=== PATIENT | female | born 1950 | race Caucasian/White ===

== ENCOUNTER 2024-06-29 13:41 | Outpatient (REF) | payer MEDICARE, SELFPAY ==
--- OUTSIDE RECORDS SUMMARY | 2024-06-29 17:58 | XMS_ITS | Clinical Summary ---
Author Organization [facility] Address [address] [place] [address] Care Team Providers Care Grinder Set Up Operator Surface Name Role Phone Brenda Bethea MD Primary Care Provider [phone] Allergies Active Allergy Reactions Criticality Noted Date [...] Comments Diabetes Brother Heart attack Father from [place] Diabetes Mother Lupus Mother Stroke Mother Vitiligo [...] age to complete this topic Care Teams Grinder Set Up Operator Surface Relationship Specialty Start Date End Date Brenda Bethea MD PCP - General Internal Medicine 01/21/18
--- OUTSIDE RECORDS SUMMARY | 2024-06-29 17:58 | XMS_ITS | Encounter Summary ---
Author Organization [facility] Address [address] [place] [address] Care Team Providers Care Key Holder Name Role Phone Brenda Bethea MD Primary Care Provider [phone] Reason for Visit * Reason Onset Date Comments Med Refill 06/09/2024 Encounter Details Date Type Department Care Team (Late st Contact Info) Description 06/09/2024 Telephone Adult Medicine [facility] [address] [place] [phone] Brenda Bethea MD [address] [place], [place] Med Refill Social History Tobacco Use [...] ghassan Pharmacist Name: olga lidia PharmacyPhone # [phone] Is this a NEW medication?: no How long has the patient been taking this medication? Who prescribed this medication for the patient? pilar Who is patients PCP?: Brenda Bethea MD Payor: MEDICARE / Plan: MEDICARE PART A & B / Product Type: Medicare / documented in this encounter Plan of Treatment Upcoming Encounters Date Type Department Care Team (Late st Contact Info) Description 07/06/2024 12:30 PM EST Ancillary Procedure [facility] [address] [address] 08/10/2024 4:30 PM EDT Office Visit [facility] [address] [place], [place] [phone] Char León PA [address] [place] [address] 10/06/2024 2:00 PM EDT Office Visit Adult Medicine [facility] [address] [place] [address] Tammy Dennison PA [address] [place], [place] 11/08/2024 12:00 PM EDT Ancillary Procedure [facility] [address] [address] 12/15/2024 3:00 PM EDT Office Visit Vascular Surgery [facility] 300 [facility] [address] [place] [address] Aby Hollis PA 300 [facility] [address] [place] [address] documented as of this encounter Visit Diagnoses Not on filedocumented in this encounter Additional Health Concerns Assessment Noted Time PHQ-9 Depression Total Score: 0 06/06/19 3:04 PM EST A fall risk assessment has been complete d for the patient 06/06/2024 3:04 PM EST documented as of this encounter Care Teams Key Holder Relationship Specialty Start Date End Date Brenda Bethea MD [address] [place] [address] PCP - General Internal Medicine 01/21/18 documented as of this encounter
--- OUTSIDE RECORDS SUMMARY | 2024-06-29 17:58 | XMS_ITS | Clinical Summary ---
Author Organization [address] Address [address] [place] [address] Phone Care Team Providers Care Manager Fashion Name Role Phone Brenda Bethea MD Primary Care Provider [phone] Allergies Active Allergy Reactions Criticality Noted Date [...] Care Team Description 06/09/2024 Telephone Adult Medicine [address] [phone] Brenda Bethea MD Allergic Reaction 06/09/2024 Telephone Adult [address] [phone] Brenda Bethea MD Med Refill 06/06/2024 2:45 PM EST Office Visit Adult [address] [phone] Brenda Bethea MD Encounter for annual wellness visit (AWV) in Medicare patient (Primary Dx); Type 2 diabetes mellitus with stage 3 chronic kidney disease, with long-term current use of insulin, unspecified whether stage 3a or 3b CKD ([facility]/HCC); Stage 3 chronic kidney disease, unspecified whether stage 3a or 3b CKD ([facility]); Hypercholesterolemia; Dysuria; Acute UTI; Primary hypertension 06/06/2024 Telephone Adult Medicine [address] [phone] Brenda Bethea MD Medication Problem 05/20/2024 3:30 PM EST Office Visit Adult [address] [phone] Tammy Dennison PA Primary hypertension (Primary Dx) 05/18/2024 Telephone Endocrinology - [address] [phone] Char León PA 05/15/2024 11:19 AM EST - 05/15/2024 2:41 PM EST Emergency [facility] Emergency [address] [place] [address] Franklyn Archer MD Musculoskeletal back pain (Primary Dx) Discharge Disposition: Home or Self Care 05/12/2024 3:45 PM EST Office Visit Endocrinology [address] [phone] Char León PA Type 2 diabetes mellitus with other diabetic kidney complication, with long-term current use of insulin (CMS/HCC) (Primary Dx); Stage 3 chronic kidney disease, unspecified whether stage 3a or 3b CKD (CMS/HCC); Hypercholesterolemia; Primary hypertension 05/12/2024 Nurse Triage Adult Medicine [facility] [address] [place] [address] Brenda Bethea MD Hypertension; Walk-in 05/11/2024 1:00 PM EST Ancillary Procedure [facility] - [address] [place] [address] Syncope, unspecified syncope type 05/09/2024 3:10 PM EST - 05/09/2024 11:59 PM EST Hospital Encounter [facility] CT Scan [address] [place] [phone] Splenic infarction Discharge Disposition: Home or Self Care 03/29/2024 3:30 PM EST Office Visit Vascular Surgery - [place] [address] [place] [address] Dalia Warren PA Splenic infarction (Primary Dx) [...] mellitus type 2 wit h neurological manifestations ([facility]) 04/01/2012 Cervical radiculopathy 07/09/2016 Osteopenia 07/09/2016 Type 2 diabetes mellitus wit h cataract ([facility]) 07/21/2018 Malignant neoplasm of breast (female), unspecified site 1989 rt breast Pneumonia due to COVID-19 virus 04/30/2021 CKD (chronic kidney disease) stage 3, GFR 30-59 ml/min ([facility]/HCC) 08/09/2020 Depression 04/20/2017 GERD (gastroesophageal reflux [...] Description 07/06/2024 12:30 PM EST Ancillary Procedure [facility] - [address] [place] [address] 08/10/2024 4:30 PM EDT Office Visit Endocrinology - [place] [address] [place] [address] Char León PA [address] [place] [address] 10/06/2024 2:00 PM EDT Office Visit Adult Medicine [facility] [address] [place] [address] Tammy Dennison PA [address] [place] [address] 11/08/2024 12:00 PM EDT Ancillary Procedure [facility] - [facility] [address] [place] [address] 12/15/2024 3:00 PM EDT Office Visit Vascular Surgery - [place] [address] [place] [phone] Aby Hollis PA 300 [facility] [address] [place] [address] Health Maintenance Due Date Last Done Comments [...] complication, with long-term current use of insulin ([facility]) CULTURE URINE Routine 06/06/2024 3:30 PM EST [...] Blood UA POC Trace Negative, Trace Specific [place] UA POC 1.010 1.001 - 1.035 Ketones UA POC Negative Negative Bilirubin UA POC Negative Negative Glucose UA POC Normal Normal, Trace Urine Urine specimen obtained by clean catch procedure / Unknown 06/06/2024 3:52 PM EST Brenda Bethea MD POINT OF CARE TEST ENTER/EDIT OR DERABLES Final Result * (ABNORMAL) Hemoglobin A1c (06/06/2024 3:50 PM EST) [facility] Hemoglobin A1C 7.7(H) <6.5 % LAB CHEMISTRY METHOD 06/06/2024 9:51 PM EST [facility] Mean Bld Glu Estim. 174 mg/dL LAB CHEMISTRY METHOD 06/06/2024 9:51 PM EST [facility] Blood Venous blood specimen / Unknown Venipuncture / Unknown 06/06/2024 3:50 PM EST 06/06/2024 3:50 PM EST Char THACKER LAB BLOOD ORDERABLES Final Result [facility] [address] [place] [address], [place] [phone] * (ABNORMAL) Culture urine (06/06/2024 3:30 PM EST) [facility] Culture, Urine 50,000-100,000 CFU/mL Enterococcus faecalis(A) EVONNE 06/08/2024 8:23 AM EST [facility] Comment: Edited result: Previously reported [...] MICROBIOLOGY - GENERAL ORDER AGA Final Result [facility] [address] [place] [address], * XR Lumbar Spine 2-3 Views (05/15/2024 [...] Signed Date: 05/15/2024 13:52 ET Workstation ID: [id number] Transcribed By: Self Edit Transcribed Date: 05/15/2024 [...] Signed Date: 05/15/2024 13:52 ET Workstation ID: [id number] Transcribed By: Self Edit Transcribed Date: 05/15/2024 13:51 ET Franklyn Archer MD IMG XR PROCEDURES Final R esult * ECG 12 lead (05/15/2024 10:48 AM EST) Ventricular Rate ECG 82 BPM GEMUSE Atrial Rate 82 BPM GEMUSE P-R Interval 158 ms GEMUSE QRS Duration 136 ms GEMUSE Q-T Interval 410 ms GEMUSE QTc 479 ms GEMUSE P Wave [place] 5 degrees GEMUSE R [place] -35 degrees GEMUSE T [place] 80 degrees GEMUSE ECG Interpretation Sinus rhythm [...] atrial fibrillation and no bradycardia or pauses [facility] DIAGNOSTIC TESTING DEPARTMENT [address] [place] [address], [address], [place] [address] TEL: FAX: Type of Test: 24 Hour Holter Monitor Date of Test: 05/11/2024 Ordering Provider: KIRSTIE Wells Reason for Test: Syncope PVCA Pilot Teacher Findings: ?? 1: Predominant rhythm was Normal [...] subclavian artery origin atherosclerotic stenosis. Elizabeth THACKER ([id number]) -------- FINAL REPORT -------- Dictated By: Ruth Steiner Dictated Date: 05/16/2024 09:00 ET Assigned Physician: Ruth Steiner Reviewed and Electronically Signed By: Ruth Steiner Signed Date: 05/16/2024 09:10 ET Workstation ID: [id number] Transcribed By: Self Edit Transcribed Date: 05/16/2024 [...] images were reviewed. DLP: 238.00 mGy/cm GE MVP Interactive [place] Iterative reconstruction technique Findings: The thoracic aorta [...] were reviewed. DLP: 238.00 mGy/cm GE Revolution [place] Iterative reconstruction technique Findings: The thoracic aorta [...] 3. Bilateral subclavian artery origin atherosclerotic stenosis. [email or web address] THACKER ([id number]) -------- FINAL REPORT -------- Dictated By: Ruth Steiner Dictated Date: 05/16/2024 09:00 ET Assigned Physician: Ruth Steiner Reviewed and Electronically Signed By: Ruth Steiner Signed Date: 05/16/2024 09:10 ET Workstation ID: [id number] Transcribed By: Self Edit Transcribed Date: 05/16/2024 09:00 ET Dalia THACKER IMG CT PROCEDURES Final Result * Lipid panel with reflex to direct LDL (03/14/2024 5:44 AM EST) Cholesterol 147 0 - 200 mg/dL LAB CHEMISTRY METHOD 03/14/2024 7:18 AM EST [facility] Triglycerides 113 0 - 150 mg/dL LAB CHEMISTRY METHOD 03/14/2024 7:18 AM EST [facility] HDL 47 >=40 mg/dL LAB CHEMISTRY METHOD 03/14/2024 7:18 AM [facility] LDL Calculated 77 0 - 100 mg/dL LAB CHEMISTRY METHOD 03/14/2024 7:18 AM [facility] VLDL Cholesterol [place] 22.6 mg/dL LAB CHEMISTRY METHOD 03/14/2024 7:18 AM [facility] Non HDL Chol. (LDL+VLDL) 100 <145 mg/dL LAB CHEMISTRY METHOD 03/14/2024 7:18 AM [facility] Chol/HDL Ratio 3.1 0.0 - 4.4 LAB CHEMISTRY METHOD 03/14/2024 7:18 AM [facility] Blood Venous blood specimen / Unknown Venipuncture / Unknown 03/14/2024 5:44 AM EST 03/14/2024 6:29 AM EST us Dwain Munoz MD LAB BLOOD ORDERABLES Final Result [facility] [address] [place] [address], * (ABNORMAL) Comprehensive metabolic panel (03/14/2024 5:44 AM EST) Sodium 141 133 - 145 mmol/L LAB CHEMISTRY METHOD 03/14/2024 7:16 AM [facility] Potassium 4.0 3.5 - 5.5 mmol/L LAB CHEMISTRY METHOD 03/14/2024 7:16 AM [facility] Chloride 108 96 - 110 mmol/L LAB CHEMISTRY METHOD 03/14/2024 7:16 AM [facility] CO2 24 21 - 32 mmol/L LAB CHEMISTRY METHOD 03/14/2024 7:16 AM [facility] Anion Gap 9 3 - 11 LAB CHEMISTRY METHOD 03/14/2024 7:16 AM [facility] Glucose 170(H) 70 - 100 mg/dL LAB CHEMISTRY METHOD 03/14/2024 7:16 AM [facility] BUN 22 5 - 25 mg/dL LAB CHEMISTRY METHOD 03/14/2024 7:16 AM [facility] Creatinine 1.34(H) 0.50 - 1.10 mg/dL LAB CHEMISTRY METHOD 03/14/2024 7:16 AM [facility] eGFR 42(L) >=60 mL/min/1. 73m2 LAB CHEMISTRY METHOD 03/14/2024 7:16 AM [facility] Comment:Calculation based on the??Chronic Kidney Disease Epidemiology Collaboration (CKD-EPI) equation refit??without adjustment for race. BUN/Creatinine Ratio 16.4 LAB CHEMISTRY METHOD 03/14/2024 7:16 AM [facility] Calcium 9.4 8.5 - 10.5 mg/dL LAB CHEMISTRY METHOD 03/14/2024 7:16 AM [facility] AST (SGOT) 17 10 - 42 unit/L LAB CHEMISTRY METHOD 03/14/2024 7:16 AM [facility] ALT (SGPT) 14 10 - 60 unit/L LAB CHEMISTRY METHOD 03/14/2024 7:16 AM [facility] Alkaline Phosphatase 70 42 - 121 unit/L LAB CHEMISTRY METHOD 03/14/2024 7:16 AM [facility] Total Protein 6.3 6.0 - 8.0 g/dL LAB CHEMISTRY METHOD 03/14/2024 7:16 AM [facility] Albumin 3.2 3.2 - 5.0 g/dL LAB CHEMISTRY METHOD 03/14/2024 7:16 AM [facility] Total Bilirubin 0.5 0.0 - 1.4 mg/dL LAB CHEMISTRY METHOD 03/14/2024 7:16 AM [facility] Blood Venous blood specimen / Unknown Venipuncture / Unknown 03/14/2024 5:44 AM EST 03/14/2024 6:29 AM EST us Yovana THACKER LAB BLOOD ORDERABLES Final Resu lt [facility] [address] [place] [address], [place] [phone] * MG Mammo Digital Screening w [place] Left (03/08/2024 3:05 PM EST) Anatomical Region Laterality Modality Breast Left Mammography 03/17/2024 7:24 AM EST Impressions 03/17/2024 7:39 AM EST No mammographic evidence of malignancy. BREAST DENSITY: B - There are scattered areas of fibroglandular density. BI-RADS CATEGORY: 2 - BENIGN RECOMMENDATION: Screening left mammogram is recommended in 1 year. MAMMO LOCATION: [place], [address] [place] [address], [id number], . -------- FINAL REPORT -------- Dictated By: Cathie Rock Dictated Date: 03/17/2024 07:24 ET Assigned Physician: Cathie Rock Reviewed and Electronically Signed By: Cathie Rock Signed Date: 03/17/2024 07:39 ET Workstation ID: [id number] Transcribed By: Self Edit Transcribed Date: 03/17/2024 [...] is recommended in 1 year. MAMMO LOCATION: [facility], [address] [place] [address], [address], . -------- FINAL REPORT -------- Dictated By: Cathie Rock Dictated Date: 03/17/2024 07:24 ET Assigned Physician: Cathie Rock Reviewed and Electronically Signed By: Cathie Rock Signed Date: 03/17/2024 07:39 ET Workstation ID: [id number] Transcribed By: Self Edit Transcribed Date: 03/17/2024 07:24 ET Brenda Bethea MD IMG BI PROCEDURES Final Result * Urine Albumin Creatinine Ratio (02/09/2024) [facility] Urine Albumin Creatinine Ratio abstracted Result [facility] Provider HEALTH MAINTENANCE Final Result * Diabetes Eye Exam (08/04/2023) [facility] Diabetes: Annual Retina Eye Exam abstracted Result [facility] Provider HEALTH MAINTENANCE Final Result * Falls Risk Assessment (07/07/2023) [facility] Falls Risk Assessment abstracted Result [facility] Provider HEALTH MAINTENANCE Final Result * Depression Screening (03/04/2023) [facility] Depression Screening abstracted Historical Provider MD HEALTH MAINTENANCE Final Result * Colonoscopy (01/28/2019) [facility] Colonoscopy no interpretation , abstracted Anatomical [...] (World Health Organization Fracture Risk Assessment) [facility] Department of Internal Medicine recommends using [...] (World Health Organization Fracture Risk Assessment) [facility] Department of Internal Medicine recommendsusing National [...] Relevant to Health Maintenance Insurance MEDICARE [employer]ICAL [place] Advance Directives Documents on File Type Date Recorded Patient Horologist Expl anation Health Care Decision (hx) 01/11/2014 [...] currently active code status orders. Care Teams Manager Fashion Relationship Specialty Start Date End Date Brenda Bethea MD [address] [place] [address] PCP - General Internal Medicine 01/21/18
--- OUTSIDE RECORDS SUMMARY | 2024-06-29 17:58 | XMS_ITS | Encounter Summary ---
Author Organization [facility] Address [address] [place] [address] Care Team Providers Care Atm Technician Name Role Phone Brenda Bethea MD Primary Care Provider [phone] Reason for Visit * Reason Onset Date Comments Medication Problem 06/06/2024 Encounter Details Date Type Department Care Team (Late st Contact Info) Description 06/06/2024 Telephone Adult Medicine [facility] [address] [place] [phone] Brenda Bethea MD [address] [place], [place] Medication Problem Social History Tobacco Use [...] Description 07/06/2024 12:30 PM EST Ancillary Procedure [facility] - [address] [place] [address] 08/10/2024 4:30 PM EDT Office Visit Endocrinology - [place] [address] [place] [address] Char León PA [address] [place] [address] 10/06/2024 2:00 PM EDT Office Visit Adult Medicine [facility] [address] [place] [address] Tammy Dennison PA [address] [place] [address] 11/08/2024 12:00 PM EDT Ancillary Procedure [facility] - [facility] [address] [facility] [address] [place] [address] 12/15/2024 3:00 PM EDT Office Visit Vascular Surgery - [place] [address] [place] [phone] Aby Hollis PA [address] [facility] [address] [place] [address] documented as of this encounter Visit Diagnoses Not on filedocumented in this encounter Additional Health Concerns Assessment Noted Time PHQ-9 Depression Total Score: 0 06/06/19 3:04 PM EST A fall risk assessment has been complete d for the patient 06/06/2024 3:04 PM EST documented as of this encounter Care Teams Atm Technician Relationship Specialty Start Date End Date Brenda Bethea MD [address] [place] [address] PCP - General Internal Medicine 01/21/18 documented as of this encounter
--- OUTSIDE RECORDS SUMMARY | 2024-06-29 17:58 | XMS_ITS | Encounter Summary ---
Author Organization [facility] Address [address] [place] [address] Care Team Providers Care Bobj Developer Name Role Phone Brenda Bethea MD Primary Care Provider [phone] Reason for Visit * Reason Onset Date Comments Allergic Reaction 06/09/2024 Encounter Details Date Type Department Care Team (Late st Contact Info) Description 06/09/2024 Telephone Adult Medicine [facility] [address] [place] [address] Brenda Bethea MD [address] [place], [place] Allergic Reaction Social History Tobacco Use [...] option would be IV antibiotics. Rosi will mortgage counselor the pt regarding taking this medication [...] She has an upcoming appointment with her reed fixer on 06/20/24. * Brenda Bethea MD - 06/10/2024 9:26 AM EST She needs to talk to her reed fixer regarding the lupus; she is allergic to [...] Description 07/06/2024 12:30 PM EST Ancillary Procedure [place] [address] [address] 08/10/2024 4:30 PM EDT Office Visit [address] [phone] Char León PA [address] [place] [address] 10/06/2024 2:00 PM EDT Office Visit Adult Medicine [address] [phone] Tammy Dennison PA [address] [place], [place] 11/08/2024 12:00 PM EDT Ancillary Procedure [place] [address] [address] 12/15/2024 3:00 PM EDT Office Visit Vascular Surgery [address] [phone] Aby Hollis PA [address] [address] documented as of this encounter Visit Diagnoses Not on filedocumented in this encounter Additional Health Concerns Assessment Noted Time PHQ-9 Depression Total Score: 0 06/06/19 25 3:04 PM EST A fall risk assessment has been complete d for the patient 06/06/2024 3:04 PM EST documented as of this encounter Care Teams Bobj Developer Relationship Specialty Start Date End Date Brenda Bethea MD [address] [place] [address] PCP - General Internal Medicine 01/21/18 documented as of this encounter
--- OUTSIDE RECORDS SUMMARY | 2024-06-29 17:58 | XMS_ITS | Encounter Summary ---
Author Organization [facility] Address [address] [place] [address] Care Team Providers Care Prosthetist Name Role Phone Brenda Bethea MD Primary Care Provider [phone] Reason for Visit * Reason Comments AWV Hypertension Diabetes Fsbs 251 UTI Encounter Details Date Type Department Care Team (Late st Contact Info) Description 06/06/2024 2:45 PM EST Office Visit Adult Medicine [facility] [address] [place] [phone] Brenda Bethea MD [address] [place], [place] Encounter for annual wellness visit (AWV) [...] (diabetes mellitus), type 2 with renal complications ([facility]/HCC) * Brenda Bethea MD - 06/06/2024 2:45 PM ESTAssociated Problem(s): CKD (chronic kidney disease) stage 3, GFR 30-59 ml/min ([facility]) * Brenda Bethea MD - 06/06/2024 2:45 [...] kidney disease) stage 3, GFR 30-59 ml/min ([facility]/HCC) 08/09/2020 Depression 04/20/2017 Diabetes mellitus type 2 with neurological manifestations ([facility]/HCC) 04/01/2012 DM (diabetes mellitus), type 2, uncontrolled, [...] 04/01/2012 Type 2 diabetes mellitus with cataract ([facility]/HCC) 07/21/2018 Past Surgical History: Procedure Laterality Date [...] Medicine) MD Char Munguia PA as Physician Toaster Operator (Endocrinology) Aby Hollis PA as Physician Toaster Operator (Vascular Surgery) Johnnie Braswell MD as Referring [...] Aged Out Brenda Bethea MD ADULT MEDICINE [address] [address] Dept: [phone] Dept * Brenda Bethea MD - 06/06/2024 [...] Diabetes mellitus type 2 with neurological manifestations ([facility]) Cervical radiculopathy Acute pancreatitis Type 2 diabetes mellitus with cataract ([facility]/HCC) Proteinuria Pneumonia due to COVID-19 virus Sensory peripheral neuropathy Breast cancer ([facility]/HCC) LBBB (left bundle branch block) 03/14/2024 Primary hypertension 03/14/2024 Hypercholesterolemia 03/14/2024 Polyp of colon 12/14/2023 GERD (gastroesophageal reflux disease) 05/27/2021 CKD (chronic kidney disease) stage 3, GFR 30-59 ml/min ([facility]) 08/09/2020 Depression 04/20/2017 Migraine variant 04/17/2005 Surgical [...] unspecified whether stage 3a or 3b CKD ([facility]) 3. Stage 3 chronic kidney disease, unspecified [...] Description 07/06/2024 12:30 PM EST Ancillary Procedure [place] [id number] [address] 08/10/2024 4:30 PM EDT Office Visit Endocrinology [address] [phone] Char León PA [address] [place] [address] 10/06/2024 2:00 PM EDT Office Visit Adult Medicine [address] [phone] Tammy Dennison PA [address] [place] [address] 11/08/2024 12:00 PM EDT Ancillary Procedure [address] [address] 12/15/2024 3:00 PM EDT Office Visit Vascular Surgery [address] [phone] Aby Hollis PA [address] [address] documented as of this encounter Procedures Procedure [...] Blood UA POC Trace Negative, Trace Specific [place] UA POC 1.010 1.001 - 1.035 Ketones [...] Enterococcus faecalis(A) EVONNE 06/08/2024 8:23 AM EST [facility] Comment: Edited result: Previously reported as [...] MICROBIOLOGY - GENERAL ORDER AGA Final Result [facility] [address] [place] [address], documented in this encounter Visit Diagnoses Diagnosis Encounter for annual wellness visit (AWV) in Medicare patient- Primary Type 2 diabetes mellitus with stage 3 chronic kidney disease, with long-term current use of insulin, unspecified whether stage 3a or 3b CKD ([facility]) Stage 3 chronic kidney disease, unspecified whether stage 3a or 3b CKD ([facility]) Hypercholesterolemia Pure hypercholesterolemia Dysuria Acute UTI Urinary [...] documented as of this encounter Care Teams Prosthetist Relationship Specialty Start Date End Date Brenda Bethea MD [address] [place] [address] PCP - General Internal Medicine 01/21/18 documented as of this encounter
[2024-06-29 18:37] LABS: MANUAL DIFF FLAG NO
[2024-06-29 18:47] LABS: Basophils Absolute Auto 0.1 X10*3/uL (0.0-0.2); Basophils Percent Auto 0.6 % (0-2); Eosinophils Absolute Auto 0.4 X10*3/uL (0.0-0.4); Eosinophils Percent Auto 4.3 % (0-4); Hematocrit 35.2 % (37.0-47.0); Hemoglobin 11.2 g/dl (12.0-16.0); Imm Gran Abs Auto 0.04 X10*3/uL (0.00-0.03); Imm Gran Pct Auto 0.4 % (0.0-0.4); Lymphocytes Absolute Auto 2.4 X10*3/uL (1.2-4.9); Lymphocytes Percent Auto 23.6 % (20-40); Mean Corpuscular HGB Conc 31.8 g/dl (31.0-35.0); Mean Corpuscular Hemoglobin 29.6 pg (27.0-33.0); Mean Corpuscular Volume 93.1 fL (80.0-98.0); Mean Platelet Volume 12.2 fL (9.4-12.3); Monocytes Absolute Auto 0.7 X10*3/uL (0.1-1.2); Monocytes Percent Auto 6.7 % (2-11); Neutrophils Absolute Auto 6.7 x10*3/uL (2.0-8.3); Neutrophils Percent Auto 64.4 % (45-73); Platelet Count 313 X10*3/uL (160-400); Red Blood Count 3.78 X10*6/uL (4.20-5.50); Red Cell Distribution Width 13.2 % (11.0-16.0); White Blood Count 10.3 X10*3/uL (4.8-10.8)
[2024-06-29 18:51] LABS: Appearance Urine Clear; Color Urine Yellow; Glucose Urine UA Negative (Negative); Leukocyte Esterase Urine Small (1+) (Negative); Nitrite Urine Negative (Negative); UMIC TRIGGER UA YES; Urine Blood Negative (Negative); Urine Ketones Negative (Negative); Urine Protein Trace mg/dL (Neg-Trace)
[2024-06-29 18:57] LABS: Bacteria Urine Trace (None Seen); RBC Urine 0-2 /HPF (0-2); Squamous Epithelial Cell Urine >20 /HPF (0-2)
[2024-06-29 18:58] LABS: Alanine Aminotransferase 12 U/L (0-31); Aspartate Amino Transferase 21 U/L (5-31); Estimated Glomerular Filt Rate 38
[2024-06-29 19:02] LABS: Creatinine Urine 161.36 mg/dL; Total Protein Urine Random 16 mg/dL (<12)
[2024-06-30 08:40] LABS: HBc Num1 0.05 S/CO (0.00-0.79); HBsAGNum1 0.41 S/CO (0.00-0.99); Hepatitis B Core Antibody Nonreactive (Nonreactive); Hepatitis B Surface Antigen Negative (Negative); ~HepC Num1 0.11 S/CO (0.00-0.79); ~Hepatitis B Surface Antibody NONREACTIVE (Nonreactive); ~Hepatitis C Antibody Nonreactive (Nonreactive)
[2024-06-30 08:42] LABS: Complement C3 150 mg/dL (83-193)
[2024-07-01 09:03] LABS: Anti DNA DS Antibody <1 IU/mL; Antibody to SS-A Antigen <1.0 NEG AI (<1.0 NEG); Antibody to SS-B Antigen <1.0 NEG AI (<1.0 NEG); SM/Ribonucleoprotein Ab <1.0 NEG AI (<1.0 NEG); Smith Protein <1.0 NEG AI (<1.0 NEG)
[2024-07-02 01:34] LABS: TS Negative Control Passed; TS Panel A 1; TS Panel B 3; TS Positive Control Passed; TSpotTB Negative (Negative)
[2024-07-06 14:13] LABS: Anti Nuclear Antibody Screen POSITIVE (NEGATIVE)
== END 2024-06-29 13:42 | disposition home or self-care (01) ==
LOC: HO.HKASLDS 13:41
PROVIDERS: PCP Internal Medicine; Visit Provider Internal Medicine Rheumatology
DX: M32.9 Systemic lupus erythematosus, unspecified (principal); Z79.60 Long term (current) use of unspecified immunomodulators and immunosuppressants; Z79.899 Other long term (current) drug therapy
CPT/HCPCS: 36415; 81001; 82565; 82570; 84156; 84450; 84460; 85025; 86038; 86039; 86160; 86225; 86235; 86481; 86704; 86706; 86803; 87340

== ENCOUNTER 2024-06-29 13:41 | Outpatient (AMB) | payer MEDICARE, SELFPAY ==
--- NOTE | 2024-06-29 13:46 | A.OFFVIS_ITS ---
Vital Signs 06/29/24 13:47 Height 5 ft 7 in Weight 144 lb 13.499 oz BMI 22.7 BP 124/64 Blood Pressure Location Lt brachial Position Sitting Pulse 60 Pulse Source Pulse Oximeter Pulse Oximetry (%) 100 Oxygen Delivery Method Room Air Intake Visit Reasons: Lupus Intake Note: Patient presents for Lupus follow up. Accompanied by: Spouse Allergies amoxicillin Allergy (Verified 06/29/24 13:47) Nausea morphine [From Duramorph (PF)] Allergy (Verified 06/29/24 13:47) nausea codiene sulfate Allergy (Uncoded 06/15/24 14:51) nausea HPI HPI Lupus: Details: She continues to have joint swelling. SHe had to use prednisone left over from the past due to joint swelling. She sees Dr. Mac [place] operations intelligence officer [facility] few weeks She had a UTI few weeks ago. She has been experiencing pain left upper back since last year. She went to the emergency department for evaluation and treatment. She received lidocaine injections to the area, which provided temporary pain relief. She also had trigger point injection from payroll machine operator at the [facility] last year after a left the practice. She reports that she also had temporary benefit in relieving neck pain with a trigger point injection. She denies fevers, rash, dyspnea, pleurisy, oral ulcers, urinary symptoms at this time. She does have dry eyes and dry mouth. [facility] Medical History Colitis TIA (transient ischemic attack) Breast cancer Surgical History Hx of cholecystectomy Hx of left mastectomy Family History Father Heart disease Mother Lupus (systemic lupus erythematosus) Stroke Family/Other Psoriasis Other Gout Social History Household Members: Significant Other Alcohol intake: never Patient Tobacco Use Status: Never used Tobacco Current occupational status: retired Review of Systems Const All systems reviewed & are unremarkable except as noted in HPI and below Physical Exam Vital Signs: Last Vital Signs Pulse 60 06/29/24 13:47 BP 124/64 06/29/24 13:47 Pulse Ox 100 06/29/24 13:47 Oxygen Delivery Method Room Air 06/29/24 13:47 BMI result Body Mass Index 22.7 Const Other: General: Comfortable CVS: RRR Respiratory: clear to auscultation bilaterally. Good respiratory effort Skin: No lesions seen MSK: She has synovitis right 2nd and 4th PIP. Tender to palpate bilateral MCPs and PIP knees. Tender wrists. Unable to make a full flight operations coordinator. Tender to palpate left anterior shoulder. She also has tenderness along the scapula. Shoulder abduction 160 degrees bilateral with pain. She has good internal and external rotation of bilateral shoulders. Bilateral knee, ankle and MTP tenderness. Assessment & Plan Assessment & Plan (1) SLE (systemic lupus erythematosus related syndrome): Comment: Presenting with chronic inflammatory arthritis that has not been controlled on monotherapy with hydroxychloroquine. She has response to prednisone but has required multiple courses of prednisone over the last 2-3 years to control inflammatory arthritis. She has failed treatment with Benlysta and has had either treatment failure or side effects on methotrexate and leflunomide. I will request medical records from [facility] in order labs to assess for systemic disease activity. Code(s): M32.9 - Systemic lupus erythematosus, unspecified Category: Medical Plan: Short course of prednisone prescribed to treat current symptoms from inflammatory arthritis Consider prescribing sulfasalazine next visit Records from [facility] requested She will need bone density if it has not been done recently due to long-term glucorticosteroid use Return to clinic in 1 month (2) Other correction (current) drug therapy: Code(s): Z79.899 - Other correction (current) drug therapy Category: Medical Plan: See above (3) Muscle strain of left scapular region: Comment: Discussed conservative management. Code(s): S46.912A - Strain of unspecified muscle, fascia and tendon at shoulder and upper arm level, left arm, initial encounter Category: Medical Qualifiers: Encounter type: initial encounter Qualified Code(s): S46.912A - Strain of unspecified muscle, fascia and tendon at shoulder and upper arm level, left arm, initial encounter Plan: PT ordered with myofascial release, modalities, TENs unit trial and exercise program Orders: Orders Complete Blood Count Auto Diff Today Z79.60 - retirement (current) use of unspecified immunomodulators and immunosuppressants Aspartate Amino Transferase Today Z79.60 - retirement (current) use of unspecified immunomodulators and immunosuppressants RIGO Reflex Titer and Pattern Today M32.9 - Systemic lupus erythematosus, unspecified, Z79.899 - Other intermediate teacher (current) drug therapy Anti DNA DS Antibody Today M32.9 - Systemic lupus erythematosus, unspecified, Z79.899 - Other correction (current) drug therapy Complement C4 Today M32.9 - Systemic lupus erythematosus, unspecified, Z79.899 - Other intermediate teacher (current) drug therapy UA w Microscopic Today M32.9 - Systemic lupus erythematosus, unspecified, Z79.899 - Other correction (current) drug therapy Hepatitis B,C Profile Today M32.9 - Systemic lupus erythematosus, unspecified, Z79.899 - Other correction (current) drug therapy Sjogren's Antibodies Today M32.9 - Systemic lupus erythematosus, unspecified, Z79.899 - Other intermediate teacher (current) drug therapy Alanine Aminotransferase Today Z79.60 - retirement (current) use of unspecified immunomodulators and immunosuppressants Creatinine Today Z79.60 - retirement (current) use of unspecified immunomodulators and immunosuppressants Sm Sm/PRODUCT COMMUNICATIONS MANAGER Antibodies Today M32.9 - Systemic lupus erythematosus, unspecified, Z79.899 - Other correction (current) drug therapy Complement C3 Today M32.9 - Systemic lupus erythematosus, unspecified, Z79.899 - Other correction (current) drug therapy Protein Creatinine Ratio, Ur Today M32.9 - Systemic lupus erythematosus, unspecified, Z79.899 - Other correction (current) drug therapy T Spot TB Today M32.9 - Systemic lupus erythematosus, unspecified, Z79.899 - Other correction (current) drug therapy PT Evaluation and Treatment Today S46.912A - Strain of unspecified muscle, fascia and tendon at shoulder and upper arm level, left arm, initial encounter Medications: New omeprazole 20 mg PO DAILY 1 cap 0RF prednisone Take 3 tablets daily 3 days, 2 tablets daily 3 days, 1 tablet daily 3 days then stop. Take prednisone with food 5 mg PO DIRECTED 18 tabs 0RF insulin glargine (Lantus U-100 Insulin) 10 units (0.1 mL) subcut DAILY 10 mL 0RF lorazepam 0.5 mg PO DAILY PRN 1 tab 0RF anxiety meclizine (Dramamine (meclizine)) 25 mg PO DAILY PRN 1 tab 0RF motion sickness polyethylene glycol 3350 17 grams PO DAILY 17 grams 0RF Coding Level of Care Code Est Pt Level 4 (13482) Complex EM visit Add On G2211 Diagnoses SLE (systemic lupus erythematosus related syndrome) M32.9 Other intermediate teacher (current) drug therapy Z79.899 Muscle strain of left scapular region, initial encounter S46.912A Encounter type: initial encounter Time Spent (min) 35
[2024-06-29 13:47] VITALS: BP 124/64; PULSE 60; O2SAT 100; BMI 22.7
--- OUTSIDE RECORDS SUMMARY | 2024-06-29 16:49 | XMS_ITS | Clinical Summary ---
Author Organization [facility] Address [address] [place] [address] Care Team Providers Care Landscape Maintenance Internship Name Role Phone Brenda Bethea MD Primary Care Provider [phone] Allergies Active Allergy Reactions Criticality Noted Date Comments Amoxicillin 02/11/2018 Codeine 02/11/2018 Morphine 02/11/2018 Medications Medication Sig Dispensed Refills Start Date End Date Status Hydroxychloroquine Sulfate (PLAQUENIL PO) Take 200 mg by mouth 2 (two) times a day. 0 Active DICYCLOMINE HCL PO Take 10 mg by mouth daily. 0 Active LISINOPRIL PO Take 40 mg by mouth daily. 0 Active SIMVASTATIN PO Take 10 mg by mouth daily. 0 Active aspirin 81 MG chewable tablet Chew 81 mg by mouth daily. 0 Active GABAPENTIN PO Take by mouth. 0 Active SERTRALINE HCL PO Take 100 mg by mouth daily. 0 Active CALCIUM PO Take by mouth. 0 Active brimonidine (ALPHAGAN) 0.2 % ophthalmic solution 1 drop every 12 (twelve) hours. 0 Active Dorzolamide HCl-Timolol Mal (COSOPT OP) Apply to eye. 0 Active MECLIZINE HCL PO Take 25 mg by mouth daily as needed. 0 Active OMEPRAZOLE PO Take 20 mg by mouth daily. 0 Active LORazepam (ATIVAN) 0.5 MG tablet Take 0.5 mg by mouth daily. 0 Active insulin glargine (LANTUS SOLOSTAR) injection 100 units/mL Inject 34 Units under the skin every night at bedtime. 0 Active insulin lispro (HumaLOG) injection 100 units/mL Inject under the skin 3 (three) times a day before meals. 6-15 before bed 0 Active cholecalciferol (VITAMIN D3) 1000 units tablet Take 1,000 Units by mouth daily. 0 Active Calcium Carbonate-Vitamin D (CALCIUM 600+D PO) Take by mouth 2 (two) times a day. 0 Active amLODIPine (NORVASC) tablet 10 mg TK 1 T PO D 1 02/11/2018 Active Active Problems No known active problems Family History Medical History Relation Name Comments Diabetes Brother Heart attack Father from [place] Diabetes Mother Lupus Mother Stroke Mother Vitiligo Sister 1 Diabetes Sister 2 Fibromyalgia Sister 3 Diabetes Son 1 Lupus Son 1 No Sig Med Hx Son 2 No Sig Med Hx Son 3 Relation Name Status Comments Brother Alive Father Mother Sister 1 Alive Sister 2 Alive Sister 3 Alive Son 1 Alive Son 2 Alive Son 3 Alive Social History Tobacco Use Types Packs/Day Years Used Date Smoking Tobacco: Never Smokeless Tobacco: Never Alcohol Use Standard Drinks/Week Comments No 0 (1 standard drink = 0.6 oz pur e alcohol) Sex and Gender Information Value Date Recorded Sex Assigned at Not on file Gender Identity Not on file Sexual Orientation Not on file Job Start Date Occupation Industry Not on file Not on file Not on file Last Filed Vital Signs Vital Sign Reading Time Taken Comments Blood Pressure 117/53 06/24/2018 3:03 PM EST Pulse 62 06/24/2018 3:03 PM EST Temperature 36.2 ??C (97.2 ??F) 06/10/2018 3:03 PM ES T Respiratory Rate - - Oxygen Saturation - - Inhaled Oxygen Concentration - - Weight 68.5 kg (151 lb) 06/24/2018 3:03 PM EST Height 165.1 cm (5' 5 ) 06/24/2018 3:03 PM EST Body Mass Index 25.13 06/24/2018 3:03 PM EST Plan of Treatment Health Maintenance Due Date Last Done Comments Hepatitis C Screening 1950 COVID-19 Vaccine (#1) 01/18/1950 Depression Screening 1961 Preventative Health Evaluation 07/19/1967 DTap / Tdap / Td (1 - Tdap) 1968 Colon Cancer Screening (Colonoscopy) 1994 Breast Cancer Screening (Mammogram) 07/19/1999 Shingrix-Zoster Vaccine (1 of 2) 07/19/1999 Fall Risk Assessment 2014 Osteoporosis Screening (DEXA Scan) 2014 Pneumococcal Vaccine (1 of 1 - PCV) 2014 Influenza Vaccine (#1) 2024 RSV Adult > 60+ Yrs or Pregn ant (1 - 1-dose 75+ series) 2024 Hepatitis B Vaccines Aged Out No long er eligible based on patient's age to complete this topic RSV Ped < 20 months Aged Out No longe r eligible based on patient's age to complete this topic Care Teams Landscape Maintenance Internship Relationship Specialty Start Date End Date Brenda Bethea MD PCP - General Internal Medicine 01/21/18
--- OUTSIDE RECORDS SUMMARY | 2024-06-29 16:50 | XMS_ITS | Encounter Summary ---
Author Organization [facility] Address [address] [place] [address] Care Team Providers Care Meteorology Instructor Name Role Phone Brenda Bethea MD Primary Care Provider [phone] Reason for Visit * Reason Onset Date Comments Allergic Reaction 06/09/2024 Encounter Details Date Type Department Care Team (Late st Contact Info) Description 06/09/2024 Telephone Adult Medicine [facility] [address] [place] [address] Brenda Bethea MD [address] [place], [place] Allergic Reaction Social History Tobacco Use Types Packs/Day Years Used Date Smoking Tobacco: Never Smokeless Tobacco: Never Alcohol Use Standard Drinks/Week Comments No 0 (1 standard drink = 0.6 oz pur e alcohol) Comments Unknown Sex and Gender Information Value Date Recorded Sex Assigned at Female 03/04/2024 2:42 PM EDT Legal Sex Female 3:42 AM EST Gender Identity Female 03/04/2024 2:42 PM EDT Sexual Orientation Straight 03/04/2024 2: 42 PM EDT documented as of this encounter Functional Status * Are you deaf or do you have serious difficulty hearing? Answer Date of Assessment Author No 03/13/2024 8:48 PM Kristen Arnold RN * Are you blind or do you have serious difficulty seeing, even when wearing glasses? Answer Date of Assessment Author No 03/13/2024 8:48 PM Kristen Arnold RN * Do you have serious difficulty walking or climbing stairs? Answer Date of Assessment Author No 03/13/2024 8:48 PM Kristen Arnold RN * Do you have serious difficulty dressing or bathing? Answer Date of Assessment Author No 03/13/2024 8:48 PM Kristen Arnold RN * Because of a physical, mental, or emotional condition, do you have serious difficulty doing errandsalone such as visiting the doctor? Answer Date of Assessment Author No 03/13/2024 8:48 PM Kristen Arnold RN documented as of this encounter Mental Status * Because of a physical, mental, or emotional condition, do you have serious difficulty concentrating, remembering, or making decisions? (5 years old or older) Answer Entry Date Author No 03/13/2024 8:48 PM Kristen Arnold RN documented in this encounter Progress Notes * Lore Curtis RN - 06/10/2024 9:47 AM EST Called and spoke to a pharmacist, Rosi. She was informed per Dr. Bethea; regarding the lupus; she is allergic to penicillin and the only other oral option is cipro or levoquin both of which would be contraindicated given her other medications. Since we have no record of the allergic reaction to the macrobid The pt's only other option would be IV antibiotics. Rosi will psychotherapist counselor the pt regarding taking this medication r/t risk of allergic reaction. * Lore Curtis RN - 06/10/2024 9:34 AM EST Called and spoke to pt's and then the pt regarding the potential antibiotics per Dr. Bethea; she is allergic to penicillin and the only other oral option is cipro or levoquin both of which would be contraindicated given her other medications. Since we have no record of the allergic reaction to the macrobid, I would suggest cautiously tryingit Pt states she would like to try taking the Macrobid. She has an upcoming appointment with her communications operator on 06/20/24. * Brenda Bethea MD - 06/10/2024 9:26 AM EST She needs to talk to her communications operator regarding the lupus; she is allergic to penicillin and the only other oral option is cipro or levoquin both of which would be contraindicated given her other medications. Since we have no record of the allergic reaction to the macrobid, I would suggest cautiously tryingit * Lore Curtis RN - 06/10/2024 9:05 AM EST Called and spoke to pt's Be who states the pt is sleeping. He states pt does not remember ever taking Nitrofurantoin and does not recall what her reaction wasto this medication. Be would like a call when a new prescription is sent to pt's pharmacy. His was up all night last night with a Lupus flare up. * Lore Curtis RN - 06/10/2024 9:04 AM EST Attempted to call pt. 2'nd attempt. A message was left for her to call the office at . * Brenda Bethea MD - 06/09/2024 5:39 PM EST I previously responded to this requesting more information about the allergy since we do not have this medication listed as an allergy; please find out exactly what the allergic reaction is then I will send a different medication * Ronda Swain - 06/09/2024 4:46 PM EST Medication Problem: What is the name of the medication patient is having a problem with?: Antibiotic Medication prescribed on Mondays06/06/2024 What is the problem?: Pharmacist says patient is allergic for medication. Needs another other antibiotic that is a different brand. Who is calling about the problem? : The patient Is this a NEW medication?: yes How long has the patient been taking this medication? Hasn't started medication. Has been waiting since Thursday to resolve issue. Who prescribed this medication for the patient? Dr. Bethea Who is patients PCP?: Brenda Bethea MD Payor: MEDICARE / Plan: MEDICARE PART A & B / Product Type: Medicare / documented in this encounter Plan of Treatment Upcoming Encounters Date Type Department Care Team (Late st Contact Info) Description 07/06/2024 12:30 PM EST Ancillary Procedure [place] [address] [phone] 08/10/2024 4:30 PM EDT Office Visit [address] [phone] Char León PA [address] [place] [address] 10/06/2024 2:00 PM EDT Office Visit Adult Medicine [address] [phone] Tammy Dennison PA [address] [place], [place] 11/08/2024 12:00 PM EDT Ancillary Procedure [place] [address] [address] 12/15/2024 3:00 PM EDT Office Visit Vascular Surgery [address] [phone] Aby Hollis PA [address] [address] documented as of this encounter Visit Diagnoses Not on filedocumented in this encounter Additional Health Concerns Assessment Noted Time PHQ-9 Depression Total Score: 0 06/06/19 25 3:04 PM EST A fall risk assessment has been complete d for the patient 06/06/2024 3:04 PM EST documented as of this encounter Care Teams Meteorology Instructor Relationship Specialty Start Date End Date Brenda Bethea MD [address] [place] [address] PCP - General Internal Medicine 01/21/18 documented as of this encounter
--- OUTSIDE RECORDS SUMMARY | 2024-06-29 16:50 | XMS_ITS | Encounter Summary ---
Author Organization [facility] Address [address] [place] [address] Care Team Providers Care Central Aisle Cashier Name Role Phone Brenda Bethea MD Primary Care Provider [phone] Reason for Visit * Reason Onset Date Comments Med Refill 06/09/2024 Encounter Details Date Type Department Care Team (Late st Contact Info) Description 06/09/2024 Telephone Adult Medicine [facility] [address] [place] [phone] Brenda Bethea MD [address] [place], [place] Med Refill Social History Tobacco Use Types Packs/Day Years [...] of Assessment Author No 03/13/2024 8:48 PM EST Kristen Swift RN * Are you blind or do [...] documented in this encounter Progress Notes * KIRSTIE Wells - 06/09/2024 6:16 PM EST Duplicate encounter. KIRSTIE Wells * Ronda Swain - 06/09/2024 2:30 PM EST Medication Problem: What is the name of the medication patient is having a problem with?: macrobid What is the problem?: reaction. Patient never called however pharmacy is asking status of med change that is needed. Who is calling about the problem? : A pharmacist: Pharmacy: [facility] Pharmacist Name: olga lidia PharmacyPhone # [phone] Is this a NEW medication?: no How long has the patient been taking this medication? Who prescribed this medication for the patient? pilar Who is patients PCP?: Brenda eBthea MD Payor: MEDICARE / Plan: MEDICARE PART A & B / Product Type: Medicare / documented in this encounter Plan of Treatment Upcoming Encounters Date Type Department Care Team (Late st Contact Info) Description 07/06/2024 12:30 PM EST Ancillary Procedure [facility] [address] [phone] 08/10/2024 4:30 PM EDT Office Visit [facility] [address] [place], [place] [phone] Char León PA [address] [place] [address] 10/06/2024 2:00 PM EDT Office Visit Adult Medicine [facility] [address] [place] [address] Tammy Dennison PA [address] [place], [place] 11/08/2024 12:00 PM EDT Ancillary Procedure [facility] [address] [address] 12/15/2024 3:00 PM EDT Office Visit Vascular Surgery [facility] 300 [facility] [address] [place] [address] Aby Hollis PA 300 [facility] [address] [place] [address] documented as of this encounter Visit Diagnoses Not on filedocumented in this encounter Additional Health Concerns Assessment Noted Time PHQ-9 Depression Total Score: 0 06/06/19 3:04 PM EST A fall risk assessment has been complete d for the patient 06/06/2024 3:04 PM EST documented as of this encounter Care Teams Central Aisle Cashier Relationship Specialty Start Date End Date Brenda Bethea MD [address] [place] [address] PCP - General Internal Medicine 01/21/18 documented as of this encounter
--- OUTSIDE RECORDS SUMMARY | 2024-06-29 16:50 | XMS_ITS | Clinical Summary ---
Author Organization [address] Address [address] [place] [address] Phone Care Team Providers Care Apartment Manager Name Role Phone Brenda Bethea MD Primary Care Provider [phone] Allergies Active Allergy Reactions Criticality Noted Date Comments Amoxicillin Nausea And Vomiting 03/13/2024 Morphine Hallucinations 03/13/2024 Medications hydroxychloroqu ine (PlaqueniL) 200 mg tablet Take 1 tablet (200 mg total) by mouth. Active lisinopriL (PRINIVIL,ZESTR IL) 20 mg tablet Take 1 tablet (20 mg total) by mouth. 02/13/20 23 Active sertraline (ZOLOFT) 100 mg tablet Take 1.5 tablets (150 mg total) by mouth 1 (one) time each day. 12/14/19 24 Active simvastatin (ZOCOR) 20 mg tablet Take 1 tablet (20 mg total) by mouth. 02/13/20 23 Active brimonidine (ALPHAGAN) 0.2 % ophthalmic solution Administer 1 drop into both eyes 2 (two) times a day. Active dorzolamide-liss oloL (COSOPT) 22.3-6.8 mg/mL ophthalmic solution Administer 1 drop into both eyes 2 (two) times a day. 03/03/20 24 Active blood sugar diagnostic (Contour Next Test Strips) test strip Use to test blood sugar 4 times daily BEFORE injecting insulin 06/03/19 24 025 Active aspirin 81 mg EC tablet 1 TABLET DAILY Active fluticasone propionate (FLONASE) 50 mcg/actuation nasal spray 1 spray per nostril twice per day, as needed for nasal congestion 10/22/19 Active loratadine (CLARITIN) 10 mg tablet Take 1 tablet (10 mg total) by mouth 1 (one) time each day. 03/04/20 Active NovoLOG Flexpen U-100 Insulin 100 unit/mL (3 mL) injection pen Inject three times a day per sliding scale with meals. IF 100-150: 8 units; 151-200: 10 units; 201-250: 12 units; 251-300: 14 units; 301-350: 16 units; 351-400: 18 units 03/28/20 Active pen needle, diabetic 32 gauge x 5/32 needle To inject insulin 4x daily 300 each 03/28/20 Active acetaminophen (TYLENOL) 500 mg tablet Take 2 tablets (1,000 mg total) by mouth every 8 (eight) hours if needed for mild pain. 42 tablet 03/28/20 Active amLODIPine (NORVASC) 10 mg tablet Take 1 tablet (10 mg total) by mouth 1 (one) time each day. 30 each 05/12/19 25 026 Active capsaicin (ZOSTRIX) 0.025 % cream Apply topically 2 (two) times a day. 60 g 05/15/19 25 026 Active folic acid (FOLVITE) 1 mg tablet Take 1 tablet (1,000 mcg total) by mouth 1 (one) time each day. 05/26/19 24 Active acetaZOLAMIDE (DIAMOX) 250 mg tablet Take 1 tablet (250 mg total) by mouth 2 (two) times a day. 05/13/19 Active insulin glargine U-300 (Toujeo SoloStar U-300 Insulin) 300 unit/mL (1.5 mL) CONCENTRATED injection pen Use 34 units at bedtime SC, go up by 4 units every week if BS above 150. Max dose 60 units. 4.5 mL 2 05/23/19 Active omeprazole (PriLOSEC) [address] capsule Take 1 capsule (20 mg total) by mouth 1 (one) time each day. 90 each 1 06/06/19 25 Active omeprazole (PriLOSEC) [address] capsule Take 1 capsule (20 mg total) by mouth. 03/04/20 23 025 Discontinued(R eorder) dexAMETHasone (DECADRON) 4 mg tablet Take 1 tablet (4 mg total) by mouth 1 (one) time each day for 4 days. 4 each 05/15/19 25 025 Discontinued nitrofurantoin, macrocrystal-mo nohydrate, (MACROBID) 100 mg capsule Take 1 capsule (100 mg total) by mouth 2 (two) times a day for 5 days. 10 each 06/06/19 25 025 Active Problems Problem Noted Date Diagnosed Date TIA (transient ischemic attack) 04/16/2024 Glaucoma 04/16/2024 LBBB (left bundle branch block) 03/14/2024 Primary hypertension 03/14/2024 Hypercholesterolemia 03/14/2024 Assessment & Plan (06/06/2024 4:38 PM EST): Polyp of colon 12/14/2023 GERD (gastroesophageal reflux disease) CKD (chronic kidney disease) stage 3, GFR 30-59 ml/min 08/09/2020 Assessment & Plan (06/06/2024 4:38 PM EST): Depression 04/20/2017 Migraine variant 04/17/2005 Overview (04/16/2024): IMO update Osteopenia Lupus erythematosus Family history of malignant neoplasm of gastrointestinal tract Overview (04/16/2024): : Negative colonoscopy 03/22/2007, no colon cancer screening needed for 10 years. DM (diabetes mellitus), type 2 with renal compli cations Assessment & Plan (06/06/2024 4:38 PM EST): Diabetes mellitus type 2 with neurological manif estations Cervical radiculopathy Acute pancreatitis Type 2 diabetes mellitus with cataract Proteinuria Pneumonia due to COVID-19 virus Sensory peripheral neuropathy Breast cancer Overview (04/16/2024): rt breast Encounters Date Type Department Care Team Description 06/09/2024 Telephone Adult Medicine [address] [phone] Brenda Bethea MD Allergic Reaction 06/09/2024 Telephone Adult [address] [phone] Brenda Bethea MD Med Refill 06/06/2024 2:45 PM EST Office Visit Adult [address] [phone] Brenda Bethea MD Encounter for annual wellness visit (AWV) in Medicare patient (Primary Dx); Type 2 diabetes mellitus with stage 3 chronic kidney disease, with long-term current use of insulin, unspecified whether stage 3a or 3b CKD ([facility]/HCC); Stage 3 chronic kidney disease, unspecified whether stage 3a or 3b CKD ([facility]); Hypercholesterolemia; Dysuria; Acute UTI; Primary hypertension 06/06/2024 Telephone Adult Medicine [address] [phone] Brenda Bethea MD Medication Problem 05/20/2024 3:30 PM EST Office Visit Adult [address] [phone] Tammy Dennison PA Primary hypertension (Primary Dx) 05/18/2024 Telephone Endocrinology - [address] [phone] Char León PA 05/15/2024 11:19 AM EST - 05/15/2024 2:41 PM EST Emergency [facility] Emergency [address] [place] [address] Franklyn Archer MD Musculoskeletal back pain (Primary Dx) Discharge Disposition: Home or Self Care 05/12/2024 3:45 PM EST Office Visit Endocrinology [address] [phone] Char León PA Type 2 diabetes mellitus with other diabetic kidney complication, with long-term current use of insulin (CMS/HCC) (Primary Dx); Stage 3 chronic kidney disease, unspecified whether stage 3a or 3b CKD (CMS/HCC); Hypercholesterolemia; Primary hypertension 05/12/[address] Medicine [facility] [address] [place] [phone] Brenda Btehea MD Hypertension; Walk-in 05/11/2024 1:00 PM EST Ancillary Procedure [facility] - [address] [place] [address] Syncope, unspecified syncope type 05/09/2024 3:10 PM EST - 05/09/2024 11:59 PM EST Hospital Encounter [facility] CT Scan [address] [place] [id number] Splenic infarction Discharge Disposition: Home or Self Care 03/29/2024 3:30 PM EST Office Visit Vascular Surgery - [place] [address] [place] [address] Dalia Warren PA Splenic infarction (Primary Dx) from Last 3 Months Immunizations Name Administration Dates Next Due H1N1 Inj Preservative Free 06/18/2009 Influenza Quadravalent, 0.5m l (Fluzone High-dose) 65yo and older 02/23/2020 Influenza trivalent, 0.5mL ( Fluad) 65yo and older 02/02/2023,02/27/2022,02/23/2020,03/14,02/01/2018 Influenza trivalent, 0.5mL, preservative free (Fluarix; FluLaval; Fluzone) ages 6mo and older (Afluria) 3 years and older 03/03/2016,04/10/2015,02/27/2014,01/11,02/07/2011,03/28/2010,04/05/2009 ,02/18/2008,02/04/2007,03/28/2006,10/2004 Influenza trivalent, with pr eservative (Fluzone; Afluria) 6mo and older 02/27/2022 Influenza, Unspecified 02/18/2017,02/01/2013 Moderna SARS-CoV-2 COVID-19, mRNA, LNP-S, preservative free 07/19/2020 Pneumococcal conjugate 13 va lent (Prevnar 13, PCV13) 2mo and older 07/05/2012 Pneumococcal polysaccharide 23 valent (Pneumovax 23) 2yo and older 02/01/2017,10/02/2014,08/09/2002 Td, Unspecified 08/09/2002 Tdap Tetanus diptheria acell ular pertussis (Boostrix; Adacel) 7yo and older 11/10/2022,02/23/2012 Surgical History Surgery Date Site/Laterality Comments MASTECTOMY Right : right CHOLECYSTECTOMY 1984 COLONOSCOPY 03/10 COLONOSCOPY 6.21.16 SCREENING MAMMOGRAM 03/08/2024 Medical History Medical History Date Comments Acute pancreatitis 1992 Lupus erythematosus Proteinuria 06/18/2005 Pure hypercholesterolemia 05/12/2006 Family history of malignant neoplasm of gastrointestinal tract 03/22/2007 : Negative colonoscopy 03/22/2007, no colon cancer screening needed for 10 years. DM (diabetes mellitus), type 2, uncontrolled, with renal complications 04/17/2005 Sensory peripheral neuropathy 04/01/2012 Diabetes mellitus type 2 wit h neurological manifestations ([facility]) 04/01/2012 Cervical radiculopathy 07/09/2016 Osteopenia 07/09/2016 Type 2 diabetes mellitus wit h cataract ([facility]) 07/21/2018 Malignant neoplasm of breast (female), unspecified site 1989 rt breast Pneumonia due to COVID-19 virus 04/30/2021 CKD (chronic kidney disease) stage 3, GFR 30-59 ml/min ([facility]/HCC) 08/09/2020 Depression 04/20/2017 GERD (gastroesophageal reflux disease) 2 Migraine variant 04/17/2005 IMO upd ate Polyp of colon 12/14/2023 Family History Medical History Relation Name Comments Breast cancer Aunt m 70 MATERNAL Other: lupus Aunt m 70 Diabetes Brother Heart attack Father age 52 Colon cancer Maternal Grandfather dx at a ge 50-60., diabetes Breast cancer Maternal Grandmother Diabetes Mother lupus, stroke, hypothyroid Breast cancer Other m cousin 35 MATERNAL COUSI N Breast cancer Paternal Grandmother 68 Hyperthyroidism Sister Relation Name Status Comments Aunt m 70 Brother Father Maternal Grandfather Maternal Grandmother Mother Other m cousin 35 Alive Paternal Grandmother 68 Sister Social History Tobacco Use Types Packs/Day Years Used Date Smoking Tobacco: Never Smokeless Tobacco: Never Tobacco Cessation:Counseling Given: Not Answered Alcohol Use Standard Drinks/Week Comments No 0 (1 standard drink = 0.6 oz pur e alcohol) Comments Unknown Sex and Gender Information Value Date Recorded Sex Assigned at Female 03/04/2024 2:42 PM EDT Legal Sex Female 3:42 AM EST Gender Identity Female 03/04/2024 2:42 PM EDT Sexual Orientation Straight 03/04/2024 2: 42 PM EDT Obstetrics History Para Term AB IAB SAB Ectopic Multiple Livin g Live Births 3 3 3 3 Date Outcome GA Total Labor Labor/2nd/3rd Weight Sex Type Anes PTL Shanice A1 A5 Name Clin Term Term Term Last Filed Vital Signs Vital Sign Reading Time Taken Comments Blood Pressure 122/58 06/06/2024 2:54 PM EST Pulse 74 06/06/2024 2:54 PM EST Temperature 36.5 ??C (97.7 ??F) 06/06/2024 2:54 PM ES T Respiratory Rate 14 06/06/2024 2:54 PM EST Oxygen Saturation 97% 06/06/2024 2:54 PM EST Inhaled Oxygen Concentration - - Weight 64.5 kg (142 lb 1.6 oz) 06/06/2024 2:54 P M EST Height 165.1 cm (5' 5 ) 06/06/2024 2:54 PM EST Body Mass Index 23.65 06/06/2024 2:54 PM EST Plan of Treatment Upcoming Encounters Date Type Department Care Team (Late st Contact Info) Description 07/06/2024 12:30 PM EST Ancillary Procedure [facility] - [address] [place] [address] 08/10/2024 4:30 PM EDT Office Visit Endocrinology - [place] [address] [place] [phone] Char León PA [address] [place] [address] 10/06/2024 2:00 PM EDT Office Visit Adult Medicine [facility] [address] [place] [phone] Tammy Dennison PA [address] [place] [address] 11/08/2024 12:00 PM EDT Ancillary Procedure [facility] - [facility] [address] [place] [phone] 12/15/2024 3:00 PM EDT Office Visit Vascular Surgery - [place] [address] [place] [phone] Aby Hollis PA [address] [facility] [address] [place] [address] Health Maintenance Due Date Last Done Comments Diabetes: Annual Foot Exam 07/19/1959 Zoster Vaccines (1 of 2) 1968 RSV Immunization Patients 60+ Years Old (1 - Risk 60-74 years 1-dose series) 2009 COVID-19 Vaccine (3 - Moderna risk series) 08/16/2020 07/19/2020, 06/28/2020 Social Influencers of Health Screening 06/24/2022 Influenza Vaccine (#1) 2024 , 02/27/2022, 02/27/2022, Additional history exists Colorectal Cancer Screening: Colonoscopy 06/09/2024 06/09/2022, 01/28/2019 Diabetes: Annual Retina Eye Exam 08/03/2024 08/04/2023 Diabetes: Blood Sugar Control Test (HGBA1C) 12/04/2024 06/06/2024, 03/13/2024, 11/10/2023 Diabetes: Annual Urine Albumin-Creatinine Ratio (uACR) 02/08/2025 02/09/2024 Diabetes: Annual GFR (Glomerular Filtration Rate) 03/14/2025 03/14/2024, 03/13/2024, 02/09/2024, Additional history exists Hypertension/CHF/CAD Annual BMP Blood Test 03/14/2025 03/14/2024, 03/13/2024, 02/09/2024, Additional history exists Depression Screening 06/06/2025 06/06/2024, 03/04/20 Falls Risk Assessment 06/06/2025 06/06/2024 , 06/06/2024, 07/07/2023 Medicare Annual Wellness Visit 06/06/2025 06/06/2024 Breast Cancer Screening 03/08/2026 03/08/20 24, 03/03/2023, 02/27/2022, Additional history exists Osteoporosis Screening (Bone Density Screening) 08/25/2026 08/25/2016 Cholesterol Screening (Lipid Panel) 03/14/2029 03/14/2024, 02/09/2024, 02/09/2024 DTaP,Tdap,and Td Vaccines (4 - Td or Tdap) 11/10/2032 11/10/2022, 02/23/2012, 08/09/2002 Hepatitis C Screening Completed 11/08/2012 Pneumococcal Vaccine: 50+ Years Completed 02/01/2017, 10/02/2014, 07/05/2012, Additional history exists HIB Vaccines Aged Out No longer eligi ble based on patient's age to complete this topic HPV Vaccines Aged Out No longer eligi ble based on patient's age to complete this topic Hepatitis A Vaccines Aged Out No long er eligible based on patient's age to complete this topic Hepatitis B Vaccines Aged Out No long er eligible based on patient's age to complete this topic IPV Vaccines Aged Out No longer eligi ble based on patient's age to complete this topic MMR Vaccines Aged Out No longer eligi ble based on patient's age to complete this topic Meningococcal ACWY Vaccine Aged Out N o longer eligible based on patient's age to complete this topic Meningococcal B Vacine Aged Out No lo nger eligible based on patient's age to complete this topic RSV Immunization Patients Under 20 months Aged Out No longer eligible based on patient's age to complete this topic Varicella Vaccines Aged Out No longer eligible based on patient's age to complete this topic Procedures Procedure Name Priority Date/Time Associated Diagnosis Comments POC URINE NON-AUTO W/O MICRO Routine 06/06/2024 3:52 PM EST Acute UTI HEMOGLOBIN A1C Routine 06/06/2024 3:50 PM EST Type 2 diabetes mellitus with other diabetic kidney complication, with long-term current use of insulin ([facility]) CULTURE URINE Routine 06/06/2024 3:30 PM EST Acute UTI XR LUMBAR SPINE 2-3 VIEWS STAT 05/15/2024 1:21 PM EST ECG 12-LEAD STAT 05/15/2024 10:48 AM EST ECG ANNOTATED 05/15/2024 CARDIAC HOLTER MONITOR (REPORT GENERATED IN HOUSE) Routine 05/11/2024 1:00 PM EST Syncope, unspecified syncope type CT ANGIO CHEST WO AND/OR W CONTRAST Routine 05/09/2024 3:56 PM EST Splenic infarction COMPREHENSIVE METABOLIC PANEL Routine 03/14/2024 5:44 AM EST LIPID PANEL WITH REFLEX TO DIRECT LDL Routine 03/14/2024 5:44 AM EST MG MAMMO DIGITAL SCREENING W QUINTON LEFT Routine 03/08/2024 3:05 PM EST Encounter for screening mammogram for breast cancer URINE ALBUMIN CREATININE RATIO Routine 02/09/2024 DIABETES EYE EXAM Routine 08/04/2023 FALLS RISK ASSESSMENT Routine 07/07/2023 DEPRESSION SCREENING Routine 03/04/2023 COLONOSCOPY Routine 01/28/2019 DXA BONE DENSITY STUDY 1+ SITS AXIAL SKEL Routine 08/25/2016 1:34 PM EDT Other specified disorders of bone density and structure, unspecified site HEPATITIS C SCREENING Routine 11/08/2012 from Last 3 Months or Most Recently Relevant to Health Maintenance Results * (ABNORMAL) POC Urine Non-Auto W/O Micro (06/06/2024 3:52 PM EST) Leukocytes UA POC Positive(A) Negative Nitrite UA POC Positive(A) Negative Urobilinogen UA POC Positive(A) Negative Protein UA POC Negative Negative PH UA POC 5.0 5.0 - 9.0 Blood UA POC Trace Negative, Trace Specific [place] UA POC 1.010 1.001 - 1.035 Ketones UA POC Negative Negative Bilirubin UA POC Negative Negative Glucose UA POC Normal Normal, Trace Urine Urine specimen obtained by clean catch procedure / Unknown 06/06/2024 3:52 PM EST Brenda Bethea MD POINT OF CARE TEST ENTER/EDIT OR DERABLES Final Result * (ABNORMAL) Hemoglobin A1c (06/06/2024 3:50 PM EST) [facility] Hemoglobin A1C 7.7(H) <6.5 % LAB CHEMISTRY METHOD 06/06/2024 9:51 PM EST [facility] Mean Bld Glu Estim. 174 mg/dL LAB CHEMISTRY METHOD 06/06/2024 9:51 PM EST [facility] Blood Venous blood specimen / Unknown Venipuncture / Unknown 06/06/2024 3:50 PM EST 06/06/2024 3:50 PM EST Char THACKER LAB BLOOD ORDERABLES Final Result [facility] [address] [place] [address], [place] [phone] * (ABNORMAL) Culture urine (06/06/2024 3:30 PM EST) [facility] Culture, Urine 50,000-100,000 CFU/mL Enterococcus faecalis(A) EVONNE 06/08/2024 8:23 AM EST [facility] Comment: Edited result: Previously reported as Enterococcus species on 06/07/2024 at 1355 EST. Urine Urine specimen obtained by clean catch procedure / Unknown Non-blood Collection / Unknown 06/06/2024 3:30 PM EST 06/06/2024 3:30 PM EST Narrative Organism Antibiotic Method Susceptibility Enterococcus faecalis Benzylpenicillin EVONNE 4 ug/ml: Susceptible Enterococcus faecalis Ampicillin EVONNE <=2 ug/ml: Susceptible Enterococcus faecalis Ciprofloxacin EVONNE <=0.5 ug/ml: Susceptible Enterococcus faecalis Levofloxacin EVONNE 1 ug/ml: Susceptible Enterococcus faecalis Linezolid EVONNE 2 ug/ml: Susceptible Enterococcus faecalis Vancomycin EVONNE 1 ug/ml: Susceptible Enterococcus faecalis Tetracycline EVONNE >=16 ug/ml: Resistant Enterococcus faecalis Nitrofurantoin EVONNE <=16 ug/ml: Susceptible us Brenda Bethea MD LAB MICROBIOLOGY - GENERAL ORDER AGA Final Result [facility] [address] [place] [address], * XR Lumbar Spine 2-3 Views (05/15/2024 1:21 PM EST) Anatomical Region Laterality Modality Spine, L-spine Radiographic Heydi ging 05/15/2024 1:51 PM EST Impressions 05/15/2024 1:52 PM EST No acute fracture or deformity. ??Alignment is maintained. ??Minimal degenerative disc changes and degenerative changes of the posterior facets are noted. -------- FINAL REPORT -------- Dictated By: Dwain Ortiz Dictated Date: 05/15/2024 13:51 ET Assigned Physician: Dwain Ortiz Reviewed and Electronically Signed By: Dwain Ortiz Signed Date: 05/15/2024 13:52 ET Workstation ID: [id number] Transcribed By: Self Edit Transcribed Date: 05/15/2024 13:51 ET Narrative 05/15/2024 1:52 PM EST PROCEDURE: XR LUMBAR SPINE 2-3 VIEWS INDICATION: low back pain COMPARISON: CT abdomen and pelvis December 2023 Procedure Note Dwain Ortiz MD - 05/15/2024 PROCEDURE: XR LUMBAR SPINE 2-3 VIEWS INDICATION: low back pain COMPARISON: CT abdomen and pelvis December 2023 IMPRESSION: No acute fracture or deformity. Alignment is maintained. Minimaldegenerative disc changes and degenerative changes of the posterior facetsare noted. -------- FINAL REPORT -------- Dictated By: Dwain Ortiz Dictated Date: 05/15/2024 13:51 ET Assigned Physician: Dwain Ortiz Reviewed and Electronically Signed By: Dwain Ortiz Signed Date: 05/15/2024 13:52 ET Workstation ID: [id number] Transcribed By: Self Edit Transcribed Date: 05/15/2024 13:51 ET Franklyn Archer MD IMG XR PROCEDURES Final R esult * ECG 12 lead (05/15/2024 10:48 AM EST) Ventricular Rate ECG 82 BPM GEMUSE Atrial Rate 82 BPM GEMUSE P-R Interval 158 ms GEMUSE QRS Duration 136 ms GEMUSE Q-T Interval 410 ms GEMUSE QTc 479 ms GEMUSE P Wave Nelson 5 degrees GEMUSE R Nelson -35 degrees GEMUSE T Nelson 80 degrees GEMUSE ECG Interpretation Sinus rhythm with Premature atrial complexes Left axis deviation Left bundle branch block Abnormal ECG When compared with ECG of 14-MAR-2024 00:18, No significant change was found Confirmed by Hao FRENCH, MAHIN ([id number]) on 05/15/2024 3:38:08 PM GEMUSE 05/15/2024 10:4 8 AM EST 05/15/2024 3:38 PM EST us Franklyn Archer MD ECG ORDERABLES Final Res ult GEMUSE * ECG-Annotated (05/15/2024) us Provider Onbase ECG ORDERABLES Final Result * CARDIAC HOLTER MONITOR (REPORT GENERATED IN HOUSE) (05/11/2024 1:00 PM EST) Anatomical Region Laterality Modality Cardiac Diagnost ic Narrative 05/13/2024 1:32 PM EST ?Benign Holter monitor with normal sinus rhythm and left bundle branch block. 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 1: Predominant rhythm was Normal Sinus Rhythm with Left Bundle Branch Block. 2: Occasional PACs. Rare atrial pairs, atrial trigeminy, and one 5-beat atrial run with rate of 136 BPM. 3: No PVCs. 4: No significant pause noted, longest R-R was 1.6 seconds at 10:33 AM. 5: Diary returned with no symptoms noted. Impression: Normal sinus rhythm with left bundle branch block. ??Occasional premature atrial complexes and short atrial runs. ??No pauses or bradycardia. ??No sustained atrial or ventricular arrhythmias. us Tammy THACKER CV CARDIAC SERVICES PROCEDURE S Final Result * CT Angio Chest wo and/or w Contrast (05/09/2024 3:56 PM EST) Anatomical Region Laterality Modality Body Computed Tomogra phy 05/16/2024 9:00 AM EST Impressions 05/16/2024 9:10 AM EST Impression: 1. No thoracic aortic aneurysm or dissection. 2. Moderate mural calcification without significant mural thrombus identified. 3. Bilateral subclavian artery origin atherosclerotic stenosis. Elizabeth THACKER ([id number]) -------- FINAL REPORT -------- Dictated By: Ruth Steiner Dictated Date: 05/16/2024 09:00 ET Assigned Physician: Ruth Steiner Reviewed and Electronically Signed By: Ruth Steiner Signed Date: 05/16/2024 09:10 ET Workstation ID: [id number] Transcribed By: Self Edit Transcribed Date: 05/16/2024 09:00 ET Narrative 05/16/2024 9:10 AM EST History: Prior splenic infarct. Evaluate thoracic aorta. Personal history of lupus. Comparison: Thoracic CTA 11/28/19, CT abdomen/pelvis 12/20/23 Technique: Helical volumetric imaging of the thorax was performed during the rapid, uneventful intravenous administration of 90 cc's Isovue-370, using the CT angiography protocol tailored for evaluation of the thoracic aorta. Coronal and sagittal reformatted images and maximum intensity pixel images were reviewed. DLP: 238.00 mGy/cm GE [employer] [place] Iterative reconstruction technique Findings: The thoracic aorta is normal in caliber and homogeneously opacified. There is moderate mural calcification. No significant mural thrombus is identified. A normal, three-vessel aortic arch branching pattern is seen. There is extensive calcification of the left subclavian artery origin compatible with an underlying severe stenosis. There is also moderate mural calcification of the right subclavian artery origin suggesting underlying stenosis. Mild multichamber cardiomegaly is seen. The central pulmonary arteries are patent and homogeneously opacified to the subsegmental level bilaterally. Ancillary findings: No pleural or pericardial effusions are seen. No thoracic lymphadenopathy is identified. The thyroid gland is normal in size and without suspicious nodule. The trachea and central bronchial tree are patent. Mild dependent density is seen bilaterally, likely atelectasis. No airspace consolidations or suspicious pulmonary nodules are seen. Right mastectomy sequelae are noted. A small portion of the upper abdomen included on the lowest images through the thorax is remarkable for cholecystectomy sequelae. The regional skeleton is intact. Procedure Note Ruth Steiner MD - 05/16/2024 History: Prior splenic infarct. Evaluate thoracic aorta. Personal historyof lupus. Comparison: Thoracic CTA 11/28/19, CT abdomen/pelvis 12/20/23 Technique: Helical volumetric imaging of the thorax was performed duringthe rapid, uneventful intravenous administration of 90 cc's Isovue-370,using the CT angiography protocol tailored for evaluation of the thoracicaorta. Coronal and sagittal reformatted images and maximum intensity pixelimages were reviewed. DLP: 238.00 mGy/cm GE Revolution [place] Iterative reconstruction technique Findings: The thoracic aorta is normal in caliber and homogeneously opacified. Thereis moderate mural calcification. No significant mural thrombus isidentified. A normal, three-vessel aortic arch branching pattern is seen. There isextensive calcification of the left subclavian artery origin compatiblewith an underlying severe stenosis. There is also moderate muralcalcification of the right subclavian artery origin suggesting underlyingstenosis. Mild multichamber cardiomegaly is seen. The central pulmonaryarteries are patent and homogeneously opacified to the subsegmental levelbilaterally. Ancillary findings: No pleural or pericardial effusions are seen. No thoracic lymphadenopathyis identified. The thyroid gland is normal in size and without suspiciousnodule. The trachea and central bronchial tree are patent. Mild dependent densityis seen bilaterally, likely atelectasis. No airspace consolidations orsuspicious pulmonary nodules are seen. Right mastectomy sequelae are noted. A small portion of the upper abdomen included on the lowest images throughthe thorax is remarkable for cholecystectomy sequelae. The regional skeleton is intact. IMPRESSION: Impression: 1. No thoracic aortic aneurysm or dissection. 2. Moderate mural calcification without significant mural thrombusidentified. 3. Bilateral subclavian artery origin atherosclerotic stenosis. WISErgpaola THACKER ([id number]) -------- FINAL REPORT -------- Dictated By: Ruth Steiner Dictated Date: 05/16/2024 09:00 ET Assigned Physician: Ruth Steiner Reviewed and Electronically Signed By: Ruth Steiner Signed Date: 05/16/2024 09:10 ET Workstation ID: [id number] Transcribed By: Self Edit Transcribed Date: 05/16/2024 09:00 ET Dalia THACKER IMG CT PROCEDURES Final Result * Lipid panel with reflex to direct LDL (03/14/2024 5:44 AM EST) Cholesterol 147 0 - 200 mg/dL LAB CHEMISTRY METHOD 03/14/2024 7:18 AM EST [facility] Triglycerides 113 0 - 150 mg/dL LAB CHEMISTRY METHOD 03/14/2024 7:18 AM EST [facility] HDL 47 >=40 mg/dL LAB CHEMISTRY METHOD 03/14/2024 7:[address] [facility] LDL Calculated 77 0 - 100 mg/dL LAB CHEMISTRY METHOD 03/14/2024 7:[address] [facility] VLDL Cholesterol Bayron 22.6 mg/dL LAB CHEMISTRY METHOD 03/14/2024 7:[address] [facility] Non HDL Chol. (LDL+VLDL) 100 <145 mg/dL LAB CHEMISTRY METHOD 03/14/2024 7:[address] [facility] Chol/HDL Ratio 3.1 0.0 - 4.4 LAB CHEMISTRY METHOD 03/14/2024 7:[address] [facility] Blood Venous blood specimen / Unknown Venipuncture / Unknown 03/14/2024 5:44 AM EST 03/14/2024 6:29 AM EST us Dwain Munoz MD LAB BLOOD ORDERABLES Final Result [facility] [address] [place] [address], * (ABNORMAL) Comprehensive metabolic panel (03/14/2024 5:44 AM EST) Sodium 141 133 - 145 mmol/L LAB CHEMISTRY METHOD 03/14/2024 7:[address] [facility] Potassium 4.0 3.5 - 5.5 mmol/L LAB CHEMISTRY METHOD 03/14/2024 7:[address] [facility] Chloride 108 96 - 110 mmol/L LAB CHEMISTRY METHOD 03/14/2024 7:[address] [facility] CO2 24 21 - 32 mmol/L LAB CHEMISTRY METHOD 03/14/2024 7:[address] [facility] Anion Gap 9 3 - 11 LAB CHEMISTRY METHOD 03/14/2024 7:[address] [facility] Glucose 170(H) 70 - 100 mg/dL LAB CHEMISTRY METHOD 03/14/2024 7:[address] [facility] BUN 22 5 - 25 mg/dL LAB CHEMISTRY METHOD 03/14/2024 7:[address] [facility] Creatinine 1.34(H) 0.50 - 1.10 mg/dL LAB CHEMISTRY METHOD 03/14/2024 7:[address] [facility] eGFR 42(L) >=60 mL/min/1. 73m2 LAB CHEMISTRY METHOD 03/14/2024 7:[address] [facility] Comment:Calculation based on the??Chronic Kidney Disease Epidemiology Collaboration (CKD-EPI) equation refit??without adjustment for race. BUN/Creatinine Ratio 16.4 LAB CHEMISTRY METHOD 03/14/2024 7:[address] [facility] Calcium 9.4 8.5 - 10.5 mg/dL LAB CHEMISTRY METHOD 03/14/2024 7:[address] [facility] AST (SGOT) 17 10 - 42 unit/L LAB CHEMISTRY METHOD 03/14/2024 7:[address] [facility] ALT (SGPT) 14 10 - 60 unit/L LAB CHEMISTRY METHOD 03/14/2024 7:[address] [facility] Alkaline Phosphatase 70 42 - 121 unit/L LAB CHEMISTRY METHOD 03/14/2024 7:[address] [facility] Total Protein 6.3 6.0 - 8.0 g/dL LAB CHEMISTRY METHOD 03/14/2024 7:[address] [facility] Albumin 3.2 3.2 - 5.0 g/dL LAB CHEMISTRY METHOD 03/14/2024 7:[address] [facility] Total Bilirubin 0.5 0.0 - 1.4 mg/dL LAB CHEMISTRY METHOD 03/14/2024 7:[address] [facility] Blood Venous blood specimen / Unknown Venipuncture / Unknown 03/14/2024 5:44 AM EST 03/14/2024 6:29 AM EST us Yovana THACKER LAB BLOOD ORDERABLES Final Resu lt [facility] [address] [place] [address], [place] [phone] * MG Mammo Digital Screening w [place] Left (03/08/2024 3:05 PM EST) Anatomical Region Laterality Modality Breast Left Mammography 03/17/2024 7:24 AM EST Impressions 03/17/2024 7:39 AM EST No mammographic evidence of malignancy. BREAST DENSITY: B - There are scattered areas of fibroglandular density. BI-RADS CATEGORY: 2 - BENIGN RECOMMENDATION: Screening left mammogram is recommended in 1 year. MAMMO LOCATION: [facility], [address] [place] [address], [id number], . -------- FINAL REPORT -------- Dictated By: Cathie Rock Dictated Date: 03/17/2024 07:24 ET Assigned Physician: Cathie Rock Reviewed and Electronically Signed By: Cathie Rock Signed Date: 03/17/2024 07:39 ET Workstation ID: [id number] Transcribed By: Self Edit Transcribed Date: 03/17/2024 07:24 ET Narrative 03/17/2024 7:39 AM EST EXAM: Screening Mammogram CLINICAL: 73 years old, Female, routine annual exam. ??History of right breast cancer status post mastectomy in 1991. ??Remote history of a benign left excisional biopsy. COMPARISON: 03/03/2023 and as far back as 02/14/2020 ?? TECHNIQUE: Unilateral left MLO and CC views were obtained digitally with 3-D mammogram (digital breast tomosynthesis). Computer-aided detection was utilized in evaluation of this exam (CAD). FINDINGS: No new suspicious mass, architectural distortion, or suspicious calcifications. Stable postsurgical distortion with dystrophic calcifications in the upper outer breast. Procedure Note Cathie Rock MD - 03/17/2024 EXAM: Screening Mammogram CLINICAL: 73 years old, Female, routine annual exam. History of rightbreast cancer status post mastectomy in 1991. Remote history of a benignleft excisional biopsy. COMPARISON: 03/03/2023 and as far back as 02/14/2020 TECHNIQUE: Unilateral left MLO and CC views were obtained digitally with3-D mammogram (digital breast tomosynthesis). Computer-aided detection wasutilized in evaluation of this exam (CAD). FINDINGS: No new suspicious mass, architectural distortion, or suspiciouscalcifications. Stable postsurgical distortion with dystrophiccalcifications in the upper outer breast. IMPRESSION: No mammographic evidence of malignancy. BREAST DENSITY: B - There are scattered areas of fibroglandular density. BI-RADS CATEGORY: 2 - BENIGN RECOMMENDATION: Screening left mammogram is recommended in 1 year. MAMMO LOCATION: [facility], [address] [place] [address], [id number], . -------- FINAL REPORT -------- Dictated By: Cathie Rock Dictated Date: 03/17/2024 07:24 ET Assigned Physician: Cathie Rock Reviewed and Electronically Signed By: Cathie Rock Signed Date: 03/17/2024 07:39 ET Workstation ID: [id number] Transcribed By: Self Edit Transcribed Date: 03/17/2024 07:24 ET Brenda Bethea MD IMG BI PROCEDURES Final Result * Urine Albumin Creatinine Ratio (02/09/2024) [facility] Urine Albumin Creatinine Ratio abstracted Result [facility] Provider HEALTH MAINTENANCE Final Result * Diabetes Eye Exam (08/04/2023) [facility] Diabetes: Annual Retina Eye Exam abstracted Result [facility] Provider HEALTH MAINTENANCE Final Result * Falls Risk Assessment (07/07/2023) [facility] Falls Risk Assessment abstracted Result [facility] Provider HEALTH MAINTENANCE Final Result * Depression Screening (03/04/2023) [facility] Depression Screening abstracted Historical Provider MD HEALTH MAINTENANCE Final Result * Colonoscopy (01/28/2019) [facility] Colonoscopy no interpretation , abstracted Anatomical Region Laterality Modality Other Historical Provider MD HEALTH MAINTENANCE Final Result * DXA BONE DENSITY STUDY 1+ SITS AXIAL SKEL (08/25/2016 1:34 PM EDT) Anatomical Region Laterality Modality Bone Densitometr y 07/09/2016 4:13 PM EST Narrative 08/25/2016 3:04 PM EDT BONE DENSITY ? Lumbar Spine T-score is -0.8 ?? (SD relative to 20-29 y/o adult) Z-score is +1.1 ??(SD relative to age matched peers) This is normal by criteria defined by the WHO. Left Hip T-score is -1.9 Z-score is -0.2 This is consistent with osteopenia by criteria defined by the WHO. Comparison exam(s): significant decrease in bone density of ??lumbar spine and hip when compared to most recent bone density examination ?? Confidence level is +/-95%. Impression: Based on the World Health Organization criteria, Allison Brandt should be classified as having osteopenia. This patient has a 17% risk of major osteoporotic fracture and a 2.8% risk of hip fracture over the next 10 years. (World Health Organization Fracture Risk Assessment) [facility] Department of Internal Medicine recommends using National Osteoporosis Foundation (NOF) guidelines in treatment decisions related to osteoporosis. NOF guidelines suggest considering treatment for postmenopausal women and men aged 50 or older presenting with the following: History of hip or vertebral fracture. T-score less than or equal to -2.5 (DXA) at the femoral neck, total hip, or spine, after appropriate evaluation to exclude secondary causes. Low bone mass (T-score between -1.0 and -2.5 at the femoral neck or spine) AND a 10-year probability of a hip fracture greater than or equal to 3% OR a 10-year probability of a major osteoporosis-related fracture greater than or equal to 20% based on the [place]-adapted WHO algorithm Please note that all treatment decisions require clinical judgment and consideration of individual patient factors, including patient preferences, co-morbidities, previous drug use, risk factors not captured in the FRAX model (e.g., frailty, falls, vitamin D deficiency, increased bone turnover, interval significant decline in bone density) and possible under- or over-estimation of fracture risk by FRAX. Procedure Note Rudy Kovacs MD - 06/05/2023 BONE DENSITY Lumbar Spine T-score is -0.8 (SD relative to 20-29 y/o adult) Z-score is +1.1 (SD relative to age matched peers) This is normal by criteria defined by the WHO. Left Hip T-score is -1.9 Z-score is -0.2 This is consistent with osteopenia by criteria defined by the WHO. Comparison exam(s): significant decrease in bone density of lumbar spineand hip when compared to most recent bone density examination Confidence level is +/-95%. Impression: Based on the World Health Organization criteria, Allison Brandt should beclassified as having osteopenia. This patient has a 17% risk of majorosteoporotic fracture and a 2.8% risk of hip fracture over the next 10years. (World Health Organization Fracture Risk Assessment) [facility] Department of Internal Medicine recommendsusing National Osteoporosis Foundation (NOF) guidelines in treatmentdecisions related to osteoporosis. NOF guidelines suggest consideringtreatment for postmenopausal women and men aged 50 or older presentingwith the following: History of hip or vertebral fracture. T-score less than or equal to -2.5 (DXA) at the femoral neck, total hip,or spine, after appropriate evaluation to exclude secondary causes. Low bone mass (T-score between -1.0 and -2.5 at the femoral neck or spine)AND a 10-year probability of a hip fracture greater than or equal to 3% ORa 10-year probability of a major osteoporosis-related fracture greaterthan or equal to 20% based on the [place]-adapted WHO algorithm Please note that all treatment decisions require clinical judgment andconsideration of individual patient factors, including patientpreferences, co-morbidities, previous drug use, risk factors not capturedin the FRAX model (e.g., frailty, falls, vitamin D deficiency, increasedbone turnover, interval significant decline in bone density) and possibleunder- or over-estimation of fracture risk by FRAX. Brenda Bethea MD IMG DXA PROCEDURES Final Result * Hepatitis C Screening (11/08/2012) Hepatitis C Screening abstracted Historical Provider HEALTH MAINTENANCE Final Result from Last 3 Months or Most Recently Relevant to Health Maintenance Insurance MEDICARE [facility] [place] Advance Directives Documents on File Type Date Recorded Patient Clinical Associate Expl anation Health Care Decision (hx) 01/11/2014 AD MEYERS DIRECTIVE Health Care Decision (hx) 01/11/2014 AD MEYERS DIRECTIVE Health Care Decision (hx) 01/11/2014 AD MEYERS DIRECTIVE Health Care Decision (hx) 01/11/2014 AD MEYERS DIRECTIVE Health Care Decision (hx) 01/11/2014 AD MEYERS DIRECTIVE Health Care Decision (hx) 01/11/2014 AD MEYERS DIRECTIVE Health Care Decision (hx) 01/11/2014 AD MEYERS DIRECTIVE Health Care Decision (hx) 01/11/2014 AD MEYERS DIRECTIVE Health Care Decision (hx) 01/11/2014 AD MEYERS DIRECTIVE Health Care Decision (hx) 01/11/2014 AD MEYERS DIRECTIVE Health Care Decision (hx) 01/11/2014 AD MEYERS DIRECTIVE Health Care Decision (hx) 01/11/2014 AD MEYERS DIRECTIVE Health Care Decision (hx) 01/11/2014 AD MEYERS DIRECTIVE Health Care Decision (hx) 01/11/2014 AD MEYERS DIRECTIVE Health Care Decision (hx) 01/11/2014 AD MEYERS DIRECTIVE Health Care Decision (hx) 01/11/2014 AD MEYERS DIRECTIVE Health Care Decision (hx) 01/11/2014 AD MEYERS DIRECTIVE Health Care Decision (hx) 01/11/2014 AD MEYERS DIRECTIVE Health Care Decision (hx) 01/11/2014 AD MEYERS DIRECTIVE Health Care Decision (hx) 01/11/2014 AD MEYERS DIRECTIVE Health Care Decision (hx) 01/11/2014 AD MEYERS DIRECTIVE Health Care Decision (hx) 01/11/2014 AD MEYERS DIRECTIVE Health Care Decision (hx) 01/11/2014 AD MEYERS DIRECTIVE Health Care Decision (hx) 01/11/2014 AD MEYERS DIRECTIVE Health Care Decision (hx) 01/11/2014 AD MEYERS DIRECTIVE Health Care Decision (hx) 01/11/2014 AD MEYERS DIRECTIVE Health Care Decision (hx) 01/11/2014 AD MEYERS DIRECTIVE Health Care Decision (hx) 01/11/2014 AD MEYERS DIRECTIVE Health Care Decision (hx) 01/11/2014 AD MEYERS DIRECTIVE Health Care Decision (hx) 01/11/2014 AD MEYERS DIRECTIVE Health Care Decision (hx) 01/06/2014 AD MEYERS DIRECTIVE Health Care Decision (hx) 01/06/2014 AD MEYERS DIRECTIVE Health Care Decision (hx) 01/06/2014 AD MEYERS DIRECTIVE Health Care Decision (hx) 01/06/2014 AD MEYERS DIRECTIVE Health Care Decision (hx) 01/06/2014 AD MEYERS DIRECTIVE Health Care Decision (hx) 01/06/2014 AD MEYERS DIRECTIVE Health Care Decision (hx) 01/06/2014 AD MEYERS DIRECTIVE Health Care Decision (hx) 01/06/2014 AD MEYERS DIRECTIVE Health Care Decision (hx) 01/06/2014 AD MEYERS DIRECTIVE Health Care Decision (hx) 01/06/2014 AD MEYERS DIRECTIVE Health Care Decision (hx) 01/06/2014 AD MEYERS DIRECTIVE Health Care Decision (hx) 01/06/2014 AD MEYERS DIRECTIVE Health Care Decision (hx) 01/06/2014 AD MEYERS DIRECTIVE Health Care Decision (hx) 01/06/2014 AD MEYERS DIRECTIVE Health Care Decision (hx) 01/06/2014 AD MEYERS DIRECTIVE Health Care Decision (hx) 01/06/2014 AD MEYERS DIRECTIVE Health Care Decision (hx) 01/06/2014 AD MEYERS DIRECTIVE Health Care Decision (hx) 01/06/2014 AD MEYERS DIRECTIVE Health Care Decision (hx) 01/06/2014 AD MEYERS DIRECTIVE Health Care Decision (hx) 01/06/2014 AD MEYERS DIRECTIVE Health Care Decision (hx) 01/06/2014 AD MEYERS DIRECTIVE Health Care Decision (hx) 01/06/2014 AD MEYERS DIRECTIVE Health Care Decision (hx) 01/06/2014 AD MEYERS DIRECTIVE Health Care Decision (hx) 01/06/2014 AD MEYERS DIRECTIVE Health Care Decision (hx) 01/06/2014 AD MEYERS DIRECTIVE Health Care Decision (hx) 01/06/2014 AD MEYERS DIRECTIVE Health Care Decision (hx) 01/06/2014 AD MEYERS DIRECTIVE Health Care Decision (hx) 01/06/2014 AD MEYERS DIRECTIVE Health Care Decision (hx) 01/06/2014 AD MEYERS DIRECTIVE Health Care Decision (hx) 01/06/2014 AD MEYERS DIRECTIVE * Full Code - Confirmed (Latest Code Status on File) Date Activated Date Inactivated Comments 03/14/2024 2:05 AM 03/14/2024 3:23 PM This code status was ascertained in the following way: Code status discussion: discussion with patient To update the patient's code status, place a code status order. Do not modify or discontinue any currently active code status orders. * Full Code - Default Date Activated Date Inactivated Comments 03/14/2024 1:16 AM 03/14/2024 2:05 AM This is or mary kay is used when code status has not been discussed with the patient, or code status is otherwise unknown/unconfirmed To update the patient's code status, place a code status order. Do not modify or discontinue any currently active code status orders. Care Teams Apartment Manager Relationship Specialty Start Date End Date Brenad Bethea MD [address] [place] [address] PCP - General Internal Medicine 01/21/18
--- OUTSIDE RECORDS SUMMARY | 2024-06-29 16:50 | XMS_ITS | Encounter Summary ---
Author Organization [facility] Address [address] [place] [address] Care Team Providers Care Buffing Machine Tender Name Role Phone Brenda Bethea MD Primary Care Provider [phone] Reason for Visit * Reason Onset Date Comments Medication Problem 06/06/2024 Encounter Details Date Type Department Care Team (Late st Contact Info) Description 06/06/2024 Telephone Adult Medicine [facility] [address] [place] [phone] Brenda Bethea MD [address], [place] Medication Problem Social History Tobacco Use Types Packs/Day Years [...] Progress Notes * Lore Curtis RN - 06/09/2024 10:58 AM EST I left a message for the pt to call the office at . * Lore Curtis RN - 06/09/2024 10:56 AM EST Called and spoke to a pharmacist at pt's pharmacy. She states Nitrofurantoin and derivatives are listed as an allergy for the pt but they have no further information. * Brenda Bethea MD - 06/08/2024 4:45 PM EST We have no documentation of allergy to nitrofurantoin; please obtain further information about this * Yoly Rader - 06/08/2024 3:38 PM EST The pharmacy is calling back to check the status on requesting an alternative medication for the patient's nitrofurantoin, macrocrystal-monohydrate. Please Advise. * Yoly Rader - 06/07/2024 10:50 AM EST Rosi from the pharmacy is calling to check on the status of this medication problem. She stated that she is looking for a alternative medication due to patient being allergic to nitrofurantoin, macrocrystal-monohydrate. * Megan House - 06/06/2024 4:53 PM EST Medication Problem: What is the name of the medication patient is having a problem with?: nitrofurantoin, macrocrystal-monohydrate, (MACROBID) 100 mg capsule What is the problem?: pharmacy has this listed as allergy for patiewnt Who is calling about the problem? : A pharmacist: Pharmacy: [facility] Pharmacist Name: [facility] Is this a NEW medication?: yes How long has the patient been taking this medication? Today Who prescribed this medication for the patient? Dr Bethea Who is patients PCP?: Brenda Bethea MD Payor: MEDICARE / Plan: MEDICARE PART A & B / Product Type: Medicare / documented in this encounter Plan of Treatment Upcoming Encounters Date Type Department Care Team (Late st Contact Info) Description 07/06/2024 12:30 PM EST Ancillary Procedure [facility] - [address] [place] [address] 08/10/2024 4:30 PM EDT Office Visit Endocrinology - [place] [address] [place] [address] Char León PA [address] [place] [address] 10/06/2024 2:00 PM EDT Office Visit Adult Medicine [facility] [address] [place] [address] Tammy Dennison PA [address] [place] [address] 11/08/2024 12:00 PM EDT Ancillary Procedure [facility] - [facility] [address] [facility] [address] [place] [address] 12/15/2024 3:00 PM EDT Office Visit Vascular Surgery - [facility] [address] [place] [phone] Aby Hollis PA [address] [facility] [address] [place] [address] documented as of this encounter Visit Diagnoses Not on filedocumented in this encounter Additional Health Concerns Assessment Noted Time PHQ-9 Depression Total Score: 0 06/06/19 3:04 PM EST A fall risk assessment has been complete d for the patient 06/06/2024 3:04 PM EST documented as of this encounter Care Teams Buffing Machine Tender Relationship Specialty Start Date End Date Brenda Bethea MD [address] [place] [id number] PCP - General Internal Medicine 01/21/18 documented as of this encounter
--- OUTSIDE RECORDS SUMMARY | 2024-06-29 16:50 | XMS_ITS | Encounter Summary ---
Author Organization [facility] Address [address] [place] [address] Care Team Providers Care Rasper Machine Operator Name Role Phone Brenda Bethea MD Primary Care Provider [phone] Reason for Visit * Reason Comments AWV Hypertension Diabetes Fsbs 251 UTI Encounter Details Date Type Department Care Team (Late st Contact Info) Description 06/06/2024 2:45 PM EST Office Visit Adult Medicine [facility] [address] [place] [phone] Brneda Bethea MD [address] [place], [place] Encounter for annual wellness visit (AWV) in Medicare patient (Primary Dx); Type 2 diabetes mellitus with stage 3 chronic kidney disease, with long-term current use of insulin, unspecified whether stage 3a or 3b CKD (CMS/HCC); Stage 3 chronic kidney disease, unspecified whether stage 3a or 3b CKD (CMS/HCC); Hypercholesterolemia; Dysuria; Acute UTI; Primary hypertension Social History Tobacco Use Types Packs/Day Years [...] PM EDT documented as of this encounter Last Filed Vital Signs Vital Sign Reading [...] Mass Index 23.65 06/06/2024 2:54 PM EST documented in this encounter Functional Status * Are you [...] Kristen Arnold RN documented in this encounter Ordered Prescriptions Prescription Sig Dispense Quantity Refills Last Filled Start Date End Date omeprazole (PriLOSEC) [address] capsule Take 1 capsule (20 mg total) by mouth 1 (one) time each day. 90 each 1 06/06/2024 nitrofurantoin, macrocrystal-monoh ydrate, (MACROBID) 100 mg capsule Take 1 capsule (100 mg total) by mouth 2 (two) times a day for 5 days. 10 each 06/06/2024 documented in this encounter Progress Notes * Brenda Bethea MD - 06/06/2024 2:45 PM ESTAssociated Problem(s): DM (diabetes mellitus), type 2 with renal complications ([facility]/HCC) * Brenda Bethea MD - 06/06/2024 2:45 PM ESTAssociated Problem(s): CKD (chronic kidney disease) stage 3, GFR 30-59 ml/min ([facility]) * Brenda Bethea MD - 06/06/2024 2:45 PM ESTAssociated Problem(s): Hypercholesterolemia * Brenda Bethea MD - 06/06/2024 2:45 PM EST Images from the original note were not included. Medicare Annual Wellness Visit Note Patient Name: Allison Brandt Date of : 1950 Race: White Ethnicity: Not Hispan/Lat Date of Service: 06/06/2024 Allison is a 73 y.o. female presenting for AWV, Hypertension, Diabetes (Fsbs 251), and UTI History of Present Illness HPI Comprehensive Medical and Social History: Patient Active Problem List Diagnosis LBBB (left bundle branch block) Primary hypertension Hypercholesterolemia Osteopenia Lupus erythematosus Family history of malignant neoplasm of gastrointestinal tract DM (diabetes mellitus), type 2 with renal complications (CMS/HCC) Diabetes mellitus type 2 with neurological manifestations (CMS/HCC) Cervical radiculopathy Acute pancreatitis Type 2 diabetes mellitus with cataract (CMS/HCC) Proteinuria Pneumonia due to COVID-19 virus Sensory peripheral neuropathy Breast cancer (CMS/HCC) TIA (transient ischemic attack) Glaucoma CKD (chronic kidney disease) stage 3, GFR 30-59 ml/min (CMS/HCC) Depression GERD (gastroesophageal reflux disease) Migraine variant Polyp of colon Allergies Allergen Reactions Amoxicillin Nausea And Vomiting Morphine Hallucinations Current Outpatient Medications Medication Sig Dispense Refill acetaminophen (TYLENOL) 500 mg tablet Take 2 tablets (1,000 mg total) by mouth every 8 (eight) hours if needed for mild pain. 42 tablet 0 acetaZOLAMIDE (DIAMOX) 250 mg tablet Take 1 tablet (250 mg total) by mouth 2 (two) times a day. amLODIPine (NORVASC) 10 mg tablet Take 1 tablet (10 mg total) by mouth 1 (one) time each day. 30 each 11 aspirin 81 mg EC tablet 1 TABLET DAILY blood sugar diagnostic (Contour Next Test Strips) test strip Use to test blood sugar 4 times daily BEFORE injecting insulin brimonidine (ALPHAGAN) 0.2 % ophthalmic solution Administer 1 drop into both eyes 2 (two) times a day. capsaicin (ZOSTRIX) 0.025 % cream Apply topically 2 (two) times a day. 60 g 11 dorzolamide-timoloL (COSOPT) 22.3-6.8 mg/mL ophthalmic solution Administer 1 drop into both eyes 2 (two) times a day. fluticasone propionate (FLONASE) 50 mcg/actuation nasal spray 1 spray per nostril twice per day, asneeded for nasal congestion hydroxychloroquine (PlaqueniL) 200 mg tablet Take 1 tablet (200 mg total) by mouth. insulin glargine U-300 (Toujeo SoloStar U-300 Insulin) 300 unit/mL (1.5 mL) CONCENTRATED injection pen Use 34 units at bedtime SC, go up by 4 units every week if BS above 150. Max dose 60 units. 4.5 mL 2 lisinopriL (PRINIVIL,ZESTRIL) 20 mg tablet Take 1 tablet (20 mg total) by mouth. loratadine (CLARITIN) 10 mg tablet Take 1 tablet (10 mg total) by mouth 1 (one) time each day. NovoLOG Flexpen U-100 Insulin 100 unit/mL (3 mL) injection pen Inject three times a day per slidingscale with meals. IF 100-150: 8 units; 151-200: 10 units; 201-250: 12 units; 251-300: 14 units; 301-350: 16 units; 351-400: 18 units omeprazole (PriLOSEC) [address] capsule Take 1 capsule (20 mg total) by mouth 1 (one) time each day.90 each 1 pen needle, diabetic 32 gauge x 5/32 needle To inject insulin 4x daily 300 each 0 sertraline (ZOLOFT) 100 mg tablet Take 1.5 tablets (150 mg total) by mouth 1 (one) time each day. simvastatin (ZOCOR) 20 mg tablet Take 1 tablet (20 mg total) by mouth. folic acid (FOLVITE) 1 mg tablet Take 1 tablet (1,000 mcg total) by mouth 1 (one) time each day. nitrofurantoin, macrocrystal-monohydrate, (MACROBID) 100 mg capsule Take 1 capsule (100 mg total) by mouth 2 (two) times a day for 5 days. 10 each 0 No current facility-administered medications for this visit. Past Medical History: Diagnosis Date Acute pancreatitis 1992 Cervical radiculopathy 07/09/2016 CKD (chronic kidney disease) stage 3, GFR 30-59 ml/min ([facility]/HCC) 08/09/2020 Depression 04/20/2017 Diabetes mellitus type 2 with neurological manifestations ([facility]/HCC) 04/01/2012 DM (diabetes mellitus), type 2, uncontrolled, with renal complications 04/17/2005 Family history of malignant neoplasm of gastrointestinal tract 03/22/2007 : Negative colonoscopy 03/22/2007, no colon cancer screening needed for 10 years. GERD (gastroesophageal reflux disease) 05/27/2021 Lupus erythematosus Malignant neoplasm of breast (female), unspecified site 1988 rt breast Migraine variant 04/17/2005 IMO update Osteopenia 07/09/2016 Pneumonia due to COVID-19 virus 04/30/2021 Polyp of colon 12/14/2023 Proteinuria 06/18/2005 Pure hypercholesterolemia 05/12/2006 Sensory peripheral neuropathy 04/01/2012 Type 2 diabetes mellitus with cataract ([facility]/HCC) 07/21/2018 Past Surgical History: Procedure Laterality Date CHOLECYSTECTOMY 1985 COLONOSCOPY 03/10 COLONOSCOPY 6.21.16 MASTECTOMY Right : right SCREENING MAMMOGRAM 03/08/2024 Social History Socioeconomic History Marital status: Spouse name: None Number of children: None Years of education: None Highest education level: None Occupational History None Tobacco Use Smoking status: Never Smokeless tobacco: Never Substance and Sexual Activity Alcohol use: No Drug use: No Sexual activity: None Other Topics Concern None Social History Narrative Retired, on disability , 3 children Family History Problem Relation Name Age of Onset Breast cancer Aunt m 70 MATERNAL Other (Other: lupus) Aunt m 70 Breast cancer Paternal Grandmother 68 Breast cancer Other m cousin 35 MATERNAL COUSIN Diabetes Mother lupus, stroke, hypothyroid Heart attack Father age 52 Breast cancer Maternal Grandmother Hyperthyroidism Sister Diabetes Brother Colon cancer Maternal Grandfather dx at age 50-60., diabetes Immunizations: Immunization History Administered Date(s) Administered H1N1 Inj Preservative Free 06/18/2009 Influenza Quadravalent, 0.5ml (Fluzone High-dose) 65yo and older 02/23/2020 Influenza trivalent, 0.5mL (Fluad) 65yo and older 02/01/2018, 03/14/2019, 02/23/2020, 02/27/2022, 02/02/2023 Influenza trivalent, 0.5mL, preservative free (Fluarix; FluLaval; Fluzone) ages 6mo and older (Afluria) 3 years and older 02/06/2005, 03/28/2006, 02/04/2007, 02/18/2008, 04/05/2009, 03/28/2010, 02/07/2011, 01/12/2012, 02/27/2014, 04/10/2015, 03/03/2016 Influenza trivalent, with preservative (Fluzone; Afluria) 6mo and older 02/27/2022 Influenza, Unspecified 02/01/2013, 02/18/2017 Moderna SARS-CoV-2 COVID-19, mRNA, LNP-S, preservative free 06/28/2020, 07/19/2020 Pneumococcal conjugate 13 valent (Prevnar 13, PCV13) 2mo and older 07/05/2012 Pneumococcal polysaccharide 23 valent (Pneumovax 23) 2yo and older 08/09/2002, 10/02/2014, 02/01/2017 Td, Unspecified 08/09/2002 Tdap Tetanus diptheria acellular pertussis (Boostrix; Adacel) 7yo and older 02/23/2012, 11/10/2022 Hospitalization in the last year: Has been hospitalized once in the past 12 months. Had colitis Current Providers and Suppliers: Patient Care Team: Brenda Bethea MD as PCP - General (Internal Medicine) MD Char Munguia PA as Physician Sweatband Maker (Endocrinology) Aby Hollis PA as Physician Sweatband Maker (Vascular Surgery) Johnnie Braswell MD as Referring Physician (Rheumatology) Patient does not have/use current medical supplier Risk Assessments: Cognitive Function Assessment No cognitive concerns, No screenings indicated. Depression Screening (PHQ2/9): Depression Screening Will the patient answer the depression risk questions?: Yes Over the last 2 weeks, how often have you been bothered by little interest or pleasure in doing things?: Not at all Over the last 2 weeks, how often have you been bothered by feeling down, depressed, or hopeless?: Not at all Depression Risk: 0 PHQ9 Full Set of Questions Over the last 2 weeks, how often have you been bothered by little interest or pleasure in doing things?: Not at all Over the last 2 weeks, how often have you been bothered by feeling down, depressed, or hopeless?: Not at all Depression Risk Score NEW: 0 Depression Plan : Screen was negative Anxiety Screening: Alcohol Screening: Substance Abuse Screening: Pain: Pain Medications: Patient does not take any opioid medications BMI: Body mass index is 23.65 kg/m??. The BMI is in the acceptable range. Functional Ability and Level of Safety Review Health Status: In general, the patient reports health as: fair In general, patient reports life as: good Patient reports sleep pattern as: restless Have you seen a dentist in the last year?: Yes Activity of Daily Living (ADLs): Do you need help from others for your personal care such as eating, dressing, toileting, or gettingaround the house?: No Do you experience incontinence?: Yes Instrumental Activities of Daily Living (IADLs): Do you need help with using the telephone?: No Do you need help with shopping?: Yes Do you need help with food preparation?: No Do you need help with housekeeping?: No Do you need help with laundry?: No Do you need help handling finances?: No Do you drive?: Yes Do you manage your own medication?: Yes, independent Physical Activity: Do you exercise for about 20 minutes or more three days a week?: Yes, sometimes Nutritional Assessment: Do you eat a balanced diet including daily serving of fruits, vegetables, and whole grains?: Yes, sometimes Social Influencer of Health (SIOH): Sexual Health: Have you been bothered by sexual problems: No Fall Risk: Have you fallen in the past year? yes. Are you worried about falling? yes. . Hearing: No data recorded Vision Screening: Required for Medicare Initial Preventative Physical Exam (IPPE) No data recorded Review of Systems Review of Systems Objective BP 122/58 Pulse 74 Temp 36.5 ??C (97.7 ??F) (Temporal) Resp 14 Ht 1.651 m (65 ) Wt 64.5 kg (142 lb 1.6 oz) BMI 23.65 kg/m?? SpO2: 97 % Physical Exam Assessment/Plan Patient presented today for an Subsequent Medicare Wellness Visit with management of chronic condition(s). Assessment & Plan Type 2 diabetes mellitus with stage 3 chronic kidney disease, with long-term current use of insulin, unspecified whether stage 3a or 3b CKD (CMS/HCC) Stage 3 chronic kidney disease, unspecified whether stage 3a or 3b CKD (CMS/HCC) Hypercholesterolemia Dysuria Acute UTI Orders: Culture urine POC Urine Non-Auto W/O Micro Encounter for annual wellness visit (AWV) in Medicare patient Advance Care Planning Discussion: Advance Care Planning was discussed. Allison reports that she does have advance directives and/or surrogate decision maker. Patient has identified their surrogate decision maker. During the visit we discussed: Available Advanced Directive forms discussed A total time of 16 minutes or greater was spent on Advance Care Planning today :No Fall Prevention Education Discussed: adequate lighting/night lights, pausing with transitional movements, paying attention to surroundings, clear pathways/stairs, and not rushing through tasks Health Maintenance Topic Date Due Diabetes: Annual Foot Exam Never done Zoster Vaccines (1 of 2) Never done RSV Immunization Patients 60+ Years Old (1 - Risk 60-74 years 1-dose series) Never done COVID-19 Vaccine (3 - Moderna risk series) 08/16/2020 Social Influencers of Health Screening Never done Influenza Vaccine (1) 01/03/2024 Medicare Annual Wellness Visit 03/04/2024 Colorectal Cancer Screening: Colonoscopy 06/09/2024 Diabetes: Annual Retina Eye Exam 08/03/2024 Diabetes: Blood Sugar Control Test (HGBA1C) 09/10/2024 Diabetes: Annual Urine Albumin-Creatinine Ratio (uACR) 02/08/2025 Diabetes: Annual GFR (Glomerular Filtration Rate) 03/14/2025 Hypertension/CHF/CAD Annual BMP Blood Test 03/14/2025 Falls Risk Assessment 06/06/2025 Depression Screening 06/06/2025 Breast Cancer Screening 03/08/2026 Osteoporosis Screening (Bone Density Screening) 08/25/2026 Cholesterol Screening (Lipid Panel) 03/14/2029 DTaP,Tdap,and Td Vaccines (4 - Td or Tdap) 11/10/2032 Pneumococcal Vaccine: 65+ Years Completed Hepatitis C Screening Completed HIB Vaccines Aged Out Hepatitis B Vaccines Aged Out IPV Vaccines Aged Out Hepatitis A Vaccines Aged Out MMR Vaccines Aged Out Varicella Vaccines Aged Out Meningococcal ACWY Vaccine Aged Out HPV Vaccines Aged Out RSV Immunization Patients Under 20 months Aged Out Brenda Bethea MD ADULT MEDICINE [address] [address] Dept: [phone] Dept * Brenda Bethea MD - 06/06/2024 2:45 PM EST Chief Complaint: Chief Complaint Patient presents with AWV Hypertension Diabetes Fsbs 251 UTI IDENTIFIER: Allison Brandt is a 73 y.o. old female HPI She comes for evaluation accompanied by her . She notes that she will be having glaucoma surgery and then subsequently cataract surgery through ophthalmology. She has diabetes, hypertension, elevated cholesterol, lupus, chronic kidney disease. She feels she has a UTI, has been having some dysuria and urinary frequency, not having any fevers or vomiting, no back pain. Her fasting sugar today is 251. She is following ongoing with endocrine regarding the diabetes. She continues on the acetazolamide, amlodipine, lisinopril, insulin, omeprazole as well as eyedrops, folate and Plaquenil through rheumatology. She is on sertraline for depression as well as simvastatin for her cholesterol. ROS: General: No malaise, significant weight loss or fever Respiratory: No cough, wheezing or shortness of breath Cardiovascular: No chest pain, palpitations, no orthopnea Endo no polyuria or polydipsia as noted Past Medical History: Patient Active Problem List Diagnosis Date Noted TIA (transient ischemic attack) 04/16/2024 Glaucoma 04/16/2024 Osteopenia Lupus erythematosus Family history of malignant neoplasm of gastrointestinal tract DM (diabetes mellitus), type 2 with renal complications (CMS/HCC) Diabetes mellitus type 2 with neurological manifestations ([facility]) Cervical radiculopathy Acute pancreatitis Type 2 diabetes mellitus with cataract ([facility]/HCC) Proteinuria Pneumonia due to COVID-19 virus Sensory peripheral neuropathy Breast cancer ([facility]/HCC) LBBB (left bundle branch block) 03/14/2024 Primary hypertension 03/14/2024 Hypercholesterolemia 03/14/2024 Polyp of colon 12/14/2023 GERD (gastroesophageal reflux disease) 05/27/2021 CKD (chronic kidney disease) stage 3, GFR 30-59 ml/min ([facility]) 08/09/2020 Depression 04/20/2017 Migraine variant 04/17/2005 Surgical History: Past Surgical History: Procedure Laterality Date CHOLECYSTECTOMY 1984 COLONOSCOPY 03/10 COLONOSCOPY 6.21.16 MASTECTOMY Right : right SCREENING MAMMOGRAM 03/08/2024 Family History: Family History Problem Relation Name Age of Onset Breast cancer Aunt m 70 MATERNAL Other (Other: lupus) Aunt m 70 Breast cancer Paternal Grandmother 68 Breast cancer Other m cousin 35 MATERNAL COUSIN Diabetes Mother lupus, stroke, hypothyroid Heart attack Father age 52 Breast cancer Maternal Grandmother Hyperthyroidism Sister Diabetes Brother Colon cancer Maternal Grandfather dx at age 50-60., diabetes Social History: Social History Tobacco Use Smoking status: Never Smokeless tobacco: Never Substance Use Topics Alcohol use: No Allergies: Amoxicillin and Morphine Medications: Outpatient Medications Marked as Taking for the 06/06/24 encounter (Office Visit) with Brenda Bethea MD Medication Sig Dispense Refill acetaminophen (TYLENOL) 500 mg tablet Take 2 tablets (1,000 mg total) by mouth every 8 (eight) hours if needed for mild pain. 42 tablet 0 acetaZOLAMIDE (DIAMOX) 250 mg tablet Take 1 tablet (250 mg total) by mouth 2 (two) times a day. amLODIPine (NORVASC) 10 mg tablet Take 1 tablet (10 mg total) by mouth 1 (one) time each day. 30 each 11 aspirin 81 mg EC tablet 1 TABLET DAILY blood sugar diagnostic (Contour Next Test Strips) test strip Use to test blood sugar 4 times daily BEFORE injecting insulin brimonidine (ALPHAGAN) 0.2 % ophthalmic solution Administer 1 drop into both eyes 2 (two) times a day. capsaicin (ZOSTRIX) 0.025 % cream Apply topically 2 (two) times a day. 60 g 11 dorzolamide-timoloL (COSOPT) 22.3-6.8 mg/mL ophthalmic solution Administer 1 drop into both eyes 2 (two) times a day. fluticasone propionate (FLONASE) 50 mcg/actuation nasal spray 1 spray per nostril twice per day, asneeded for nasal congestion hydroxychloroquine (PlaqueniL) 200 mg tablet Take 1 tablet (200 mg total) by mouth. insulin glargine U-300 (Toujeo SoloStar U-300 Insulin) 300 unit/mL (1.5 mL) CONCENTRATED injection pen Use 34 units at bedtime SC, go up by 4 units every week if BS above 150. Max dose 60 units. 4.5 mL 2 lisinopriL (PRINIVIL,ZESTRIL) 20 mg tablet Take 1 tablet (20 mg total) by mouth. loratadine (CLARITIN) 10 mg tablet Take 1 tablet (10 mg total) by mouth 1 (one) time each day. NovoLOG Flexpen U-100 Insulin 100 unit/mL (3 mL) injection pen Inject three times a day per slidingscale with meals. IF 100-150: 8 units; 151-200: 10 units; 201-250: 12 units; 251-300: 14 units; 301-350: 16 units; 351-400: 18 units omeprazole (PriLOSEC) [address] capsule Take 1 capsule (20 mg total) by mouth 1 (one) time each day.90 each 1 pen needle, diabetic 32 gauge x 5/32 needle To inject insulin 4x daily 300 each 0 sertraline (ZOLOFT) 100 mg tablet Take 1.5 tablets (150 mg total) by mouth 1 (one) time each day. simvastatin (ZOCOR) 20 mg tablet Take 1 tablet (20 mg total) by mouth. [DISCONTINUED] omeprazole (PriLOSEC) [address] capsule Take 1 capsule (20 mg total) by mouth. Medication Discontinued/Reordered: Medications Discontinued During This Encounter Medication Reason dexAMETHasone (DECADRON) 4 mg tablet omeprazole (PriLOSEC) [address] capsule Reorder Vitals: Blood pressure 122/58, pulse 74, temperature 36.5 ??C (97.7 ??F), temperature source Temporal, resp. rate 14, height 1.651 m (65 ), weight 64.5 kg (142 lb 1.6 oz), SpO2 97%. Body mass index is 23.65 kg/m??.BMI is 18.5 to 24.9 (within the normal range) and will be followed Physical Exam: General: patient is in no acute distress. Neck supple without adenopathy, no thyromegaly. Lungs clear with auscultation. Heart: regular S1S2 without murmur, rub or gallop. No CVA tenderness. Abdomen soft, nontender, no masses or organomegaly. Bowel sounds normal active. Extremities without cyanosis, clubbing or edema. Labs: Urinalysis positive for white blood cells, nitrites, urine culture sent Lab Results Component Value Date HGBA1C 7.9 (H) 03/13/2024 Lab Results Component Value Date CHOL 147 03/14/2024 TRIG 113 03/14/2024 HDL 47 03/14/2024 LDLCALC 77 03/14/2024 VLDL 22.6 03/14/2024 NONHDLC 100 03/14/2024 CHOLHDL 3.1 03/14/2024 Impression: 1. Encounter for annual wellness visit (AWV) in Medicare patient 2. Type 2 diabetes mellitus with stage 3 chronic kidney disease, with long-term current use of insulin, unspecified whether stage 3a or 3b CKD ([facility]) 3. Stage 3 chronic kidney disease, unspecified whether stage 3a or 3b CKD (CMS/HCC) 4. Hypercholesterolemia 5. Dysuria 6. Acute UTI Assessment and Plan: Urine culture is sent, she will start on Macrobid while waiting for culture results and push fluidsand cranberry juice. Glycohemoglobin is 7.9 and she is following ongoing with endocrine for furthermanagement, depression symptoms remain stable on the sertraline and she is continuing on simvastatin for her cholesterol. She will follow with rheumatology as well. She will return in 4 months, sooner if needed. documented in this encounter Plan of Treatment Upcoming Encounters Date Type Department Care Team (Late st Contact Info) Description 07/06/2024 12:30 PM EST Ancillary Procedure [place] [address] [address] 08/10/2024 4:30 PM EDT Office Visit Endocrinology [address] [phone] Char León PA [address] [place] [address] 10/06/2024 2:00 PM EDT Office Visit Adult Medicine [address] [phone] Tammy Dennison PA [address] [place] [address] 11/08/2024 12:00 PM EDT Ancillary Procedure [address] [phone] 12/15/2024 3:00 PM EDT Office Visit Vascular Surgery [address] [phone] Aby Hollis PA [address] [address] documented as of this encounter Procedures Procedure Name Priority Date/Time Associated Diagnosis Comments POC URINE NON-AUTO W/O MICRO Routine 06/06/2024 3:52 PM EST Acute UTI CULTURE URINE Routine 06/06/2024 3:30 PM EST Acute UTI documented in this encounter Results * (ABNORMAL) POC Urine Non-Auto W/O Micro (06/06/2024 3:52 PM EST) Leukocytes UA POC Positive(A) Negative Nitrite UA POC Positive(A) Negative Urobilinogen UA POC Positive(A) Negative Protein UA POC Negative Negative PH UA POC 5.0 5.0 - 9.0 Blood UA POC Trace Negative, Trace Specific [place] UA POC 1.010 1.001 - 1.035 Ketones UA POC Negative Negative Bilirubin UA POC Negative Negative Glucose UA POC Normal Normal, Trace Urine Urine specimen obtained by clean catch procedure / Unknown 06/06/2024 3:52 PM EST Brenda Bethea MD POINT OF CARE TEST ENTER/EDIT OR DERABLES Final Result * (ABNORMAL) Culture urine (06/06/2024 3:30 PM EST) Culture, Urine 50,000-100,000 CFU/mL Enterococcus faecalis(A) EVONNE 06/08/2024 8:23 AM EST [facility] Comment: Edited result: Previously reported [...] Enterococcus faecalis Nitrofurantoin EVONNE <=16 ug/ml: Susceptible Brenda Bethea MD LAB MICROBIOLOGY - GENERAL ORDER AGA Final Result [facility] [address] [place] [address], documented in this encounter Visit Diagnoses Diagnosis Encounter for annual wellness visit (AWV) in Medicare patient- Primary Type 2 diabetes mellitus with stage 3 chronic kidney disease, with long-term current use of insulin, unspecified whether stage 3a or 3b CKD ([facility]) Stage 3 chronic kidney disease, unspecified whether stage 3a or 3b CKD ([facility]) Hypercholesterolemia Pure hypercholesterolemia Dysuria Acute UTI Urinary tract infection, site not specified Primary hypertension Unspecified essential hypertension documented in this encounter Discontinued Medications Medication Sig Discontinue Reason Start Date End Da te dexAMETHasone (DECADRON) 4 mg tablet Take 1 tablet (4 mg total) by mouth 1 (one) time each day for 4 days. 05/15/2024 06/06/2024 omeprazole (PriLOSEC) [address] capsule Take 1 capsule (20 mg total) by mouth. Reorder 03/04/2023 06/06/2024 documented as of this encounter Additional Health Concerns Assessment Noted Time PHQ-9 Depression Total Score: 0 06/06/19 25 3:04 PM EST A fall risk assessment has been complete d for the patient 06/06/2024 3:04 PM EST documented as of this encounter Care Teams Rasper Machine Operator Relationship Specialty Start Date End Date Brenda Bethea MD [address] [place] [address] PCP - General Internal Medicine 01/21/18 documented as of this encounter
== END 2024-06-29 14:22 | disposition home or self-care (01) ==
PROVIDERS: PCP Internal Medicine; Visit Provider Internal Medicine Rheumatology
DX: M32.9 Systemic lupus erythematosus, unspecified (principal); Z79.899 Other long term (current) drug therapy; S46.912A Strain of unspecified muscle, fascia and tendon at shoulder and upper arm level, left arm, initial encounter
CPT/HCPCS: 99214; G2211

== ENCOUNTER 2024-08-02 13:49 | Outpatient (AMB) | payer MEDICARE, SELFPAY ==
[2024-08-02 13:50] VITALS: BP 130/78; PULSE 74; O2SAT 97; BMI 21.4
--- NOTE | 2024-08-02 13:50 | MHC.OFFVIS ---
Vital Signs 08/02/24 13:50 Height 5 ft 7 in Weight 136 lb 10.986 oz BMI 21.4 BP 130/78 Blood Pressure Location Lt brachial Position Sitting Pulse 74 Pulse Source Pulse Oximeter Pulse Oximetry (%) 97 Oxygen Delivery Method Room Air Intake Visit Reasons: 1 Month Intake Note: Patient presents for Lupus follow up. Allergies amoxicillin Allergy (Verified 06/29/24 13:47) Nausea morphine [From Duramorph (PF)] Allergy (Verified 06/29/24 13:47) nausea codiene sulfate Allergy (Uncoded 06/15/24 14:51) nausea HPI HPI 1 Month: Details: She had a UTI. She was hospitalized for synocope. VNA did BP lying down and standing up and there was a difference of 30 SBP confirming orthostatic hypotension. She is seeing cardiology next week and neurology in the future for syncope follow-up/workup. She reports that CT and brain MRI did not show cause for her hospitalization. She sees cardiology outpatient and had echocardiogram prior to hospitalization. Joint pain subsided. She has weakness in her lower extremities after hospitalization. She will be starting PT at home. Denies fevers, dyspnea, pleurisy, oral ulcers, rash, Raynaud's phenomenon, chest pain, urinary symptoms. She had at least 3 UTIs in 2023. [facility] Medical History Colitis TIA (transient ischemic attack) Breast cancer Surgical History Hx of cholecystectomy Hx of left mastectomy Family History Father Heart disease Mother Lupus (systemic lupus erythematosus) Stroke Family/Other Psoriasis Other Gout Social History Household Members: Significant Other Alcohol intake: never Patient Tobacco Use Status: Never used Tobacco Current occupational status: retired Review of Systems Const All systems reviewed & are unremarkable except as noted in HPI and below Physical Exam Vital Signs: Last Vital Signs Pulse 74 08/02/24 13:50 BP 130/78 08/02/24 13:50 Pulse Ox 97 08/02/24 13:50 Oxygen Delivery Method Room Air 08/02/24 13:50 BMI result Body Mass Index 21.4 Const Other: General: Comfortable CVS: RRR Respiratory: clear to auscultation bilaterally. Good respiratory effort Skin: No lesions seen MSK: She has synovitis right 2nd PIP. No tender joints in hands. Shoulder abduction 160 degrees bilateral with pain. She has good internal and external rotation of bilateral shoulders. No tender lower extremity joints. She has limited full external rotation of bilateral hips. Knee flexion 110 degrees bilaterally. Assessment & Plan Assessment & Plan (1) SLE (systemic lupus erythematosus related syndrome): Comment: She has had improvement in control of inflammatory arthritis with course of prednisone. She started sulfasalazine without any side effects. We discussed the need to hold sulfasalazine when she has an infection. Patient understands. Rheumatology history: [place] [address] Hollis after an episode of pleurisy in associated arm pain. On hydroxychloroquine 300 mg alternating with 400 mg. Decrease to 300 mg daily 03/2018 weight based dosing. RIGO 1:80. She was clinically quiescent for decades. HCQ was then discontinued 03/2019. After discontinuing HCQ inflammatory arthritis became uncontrolled 05/2020. She did not tolerate methotrexate po due to abdominal pain. Subcutaneous methotrexate caused rash and abdominal pain. Leflunomide 11/2020-09/2021 ineffective with combination hydroxychloroquine and Benlysta. She also had recurrent cellulitis on regimen. Failed treatment with hydroxychloroquine and Benlysta. SSZ 07/2024- Code(s): M32.9 - Systemic lupus erythematosus, unspecified Category: Medical Plan: Continue sulfasalazine 500 mg twice a day She will have labs for drug monitoring on new DMARD sulfasalazine in 2 weeks I recommend PCP follow-up for recurrent UTIs. She has had at least 3 UTIs in 2023. Consider urogynecology referral Return to clinic in 3 months (2) Other nursing home (current) drug therapy: Code(s): Z79.899 - Other nursing home (current) drug therapy Category: Medical Plan: See above (3) Osteoporosis: Comment: On DXA 11/2021 improved t score to osteopenic range on DXA 10/2023. Code(s): M81.0 - Age-related osteoporosis without current pathological fracture Category: Medical Plan: Will address next visit Coding Level of Care Code Est Pt Level 4 (72398) Complex EM visit Add On G2211 Diagnoses SLE (systemic lupus erythematosus related syndrome) M32.9 Other terminal makeup operator (current) drug therapy Z79.899 Osteoporosis M81.0
--- OUTSIDE RECORDS SUMMARY | 2024-08-02 16:26 | XMS_ITS | Clinical Summary ---
Author Organization [facility] Address [address] [place] [address] Care Team Providers Care Ug Designer Name Role Phone Brenda Bethea MD Primary Care Provider Allergies Active Allergy Reactions Criticality Noted Date [...] Comments Diabetes Brother Heart attack Father from [place] Diabetes Mother Lupus Mother Stroke Mother Vitiligo [...] Tdap) 1968 Colon Cancer Screening (Colonoscopy) 1994 Shingrix-Zoster Vaccine (1 of 2) 07/19/1999 Fall [...] age to complete this topic Care Teams Ug Designer Relationship Specialty Start Date End Date Brenda Bethea MD PCP - General Internal Medicine 01/21/18
--- OUTSIDE RECORDS SUMMARY | 2024-08-02 16:27 | XMS_ITS | Encounter Summary ---
Author Organization [facility] Address [address] [place] [address] Care Team Providers Care Broodmare Barn Groom Name Role Phone Brenda Bethea MD Primary Care Provider [phone] Reason for Visit * Reason Onset Date Comments vna 08/01/2024 Encounter Details Date Type Department Care Team (Late st Contact Info) Description 08/01/2024 Telephone Adult Medicine [facility] [address] [place] [address] Brenda Bethea MD [address] [place] [address] vna Social History Tobacco Use Types Packs/Day Years Used Date Smoking Tobacco: Never Smokeless Tobacco: Never Alcohol Use Standard Drinks/Week Comments No 0 (1 standard drink = 0.6 oz pur e alcohol) Interpersonal Safety Answer Date Record ed Physical Abuse 07/26/2024 Verbal Abuse 07/26/2024 Comments Unknown Sex and Gender Information Value Date Recorded Sex Assigned at Female 03/04/2024 2:42 PM EDT Legal Sex Female 3:42 AM EST Gender Identity Female 03/04/2024 2:42 PM EDT Sexual Orientation Straight 03/04/2024 2: 42 PM EDT documented as of this encounter Functional Status * Are you deaf or do you have serious difficulty hearing? Answer Date of Assessment Author No 07/25/2024 2:25 AM EDT Tracie Anton RN * Are you blind or do you have serious difficulty seeing, even when wearing glasses? Answer Date of Assessment Author No 07/25/2024 2:25 AM EDT Tracie Anton RN * Do you have serious difficulty walking or climbing stairs? Answer Date of Assessment Author No 07/25/2024 2:25 AM EDT Tracie Anton RN * Do you have serious difficulty dressing or bathing? Answer Date of Assessment Author No 07/12/2024 11:43 PM EDT Madelyn Ray RN * Because of a physical, mental, or emotional condition, do you have serious difficulty doing errandsalone such as visiting the doctor? Answer Date of Assessment Author No 07/25/2024 2:25 AM EDT Tracie Anton RN documented as of this encounter Mental Status * Because of a physical, mental, or emotional condition, do you have serious difficulty concentrating, remembering, or making decisions? (5 years old or older) Answer Entry Date Author No 07/25/2024 2:25 AM EDT Tracie Anton RN documented in this encounter Progress Notes * Lore Curtis RN - 08/01/2024 3:46 PM EDT Called Bert and informed her Dr. Bethea will address these issues with her at her upcoming appointment on 08/03/24. * Brenda Bethea MD - 08/01/2024 3:25 PM EDT Issues need to be discussed at hospital FU visit on 08/03 * Tono Lizama - 08/01/2024 2:59 PM EDT [facility] CALL Which [facility] office is calling? [facility] / Full name of caller: BERT The caller is A nurse Is the caller at the patients home?: no Reason for call: Patient has abnormal vital signs, states that patients blood pressure reading was 155/67 while seated then a drop to 134/83 when standing , Patient wanted to report to the provider that she had experienced a uti and she was medicated in the hospital , is unsure if she is to continue her anti biotics , states she still has some but there are none on her discharge paperwork , stillexperiencing some urinary urgency but feels improvement from when it first started Does caller need an urgent call back? no Was CONTACT Telephone # obtained above?: yes Fax #: documented in this encounter Plan of Treatment Upcoming Encounters Date Type Department Care Team (Late st Contact Info) Description 08/03/2024 10:30 AM EDT Office Visit Adult Medicine [address] [phone] Brenda Bethea MD [address] [place] [address] 08/10/2024 4:30 PM EDT Office Visit [address] [phone] Char León PA [address] [place] [phone] 09/12/2024 10:00 AM EDT Consult Adult Medicine [address] [phone] Brenda Bethea MD [address] [place] [address] 10/06/2024 2:00 PM EDT Office Visit Adult [address] [phone] Tammy Dennison PA [address] [place] [address] 11/08/2024 12:00 PM EDT Ancillary Procedure [facility] [address] [place] [address] 12/15/2024 3:00 PM EDT Office Visit Vascular Surgery - [place] [address] [place] [address] Aby Hollis PA [address] [facility] [address] [place] [address] documented as of this encounter Visit Diagnoses Not on filedocumented in this encounter Additional Health Concerns Assessment Noted Time PHQ-9 Depression Total Score: 0 06/06/19 25 3:04 PM EST A fall risk assessment has been complete d for the patient 06/06/2024 3:04 PM EST documented as of this encounter Care Teams Broodmare Barn Groom Relationship Specialty Start Date End Date Brenda Bethea MD [address] [place] [address] PCP - General Internal Medicine 01/21/18 documented as of this encounter
--- OUTSIDE RECORDS SUMMARY | 2024-08-02 16:27 | XMS_ITS | Clinical Summary ---
Author Organization [address] Address [address] [place] [address] Phone Care Team Providers Care Tax Assessor Name Role Phone Brenda Bethea MD Primary Care Provider [phone] Allergies Active Allergy Reactions Criticality Noted Date Comments Amoxicillin Nausea And Vomiting 03/13/2024 Nitrofurantoin Monohyd/M-Cryst GI bleeding Medium 07/02 Morphine Hallucinations 03/13/2024 Medications hydroxychloroqui ne (PlaqueniL) 200 mg tablet Take 1.5 tablets (300 mg total) by mouth 1 (one) time each day. Active lisinopriL (PRINIVIL,ZESTRI L) 20 mg tablet Take 1 tablet (20 mg total) by mouth at bedtime. 02/13/20 23 Active sertraline (ZOLOFT) 100 mg tablet Take 1.5 tablets (150 mg total) by mouth 1 (one) time each day. 12/14/19 24 Active simvastatin (ZOCOR) 20 mg tablet Take 1 tablet (20 mg total) by mouth at bedtime. 02/13/20 23 Active brimonidine (ALPHAGAN) 0.2 % ophthalmic solution Administer 1 drop into both eyes 2 (two) times a day. Active dorzolamide-kayode loL (COSOPT) 22.3-6.8 mg/mL ophthalmic solution Administer 1 drop into both eyes 2 (two) times a day. 03/03/20 24 Active aspirin 81 mg EC tablet Take 1 tablet (81 mg total) by mouth 1 (one) time. Active fluticasone propionate (FLONASE) 50 mcg/actuation nasal spray 1 spray per nostril twice per day, as needed for nasal congestion 10/22/19 23 Active loratadine (CLARITIN) 10 mg tablet Take 1 tablet (10 mg total) by mouth 1 (one) time each day if needed for allergies. 03/04/20 23 Active pen needle, diabetic 32 gauge x 32 needle To inject insulin 4x daily 300 each 03/28/20 24 Active amLODIPine (NORVASC) 10 mg tablet Take 1 tablet (10 mg total) by mouth 1 (one) time each day. 30 each 05/12/19 25 026 Active acetaZOLAMIDE (DIAMOX) 250 mg tablet Take 1 tablet (250 mg total) by mouth 2 (two) times a day. 05/13/19 25 Active insulin glargine U-300 (Toujeo SoloStar U-300 Insulin) 300 unit/mL (1.5 mL) CONCENTRATED injection pen Use 34 units at bedtime SC, go up by 4 units every week if BS above 150. Max dose 60 units. 4.5 mL 2 05/23/19 25 Active Additional Information Patient taking differently: 10-30 Units subcutaneous Nightly, go up by 4 units every week if BS above 150. Max dose 60 units., Reported on 07/25/2024 omeprazole (PriLOSEC) [address] capsule Take 1 capsule (20 mg total) by mouth 1 (one) time each day. 90 each 1 06/06/19 25 Active latanoprostene bunod (Vyzulta) 0.024 % drops Administer 1 drop into both eyes at bedtime. Active sulfaSALAzine (AZULFIDINE EN-TABS) 500 mg EC tablet Take 1 tablet (500 mg total) by mouth 2 (two) times a day. 07/15/19 25 Active meclizine (ANTIVERT) 25 mg tablet Take 1 tablet (25 mg total) by mouth 3 (three) times a day if needed for dizziness for up to 10 days. 30 tablet 07/27/19 25 025 Active blood sugar diagnostic (Contour Next Test Strips) test strip Use to test blood sugar 4 times daily BEFORE injecting insulin 06/03/19 025 Discontin ued(Thera py completed ) NovoLOG Flexpen U-100 Insulin 100 unit/mL (3 mL) injection pen Inject three times a day per sliding scale with meals. IF 100-150: 8 units; 151-200: 10 units; 201-250: 12 units; 251-300: 14 units; 301-350: 16 units; 351-400: 18 units 03/28/20 025 Discontin ued(Thera py completed ) acetaminophen (TYLENOL) 500 mg tablet Take 2 tablets (1,000 mg total) by mouth every 8 (eight) hours if needed for mild pain. 42 tablet 03/28/20 025 Discontin ued(Thera py completed ) capsaicin (ZOSTRIX) 0.025 % cream Apply topically 2 (two) times a day. 60 g 11 05/15/19 025 Discontin ued(Stop Taking at Discharge ) folic acid (FOLVITE) 1 mg tablet Take 1 tablet (1,000 mcg total) by mouth 1 (one) time each day. 05/26/19 025 Discontin ued(Thera py completed ) cephalexin (KEFLEX) 500 mg capsule Take 1 capsule (500 mg total) by mouth 2 (two) times a day for 7 days. 14 each 07/14/19 025 Discontin ued(Thera py completed ) Hospital, Clinic, or Other Facility Administered Medication Ordered Dose Route Frequency Start Date End Date Status perflutren lipid microsphere (DEFINITY) 1.3 mL in sodium chloride 0.9% 8.7 mL injection 10 mL IV Once in imaging 07/06/2024 07/06/2024 End ed Active Problems Problem Noted Date Diagnosed Date Syncope 07/27/2024 Dizziness 07/25/2024 TIA (transient ischemic attack) 04/16/2024 Glaucoma 04/16/2024 LBBB (left bundle branch block) 03/14/2024 Primary hypertension 03/14/2024 Hypercholesterolemia 03/14/2024 Assessment & Plan (06/06/2024 4:38 PM EST): Polyp of colon 12/14/2023 GERD (gastroesophageal reflux disease) 2 CKD (chronic kidney disease) stage 3, GFR [...] Encounters Date Type Department Care Team Description 08/01/2024 Telephone Adult Medicine [address] [phone] Brenda Bethea MD vna 07/29/2024 Telephone Adult Medicine [address] [phone] Brenda Bethea MD Hospital Follow-up (Needs appointment has VNA services ) 07/25/2024 2:09 AM EDT - 07/28/2024 2:01 PM EDT Hospital Encounter [facility] [address] [place] [address] [phone] Wellington Stanley MD Kela, Kashyap Devendrabhai, MD Surendran, Anupama, MD Dizziness (Primary Dx); Syncope, unspecified syncope type Discharge Disposition: Home-Health Care Svc 07/20/2024 Telephone Adult Medicine [address] [phone] Brenda Bethea MD Hospital Follow-up 07/12/2024 11:26 PM EDT - 07/13/2024 5:[address] [facility] Emergency [address] [place] [phone] Marcial Brown MD Acute cystitis without hematuria (Primary Dx) Discharge Disposition: Home or Self Care 07/06/2024 12:30 PM EST Ancillary Procedure [facility] [address] Ezequiel [address] [place] [address] [phone] Syncope, unspecified syncope type 07/04/[address] [phone] Brenda Bethea MD Fitting for DME 06/09/[address] [phone] Brenda Bethea MD Allergic Reaction 06/09/[address] [phone] Brenda Bethea MD Med Refill 06/06/2024 2:45 PM EST Office Visit Adult [address] [phone] Brenda Bethea MD Encounter for annual wellness visit (AWV) in Medicare patient (Primary Dx); Type 2 diabetes mellitus with stage 3 chronic kidney disease, with long-term current use of insulin, unspecified whether stage 3a or 3b CKD (CMS/HCC); Stage 3 chronic kidney disease, unspecified whether stage 3a or 3b CKD (CMS/HCC); Hypercholesterolemia; Dysuria; Acute UTI; Primary hypertension 06/06/2024 Telephone Adult Medicine [address] [phone] Brenda Bethea MD Medication Problem 05/20/2024 3:30 PM EST Office Visit Adult Medicine [address] [phone] Tammy Dennison PA Primary hypertension (Primary Dx) 05/18/[address] [phone] Char León PA 05/15/2024 11:19 AM EST - 05/15/2024 2:[address] [facility] Emergency [address] [place] [phone] Franklyn Archer MD Musculoskeletal back pain (Primary Dx) Discharge Disposition: Home or Self Care 05/12/2024 3:45 PM EST Office Visit [address] [phone] Char León PA Type 2 diabetes mellitus with other diabetic kidney complication, with long-term current use of insulin (CMS/[facility]) (Primary Dx); Stage 3 chronic kidney disease, unspecified whether stage 3a or 3b CKD (CMS/HCC); Hypercholesterolemia; Primary hypertension 05/12/2024 Nurse Triage Adult [address] [phone] Brenda Beteha MD Hypertension; Walk-in 05/11/2024 1:00 PM EST Ancillary Procedure [facility] [address] [facility] [place] [address] [place] [phone] Syncope, unspecified syncope type 05/09/2024 3:10 PM EST - 05/09/2024 11:59 PM EST Hospital Encounter [facility] CT Scan [address] [place] [phone] Splenic infarction Discharge Disposition: Home or Self Care from Last 3 Months Immunizations Name Administration [...] Site/Laterality Comments MASTECTOMY Right : right CHOLECYSTECTOMY 1985 COLONOSCOPY 03/10 COLONOSCOPY 6.21.16 SCREENING MAMMOGRAM 03/08/2024 [...] mellitus type 2 wit h neurological manifestations ([facility]) 04/01/2012 Cervical radiculopathy 07/09/2016 Osteopenia 07/09/2016 Type 2 diabetes mellitus with cataract 07/21/2018 Malignant neoplasm of breast (female), unspecified site 1989 rt breast Pneumonia due to COVID-19 virus 04/30/2021 CKD (chronic kidney disease) stage 3, GFR 30-59 ml/min ([facility]/HCC) 08/09/2020 Depression 04/20/2017 GERD (gastroesophageal reflux disease) Migraine variant 04/17/2005 IMO upd ate Polyp of colon 12/14/2023 Hypertension Family History Medical History Relation Name Comments [...] Sign Reading Time Taken Comments Blood Pressure 129/48 07/28/2024 8:15 AM EDT Pulse 55 07/28/2024 8:15 AM EDT Temperature 36.3 ??C (97.3 ??F) 07/28/2024 8:15 AM ED T Respiratory Rate 14 07/28/2024 8:15 AM EDT Oxygen Saturation 99% 07/28/2024 8:15 AM EDT Inhaled Oxygen Concentration - - Weight 60.8 kg (134 lb) 07/25/2024 2:20 AM EDT Height 165.1 cm (5' 5 ) 07/25/2024 2:20 AM EDT Body Mass Index 22.3 07/25/2024 2:20 AM EDT Plan of Treatment Upcoming Encounters Date Type Department Care Team (Late st Contact Info) Description 08/03/2024 10:30 AM EDT Office Visit [address] [phone] Brenda Bethea MD [address] [place] [address] 08/10/2024 4:30 PM EDT Office Visit Endocrinology [address] [phone] Char León PA [address] [place] [phone] 09/12/2024 10:00 AM EDT Consult Adult [address] [phone] Brenda Bethea MD [address] [place] [address] 10/06/2024 2:00 PM EDT Office Visit [address] [phone] Tammy Dennison PA [address] [place] [address] 11/08/2024 12:00 PM EDT Ancillary Procedure [facility] [address] [facility] [address] [place] [phone] 12/15/2024 3:00 PM EDT Office Visit Vascular Surgery - [place] [address] [phone] Aby Hollis PA 300 [facility] [address] [place] [address] Health Maintenance Due Date Last Done Comments Diabetes: Annual Foot Exam 07/19/1960 Zoster Vaccines (1 of 2) 1968 COVID-19 Vaccine (3 - Moderna risk series) 08/16/2020 07/19/2020, 06/28/2020 Social Influencers of Health Screening 06/24/2022 Colorectal Cancer Screening: Colonoscopy 06/09/2024 06/09/2022, 01/28/2019 RSV Immunization Patients 60+ Years Old (1 - 1-dose 75+ series) 2024 Diabetes: Annual Retina Eye Exam 08/03/2024 08/04/2023 Diabetes: Blood Sugar Control Test (HGBA1C) 12/04/2024 06/06/2024, 03/13/2024, 11/10/2023 Influenza Vaccine (Season Ended) 2025 02/02/2023, 02/27/2022, 02/27/2022, Additional history exists Diabetes: Annual Urine Albumin-Creatinine Ratio (uACR) 02/08/2025 02/09/2024 Depression Screening 06/06/2025 06/06/2024, 03/04/20 23 Medicare Annual Wellness Visit 06/06/2025 06/06/2024 Diabetes: Annual GFR (Glomerular Filtration Rate) 07/28/2025 07/28/2024, 07/27/2024, 07/26/2024, Additional history exists Falls Risk Assessment 07/28/2025 07/28/2024 , 06/06/2024, 06/06/2024, Additional history exists Hypertension/CHF/CAD Annual BMP Blood Test 07/28/2025 07/28/2024, 07/27/2024, 07/26/2024, Additional history exists Osteoporosis Screening (Bone Density Screening) 08/25/2026 08/25/2016 Cholesterol Screening (Lipid Panel) 03/14/2029 03/14/2024, 02/09/2024, 02/09/2024 DTaP,Tdap,and Td Vaccines (4 - Td or Tdap) 11/10/2032 11/10/2022, 02/23/2012, 08/09/2002 Hepatitis C Screening Completed 11/08/2012 Pneumococcal Vaccine: 50+ Years Completed 02/01/2017, 10/02/2014, 07/05/2012, Additional history exists Breast Cancer Screening Discontinued 03/08/20 24, 03/03/2023, 02/27/2022, Additional history exists HIB Vaccines Aged Out [...] Procedure Name Priority Date/Time Associated Diagnosis Comments ECG OUTSIDE 07/29/2024 ECG ANNOTATED 07/29/2024 POCT GLUCOSE BLOOD Routine 07/28/2024 10 :55 AM EDT POCT GLUCOSE BLOOD Routine 07/28/2024 8: 06 AM EDT MAGNESIUM Routine 07/28/2024 7:08 AM EDT BASIC METABOLIC PANEL Routine 07/28/2024 7:08 AM EDT COMPLETE BLOOD COUNT Routine 07/28/2024 7:08 AM EDT POCT GLUCOSE BLOOD Routine 07/27/2024 9: 38 PM EDT POCT GLUCOSE BLOOD Routine 07/27/2024 4: 55 PM EDT POCT GLUCOSE BLOOD Routine 07/27/2024 11 :27 AM EDT LAVENDER - EDTA Routine 07/27/2024 9:05 AM EDT EXTRA TUBES Routine 07/27/2024 9:05 AM EDT MAGNESIUM Routine 07/27/2024 9:05 AM EDT BASIC METABOLIC PANEL Routine 07/27/2024 9:05 AM EDT POCT GLUCOSE BLOOD Routine 07/27/2024 7: 43 AM EDT POCT GLUCOSE BLOOD Routine 07/26/2024 8: 43 PM EDT POCT GLUCOSE BLOOD Routine 07/26/2024 5: 15 PM EDT POCT GLUCOSE BLOOD Routine 07/26/2024 12 :07 PM EDT ROUTINE EEG Routine 07/26/2024 10:52 AM EDT CBC WITH AUTO DIFFERENTIAL Routine 07/26/2024 4:49 AM EDT COMPREHENSIVE METABOLIC PANEL Routine 07/26/2024 4:49 AM EDT CBC AND DIFFERENTIAL Routine 07/26/2024 4:49 AM EDT POCT GLUCOSE BLOOD Routine 07/25/2024 8: 50 PM EDT MR BRAIN WO CONTRAST Routine 07/25/2024 6:14 PM EDT POCT GLUCOSE BLOOD Routine 07/25/2024 4: [address] ANGIO HEAD/NECK WO AND/OR W CONTRAST STAT 07/25/2024 3:36 PM EDT POCT GLUCOSE BLOOD Routine 07/25/2024 2: [address] HEAD WO CONTRAST STAT 07/25/2024 5 :50 AM EDT XR CHEST 2 VIEWS STAT 07/25/2024 5:39 AM EDT B-TYPE NATRIURETIC PEPTIDE STAT 07/25/2024 5:14 AM EDT TROPONIN I HIGH SENSITIVITY STAT 07/25/2024 5:14 AM EDT THYROID STIMULATING HORMONE WITH REFLEX TO FREE T4 AND FREE T3 STAT Add-on 07/25/2024 4:20 AM EDT CBC WITH AUTO DIFFERENTIAL STAT 07/25/2024 4:20 AM EDT MAGNESIUM STAT 07/25/2024 4:20 AM EDT BASIC METABOLIC PANEL STAT 07/25/2024 4:20 AM EDT CBC AND DIFFERENTIAL STAT 07/25/2024 4:20 AM EDT ECG 12-LEAD STAT 07/25/2024 2:41 AM EDT ECG ANNOTATED 07/14/2024 GRIJALVA URINE CULTURE TUBE STAT 07/13/2024 3:10 AM EDT URINALYSIS WITH REFLEX MICROSCOPIC AND CULTURE STAT 07/13/2024 3:10 AM EDT URINALYSIS WITH REFLEX MICROSCOPIC AND CULTURE STAT 07/13/2024 3:10 AM EDT CULTURE URINE STAT 07/13/2024 3:[address] HEAD WO CONTRAST STAT 07/13/2024 1 :55 AM EDT XR CHEST 2 VIEWS STAT 07/13/2024 1:44 AM EDT ECG 12-LEAD STAT 07/13/2024 12:10 AM EDT CBC WITH AUTO DIFFERENTIAL STAT 07/12/2024 11:50 PM EDT MAGNESIUM STAT 07/12/2024 11:50 PM EDT BASIC METABOLIC PANEL STAT 07/12/2024 11:50 PM EDT CBC AND DIFFERENTIAL STAT 07/12/2024 11:50 PM EDT TRANSTHORACIC ECHOCARDIOGRAM (TTE) COMPLETE W/ CONTRAST Routine 07/06/2024 1:28 PM EST Syncope, unspecified syncope type POC URINE NON-AUTO W/O MICRO Routine 06/06/2024 3:52 PM EST Acute UTI HEMOGLOBIN A1C Routine 06/06/2024 3:50 PM EST Type 2 diabetes mellitus with other diabetic kidney complication, with long-term current use of insulin ([facility]) CULTURE URINE Routine 06/06/2024 3:30 PM EST Acute UTI XR LUMBAR SPINE 2-3 VIEWS STAT 05/15/2024 1:21 PM EST ECG 12-LEAD STAT 05/15/2024 10:48 AM EST ECG ANNOTATED 05/15/2024 CARDIAC HOLTER MONITOR (REPORT GENERATED IN HOUSE) Routine 05/11/2024 1:00 PM EST Syncope, unspecified syncope type CT ANGIO CHEST WO AND/OR W CONTRAST Routine 05/09/2024 3:56 PM EST Splenic infarction LIPID PANEL WITH REFLEX TO DIRECT LDL Routine 03/14/2024 5:44 AM EST MG MAMMO DIGITAL SCREENING W QUINTON LEFT Routine 03/08/2024 3:05 PM EST Encounter for screening mammogram for breast cancer HM URINE ALBUMIN CREATININE RATIO Routine 02/09/2024 HM DIABETES EYE EXAM Routine 08/04/2023 FALLS RISK ASSESSMENT Routine 07/07/2023 DEPRESSION SCREENING Routine 03/04/2023 COLONOSCOPY Routine 01/28/2019 DXA BONE DENSITY STUDY 1+ SITS AXIAL SKEL Routine 08/25/2016 1:34 PM EDT Other specified disorders of bone density and structure, unspecified site HEPATITIS C SCREENING Routine 11/08/2012 from Last 3 Months or Most Recently Relevant to Health Maintenance Results * ECG-Outside (07/29/2024) us Provider Onbase MD ECG ORDERABLES Final Result * ECG-Annotated (07/29/2024) Only the most recent of3 resultswithin the time period is included. us Provider Onbase MD ECG ORDERABLES Final Result * (ABNORMAL) POCT Glucose, blood (07/28/2024 10:55 AM EDT) Only the most recent of12 resultswithin the time period is included. Pathologist [facility] Glucose POCT 164(H) 70 - 100 mg/dL 07/28/2024 10:55 AM EDT [facility] Blood Capillary blood specimen / Unknown 07/28/2024 10:55 AM EDT 07/28/2024 10:56 AM EDT Emily Chavira MD LAB POINT OF CARE T EST DOCKED DEVICE UNSOLICITED RESULTS Final Result [facility] [address] [place] [address], [place] [phone] * (ABNORMAL) Complete blood count (07/28/2024 7:08 AM EDT) Pathologist [facility] WBC 5.6 4.8 - 10.8 K/mcL LAB HEMETOLOGY METHOD 07/28/2024 7:51 AM [facility] RBC 3.40(L) 3.80 - 4.80 M/mcL LAB HEMETOLOGY METHOD 07/28/2024 7:51 AM [facility] Hemoglobin 10.0(L) 11.5 - 16.0 g/dL LAB HEMETOLOGY METHOD 07/28/2024 7:51 AM [facility] Hematocrit 31.9(L) 35.0 - 47.0 % LAB HEMETOLOGY METHOD 07/28/2024 7:51 AM [facility] MCV 94.4 79.0 - 98.0 FL LAB HEMETOLOGY METHOD 07/28/2024 7:51 AM [facility] MCH 29.6 27.0 - 32.0 pcg LAB HEMETOLOGY METHOD 07/28/2024 7:51 AM [facility] MCHC 31.3(L) 32.0 - 37.0 g/dL LAB HEMETOLOGY METHOD 07/28/2024 7:51 AM [facility] RDW 13.0 11.0 - 15.0 % LAB HEMETOLOGY METHOD 07/28/2024 7:51 AM [facility] Platelets 217 130 - 400 K/[facility] HEMETOLOGY METHOD 07/28/2024 7:51 AM [facility] MPV 11.5(H) 7.0 - 11.0 FL LAB HEMETOLOGY METHOD 07/28/2024 7:51 AM [facility] NRBC 0.0 <1.0 % LAB HEMETOLOGY METHOD 07/28/2024 7:51 AM [facility] NRBC Absolute 0.00 <0.10 K/[facility] HEMETOLOGY METHOD 07/28/2024 7:51 AM EDT [facility] Blood Venous blood specimen / Unknown Venipuncture / Unknown 07/28/2024 7:08 AM EDT 07/28/2024 7:22 AM EDT us Roselyn Stanleykev SOFTWARE INSTALLER LAB BLOOD ORDERABLES Final Resul t Performing Organization Address City/[facility]/ZIP Co de Phone Number [facility] [address] [place] [address], [place] [phone] * Magnesium (07/28/2024 7:08 AM EDT) Only the most recent of4 resultswithin the time period is included. [facility] Magnesium 2.0 1.9 - 2.6 mg/dL LAB CHEMISTRY METHOD 07/28/2024 8:59 AM EDT [facility] Blood Venous blood specimen / Unknown Venipuncture / Unknown 07/28/2024 7:08 AM EDT 07/28/2024 7:21 AM EDT us Roselyn Marmolejo NP LAB BLOOD ORDERABLES Final Resul t Performing Organization Address [facility]/[place]UST de Phone Number [facility] [address] [place] [address], [place] [phone] * (ABNORMAL) Basic metabolic panel (07/28/2024 7:08 AM EDT) Only the most recent of4 resultswithin the time period is included. Sodium 142 133 - 145 mmol/L LAB CHEMISTRY METHOD 07/28/2024 8:59 AM EDT [facility] Potassium 3.5 3.5 - 5.5 mmol/L LAB CHEMISTRY METHOD 07/28/2024 8:59 AM EDT [facility] Chloride 114(H) 96 - 110 mmol/L LAB CHEMISTRY METHOD 07/28/2024 8:59 AM EDT [facility] CO2 21 21 - 32 mmol/L LAB CHEMISTRY METHOD 07/28/2024 8:59 AM EDT [facility] Anion Gap 7 3 - 11 LAB CHEMISTRY METHOD 07/28/2024 8:59 AM EDT [facility] Glucose 108(H) 70 - 100 mg/dL LAB CHEMISTRY METHOD 07/28/2024 8:59 AM T [facility] BUN 9 5 - 25 mg/dL LAB CHEMISTRY METHOD [facility]24 [facility] Creatinine 1.03 0.50 - 1.10 mg/dL LAB CHEMISTRY METHOD 07/28/2024 8:59 AM EDT [facility] eGFR 57(L) >=60 mL/min/1. 73m2 LAB CHEMISTRY METHOD 07/28/2024 8:59 AM T [facility] Comment:Calculation based on the??Chronic Kidney Disease Epidemiology Collaboration (CKD-EPI) equation refit??without adjustment for race. BUN/Creatinine Ratio 8.7 LAB CHEMISTRY METHOD 07/28/2024 8:59 AM [facility] Calcium 8.5 8.5 - 10.5 mg/dL LAB CHEMISTRY METHOD 07/28/2024 8:59 AM [facility] Blood Venous blood specimen / Unknown Venipuncture / Unknown 07/28/2024 7:08 AM EDT 07/28/2024 7:21 AM EDT us Roselyn Marmolejo SOFTWARE INSTALLER LAB BLOOD ORDERABLES Final Resul t [facility] [address] [place] [address], * Lavender tube (07/27/2024 9:05 AM EDT) Extra Tube Hold for add-ons. 07/27/2024 11:01 AM EDT [facility] Comment:Auto resulted. Blood Venous blood specimen / Unknown 07/27/2024 9:05 AM EDT 07/27/2024 9:45 AM EDT Emily Chavira MD LAB BLOOD ORDERABLES Final Result [facility] [address] [place] [address], * Routine EEG (07/26/2024 10:52 AM EDT) Narrative [place] MD - 07/26/2024 3:37 PM EDT [place] MD ? 07/26/2024 ??3:46 PM ROUTINE ELECTROENCEPHALOGRAPHY (EEG) REPORT Study Date: 07/26/2024 Clinical Information History: Allison Brandt is a 74 y.o. woman with hypertension, hyperlipidemia, CKD stage III, diabetes mellitus, lupus in remission, TIA, migraine headache, glaucoma, anemia, amongst others, who presented to emergency room with complaints of syncope Medications: Current Facility-Administered Medications: ??acetaZOLAMIDE (DIAMOX) tablet 250 mg, 250 mg, oral, BID, KIRSTIE Hampton, 250 mg at 07/25/242208 ??amLODIPine (NORVASC) tablet 10 mg, 10 mg, oral, Daily, KIRSTIE Hampton ??atorvastatin (LIPITOR) tablet 10 mg, 10 mg, oral, Nightly, KIRSTIE Hampton, 10 mg at 07/25/242138 ??brimonidine (ALPHAGAN) 0.2 % ophthalmic solution 1 drop, 1 drop, Both Eyes, BID, KIRSTIE Hampton, 1 drop at 07/26/24 0911 ??dextrose (D50W) 50% injection 12.5 g, 12.5 g, intravenous, q15 min PRN, KIRSTIE Hampton ??dextrose (D50W) 50% injection 25 g, 25 g, intravenous, q15 min PRN, KIRSTIE Hampton ??dextrose 15 gram/60 mL oral solution 15 g, 15 g, oral, q15 min PRN, KIRSTIE Hampton ??dextrose 15 gram/60 mL oral solution 30 g, 30 g, oral, q15 min PRN, KIRSTIE Hampton ??dorzolamide-timoloL (COSOPT) 22.3-6.8 mg/mL ophthalmic solution 1 drop, 1 drop, Both Eyes, BID, KIRSTIE Hampton, 1 drop at 07/26/24 0911 ??fluticasone propionate (FLONASE) 50 mcg/actuation nasal spray 2 spray, 2 spray, Each Nostril, Daily PRN, KIRSTIE Hampton ??Glucagon HCl (rDNA) injection 1 mg, 1 mg, intramuscular, Once PRN, KIRSTIE Hampton ??hydroxychloroquine (PLAQUENIL) tablet 300 mg, 300 mg, oral, Daily, KIRSTIE Hampton, 300 mg at 07/26/24 0911 ??insulin lispro injection 1-6 Units, 1-6 Units, subcutaneous, Before meals & nightly, KIRSTIE Hampton, 1 Units at 07/26/24 1215 ??lactated Ringer's infusion, 75 mL/hr, intravenous, Continuous, KIRSTIE Jaramillo, Last Rate: 75 mL/hr at 07/26/24 0556, 75 mL/hr at 07/26/24 0556 ??lisinopriL (PRINIVIL,ZESTRIL) tablet 20 mg, 20 mg, oral, Nightly, KIRSTIE Hampton, 20 mg at 07/25/24 2210 ??loratadine (CLARITIN) tablet 10 mg, 10 mg, oral, Daily PRN, KIRSTIE Hampton ??meclizine (ANTIVERT) tablet 25 mg, 25 mg, oral, TID PRN, Roselyn Marmolejo NP, 25 mg at 07/26/24 1352 ??ondansetron (PF) (ZOFRAN) injection 4 mg, 4 mg, intravenous, q6h PRN, Roselyn Marmolejo NP ??pantoprazole (PROTONIX) EC tablet 40 mg, 40 mg, oral, q AM AC, KIRSTIE Hampton, 40 mg at 07/26/24 0646 ??sertraline (ZOLOFT) tablet 150 mg, 150 mg, oral, Daily, KIRSTIE Hampton, 150 mg at 07/26/24 0911 ??sulfaSALAzine (AZULFIDINE EN-TABS) EC tablet 500 mg, 500 mg, oral, BID, KIRSTIE Hampton, 500 mg at 07/25/24 2208 Recording Techniques A digital video EEG was performed using the standard international 10-20 electrode placement and single channel EKG electrode. ?? Total Recording Time: 23 minutes Montages: Standard 10-20 system montages Type of Study: Routine EEG Video recorded: Yes Conditions of Recording: Awake - drowsy Results Background: The record was well organized. The waking EEG was characterized by a symmetrical, well-formed and modulated 10 Hz posterior dominant rhythm, with medium amplitude (20-70 uV) and reactive to eye opening. The background over the rest of the head consisted of a mixture of alpha and beta frequencies. Sleep: During drowsiness, the alpha rhythm attenuated and diffuse background slowing appeared. Stage 2 sleep was not recorded. Focal slowing: There were no focal abnormalities or persistent asymmetries. Epileptiform discharges: None Activation Procedures: Hyperventilation: Not performed Photic Simulation: Produced an occipital driving response at some frequencies, but did not result in any abnormal discharges. Clinical events: None Heart Rate: Normal sinus rhythm Classification of the findings: ?? Normal Impression This is a normal routine EEG recording in the awake and drowsy states. ??There were no seizures, periodic patterns, or epileptiform discharges. There is no focal slowing or persistent focal asymmetries of the background rhythms. However, a normal EEG does not rule out epilepsy or seizure. Clinical correlation is advised. CC No ref. provider found [place] MD Epileptologist [facility] us Radha THACKER NEUROLOGY ORDERABLES Edited Res ult - Final * (ABNORMAL) CBC auto differential (07/26/2024 4:49 AM EDT) Only the most recent of3 resultswithin the time period is included. WBC 6.4 4.8 - 10.8 [facility] LAB HEMETOLOGY METHOD 07/26/2024 5:27 AM EDT [facility] RBC 3.70(L) 3.80 - 4.80 [facility] LAB HEMETOLOGY METHOD 07/26/2024 5:27 AM [facility] Hemoglobin 11.1(L) 11.5 - 16.0 g/dL LAB HEMETOLOGY METHOD 07/26/2024 5:27 AM [facility] Hematocrit 33.8(L) 35.0 - 47.0 % LAB HEMETOLOGY METHOD 07/26/2024 5:27 AM [facility] MCV 91.1 79.0 - 98.0 FL LAB HEMETOLOGY METHOD 07/26/2024 5:27 AM [facility] MCH 29.9 27.0 - 32.0 pcg LAB HEMETOLOGY METHOD 07/26/2024 5:27 AM [facility] MCHC 32.8 32.0 - 37.0 g/dL LAB HEMETOLOGY METHOD 07/26/2024 5:27 AM [facility] RDW 13.1 11.0 - 15.0 % LAB HEMETOLOGY METHOD 07/26/2024 5:27 AM [facility] Platelets 270 130 - 400 K/mcL LAB HEMETOLOGY METHOD 07/26/2024 5:27 AM [facility] MPV 11.3(H) 7.0 - 11.0 FL LAB HEMETOLOGY METHOD 07/26/2024 5:27 AM [facility] NRBC 0.0 <1.0 % LAB HEMETOLOGY METHOD 07/26/2024 5:27 AM [facility] NRBC Absolute 0.00 <0.10 K/mcL LAB HEMETOLOGY METHOD 07/26/2024 5:27 AM [facility] Neutrophils Relative 39.0 % LAB HEMETOLOGY METHOD 07/26/2024 5:27 AM [facility] Lymphocytes Relative 43.9 % LAB HEMETOLOGY METHOD 07/26/2024 5:27 AM [facility] Monocytes Relative 8.7 % LAB HEMETOLOGY METHOD 07/26/2024 5:27 AM EDT [facility] Eosinophils Relative 7.2 % LAB HEMETOLOGY METHOD 07/26/2024 5:27 AM EDT [facility] Basophils Relative 0.9 % LAB HEMETOLOGY METHOD 07/26/2024 5:27 AM EDT [facility] Immature Granulocytes Relative 0.3 % LAB HEMETOLOGY METHOD 07/26/2024 5:27 AM EDT [facility] Neutrophils Absolute 2.47 1.50 - 7.00 K/mcL LAB HEMETOLOGY METHOD 07/26/2024 5:27 AM EDT [facility] Lymphocytes Absolute 2.79 1.00 - 5.00 K/mcL LAB HEMETOLOGY METHOD 07/26/2024 5:27 AM EDT [facility] Monocytes Absolute 0.55 0.20 - 1.00 K/mcL LAB HEMETOLOGY METHOD 07/26/2024 5:27 AM EDT [facility] Eosinophils Absolute 0.46 0.00 - 0.50 K/mcL LAB HEMETOLOGY METHOD 07/26/2024 5:27 AM EDT [facility] Basophils Absolute 0.06 0.00 - 0.20 K/mcL LAB HEMETOLOGY METHOD 07/26/2024 5:27 AM EDT [facility] Immature Granulocytes Absolute 0.02 0.00 - 0.03 K/mcL LAB HEMETOLOGY METHOD 07/26/2024 5:27 AM EDT [facility] Blood Venous blood specimen / Unknown Venipuncture / Unknown 07/26/2024 4:49 AM EDT 07/26/2024 5:20 AM EDT us Radha THACKER LAB BLOOD ORDERABLES Final Resu lt [facility] [address] [place] [address], [place] [phone] * (ABNORMAL) Comprehensive metabolic panel (07/26/2024 4:49 AM EDT) Sodium 141 133 - 145 mmol/L LAB CHEMISTRY METHOD 07/26/2024 5:51 AM [facility] Potassium 3.5 3.5 - 5.5 mmol/L LAB CHEMISTRY METHOD 07/26/2024 5:51 AM [facility] Chloride 110 96 - 110 mmol/L LAB CHEMISTRY METHOD 07/26/2024 5:51 AM [facility] CO2 24 21 - 32 mmol/L LAB CHEMISTRY METHOD 07/26/2024 5:51 AM [facility] Anion Gap 7 3 - 11 LAB CHEMISTRY METHOD 07/26/2024 5:51 AM [facility] Glucose 102(H) 70 - 100 mg/dL LAB CHEMISTRY METHOD 07/26/2024 5:51 AM [facility] BUN 10 5 - 25 mg/dL LAB CHEMISTRY METHOD 07/26/2024 5:51 AM [facility] Creatinine 0.98 0.50 - 1.10 mg/dL LAB CHEMISTRY METHOD 07/26/2024 5:51 AM [facility] eGFR 60 >=60 mL/min/1. 73m2 LAB CHEMISTRY METHOD 07/26/2024 5:51 AM [facility] Comment:Calculation based on the??Chronic Kidney Disease Epidemiology Collaboration (CKD-EPI) equation refit??without adjustment for race. BUN/Creatinine Ratio 10.2 LAB CHEMISTRY METHOD 07/26/2024 5:51 AM [facility] Calcium 8.8 8.5 - 10.5 mg/dL LAB CHEMISTRY METHOD 07/26/2024 5:51 AM [facility] AST (SGOT) 10 10 - 42 unit/L LAB CHEMISTRY METHOD 07/26/2024 5:51 AM EDT [facility] ALT (SGPT) 11 10 - 60 unit/L LAB CHEMISTRY METHOD 07/26/2024 5:51 AM EDT [facility] Alkaline Phosphatase 56 42 - 121 unit/L LAB CHEMISTRY METHOD 07/26/2024 5:51 AM EDT [facility] Total Protein 6.1 6.0 - 8.0 g/dL LAB CHEMISTRY METHOD 07/26/2024 5:51 AM EDT [facility] Albumin 3.1(L) 3.2 - 5.0 g/dL LAB CHEMISTRY METHOD 07/26/2024 5:51 AM EDT [facility] Total Bilirubin 0.5 0.0 - 1.4 mg/dL LAB CHEMISTRY METHOD 07/26/2024 5:51 AM EDT [facility] Blood Venous blood specimen / Unknown Venipuncture / Unknown 07/26/2024 4:49 AM EDT 07/26/2024 5:19 AM EDT us Radha THACKER LAB BLOOD ORDERABLES Final Resu lt [facility] [address] [place] [address], * MR Brain wo Contrast (07/25/2024 6:14 PM EDT) Anatomical Region Laterality Modality Head and Neck Magnetic Resonan ce 07/25/2024 6:24 PM EDT Impressions 07/25/2024 6:24 PM EDT Impression: 1. No acute infarct. No intracranial mass. 2. Cerebral volume loss with cerebral white matter disease, likely ischemic microvascular in nature. 3. Mucosal thickening and fluid in the right sphenoid sinus. 4. Small amount of fluid in the left mastoid air cells. Right mastoid air cells are clear. This document has been electronically signed by: Madelyn Spivey MD on 07/25/2024 18:24:21 Narrative 07/25/2024 6:24 PM EDT INDICATION: Dizziness, non-specific Exam: MRI of the brain without IV contrast Comparison: 07/26/2023 Clinical history: Dizziness, nonspecific Findings: Diffusion sequence is negative for acute infarction. No acute intracranial hemorrhage. No intracranial masses. No midline shift. No abnormal extra-axial fluid collections are seen. Cerebral volume loss. Areas of increased FLAIR signal within the cerebral white matter bilaterally are reflective of a nonspecific demyelinating process, likely ischemic microvascular in nature. Gradient sequence does not demonstrate any areas of abnormal parenchymal signal dropout Mucosal thickening and fluid in the right sphenoid sinus. Small amount of fluid in the left mastoid air cells. Right mastoid air cells are clear. Procedure Note Madelyn Spivey MD - 07/25/2024 INDICATION: Dizziness, non-specific Exam: MRI of the brain without IV contrast Comparison: 07/26/2023 Clinical history: Dizziness, nonspecific Findings: Diffusion sequence is negative for acute infarction. No acute intracranial hemorrhage. No intracranial masses. No midline shift. No abnormal extra-axial fluid collections are seen. Cerebral volume loss. Areas of increased FLAIR signal within the cerebral white matter bilaterally are reflective of a nonspecific demyelinating process,likely ischemic microvascular in nature. Gradient sequence does not demonstrate any areas of abnormal parenchymal signal dropout Mucosal thickening and fluid in the right sphenoid sinus. Small amount of fluid in the left mastoid air cells. Right mastoid air cells are clear. IMPRESSION: Impression: 1. No acute infarct. No intracranial mass. 2. Cerebral volume loss with cerebral white matter disease, likely ischemic microvascular in nature. 3. Mucosal thickening and fluid in the right sphenoid sinus. 4. Small amount of fluid in the left mastoid air cells. Right mastoidair cells are clear. This document has been electronically signed by: Madelyn Spivey MD on 07/25/2024 18:24:21 Radha THACKER Yashira MRI PROCEDURES Final Result * CT Angio Head/Neck wo and/or w Contrast (07/25/2024 3:36 PM EDT) Anatomical Region Laterality Modality Head and Neck Computed Tomogra phy 07/25/2024 3:46 PM EDT Impressions 07/25/2024 4:00 PM EDT 1. No large vessel occlusion, aneurysm, dissection, or hemodynamically significant cervical ICA stenosis. 2. No acute hemorrhage or intracranial mass effect. Telepaola THACKER ([id number]) -------- FINAL REPORT -------- Dictated By: Ruth Steiner Dictated Date: 07/25/2024 15:46 ET Assigned Physician: Ruth Steiner Reviewed and Electronically Signed By: Ruth Steiner Signed Date: 07/25/2024 16:00 ET Workstation ID: [id number] Transcribed By: Self Edit Transcribed Date: 07/25/2024 15:46 ET Narrative 07/25/2024 4:00 PM EDT History: Dizziness, nonspecific. Headache. Multiple syncopal episodes. Personal history of lupus, chronic kidney disease stage III, and diabetes. Comparison: Noncontrast brain CT 07/13/24, brain CTA 04/24/21 Technique: Helical volumetric imaging of the head and neck was performed, during the rapid, uneventful intravenous administration of 90cc's Isovue-370, using the CT angiography protocol tailored for evaluation of the neck and intracranial vasculature. Coronal and sagittal images were reformatted from the original data set and maximum intensity pixel images were reviewed, in multiple planes. Precontrast and delayed postcontrast axial imaging through the brain was also performed. DLP: 3324.62 mGy/cm [employer] SystemsT Iterative reconstruction technique FINDINGS: Noncontrast brain CT: There is moderate generalized cerebral volume loss. Grijalva-white differentiation is maintained. No abnormal intra- or extra-axial masses or fluid collections are seen. There is no evidence of acute intracranial hemorrhage. CTA: INTRACRANIAL VASCULATURE: The bilateral A1 and M1 segments are patent. The more distal branches of the anterior middle cerebral arteries also appear patent. The basilar artery is patent and terminates in the bilateral donor services manager. No large vessel occlusion or aneurysm is seen. AORTIC ARCH: There is moderate mural calcification of the aortic arch. A three- vessel branching pattern is demonstrated, with patent arch vessel origins. Severe atherosclerotic calcification of the proximal left subclavian artery is identified, similar to the previous study. There is also atherosclerotic calcification of the right subclavian artery origin. RIGHT CAROTID ARTERY: The right common, internal and external carotid arteries are patent. Atherosclerotic calcification at the level of the carotid bulb produces no significant stenosis by NASCET criteria. There is mild atherosclerotic calcification of the intracranial portion of the ICA. No carotid dissection is identified. LEFT CAROTID ARTERY: The left common, internal and external carotid arteries are patent. Atherosclerotic calcification at the level of the carotid bulb is associated with a severe stenosis of the ECA origin. There is no hemodynamically significant stenosis of the ICA by NASCET criteria. These findings are similar to the previous study. Mild atherosclerotic calcification of the intracranial portion of the ICA is seen. No carotid dissection is identified. VERTEBRAL ARTERIES: The vertebral arteries are codominant and patent throughout their courses, terminating in the basilar artery. No vertebral dissection is identified. Ancillary Findings: Cervical disc degenerative changes and facet arthritis are noted. Procedure Note Ruth Steiner MD - 07/25/2024 History: Dizziness, nonspecific. Headache. Multiple syncopal episodes.Personal history of lupus, chronic kidney disease stage III, anddiabetes. Comparison: Noncontrast brain CT 07/13/24, brain CTA 04/24/21 Technique: Helical volumetric imaging of the head and neck was performed,during the rapid, uneventful intravenous administration of 90cc'sIsovue-370, using the CT angiography protocol tailored for evaluation ofthe neck and intracranial vasculature. Coronal and sagittal images werereformatted from the original data set and maximum intensity pixel imageswere reviewed, in multiple planes. Precontrast and delayed postcontrast axial imaging through the brain wasalso performed. DLP: 3324.62 mGy/cm Pro[employer]inder VCT Iterative reconstruction technique FINDINGS: Noncontrast brain CT: There is moderate generalized cerebral volume loss. Grijalva-whitedifferentiation is maintained. No abnormal intra- or extra-axial masses orfluid collections are seen. There is no evidence of acute intracranialhemorrhage. CTA: INTRACRANIAL VASCULATURE: The bilateral A1 and M1 segments are patent. Themore distal branches of the anterior middle cerebral arteries also appearpatent. The basilar artery is patent and terminates in the bilateral donor services manager.No large vessel occlusion or aneurysm is seen. AORTIC ARCH: There is moderate mural calcification of the aortic arch. Athree- vessel branching pattern is demonstrated, with patent arch vesselorigins. Severe atherosclerotic calcification of the proximal leftsubclavian artery is identified, similar to the previous study. There isalso atherosclerotic calcification of the right subclavian arteryorigin. RIGHT CAROTID ARTERY: The right common, internal and external carotidarteries are patent. Atherosclerotic calcification at the level of thecarotid bulb produces no significant stenosis by NASCET criteria. There ismild atherosclerotic calcification of the intracranial portion of the ICA.No carotid dissection is identified. LEFT CAROTID ARTERY: The left common, internal and external carotidarteries are patent. Atherosclerotic calcification at the level of thecarotid bulb is associated with a severe stenosis of the ECA origin. Thereis no hemodynamically significant stenosis of the ICA by NASCET criteria.These findings are similar to the previous study. Mild atheroscleroticcalcification of the intracranial portion of the ICA is seen. No carotiddissection is identified. VERTEBRAL ARTERIES: The vertebral arteries are codominant and patentthroughout their courses, terminating in the basilar artery. No vertebraldissection is identified. Ancillary Findings: Cervical disc degenerative changes and facet arthritis are noted. IMPRESSION: 1. No large vessel occlusion, aneurysm, dissection, or hemodynamicallysignificant cervical ICA stenosis. 2. No acute hemorrhage or intracranial mass effect. Elizabeth THACKER ([id number]) -------- FINAL REPORT -------- Dictated By: Ruth Steiner Dictated Date: 07/25/2024 15:46 ET Assigned Physician: uRth Steiner Reviewed and Electronically Signed By: Ruth Steiner Signed Date: 07/25/2024 16:00 ET Workstation ID: [id number] Transcribed By: Self Edit Transcribed Date: 07/25/2024 15:46 ET Radha THACKER IMG CT PROCEDURES Final Result * CT Head wo Contrast (07/25/2024 5:50 AM EDT) Only the most recent of2 resultswithin the time period is included. Anatomical Region Laterality Modality Head and Neck Computed Tomogra phy 07/25/2024 6:43 AM EDT Impressions 07/25/2024 6:43 AM EDT 1. No acute intracranial findings. This document has been electronically signed by: Olman Flaherty MD on 07/25/2024 06:43:26 Narrative 07/25/2024 6:43 AM EDT INDICATION: syncope CT head without contrast Comparison: CT - CT HEAD WO CONTRAST - 07/13/24 01:52 EDT Findings: No intra-axial mass, midline shift, hydrocephalus, or acute hemorrhage. There is moderate cortical atrophy. There is no sinus or mastoid fluid. The orbits are within normal limits. No skull fracture. Procedure Note Olman Flaherty MD - 07/25/2024 INDICATION: syncope CT head without contrast Comparison: CT - CT HEAD WO CONTRAST - 07/13/24 01:52 EDT Findings: No intra-axial mass, midline shift, hydrocephalus, or acute hemorrhage. There is moderate cortical atrophy. There is no sinus or mastoid fluid. The orbits are within normal limits. No skull fracture. IMPRESSION: 1. No acute intracranial findings. This document has been electronically signed by: Olman Flaherty MD on 07/25/2024 06:43:[address] PROCEDURES Final Result * XR Chest 2 Views (07/25/2024 5:39 AM EDT) Only the most recent of2 resultswithin the time period is included. Anatomical Region Laterality Modality Body Radiographic Heydi ging 07/25/2024 8:31 AM EDT Impressions 07/25/2024 8:35 AM EDT FINDINGS/IMPRESSION: Lungs are clear. ??No pleural effusion or pneumothorax. ??Cardiac silhouette is normal in size. ??Degenerative changes seen throughout the bones. ??Cholecystectomy clips. -------- FINAL REPORT -------- Dictated By: JASMEET GIRON Dictated Date: 07/25/2024 08:31 ET Assigned Physician: JASMEET GIRON Reviewed and Electronically Signed By: JASMEET GIRON Signed Date: 07/25/2024 08:35 ET Workstation ID: [id number] Transcribed By: Self Edit Transcribed Date: 07/25/2024 08:31 ET Narrative 07/25/2024 8:35 AM EDT XR CHEST 2 VIEWS INDICATION: ??Syncope TECHNIQUE: XR CHEST 2 VIEWS COMPARISON: 07/13/2024 Procedure Note Jasmeet Giron MD - 07/25/2024 XR CHEST 2 VIEWS INDICATION: Syncope TECHNIQUE: XR CHEST 2 VIEWS COMPARISON: 07/13/2024 IMPRESSION: FINDINGS/IMPRESSION: Lungs are clear. No pleural effusion orpneumothorax. Cardiac silhouette is normal in size. Degenerative changesseen throughout the bones. Cholecystectomy clips. -------- FINAL REPORT -------- Dictated By: JASMEET GIRON Dictated Date: 07/25/2024 08:31 ET Assigned Physician: JASMEET GIRON Reviewed and Electronically Signed By: JASMEET GIRON Signed Date: 07/25/2024 08:35 ET Workstation ID: [id number] Transcribed By: Self Edit Transcribed Date: 07/25/2024 08:31 ET us Marian THACKER IMG XR PROCEDURES Final Result * Troponin I high sensitivity (NOW) (07/25/2024 5:14 AM EDT) [facility] High Sensitivity Troponin I 41 <=54 ng/L LAB CHEMISTRY METHOD 07/25/2024 6:34 AM EDT [facility] Blood Venous blood specimen / Unknown Venipuncture / Unknown 07/25/2024 5:14 AM EDT 07/25/2024 6:10 AM EDT Narrative [facility] - 07/25/2024 6:34 AM EDT High levels of biotin in samples may falsely decrease hsTroponin values. ??Use caution when interpreting hsTroponin results in patients taking biotin who exhibit renal impairment (eGFR <60) or in patients taking more than 20 mg/day of biotin. us Marian THACKER LAB BLOOD ORDERABLES Final Resul t [facility] [address] [place] [address], * (ABNORMAL) B-type natriuretic peptide (07/25/2024 5:14 AM EDT) BNP 108(H) <=100 pcg/mL LAB CHEMISTRY METHOD 07/25/2024 6:42 AM EDT [facility] Blood Venous blood specimen / Unknown Venipuncture / Unknown 07/25/2024 5:14 AM EDT 07/25/2024 6:10 AM EDT Marian THACKER LAB BLOOD ORDERABLES Final Resul t Performing Organization Address [facility]/[place]UST de Phone Number [facility] [address] [place] [address], [place] [phone] * Thyroid stimulating hormone with reflex to free t4 and free t3 (TSH Reflex) (07/25/2024 4:20 AM EDT) Pathologist [facility] TSH 3.84 0.40 - 4.00 mcIU/mL LAB CHEMISTRY METHOD 07/25/2024 6:02 AM EDT [facility] Blood Venous blood specimen / Unknown Venipuncture / Unknown 07/25/2024 4:20 AM EDT 07/25/2024 5:10 AM EDT Marian THACKER LAB BLOOD ORDERABLES Final Resul t Performing Organization Address [facility] de Phone Number [facility] [address] [place] [address], [place] [phone] * ECG 12 lead (07/25/2024 2:41 AM EDT) Only the most recent of3 resultswithin the time period is included. Ventricular Rate ECG 65 BPM GEMUSE Atrial Rate 65 BPM GEMUSE P-R Interval 148 ms GEMUSE QRS Duration 140 ms GEMUSE Q-T Interval 420 ms GEMUSE QTc 436 ms GEMUSE P Wave Rogers 18 degrees GEMUSE R Rogers -35 degrees GEMUSE T Rogers 77 degrees GEMUSE ECG Interpretation Normal sinus rhythm with sinus arrhythmia Left axis deviation Left bundle branch block Abnormal ECG When compared with ECG of 13-JUL-2024 00:10, No significant change was found Confirmed by MD Jacobsen Christopher ([id number]) on 07/26/2024 1:57:03 AM GEMUSE 07/25/2024 2:41 AM EDT 07/26/2024 1:57 AM EDT us Marcial Brown MD ECG ORDERABLES Final Result GEMUSE * (ABNORMAL) Urinalysis with reflex microscopic and culture (07/13/2024 3:10 AM EDT) Specific [place] Urine 1.019 1.003 - 1.030 LAB URINALYSIS - AUTOMATED METHOD 07/13/2024 3:41 AM [facility] pH, Urine 6.5 5.0 - 8.0 pH LAB URINALYSIS - AUTOMATED METHOD 07/13/2024 3:41 AM [facility] Leukocytes, Urine Moderate(A) Negative LAB URINALYSIS - AUTOMATED METHOD 07/13/2024 3:41 AM [facility] Nitrite, Urine Negative Negative LAB URINALYSIS - AUTOMATED METHOD 07/13/2024 3:41 AM [facility] Protein, Urine Negative <=Trace mg/dL LAB URINALYSIS - AUTOMATED METHOD 07/13/2024 3:41 AM [facility] Glucose, Urine >=1000(A) Negative mg/dL LAB URINALYSIS - AUTOMATED METHOD 07/13/2024 3:41 AM [facility] Ketones, Urine Negative Negative mg/dL LAB URINALYSIS - AUTOMATED METHOD 07/13/2024 3:41 AM [facility] Urobilinogen , Urine 1.0 0.2 - 1.0 mg/dL LAB URINALYSIS - AUTOMATED METHOD 07/13/2024 3:41 AM [facility] Bilirubin, Urine Negative Negative LAB URINALYSIS - AUTOMATED METHOD 07/13/2024 3:41 AM EDT [facility] Blood, Urine Negative Negative LAB URINALYSIS - AUTOMATED METHOD 07/13/2024 3:41 AM T [facility] RBC, Urine 1.8 0 - 4 /HPF LAB URINALYSIS - AUTOMATED METHOD 07/13/2024 3:41 AM [facility] WBC, Urine 63.4(H) 0 - 4 /HPF LAB URINALYSIS - AUTOMATED METHOD 07/13/2024 3:41 AM T [facility] Squamous Epithelial, Urine 90(H) 0 - 60 /LPF LAB URINALYSIS - AUTOMATED METHOD 07/13/2024 3:41 AM [facility] Bacteria, Urine Negative Negative /HPF LAB URINALYSIS - AUTOMATED METHOD 07/13/2024 3:41 AM [facility] Hyaline Casts, Urine 1.6 0 - 3 /LPF LAB URINALYSIS - AUTOMATED METHOD 07/13/2024 3:41 AM [facility] Urine Urine specimen obtained by clean catch procedure / Unknown Non-blood Collection / Unknown 07/13/2024 3:10 AM EDT 07/13/2024 3:32 AM EDT us Marcial Brown MD LAB URINE ORDERABLES Final Resu lt [facility] [address] [place] [address], * Grijalva urine culture tube (07/13/2024 3:10 AM EDT) Extra Tube Hold for add-ons. 07/13/2024 5:01 AM EDT [facility] Comment:Auto resulted. Urine Urine specimen obtained by clean catch procedure / Unknown Non-blood Collection / Unknown 07/13/2024 3:10 AM EDT 07/13/2024 3:32 AM EDT us Marcial Brown MD LAB URINE ORDERABLES Final Resu lt Performing Organization Address City/[facility]/ZIP Co de Phone Number [facility] [address] [place] [address], [place] [phone] * Culture urine (07/13/2024 3:10 AM EDT) Only the most recent of2 resultswithin the time period is included. Culture, Urine No growth 07/14/2024 10:36 AM EDT [facility] Urine Urine specimen obtained by clean catch procedure / Unknown Non-blood Collection / Unknown 07/13/2024 3:10 AM EDT 07/13/2024 3:41 AM EDT us Marcial Brown MD LAB MICROBIOLOGY - GENERAL ORDE RABLES Final Result Performing Organization Address [facility]/ZIP Co de Phone Number [facility] [address] [place] [address], [place] [phone] * (ABNORMAL) TRANSTHORACIC ECHOCARDIOGRAM (TTE) COMPLETE W/ CONTRAST (07/06/2024 1:28 PM EST) Left Atrium Minor Rogers 4.8 cm CV PACS Left Atrium Major Rogers 4.6 cm CV PACS LA Area Sys (A2C) 16 cm2 CV PACS LA Area Sys (A4C) 13 cm2 CV PACS LA Volume (BP) 36 mL CV PACS RA Area 12.1 cm2 CV PACS RA 2D Volume 26 mL CV PACS Aortic Sinus Valsalva 2.9 cm CV PACS Ascending Aorta 3.0 cm CV PACS IVSD 0.9 0.6 - 0.9 cm CV PACS LVIDD 3.9 3.8 - 5.2 cm CV PACS LVIDS 3.0 2.2 - 3.5 cm CV PACS LVOT Diameter 1.8 cm CV PACS LVPWD 0.9 0.6 - 0.9 cm CV PACS MV E' Tissue Velocity Lateral 6 cm/s CV PACS MV E' Tissue Velocity Septal 4 cm/s CV PACS LVOT Area 2.5 cm2 CV PACS MV Deceleration [place] 3.3 m/s2 CV PACS E Wave Deceleration Time 264(A) 119 - 242 ms CV PACS MV PHT 77 ms CV PACS MV Peak A Jake 1.11 m/s CV PACS MV Peak E Jake 0.86 m/s CV PACS MV Area PHT 2.9 cm2 CV PACS PV Acceleration Time 77 ms CV PACS RV Diastolic Basal Dimension 3.8 2.5 - 4.1 cm CV PACS RV S' 10 cm/s CV PACS TAPSE 17 mm CV PACS TR Peak Velocity 2.67 m/s CV PACS TR Peak Gradient 29 mmHg CV PACS E/E' Ratio Septal 22 CV PACS E/E' Ratio Averaged 18 CV PACS Relative Wall Thickness ratio 0.46 CV PACS FS 23 % CV PACS LV Mass 2D 105 g CV PACS Ascending Aorta Index 1.78 cm/m2 CV PACS RA 2D Volume Index 15 mL/m2 CV PACS LVIDD Index 2.31 cm/m2 CV PACS LVIDS Index 1.78 cm/m2 CV PACS E/A Ratio 0.8 CV PACS E/E' Ratio Lateral 14 CV PACS LA Volume Index (BP) 21 mL/m2 CV PACS LV Mass Index 2D 62 g/m2 CV PACS BSA 1.69 m2 CV PACS Right Ventricular Peak Systolic Pressure 32 mmHg CV PACS Est. RA Pressure 3 mmHg CV PACS Anatomical Region Laterality Modality Ultrasound Narrative 07/07/2024 12:58 PM EST ?Left ventricle cavity size is normal. Left ventricular systolic function is in the normal range with an ejection fraction of 55-60%. ?? Grade 2 diastolic dysfunction. ??Unchanged compared to echo dated 12/21/2023 ?Left ventricle wall thickness is normal. ??Elevated left atrial filling pressure ?Right ventricle cavity is normal. Right ventricular systolic function is normal. ?Tricuspid valve leaflets exhibit normal excursion. ??Mild tricuspid insufficiency. ??No definitive pulmonary hypertension ?Trace mitral insufficiency Left Ventricle Left ventricle cavity size is normal. Wall thickness is at upper limits of normal. Systolic function is normal with an ejection fraction of 55-60%. Septal and inferior wall hypokinesis. Indeterminate diastolic function. Right Ventricle Right ventricle cavity appears normal. Systolic function is normal. Left Atrium Left atrium cavity size is normal. Right Atrium Right atrium cavity is normal. IVC/SVC Inferior vena cava structure is normal. RA pressures is estimated to be 3 mmHg (IVC diameter <21 mm and decreases >50% during inspiration). Mitral Valve Mitral valve structure is normal. There is mild regurgitation. There is no evidence of mitral valve stenosis. Tricuspid Valve The leaflets exhibit normal excursion. There is mild regurgitation. Aortic Valve The aortic valve is trileaflet. There is no regurgitation or stenosis. Pulmonic Valve Pulmonic valve structure is normal. There is trace pulmonic valve regurgitation. Ascending Aorta The aorta appears normal in size. Pericardium There is no pericardial effusion. Study Details Overall the study quality was adequate. Definity contrast was given to enhance imaging. Study was difficult due to: poor endocardial visualization. Tammy THACKER CV ECHO PROCEDURES Final Resu lt * (ABNORMAL) POC Urine Non-Auto W/O Micro (06/06/2024 3:52 PM EST) Pathologist [facility] Leukocytes UA POC Positive(A) Negative Nitrite UA POC Positive(A) Negative Urobilinogen UA POC Positive(A) Negative Protein UA POC Negative Negative PH UA POC 5.0 5.0 - 9.0 Blood UA POC Trace Negative, Trace Specific [place] UA POC 1.010 1.001 - 1.035 Ketones UA POC Negative Negative Bilirubin UA POC Negative Negative Glucose UA POC Normal Normal, Trace Urine Urine specimen obtained by clean catch procedure / Unknown 06/06/2024 3:52 PM EST Brenda Bethea MD POINT OF CARE TEST ENTER/EDIT OR DERABLES Final Result * (ABNORMAL) Hemoglobin A1c (06/06/2024 3:50 PM EST) Pathologist [facility] Hemoglobin A1C 7.7(H) <6.5 % LAB CHEMISTRY METHOD 06/06/2024 9:51 PM EST [facility] Mean Bld Glu Estim. 174 mg/dL LAB CHEMISTRY METHOD 06/06/2024 9:51 PM EST [facility] Blood Venous blood specimen / Unknown Venipuncture / Unknown 06/06/2024 3:50 PM EST 06/06/2024 3:50 PM EST us Char THACKER LAB BLOOD ORDERABLES Final Result [facility] [address] [place] [address], [place] [phone] * XR Lumbar Spine 2-3 Views (05/15/2024 [...] Signed Date: 05/15/2024 13:52 ET Workstation ID: [id number] Transcribed By: Self Edit Transcribed Date: 05/15/2024 [...] Signed Date: 05/15/2024 13:52 ET Workstation ID: [id number] Transcribed By: Self Edit Transcribed Date: 05/15/2024 13:51 ET us Franklyn Archer MD IMG XR PROCEDURES Final R esult * CARDIAC HOLTER MONITOR (REPORT GENERATED IN HOUSE) (05/11/2024 1:00 PM EST) Anatomical Region Laterality Modality Cardiac Diagnost ic Narrative 05/13/2024 1:32 PM EST ?Benign Holter monitor with normal sinus rhythm and left bundle branch block. ??Occasional premature atrial beats and short atrial runs but no atrial fibrillation and no bradycardia or pauses 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 1: Predominant rhythm was Normal [...] 3. Bilateral subclavian artery origin atherosclerotic stenosis. [place] ([id number]) -------- FINAL REPORT -------- Dictated By: Ruth Steiner Dictated Date: 05/16/2024 09:00 ET Assigned Physician: Ruth Steiner Reviewed and Electronically Signed By: Ruth Steiner Signed Date: 05/16/2024 09:10 ET Workstation ID: [id number] Transcribed By: Self Edit Transcribed Date: 05/16/2024 [...] pixel images were reviewed. DLP: 238.00 mGy/cm Catmojier Iterative reconstruction technique Findings: The thoracic aorta [...] intensity pixelimages were reviewed. DLP: 238.00 mGy/cm Catmojier Iterative reconstruction technique Findings: The thoracic aorta [...] 3. Bilateral subclavian artery origin atherosclerotic stenosis. [employer] THACKER ([id number]) -------- FINAL REPORT -------- Dictated By: Ruth Steiner Dictated Date: 05/16/2024 09:00 ET Assigned Physician: Ruth Steiner Reviewed and Electronically Signed By: Ruth Steiner Signed Date: 05/16/2024 09:10 ET Workstation ID: [id number] Transcribed By: Self Edit Transcribed Date: 05/16/2024 09:00 ET us Dalia THACKER IM CT PROCEDURES Final Result * Lipid panel with reflex to direct LDL (03/14/2024 5:44 AM EST) Cholesterol 147 0 - 200 mg/dL LAB CHEMISTRY METHOD 03/14/2024 7:18 AM [facility] Triglycerides 113 0 - 150 mg/dL LAB CHEMISTRY METHOD 03/14/2024 7:18 AM [facility] HDL 47 >=40 mg/dL LAB CHEMISTRY METHOD 03/14/2024 7:18 AM EST [facility] LDL Calculated 77 0 - 100 mg/dL LAB CHEMISTRY METHOD 03/14/2024 7:18 AM [facility] VLDL Cholesterol Bayron 22.6 mg/dL LAB CHEMISTRY METHOD 03/14/2024 7:18 AM [facility] Non HDL Chol. (LDL+VLDL) 100 <145 mg/dL LAB CHEMISTRY METHOD 03/14/2024 7:18 AM [facility] Chol/HDL Ratio 3.1 0.0 - 4.4 LAB CHEMISTRY METHOD 03/14/2024 7:18 AM [facility] Blood Venous blood specimen / Unknown Venipuncture / Unknown 03/14/2024 5:44 AM EST 03/14/2024 6:29 AM EST us Dwain Munoz MD LAB BLOOD ORDERABLES Final Result [facility] [address] [place] [address], * MG Mammo Digital Screening w [place] Left (03/08/2024 3:05 PM EST) Anatomical Region Laterality Modality Breast Left Mammography 03/17/2024 7:24 AM EST Impressions 03/17/2024 7:39 AM EST No mammographic evidence of malignancy. BREAST DENSITY: B - There are scattered areas of fibroglandular density. BI-RADS CATEGORY: 2 - BENIGN RECOMMENDATION: Screening left mammogram is recommended in 1 year. MAMMO LOCATION: [facility], [address] [place] [address], [id number], . -------- FINAL REPORT -------- Dictated By: Cathie Rock Dictated Date: 03/17/2024 07:24 ET Assigned Physician: Cathie Rock Reviewed and Electronically Signed By: Cathie Rock Signed Date: 03/17/2024 07:39 ET Workstation ID: [id number] Transcribed By: Self Edit Transcribed Date: 03/17/2024 [...] is recommended in 1 year. MAMMO LOCATION: [facility], [address] [place] [address], [id number], . -------- FINAL REPORT -------- Dictated By: Cathie Rock Dictated Date: 03/17/2024 07:24 ET Assigned Physician: Cathie Rock Reviewed and Electronically Signed By: Cathie Rock Signed Date: 03/17/2024 07:39 ET Workstation ID: [id number] Transcribed By: Self Edit Transcribed Date: 03/17/2024 07:24 ET Brenda Bethea MD IMG BI PROCEDURES Final Result * Urine Albumin Creatinine Ratio (02/09/2024) [facility] Urine Albumin Creatinine Ratio abstracted Result [facility] Provider MD HEALTH MAINTENANCE Final Result * Diabetes Eye Exam (08/04/2023) [facility] Diabetes: Annual Retina Eye Exam abstracted Result [facility] Provider MD HEALTH MAINTENANCE Final Result * Falls Risk Assessment (07/07/2023) [facility] Falls Risk Assessment abstracted Result [facility] Provider HEALTH MAINTENANCE Final Result * Depression Screening (03/04/2023) [facility] Depression Screening abstracted Result [facility] Provider HEALTH MAINTENANCE Final Result * Colonoscopy (01/28/2019) [facility] Colonoscopy no interpretation , abstracted Anatomical Region Laterality Modality Other Result [facility] Provider MD HEALTH MAINTENANCE Final Result * [...] (World Health Organization Fracture Risk Assessment) [facility] Department of Internal Medicine recommends [...] (World Health Organization Fracture Risk Assessment) [facility] Department of Internal Medicine recommendsusing [...] Final Result * Hepatitis C Screening (11/08/2012) [facility] Hepatitis C Screening abstracted Historical Provider HEALTH MAINTENANCE Final Result from Last 3 Months or Most Recently Relevant to Health Maintenance Insurance MEDICARE [employer] [place] Advance Directives Documents on File Type Date Recorded 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 Do not modify or discontinue any currently active code status orders. * Full Code - Confirmed Date Activated Date Inactivated Comments 03/14/2024 2:05 [...] currently active code status orders. Care Teams Tax Assessor Relationship Specialty Start Date End Date Brenda Bethea MD [address] [place] [address] PCP - General Internal Medicine 01/21/18
--- OUTSIDE RECORDS SUMMARY | 2024-08-02 16:27 | XMS_ITS | Encounter Summary ---
Author Organization [facility] Address [address] [place] [address] Care Team Providers Care Seat Nailer Name Role Phone Brenda Bethea MD Primary Care Provider [phone] Reason for Visit * Reason Onset Date Comments Hospital Follow-up 07/29/2024 Needs appoint ment has VNA services Encounter Details Date Type Department Care Team (Late st Contact Info) Description 07/29/2024 Telephone Adult Medicine [facility] [address] [place] [address] Brenda Bethea MD [address] [place] [address] Hospital Follow-up (Needs appointment has VNA services ) Social History Tobacco Use Types Packs/Day Years [...] Notes * Lore Curtis RN - 08/01/2024 9:50 AM EDT Called and spoke to pt's , Be. An appointment was made for her to be seen in the office on 08/03/24 at 10:[address] Bethea and she is in agreement with this plan. * Lore Curtis RN - 08/01/2024 9:45 AM EDT I left a message for the pt to call the office at . * Lore Curtis RN - 07/29/2024 4:54 PM EDT Called and informed Henna/Michael of the verbal orders for start of care on 08/01/24 for SN and PT. She was informed pt will need to have a hospital follow up appointment for signed orders. * Lore Curtis RN - 07/29/2024 4:48 PM EDT She no showed her appointment as she was in the hospital r/t dizziness. She was admitted on 07/25/24and discharged on 07/28/24. * Brenda Bethea MD - 07/29/2024 4:35 PM EDT She no showed her appt with me yesterday; will need to see me for any signed orders * Lore Curtis RN - 07/29/2024 3:45 PM EDT I left a message for the pt to call the office at to schedule a hospital follow up appointment. * Jessi Johnson - 07/29/2024 3:38 PM EDT VNA CALL Which [facility]NA office is calling? [facility] / Full name of caller: REBA The caller is A nurse Is the caller at the patients home?: no Reason for call: VO NEEDED FOR START OF CARE ON 08/01/24 [facility] AND PT. PATIENT WAS DISCHARGED FROM [facility] ON 07/28/24 Does caller need an urgent call back? no Was CONTACT Telephone # obtained above?: yes Fax #: documented in this encounter Plan of Treatment Upcoming Encounters Date Type Department Care Team (Late st Contact Info) Description 08/03/2024 10:30 AM EDT Office Visit [address] [phone] Brenda Bethea MD [address] [place] [address] 08/10/2024 4:30 PM EDT Office Visit Endocrinology [address] [phone] Char León PA [address] [place] [id number] 09/12/2024 10:00 AM EDT Consult [address] [phone] Brenda Bethea MD [address] [place] [address] 10/06/2024 2:00 PM EDT Office Visit [address] [phone] Tammy Dennison PA [address] [place] [address] 11/08/2024 12:00 PM EDT Ancillary Procedure [facility] [address] [phone] 12/15/2024 3:00 PM EDT Office Visit Vascular Surgery - [place] [address] [phone] Aby Hollis PA [address] [address] documented as of this encounter Visit Diagnoses Not on filedocumented in this encounter Additional Health Concerns Assessment Noted Time PHQ-9 Depression Total Score: 0 06/06/19 3:04 PM EST A fall risk assessment has been complete d for the patient 06/06/2024 3:04 PM EST documented as of this encounter Care Teams Seat Nailer Relationship Specialty Start Date End Date Brenda Bethea MD [address] [place] [address] PCP - General Internal Medicine 01/21/18 documented as of this encounter
--- OUTSIDE RECORDS SUMMARY | 2024-08-02 16:27 | XMS_ITS ---
Author Organization [address] Address [address] [place] [address] Phone Care Team Providers Care Back Tufter Name Role Phone Brenda Bethea MD Primary Care Provider [phone] Transitional Care Management Status:Identified (Enrolling) Start date:07/28/2024 Enrollment reason:Identified using hospital discharge data Case Team Name Relationship Phone Al Mojica LPN Care Manager(Responsible Staff) Continued Care and Services Coordination
--- OUTSIDE RECORDS SUMMARY | 2024-08-02 16:27 | XMS_ITS | Encounter Summary ---
Author Organization [facility] Address [address] [place] [address] Care Team Providers Care Map And Chart Mounter Name Role Phone Brenda Bethea MD Primary Care Provider [phone] Reason for Referral * Home Health (Routine) - Closed Specialty Diagnoses / Procedures Referred By Huber khan Referred To Contact Home Health Services Diagnoses Dizziness Syncope, unspecified syncope type Roselyn Marmolejo NP [address] [place] [address] Phone: tel: fax: [address] [address] Phone: tel: Referral ID Status Reason Start Date Expiration Date V isits Requested Visits Authorized [id number] Closed Consult and Treat 07/28/2024 07/28/2025 1 1 Reason for Visit * Reason Comments Dizziness * Auth/Cert (Routine) Specialty Diagnoses / Procedures Referred By Huber t Referred To Contact Diagnoses Dizziness Procedures [facility]/OBS CARE ADMIT/DISCHARGE SAME DATE MODERATE LEVEL Jose D Viveros MD [address] [place] [address] Phone: tel: fax: [facility] Emergency [address] [place] [address] Phone: tel: Referral ID Status Reason Start Date Expiration Date Visits Re quested Visits Authorized [id number] 1 1 Encounter Details Date Type Department Care Team (Latest Contact Info) Description 07/25/2024 2:09 AM EDT - 07/28/2024 2:01 PM EDT Hospital Encounter [facility] Medical Surgical Unit [address] [place] [address] Wellington Stanley MD [address] [place], [place] [id number] Jose D Viveros MD [address] [place] [address] Emily Chavira MD [address] [place] [phone] Dizziness (Primary Dx); Syncope, unspecified syncope type Discharge Disposition: Home-Health Care Svc Social History Tobacco Use Types Packs/Day Years [...] Mass Index 22.3 07/25/2024 2:20 AM EDT documented in this encounter Functional Status * [...] Tracie Anton RN documented in this encounter Discharge Summaries * Roselyn Marmolejo NP - 07/28/2024 8:44 AM EDT Images from the original note were not included. [place] DISCHARGE SUMMARY Patient Information Allison Brandt : 1950 [74 y.o.] Admitting Provider Jose D Viveros MD Discharge Provider Roselyn Marmolejo NP, Emily Chavira MD Primary Care Physician Brenda Bethea MD Admission Date 07/25/2024 Discharge Date 07/28/2024 Summary of Hospital Problems Presenting Chief Complaint: Syncope Primary Discharge Diagnosis: Syncope History of TIA Dizziness Secondary Discharge Diagnosis: Hyperlipidemia Diabetes Mellitus GERD Lupus Glaucoma CKD stage 2 Hypertension Discharge Destination: Home with [facility]NA Services Code Status at Discharge: FULL CODE Inpatient Consultants: Seen by Neurologist Pertinent Imaging Findings: Narrative & Impression INDICATION: syncope CT head without contrast Comparison: [...] by: Olman Flaherty MD on 07/25/2024 06:43:26 INDICATION: Syncope TECHNIQUE: XR CHEST 2 VIEWS COMPARISON: 07/13/2024 IMPRESSION: FINDINGS/IMPRESSION: Lungs are clear. No pleural effusion or pneumothorax. Cardiac silhouette is normal in size. Degenerative changes seen throughout the bones. Cholecystectomy clips. Narrative & Impression History: Dizziness, nonspecific. Headache. Multiple syncopal episodes. [...] brain was also performed. DLP: 3324.62 mGy/cm Eyewitness SurveillancepeSmash Bucket VCT Iterative reconstruction technique FINDINGS: Noncontrast brain [...] is patent and terminates in the bilateral waiter/waitress formal. No large vessel occlusion or aneurysm is [...] associated with a severe stenosis of the ECAorigin. There is no hemodynamically significant stenosis of [...] No acute hemorrhage or intracranial mass effect. Narrative & Impression INDICATION: Dizziness, non-specific Exam: MRI of the [...] cells. Right mastoid air cells are clear. Lab Results Component Value Date WBC 5.6 07/28/2024 HGB 10.0 (L) 07/28/2024 HCT 31.9 (L) 07/28/2024 MCV 94.4 07/28/2024 PLT 217 07/28/2024 Lab Results Component Value Date GLUCOSE 109 (H) 07/28/2024 CALCIUM 8.9 07/27/2024 NA 140 07/27/2024 K 3.9 07/27/2024 CO2 21 07/27/2024 CL 112 (H) 07/27/2024 BUN 10 07/27/2024 CREATININE 1.18 (H) 07/27/2024 Procedures Performed: EEG showing: EEG showing: Background: The record was well organized. The [...] Normal sinus rhythm Classification of the findings: Normal Impression This is a normal routine EEG recording in the awake and drowsy states. There were no seizures, periodic patterns, or epileptiform discharges. There is no focal slowing or persistent focal asymmetriesof the background rhythms. However, a normal EEG does not rule out epilepsy or seizure. Clinical correlation is advised. Hospital Course Summary Syncope Unclear etiology Question if medication reaction Multiple recent medications changes per patient D/C Melatonin Work up negative: Brain CT no acute intracranial findings Chest X-ray showing clear lungs Chest CTA showing no PE Echocardiogram from 07/06/24 LVEF of 55-60% grade 2 diastolic dysfunction Orthostatic BP's were negative Brain MRI showing no acute findings No focal deficits Continue ASA and statin EEG was normal Continue Meclizine PRN dizziness Discharge home with Home PT and VNA services History of TIA As above Decreased hemoglobin No evidence of bleeding No history of anemia Likely due to IV dilution 4. Hyperlipidemia Continue statin 5. Diabetes Mellitus Continue diabetic diet Continue POC with SSI 6. GERD Continue PPI 7. Lupus Continue Hydroxychloroquine 8. Glaucoma Continue home eye drops Continue Diamox 9. CKD stage 2 GFR is 66 At baseline 10. Hypertension Continue norvasc and Lisinopril 11. DVT prophylaxis Patient is ambulatory Continue intermittent compression boots 12. Recent UTI Patient is S/P antibiotics Urine culture from 07/13/2024 showing no growth 13. FULL CODE Follow-Up Instructions and Recommendations Discontinue Melatonin Follow up with PCP in one week Discharge Medications Home Medications After Discharge Scheduled acetaZOLAMIDE (DIAMOX) 250 mg tablet, Take 1 tablet (250 mg total) by mouth 2 (two) times a day. amLODIPine (NORVASC) 10 mg tablet, Take 1 tablet (10 mg total) by mouth 1 (one) time each day. aspirin 81 mg EC tablet, Take 1 tablet (81 mg total) by mouth 1 (one) time. brimonidine (ALPHAGAN) 0.2 % ophthalmic solution, Administer 1 drop into both eyes 2 (two) times a day. dorzolamide-timoloL (COSOPT) 22.3-6.8 mg/mL ophthalmic solution, Administer 1 drop into both eyes 2(two) times a day. hydroxychloroquine (PlaqueniL) 200 mg tablet, Take 1.5 tablets (300 mg total) by mouth 1 (one) timeeach day. latanoprostene bunod (Vyzulta) 0.024 % drops, Administer 1 drop into both eyes at bedtime. lisinopriL (PRINIVIL,ZESTRIL) 20 mg tablet, Take 1 tablet (20 mg total) by mouth at bedtime. omeprazole (PriLOSEC) [address] capsule, Take 1 capsule (20 mg total) by mouth 1 (one) time each day. sertraline (ZOLOFT) 100 mg tablet, Take 1.5 tablets (150 mg total) by mouth 1 (one) time each day. simvastatin (ZOCOR) 20 mg tablet, Take 1 tablet (20 mg total) by mouth at bedtime. sulfaSALAzine (AZULFIDINE EN-TABS) 500 mg EC tablet, Take 1 tablet (500 mg total) by mouth 2 (two) times a day. PRN loratadine (CLARITIN) 10 mg tablet, Take 1 tablet (10 mg total) by mouth 1 (one) time each day if needed for allergies. meclizine (ANTIVERT) 25 mg tablet, Take 1 tablet (25 mg total) by mouth 3 (three) times a day if needed for dizziness for up to 10 days. No Frequency fluticasone propionate (FLONASE) 50 mcg/actuation nasal spray, 1 spray per nostril twice per day, as needed for nasal congestion insulin glargine U-300 (Toujeo SoloStar U-300 Insulin) 300 unit/mL (1.5 mL) CONCENTRATED injection pen, Use 34 units at bedtime SC, go up by 4 units every week if BS above 150. Max dose 60 units. pen needle, diabetic 32 gauge x 5/32 needle, To inject insulin 4x daily Physical Exam at time of Discharge Physical Exam General Exam: Age appropriate, awake, calm, cooperative, appearing weak and fatigued, thin, though in no acute distress. Skin Exam: Warm, dry, intact, no diaphoresis. No rashes noted. Capillary refill < 3 seconds. Eye Exam: No scleral icterus HEENT exam: Head is normocephalic. Oral mucosa dry. No trismus, drooling, or difficulty handling secretions. Neck Exam: Soft/supple, full range of motion, no nuchal rigidity Respiratory Exam: Faint crackles at the lung bases. No wheezes, or rhonchi. No tripoding, retractions or increased work of breathing. Speaking in full sentences without difficulties. Cardiovascular Exam: Regular rate and rhythm, no rubs gallops. Gastrointestinal Exam: No pulsations or visible masses, nondistended. Normoactive bowel sounds. Abdomen is soft, nontender, without rebound/guarding. No peritoneal signs appreciated. Musculoskeletal Exam: No calf tenderness or asymmetry, no lower extremity pitting edema. Moving allextremities at the major joint spaces without difficulty. Neurological Exam: Alert and oriented X3. No focal deficit. Smile symmetric. No dysarthria/dysphagia. Tongue midline when protruded. Hearing appropriate. Following commands without difficulties. Psychiatric exam: stable mood and affect Vitals Visit Vitals BP (!) 129/48 (BP Location: Left arm, Patient Position: Lying) Pulse 55 Temp 36.3 ??C (97.3 ??F) (Temporal) Resp 14 Temp (24hrs), Av.6 ??C (97.8 ??F), Min:36.3 ??C (97.3 ??F), Max:37.1 ??C (98.8 ??F) Body mass index is 22.3 kg/m??. No results found for: PTWT , PTHT Greater than 45 minutes spent on day of discharge. Discharge planning was discussed with my attending physician Dr. Chavira Who agrees with the above assessment and plan. Cosigned by Emily Chavira MD at 07/28/2024 5:08 PM EDT * Emily Chavira MD - 07/27/2024 12:17 PM EDT Images from the original note were not included. [place] DISCHARGE SUMMARY Patient Information Allison Brandt : 1950 [74 y.o.] Admitting Provider Jose D Viveros MD Discharge Provider Roselyn Marmolejo NP, Emily Chavira MD Primary Care Physician Brenda Bethea MD Admission Date 07/25/2024 Discharge Date 07/27/2024 Summary of Hospital Problems Presenting Chief Complaint: Syncope Primary Discharge Diagnosis: Syncope History of TIA Dizziness Secondary Discharge Diagnosis: Hyperlipidemia Diabetes Mellitus GERD Lupus Glaucoma CKD stage 2 Hypertension Discharge Destination: Home with [facility]NA Services Code Status at Discharge: FULL CODE Inpatient Consultants: Seen by Neurologist Pertinent Imaging Findings: Narrative & Impression INDICATION: syncope CT head without contrast Comparison: [...] by: Olman Flaherty MD on 07/25/2024 06:43:26 INDICATION: Syncope TECHNIQUE: XR CHEST 2 VIEWS COMPARISON: 07/13/2024 IMPRESSION: FINDINGS/IMPRESSION: Lungs are clear. No pleural effusion or pneumothorax. Cardiac silhouette is normal in size. Degenerative changes seen throughout the bones. Cholecystectomy clips. Narrative & Impression History: Dizziness, nonspecific. Headache. Multiple syncopal episodes. [...] brain was also performed. DLP: 3324.62 mGy/cm needmadeT Iterative reconstruction technique FINDINGS: Noncontrast brain CT: [...] is patent and terminates in the bilateral waiter/waitress formal. No large vessel occlusion or aneurysm is [...] associated with a severe stenosis of the ECAorigin. There is no hemodynamically significant stenosis of [...] No acute hemorrhage or intracranial mass effect. Narrative & Impression INDICATION: Dizziness, non-specific Exam: MRI of the [...] cells. Right mastoid air cells are clear. Lab Results Component Value Date WBC 6.4 07/26/2024 HGB 11.1 (L) 07/26/2024 HCT 33.8 (L) 07/26/2024 MCV 91.1 07/26/2024 PLT 270 07/26/2024 Lab Results Component Value Date GLUCOSE 154 (H) 07/27/2024 CALCIUM 8.9 07/27/2024 NA 140 07/27/2024 K 3.9 07/27/2024 CO2 21 07/27/2024 CL 112 (H) 07/27/2024 BUN 10 07/27/2024 CREATININE 1.18 (H) 07/27/2024 Procedures Performed: EEG showing: Background: The record was well organized. The [...] Normal sinus rhythm Classification of the findings: Normal Impression This is a normal routine EEG recording in the awake and drowsy states. There were no seizures, periodic patterns, or epileptiform discharges. There is no focal slowing or persistent focal asymmetriesof the background rhythms. However, a normal EEG does not rule out epilepsy or seizure. Clinical correlation is advised. Hospital Course Summary Syncope Unclear etiology Question if medication reaction Multiple recent medications changes per patient D/C Melatonin Work up negative: Brain CT no acute intracranial findings Chest X-ray showing clear lungs Chest CTA showing no PE Echocardiogram from 07/06/24 LVEF of 55-60% grade 2 diastolic dysfunction Orthostatic BP's were negative Will add Meclizine for dizziness Brain MRI showing no acute findings No focal deficits Continue ASA and statin PT evaluation EEG pending Plan to transition home with Services if EEG is negative History of TIA As above Decreased hemoglobin No evidence of bleeding No history of anemia Likely due to IV dilution 4. Hyperlipidemia Continue statin 5. Diabetes Mellitus Continue diabetic diet Continue POC with SSI 6. GERD Continue PPI 7. Lupus Continue Hydroxychloroquine 8. Glaucoma Continue home eye drops Continue Diamox 9. CKD stage 2 GFR is 66 At baseline 10. Hypertension Continue norvasc and Lisinopril 11. DVT prophylaxis Patient is ambulatory Continue intermittent compression boots 12. Recent UTI Patient is S/P antibiotics Urine culture from 07/13/2024 showing no growth 13. FULL CODE Follow-Up Instructions and Recommendations Discontinue Melatonin Follow up with PCP in one week Discharge Medications Home Medications After Discharge Scheduled acetaZOLAMIDE (DIAMOX) 250 mg tablet, Take 1 tablet (250 mg total) by mouth 2 (two) times a day. amLODIPine (NORVASC) 10 mg tablet, Take 1 tablet (10 mg total) by mouth 1 (one) time each day. aspirin 81 mg EC tablet, Take 1 tablet (81 mg total) by mouth 1 (one) time. brimonidine (ALPHAGAN) 0.2 % ophthalmic solution, Administer 1 drop into both eyes 2 (two) times a day. dorzolamide-timoloL (COSOPT) 22.3-6.8 mg/mL ophthalmic solution, Administer 1 drop into both eyes 2(two) times a day. hydroxychloroquine (PlaqueniL) 200 mg tablet, Take 1.5 tablets (300 mg total) by mouth 1 (one) timeeach day. latanoprostene bunod (Vyzulta) 0.024 % drops, Administer 1 drop into both eyes at bedtime. lisinopriL (PRINIVIL,ZESTRIL) 20 mg tablet, Take 1 tablet (20 mg total) by mouth at bedtime. omeprazole (PriLOSEC) [address] capsule, Take 1 capsule (20 mg total) by mouth 1 (one) time each day. sertraline (ZOLOFT) 100 mg tablet, Take 1.5 tablets (150 mg total) by mouth 1 (one) time each day. simvastatin (ZOCOR) 20 mg tablet, Take 1 tablet (20 mg total) by mouth at bedtime. sulfaSALAzine (AZULFIDINE EN-TABS) 500 mg EC tablet, Take 1 tablet (500 mg total) by mouth 2 (two) times a day. PRN loratadine (CLARITIN) 10 mg tablet, Take 1 tablet (10 mg total) by mouth 1 (one) time each day if needed for allergies. meclizine (ANTIVERT) 25 mg tablet, Take 1 tablet (25 mg total) by mouth 3 (three) times a day if needed for dizziness for up to 10 days. No Frequency fluticasone propionate (FLONASE) 50 mcg/actuation nasal spray, 1 spray per nostril twice per day, as needed for nasal congestion insulin glargine U-300 (Toujeo SoloStar U-300 Insulin) 300 unit/mL (1.5 mL) CONCENTRATED injection pen, Use 34 units at bedtime SC, go up by 4 units every week if BS above 150. Max dose 60 units. pen needle, diabetic 32 gauge x 5/32 needle, To inject insulin 4x daily Physical Exam at time of Discharge Physical Exam General Exam: Age appropriate, awake, calm, cooperative, appearing weak and fatigued, thin, though in no acute distress. Skin Exam: Warm, dry, intact, no diaphoresis. No rashes noted. Capillary refill < 3 seconds. Eye Exam: No scleral icterus HEENT exam: Head is normocephalic. Oral mucosa dry. No trismus, drooling, or difficulty handling secretions. Neck Exam: Soft/supple, full range of motion, no nuchal rigidity Respiratory Exam: Faint crackles at the lung bases. No wheezes, or rhonchi. No tripoding, retractions or increased work of breathing. Speaking in full sentences without difficulties. Cardiovascular Exam: Regular rate and rhythm, no rubs gallops. Gastrointestinal Exam: No pulsations or visible masses, nondistended. Normoactive bowel sounds. Abdomen is soft, nontender, without rebound/guarding. No peritoneal signs appreciated. Musculoskeletal Exam: No calf tenderness or asymmetry, no lower extremity pitting edema. Moving allextremities at the major joint spaces without difficulty. Neurological Exam: Alert and oriented X3. No focal deficit. Smile symmetric. No dysarthria/dysphagia. Tongue midline when protruded. Hearing appropriate. Following commands without difficulties. Psychiatric exam: stable mood and affect Vitals Visit Vitals BP (!) 109/41 (BP Location: Right arm, Patient Position: Lying) Pulse 58 Temp 37.1 ??C (98.8 ??F) (Temporal) Resp 16 Temp (24hrs), Av.7 ??C (98.1 ??F), Min:36.2 ??C (97.2 ??F), Max:37.1 ??C (98.8 ??F) Body mass index is 22.3 kg/m??. No results found for: PTWT , PTHT Greater than 45 minutes spent on day of discharge. Discharge planning was discussed with my attending physician Dr. Chavira Who agrees with the above assessment and plan. Patient seen and examined on the date of service, discussed with Roselyn Marmolejo NP regarding plan of care. All diagnostics and imaging was reviewed by me directly. Agree with above note. Time spent wasreviewing imaging, evaluating the patient, and discussing care with patient and family as well as other providers. Agree with assessment and plan as outlined above. Telemetry reviewed overnight, no arrhythmia noted. Patient did not have any further episodes of similar complaints like on presentation. No other clear etiology. ? Secondary medications. No evidence of acute infection. Continue to monitor for now. Awaiting rehab bed availability * Roselyn Marmolejo NP - 07/26/2024 1:06 PM EDT Images from the original note were not included. [place] DISCHARGE SUMMARY Patient Information Allison Brandt : 1950 [74 y.o.] Admitting Provider Jose D Viveros MD Discharge Provider Roselyn Marmolejo NP, Emily Chavira MD Primary Care Physician Brenda Bethea MD Admission Date 07/25/2024 Discharge Date 07/26/2024 Summary of Hospital Problems Presenting Chief Complaint: Syncope Primary Discharge Diagnosis: Syncope History of TIA Dizziness Secondary Discharge Diagnosis: Hyperlipidemia Diabetes Mellitus GERD Lupus Glaucoma CKD stage 2 Hypertension Discharge Destination: Home with [facility]NA Services Code Status at Discharge: FULL CODE Inpatient Consultants: Seen by Neurologist Pertinent Imaging Findings: Narrative & Impression INDICATION: syncope CT head without contrast Comparison: [...] by: Olman Flaherty MD on 07/25/2024 06:43:26 INDICATION: Syncope TECHNIQUE: XR CHEST 2 VIEWS COMPARISON: 07/13/2024 IMPRESSION: FINDINGS/IMPRESSION: Lungs are clear. No pleural effusion or pneumothorax. Cardiac silhouette is normal in size. Degenerative changes seen throughout the bones. Cholecystectomy clips. Narrative & Impression History: Dizziness, nonspecific. Headache. Multiple syncopal episodes. [...] brain was also performed. DLP: 3324.62 mGy/cm needmadeT Iterative reconstruction technique FINDINGS: Noncontrast brain CT: [...] is patent and terminates in the bilateral waiter/waitress formal. No large vessel occlusion or aneurysm is [...] associated with a severe stenosis of the ECAorigin. There is no hemodynamically significant stenosis of [...] No acute hemorrhage or intracranial mass effect. Narrative & Impression INDICATION: Dizziness, non-specific Exam: MRI of the [...] cells. Right mastoid air cells are clear. Lab Results Component Value Date WBC 6.4 07/26/2024 HGB 11.1 (L) 07/26/2024 HCT 33.8 (L) 07/26/2024 MCV 91.1 07/26/2024 PLT 270 07/26/2024 Lab Results Component Value Date GLUCOSE 176 (H) 07/26/2024 CALCIUM 8.8 07/26/2024 NA 141 07/26/2024 K 3.5 07/26/2024 CO2 24 07/26/2024 CL 110 07/26/2024 BUN 10 07/26/2024 CREATININE 0.98 07/26/2024 Procedures Performed: EEG showing: Hospital Course Summary Syncope Unclear etiology Question if medication reaction Multiple recent medications changes per patient D/C Melatonin Work up negative: Brain CT no acute intracranial findings Chest X-ray showing clear lungs Chest CTA showing no PE Echocardiogram from 07/06/24 LVEF of 55-60% grade 2 diastolic dysfunction Orthostatic BP's were negative Will add Meclizine for dizziness Brain MRI showing no acute findings No focal deficits Continue ASA and statin PT evaluation EEG pending Plan to transition home with Services if EEG is negative History of TIA As above Decreased hemoglobin No evidence of bleeding No history of anemia Likely due to IV dilution 4. Hyperlipidemia Continue statin 5. Diabetes Mellitus Continue diabetic diet Continue POC with SSI 6. GERD Continue PPI 7. Lupus Continue Hydroxychloroquine 8. Glaucoma Continue home eye drops Continue Diamox 9. CKD stage 2 GFR is 66 At baseline 10. Hypertension Continue norvasc and Lisinopril 11. DVT prophylaxis Patient is ambulatory Continue intermittent compression boots 12. Recent UTI Patient is S/P antibiotics Urine culture from 07/13/2024 showing no growth 13. FULL CODE Follow-Up Instructions and Recommendations Discontinue Melatonin Follow up with PCP in one week Discharge Medications Home Medications After Discharge Scheduled acetaZOLAMIDE (DIAMOX) 250 mg tablet, Take 1 tablet (250 mg total) by mouth 2 (two) times a day. amLODIPine (NORVASC) 10 mg tablet, Take 1 tablet (10 mg total) by mouth 1 (one) time each day. aspirin 81 mg EC tablet, Take 1 tablet (81 mg total) by mouth 1 (one) time. brimonidine (ALPHAGAN) 0.2 % ophthalmic solution, Administer 1 drop into both eyes 2 (two) times a day. dorzolamide-timoloL (COSOPT) 22.3-6.8 mg/mL ophthalmic solution, Administer 1 drop into both eyes 2(two) times a day. hydroxychloroquine (PlaqueniL) 200 mg tablet, Take 1.5 tablets (300 mg total) by mouth 1 (one) timeeach day. latanoprostene bunod (Vyzulta) 0.024 % drops, Administer 1 drop into both eyes at bedtime. lisinopriL (PRINIVIL,ZESTRIL) 20 mg tablet, Take 1 tablet (20 mg total) by mouth at bedtime. omeprazole (PriLOSEC) [address] capsule, Take 1 capsule (20 mg total) by mouth 1 (one) time each day. sertraline (ZOLOFT) 100 mg tablet, Take 1.5 tablets (150 mg total) by mouth 1 (one) time each day. simvastatin (ZOCOR) 20 mg tablet, Take 1 tablet (20 mg total) by mouth at bedtime. sulfaSALAzine (AZULFIDINE EN-TABS) 500 mg EC tablet, Take 1 tablet (500 mg total) by mouth 2 (two) times a day. PRN loratadine (CLARITIN) 10 mg tablet, Take 1 tablet (10 mg total) by mouth 1 (one) time each day if needed for allergies. meclizine (ANTIVERT) 25 mg tablet, Take 1 tablet (25 mg total) by mouth 3 (three) times a day if needed for dizziness for up to 10 days. No Frequency fluticasone propionate (FLONASE) 50 mcg/actuation nasal spray, 1 spray per nostril twice per day, as needed for nasal congestion insulin glargine U-300 (Toujeo SoloStar U-300 Insulin) 300 unit/mL (1.5 mL) CONCENTRATED injection pen, Use 34 units at bedtime SC, go up by 4 units every week if BS above 150. Max dose 60 units. pen needle, diabetic 32 gauge x 5/32 needle, To inject insulin 4x daily Physical Exam at time of Discharge Physical Exam General Exam: Age appropriate, awake, calm, cooperative, appearing weak and fatigued, thin, though in no acute distress. Skin Exam: Warm, dry, intact, no diaphoresis. No rashes noted. Capillary refill < 3 seconds. Eye Exam: No scleral icterus HEENT exam: Head is normocephalic. Oral mucosa dry. No trismus, drooling, or difficulty handling secretions. Neck Exam: Soft/supple, full range of motion, no nuchal rigidity Respiratory Exam: Faint crackles at the lung bases. No wheezes, or rhonchi. No tripoding, retractions or increased work of breathing. Speaking in full sentences without difficulties. Cardiovascular Exam: Regular rate and rhythm, no rubs gallops. Gastrointestinal Exam: No pulsations or visible masses, nondistended. Normoactive bowel sounds. Abdomen is soft, nontender, without rebound/guarding. No peritoneal signs appreciated. Musculoskeletal Exam: No calf tenderness or asymmetry, no lower extremity pitting edema. Moving allextremities at the major joint spaces without difficulty. Neurological Exam: Alert and oriented X3. No focal deficit. Smile symmetric. No dysarthria/dysphagia. Tongue midline when protruded. Hearing appropriate. Following commands without difficulties. Psychiatric exam: stable mood and affect Vitals Visit Vitals BP (!) 156/63 (BP Location: Left arm, Patient Position: Lying) Pulse 70 Temp 36.1 ??C (96.9 ??F) (Temporal) Resp 16 Temp (24hrs), Av.4 ??C (97.6 ??F), Min:36.1 ??C (96.9 ??F), Max:36.7 ??C (98.1 ??F) Body mass index is 22.3 kg/m??. No results found for: PTWT , PTHT Greater than 45 minutes spent on day of discharge. Discharge planning was discussed with my attending physician Dr. Chavira Who agrees with the above assessment and plan. Cosigned by Emily Chavira MD at 07/27/2024 3:18 PM EDT Associated attestation - Emily Chavira MD - 07/27/2024 3:18 PM EDT This is a split/shared visit with Roselyn Marmolejo NP. I personally performed the medical decision making (MDM) for the care of this patient on 07/26/2024 as documented below This is a 74-year-old female with history of TIA, hyperlipidemia, lupus, glaucoma, GERD who presents to the emergency room with complaints of syncope episode. Patient had initial workup done was negative for orthostatics. CT without any acute intracranial abnormality. Recently had Holter monitor done without any significant arrhythmias. EEG done does not show any seizure-like activity. Echo done as well without any significant valvular abnormality. Has been on IV fluids since admission. Recent changes in medications? Possibly caused the etiology. Monitored in telemetry has not had any furthersimilar episodes while on the telemetry. Seen by PT recommending rehab. Recommend follow-up with PCP as outpatient Emily Chavira MD 07/27/24 3:16 PM EDT documented in this encounter Medications at Time of Discharge acetaZOLAMIDE (DIAMOX) 250 mg tablet Take 1 tablet (250 mg total) by mouth 2 (two) times a day. 05/13/2024 amLODIPine (NORVASC) 10 mg tablet Take 1 tablet (10 mg total) by mouth 1 (one) time each day. 30 each 11 05/12/2024 aspirin 81 mg EC tablet Take 1 tablet (81 mg total) by mouth 1 (one) time. brimonidine (ALPHAGAN) 0.2 % ophthalmic solution Administer 1 drop into both eyes 2 (two) times a day. dorzolamide-timolo L (COSOPT) 22.3-6.8 mg/mL ophthalmic solution Administer 1 drop into both eyes 2 (two) times a day. 03/03/2024 fluticasone propionate (FLONASE) 50 mcg/actuation nasal spray 1 spray per nostril twice per day, as needed for nasal congestion 10/21/2022 hydroxychloroquine (PlaqueniL) 200 mg tablet Take 1.5 tablets (300 mg total) by mouth 1 (one) time each day. insulin glargine U-300 (Toujeo SoloStar U-300 Insulin) 300 unit/mL (1.5 mL) CONCENTRATED injection pen Use 34 units at bedtime SC, go up by 4 units every week if BS above 150. Max dose 60 units. 4.5 mL 2 05/23/2024 latanoprostene bunod (Vyzulta) 0.024 % drops Administer 1 drop into both eyes at bedtime. lisinopriL (PRINIVIL,ZESTRIL) 20 mg tablet Take 1 tablet (20 mg total) by mouth at bedtime. 02/12/2023 loratadine (CLARITIN) 10 mg tablet Take 1 tablet (10 mg total) by mouth 1 (one) time each day if needed for allergies. 03/04/2023 meclizine (ANTIVERT) 25 mg tablet Take 1 tablet (25 mg total) by mouth 3 (three) times a day if needed for dizziness for up to 10 days. 30 tablet 07/26/2024 omeprazole (PriLOSEC) [address] capsule Take 1 capsule (20 mg total) by mouth 1 (one) time each day. 90 each 1 06/06/2024 pen needle, diabetic 32 gauge x /32 needle To inject insulin 4x daily 300 each 03/28/2024 sertraline (ZOLOFT) 100 mg tablet Take 1.5 tablets (150 mg total) by mouth 1 (one) time each day. 12/14/2023 simvastatin (ZOCOR) 20 mg tablet Take 1 tablet (20 mg total) by mouth at bedtime. 02/12/2023 sulfaSALAzine (AZULFIDINE EN-TABS) 500 mg EC tablet Take 1 tablet (500 mg total) by mouth 2 (two) times a day. 07/14/2024 documented as of this encounter Ordered Prescriptions Prescription Sig Dispense Quantity Refills Last Filled Start Date End Date meclizine (ANTIVERT) 25 mg tablet Take 1 tablet (25 mg total) by mouth 3 (three) times a day if needed for dizziness for up to 10 days. 30 tablet 07/26/2024 documented in this encounter Discharge Disposition Disposition Code Departure Means Destination Home-Health Care [facility] [place] documented in this encounter Progress Notes * Hakeem Mckenzie RN - 07/28/2024 1:55 PM EDT Problem: Falls: Fall Risk (Adult IP BH) Goal: (Goal) Patient will experience maximum safety and reduce risk for falls. Outcome: Adequate for Discharge Goal: Patient will not fall or injure themselves during hospitalization. Outcome: Adequate for Discharge Problem: Cognitive: Knowledge Deficit of Disease Process Goal: Knowledge of disease or condition will improve Outcome: Adequate for Discharge Goal: Identification of resources available to assist in meeting health care needs will improve Outcome: Adequate for Discharge Problem: Patient Specific Problem: Knowledge Deficit of Disease Process Goal: Patient Specific Outcome Outcome: Adequate for Discharge Goals: Identify possible barriers to meeting goals/advancing plan of care: Clear for d/c Stability of the patient: Moderately Stable - Low risk of patient condition declining or worsening End of Shift Summary: Pt calm and cooperative w/ care this shift. No complaints reported. PT eval completed, home VNA recommended. Pt clear for d/c home w/ VNA. * Mandi Casas RN - 07/28/2024 1:16 PM EDT Patient being discharged home with [facility] VNA. One new med sent to patient preferred pharmacy.Explained name, dose, frequency, indication, side effect. All questions answered. Verbalized understanding. IV removed. Awaiting ride to transport home. * Ashlee Valenzuela RN - 07/28/2024 10:50 AM EDT Pt medically cleared for discharge. Pt seen by PT again this morning. Recommendation is now home with services. Pt has been accepted by [facility] VNA aware that pt will be discharged today. [facility] transport. * Elise Valdovinos, PT - 07/28/2024 9:30 AM EDT [place], [place] Acute Care PT TREATMENT 07/28/2024 Patient Information Allison Brandt 1950 74 y.o. Ambulation: Walking Assistance: Close supervision Device: Rolling walker Distance Ambulated (ft): (60 ft x 2) PLOF: Level of [place]: Needs assistance with mobility Lives With: Spouse (who cannot help physically due to shoulder problem) Receives Help From: Family Home Adaptive Equipment: Walker - rolling Home Living Comments: one level home with 10 small steps to enter with rail PT Discharge Recommendation: Home PT Medical Diagnosis ICD-10-CM ICD-9-CM 1. Dizziness R42 780.4 Ambulatory referral to Home Health 2. Syncope, unspecified syncope type R55 780.2 Ambulatory referral to Home Health Rehabilitation Precautions/Restrictions Precautions Medical Precautions: Fall Risk (pt has hx of syncopal episode at home) Safety Interventions: Call dunn within reach, Side rails up x2, Bed alarm PT Session: PT Time Calculation PT Start Time: 0930 PT Stop Time: 1000 PT Time Calculation (min): 30 min SUBJECTIVE Yes I have a walker like this one No c/o dizziness or lightheadedness today. Pt also states, my steps are not that many and they are shorter than these OBJECTIVE Vitals/Pain: Oxygen Therapy Oxygen Therapy: None (Room air) Pain Assessment Pain Assessment: No/denies pain Pain Score: 0 - No pain General Assessments: Activity Tolerance Endurance: Tolerates 10 - 20 min exercise with multiple rests Dynamic Standing Balance Dynamic Standing-Level of Assistance: Close supervision Dynamic Standing-Balance: Ambulation Dynamic Standing-Comments: fair+ to good with RW Functional Assessments: Bed Mobility Sitting to Lying Assistance: Close supervision Lying to Sitting Assistance: Close supervision Bed Mobility Comments: pt sat @ EOB for few minutes Transfers Sit to Stand Assistance: Minimum assistance Transfer Comments: pt stood with RW steady, no c/o dizziness Ambulation Walking Assistance: Close supervision Device: Rolling walker Distance Ambulated (ft): (60 ft x 2) Comments: slow, steady Stairs Stairs Assistance: Contact guard, Close supervision Stair Management Technique/Device: Two rails Number of Stairs: 4 Stairs Comments: steady RLE Assessment RLE Assessment: Within Functional Limits LLE Assessment LLE Assessment: Within Functional Limits Procedure/Treatment: Gait Training Gait Training Time Entry: 30 Gait Training Activity 1: pls see above for mobility. Pt was steady with RW and on stairs. Recommended to have someone else there besides to supervise her on entrance steps upon going home later. She said her granddtr could be there and help her settle down. Pt returned to bed after PT and nurse was notified of her status. Education Education Documentation Mobility Training, taught by Elise Valdovinos PT at 07/28/2024 9:30 AM. Learner: Patient Readiness: Acceptance Method: Explanation Response: Verbalizes Understanding Comment: SUpervision on stairs , home PT Education Comments No comments found. ASSESSMENT Pt was steady with ambulation with RW therefore she would be safe to go home. Rec home PT for home safety eval, balance and progressive gait training. PT Assessment PT Assessment Results: Decreased strength, Decreased endurance, Impaired balance, Impaired gait Prognosis: Good Evaluation/Treatment Tolerance: Patient tolerated treatment well Medical Staff Made Aware: Yes Comments: nurse Problems/Goals Goals: Encounter Problems Encounter Problems (Active) Template: Physical Therapy Problem: PT Short Term Goals Dates: Start: 07/26/24 Goal: PT STG 1 Patient will ambulate with RW Supervision 50 ft x 2 Dates: Start: 07/26/24 Expected End: 08/09/24 Outcomes Date/Time User Outcome 07/28/24 1251 Elise Valdovinos PT Adequate for Discharge Goal: PT STG 2 Patient will be able to safely negotiate 10 stairs with rail CGA Dates: Start: 07/26/24 Expected End: 08/09/24 Outcomes Date/Time User Outcome 07/28/24 1251 Elise Valdovinos PT Adequate for Discharge Encounter Problems (Resolved) There are no resolved problems. Equipment Equipment Received: Equipment Recommended: Rolling walker PLAN During acute care stay: PT Plan: Skilled PT PT Frequency: 2-5 days per week Treatment/Interventions: Functional transfer training, LE strengthening/ROM, Endurance training PT Discharge Recommendations: Home PT PT Time Entry: Gait Training Time Entry: 30 * Phoebe Fonseca RN - 07/28/2024 2:41 AM EDT Goals: Problem: Falls: Fall Risk (Adult IP BH) Goal: (Goal) Patient will experience maximum safety and reduce risk for falls. 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 Continues w some c/o dizziness * Elise Valdovinos, PT - 07/26/2024 2:20 PM EDT [facility] ACUTE CARE PT EVALUATION Allison Brandt 1950 Ambulation: Walking Assistance: Minimum assistance Device: Rolling walker Distance Ambulated (ft): (16 ft x 2 with rest, no c/o dizziness or lightheadedness) PLOF: Level of [place]: Needs assistance with mobility Lives With: Spouse (who cannot help physically due to shoulder problem) Receives Help From: Family Home Adaptive Equipment: Walker - rolling Home Living Comments: one level home with 10 small steps to enter with rail PT Discharge Recommendation: [facility] facility placement Diagnosis: ICD-10-CM ICD-9-CM 1. Dizziness R42 780.4 Past Medical History: Diagnosis Date Acute pancreatitis 1992 Cervical radiculopathy 07/09/2016 CKD (chronic kidney disease) stage 3, GFR 30-59 ml/min ([facility]) 08/09/2020 Depression 04/20/2017 Diabetes mellitus type 2 with neurological manifestations ([facility]) 04/01/2012 DM (diabetes mellitus), type 2, uncontrolled, with renal complications 04/17/2005 Family history of malignant neoplasm of gastrointestinal tract 03/22/2007 : Negative colonoscopy 03/22/2007, no colon cancer screening needed for 10 years. GERD (gastroesophageal reflux disease) 05/27/2021 Hypertension Lupus erythematosus Malignant neoplasm of breast (female), unspecified site 1988 rt breast Migraine variant 04/17/2005 IMO update Osteopenia 07/09/2016 Pneumonia due to COVID-19 virus 04/30/2021 Polyp of colon 12/14/2023 Proteinuria 06/18/2005 Pure hypercholesterolemia 05/12/2006 Sensory peripheral neuropathy 04/01/2012 Type 2 diabetes mellitus with cataract ([facility]) 07/21/2018 Past Surgical History: Procedure Laterality Date CHOLECYSTECTOMY 1985 COLONOSCOPY 03/10 COLONOSCOPY 6.21.16 MASTECTOMY Right : right SCREENING MAMMOGRAM 03/08/2024 PT Received On: 07/26/2024 SUBJECTIVE I would get this warm feeling before I start to pass out at home PT Time Calculation: PT Time Calculation PT Start Time: 1420 PT Stop Time: 1500 PT Time Calculation (min): 40 min OBJECTIVE Precautions: Precautions Medical Precautions: Fall Risk (pt has hx of syncopal episode at home) Safety Interventions: Call dunn within reach, Side rails up x2, Bed alarm Cognition: Cognition Overall Cognitive Status: Within Functional Limits Arousal/Alertness: Appropriate responses to stimuli Orientation Level: Oriented X4 Following Commands: Follows all commands and directions without difficulty Safety Judgment: Decreased awareness of need for assistance, Decreased awareness of need for safety Vital Signs: Oxygen Therapy Oxygen Therapy: None (Room air) Heart Rate: 74 Pain Assessment: Pain Assessment: No/denies pain Pain Score: 0 - No pain Home Living: Home Living Lives With: Spouse (who cannot help physically due to shoulder problem) Home Adaptive Equipment: Walker - rolling Home Living Comments: one level home with 10 small steps to enter with rail Prior Function: Prior Function Level of [place]: Needs assistance with mobility Ambulation Status: Household ambulator Receives Help From: Family Indoor Mobility Assistance: Needed Some Help Prior Device Use: Walker Functional Assessments: Static Sitting Balance Static Sitting-Level of Assistance: Close supervision Static Sitting-Comment/Number of Minutes: good sitting @ EOB Static Standing Balance Static Standing-Level of Assistance: Contact guard Static Standing-Comment/Number of Minutes: good with RW Dynamic Standing Balance Dynamic Standing-Level of Assistance: Contact guard Dynamic Standing-Balance: Ambulation Dynamic Standing-Comments: fair + with RW Bed Mobility Sitting to Lying Assistance: Moderate assistance Lying to Sitting Assistance: Moderate assistance Bed Mobility Comments: pt sat @ EOB for few minutes prior to sit to stand. Transfers Sit to Stand Assistance: Minimum assistance Transfer Comments: pt stood with RW and she has no c/o dizziness. Stood and marched in place with RW CGA 10 reps Ambulation Walking Assistance: Minimum assistance Device: Rolling walker Distance Ambulated (ft): (16 ft x 2 with rest, no c/o dizziness or lightheadedness) Comments: slow, steady Extremity Assessments: RLE Assessment RLE Assessment: Within Functional Limits RLE Assessment Comments: at least 3/5 LLE Assessment LLE Assessment: Within Functional Limits LLE Assessment Comments: at least 3/5 Education: Education Documentation Mobility Training, taught by Elise Valdovinos, PT at 07/26/2024 2:20 PM. Learner: Patient Readiness: Acceptance Method: Explanation Response: Verbalizes Understanding Comment: safe sit to stand, rehab Education Comments No comments found. ASSESSMENT Pt presents with weakness, deconditioning, hx of syncopal episode at home and requires assist of 1 for safe gait with RW. Recommend rehab to work on balance, gait, stairs and Indep with mobility. PT Assessment: PT Assessment PT Assessment Results: Decreased strength, Decreased endurance, Impaired balance, Impaired gait, Decreased mobility Prognosis: Good Evaluation/Treatment Tolerance: Patient tolerated treatment well Medical Staff Made Aware: Yes PLAN PT Plan: During acute care stay: PT Plan: Skilled PT PT Frequency: 2-5 days per week PT Discharge Recommendations: [facility] facility placement Equipment Recommendations: Rolling walker Goals: Goals: Encounter Problems Encounter Problems (Active) Template: Physical Therapy Problem: PT Short Term Goals Dates: Start: 07/26/24 Goal: PT STG 1 Patient will ambulate with RW Supervision 50 ft x 2 Dates: Start: 07/26/24 Expected End: 08/09/24 Goal: PT STG 2 Patient will be able to safely negotiate 10 stairs with rail CGA Dates: Start: 07/26/24 Expected End: 08/09/24 Encounter Problems (Resolved) There are no resolved problems. PT Evaluation Time Entry G RHB Sherley PT Evaluation Time Entry PT Evaluation (Moderate) Time Entry: 40 * Manjula Wolf PT - 07/26/2024 1:44 PM EDT Therapy session was attempted for Allison Brandt by Manjula Wolf PT on 07/26/2024. The patientwas unable to be seen for the following reason(s): Refused treatment and Other: just had episode of emesis Plan for return visit: Later today for additional attempt * Megan Martinez RN - 07/26/2024 12:33 PM EDT 07/26/24 1228 Initial Transition Plan Initial Transition Plan Home Health Care (referral initiated) Discharge Planning Living Arrangements Spouse/significant other Type of Residence Private residence Assistive Devices Walker;Eyeglasses Support Systems Spouse/significant other;Immediate family Medication Coverage Has Med Coverage Under Insurance Plan Yes Medication Affordability No concerns related to payment for meds Anticipated Discharge Needs Home Health RN;PT;OT Discipline following for SNF placement Felt Finisher Informed Choice Informed Choice Given? Yes Transportation Transportation at discharge Family ICC met w Pt and at bedside, confirmed demographics and initiated VNA referral at Pt request. ODALIS: 07/26 (OBS) Barriers: UTI, syncopal episodes, N/V, EEG done, PT eval, IVF, trend labs Dispo: VNA referral initiated, home w to lemon picker. PT recommends inpt STR, Pt Choice is [facility] rehab or [facility] [place]. * Manjula Wolf PT - 07/26/2024 10:09 AM EDT Therapy session was attempted for Allison Brandt by Manjula Wolf PT on 07/26/2024. The patientwas unable to be seen for the following reason(s): With other team members and Other: doing a test in room Plan for return visit: Later today for additional attempt * Roselyn Marmolejo NP - 07/26/2024 8:08 AM EDT Syncope History of TIA Decreased hemoglobin No evidence of bleeding No history of anemia Likely due to IV dilution 4. Hyperlipidemia 5. Diabetes Mellitus 6. GERD 7. Lupus 8. Glaucoma 9. CKD stage 2 GFR is 66 10. Hypertension 11. DVT prophylaxis 12. FULL CODE Cosigned by Emily Chavira MD at 07/27/2024 4:09 PM EDT * Dima Garcia RN - 07/26/2024 7:18 AM EDT ED RN HANDOFF (All [place] Below Must Be Completed) Reason/Diagnosis for Admission: Dizziness Type of Admission: [] Medsurg, [x] Telemetry Already in a Hospital Bed: [x] Yes / [] No Room Considerations/Precautions (ex: fever, diarrhea, or any infectious concerns): [] Yes / [x] No Manager Media: [x] Yes / [] No If YES, Cardiac Rhythm: [x] NSR, [] SB, [] ST, [] A-FIB, [] A-Flutter, [] Pacemaker, [] 1st Degree HB, [] 2nd Degree HB, [] 3rd Degree HB Reason for Manager Media: dizziness VS: Visit Vitals BP 134/88 Pulse 61 Temp 36.7 ??C (98.1 ??F) (Oral) Resp 16 Ht 1.651 m (65 ) Wt 60.8 kg (134 lb) SpO2 93% BMI 22.30 kg/m?? Smoking Status Never BSA 1.67 m?? Current Mental Status: A/O x [x]4, []3, []2, []1 Current Ambulation Status: stand and pivot/1 assist IV Access: [x] Yes / [] No Field IV present: [] Yes / [x] No Hx of Violence: [] Yes / [] No / [x] Unknown Fall Risk:[x] Yes / [] No Patient Belongings inventoried and BL completed: [x] Yes / [] No Patient belongings stored in the security closet: [] Yes (If Yes please supply Security bag #): [x] No Patient Medications stored in Pharmacy: [] Yes (If Yes please supply Medication Security bag #): [x] No ED Summary of Care: Presented to ED for dizziness and weakness x 1 week, symptoms worsen when laying down. Reported syncopal episode at home. Recent admit for syncope. Pt stand and pivot to commode with one assist, however pt able to get back in bed without ringing call dunn. Labs, EKG, imaging as d ocumented. Dima Garcia RN 07/26/24 0725 * Dima Garcia RN - 07/26/2024 7:16 AM EDT Entry error Dima Garcia RN 07/26/24 0758 * Jenae Tesfaye RN - 07/25/2024 3:13 PM EDT NURSING SWALLOW SCREEN Exclusing Criteria: (choose one) exclusion criteria: No Exclusion Criteria - Proceed to 3 oz water trial Please Note: Only proceed with screen if 'No exclusion criteria' is selected. If 'no risk factors' selected proceed with diet per order. This is for someone with No aspiration risk factor. Stroke pts ARE a risk factor. If any exclusion criteria selected (except for 'No Risk Foctors' or 'No Exclusion Criteria') order Swallowing Evaluation /FEES by Speech /Language Pathologist. Screen may be repeated if patient shows clinical improvement (Clinical improvement is defined as patient not showing signs of any exclusion criteria. Assessment (3 oz Water Swallow Challenge): Pass/Fail: Pass Perform Water Swallow Challenge and Document Pass/Fail Instructions for completing water swallow challenge >Sit patient upright 80-90 degrees > Patients with HOB elevated 30-80 degrees are eligible for aspiration screen >Ask patient to drink 3 oz water (90 ml) from cup or through straw in sequential swallows without stopping (cup or straw can be held by patient or staff) >Assess for coughing, choking, or cleonng throat during swallowing immediately after completion of drinking Pass: Able to drink 3 ounces of i-rater with sequential swallows without coughing, clearing throat,or change in vocal quality during and / or immediately after. Notify MD of results and obtain diet order Fail: Inability to perform sequential swallows Cough, clearing throat, or change in vocal quality during and/or immediately after drinking. Notify MD of results Keep NPO including medication. Order Swallov Evaluation / FEES by Speech / Language Pathologist. Jenae Tesfaye RN * Tracie Anton RN - 07/25/2024 2:18 AM EDT Pt to ER via EMS from home with complaints of dizziness and weakness x 1week. Sx increase when laying down. States that she has been needing to use a walker when ambulating now. Rpts at approx 1am she blacked out while laying in bed. Recent h/o syncopal episodes. Admitted to [facility] last week for syncope and dizziness. * Marcial Brown MD - 07/25/2024 2:07 AM EDT Emergency Medicine Note Patient Name: Allison Brandt Initial Evaluation: 07/25/2024 : 1950 Patient's PCP: Brenda Bethea MD Emergency Physician: Marcial Brown MD History of Present Illness Chief Complaint: Chief Complaint Patient presents with Dizziness HPI: This is a 74-year-old female with reported history of CKD stage III, diabetes, glaucoma with plans for operative intervention on her left eye, lupus presenting for concerns of weakness, syncope.Reports she has been having issues with this on and off over the last month, she did come to this emergency department on 07/12 for similar concerns in addition to urinary tract infection type symptoms. She was found to have a UTI and was discharged on Keflex, she does report she finished that regimen, resolution of dysuria but she continues to have episodes of dizziness. Has not had an episode ofsyncope up until last night when she laid down to go to sleep and blacked out for short period of time as her head hit the pillow. She does affirm for me that this was not her falling asleep. Reportsthat these episodes, with an aura that preceded her syncope. Endorses associated global weakness, has been using a walker for ambulation and has been leaving her house less frequently for fear of a syncopal episode occurring outside the home where she is more likely to injure herself. ROS: I have performed a ROS with the pertinent positives and negatives documented in the history ofpresent illness. Previous History Past Medical History: Diagnosis Date Acute pancreatitis 1991 Cervical radiculopathy 07/09/2016 CKD (chronic kidney disease) stage 3, GFR 30-59 ml/min ([facility]) 08/09/2020 Depression 04/20/2017 Diabetes mellitus type 2 with neurological manifestations ([facility]) 04/01/2012 DM (diabetes mellitus), type 2, uncontrolled, with renal complications 04/17/2005 Family history of malignant neoplasm of gastrointestinal tract 03/22/2007 : Negative colonoscopy 03/22/2007, no colon cancer screening needed for 10 years. GERD (gastroesophageal reflux disease) 05/27/2021 Hypertension Lupus erythematosus Malignant neoplasm of breast (female), unspecified site 1988 rt breast Migraine variant 04/17/2005 IMO update Osteopenia 07/09/2016 Pneumonia due to COVID-19 virus 04/30/2021 Polyp of colon 12/14/2023 Proteinuria 06/18/2005 Pure hypercholesterolemia 05/12/2006 Sensory peripheral neuropathy 04/01/2012 Type 2 diabetes mellitus with cataract ([facility]) 07/21/2018 Past Surgical History: Procedure Laterality Date CHOLECYSTECTOMY 1985 COLONOSCOPY 03/10 COLONOSCOPY 6.21.16 MASTECTOMY Right : right SCREENING MAMMOGRAM 03/08/2024 Social History Tobacco Use Smoking status: Never Smokeless tobacco: Never Vaping Use Vaping status: Never Used Substance Use Topics Alcohol use: No Drug use: No Family History Problem Relation Name Age of Onset Breast cancer Aunt m 70 MATERNAL Other (Other: lupus) Aunt m 70 Breast cancer Paternal Grandmother 68 Breast cancer Other m cousin 35 MATERNAL COUSIN Diabetes Mother lupus, stroke, hypothyroid Heart attack Father age 52 Breast cancer Maternal Grandmother Hyperthyroidism Sister Diabetes Brother Colon cancer Maternal Grandfather dx at age 50-60., diabetes is allergic to macrobid [nitrofurantoin monohyd/m-cryst], amoxicillin, and morphine. No current facility-administered medications on file prior to encounter. Current Outpatient Medications on File Prior to Encounter Medication Sig Dispense Refill sulfaSALAzine (AZULFIDINE EN-TABS) 500 mg EC tablet Take 1 tablet (500 mg total) by mouth 2 (two) times a day. acetaZOLAMIDE (DIAMOX) 250 mg tablet Take 1 tablet (250 mg total) by mouth 2 (two) times a day. amLODIPine (NORVASC) 10 mg tablet Take 1 tablet (10 mg total) by mouth 1 (one) time each day. 30 each 11 aspirin 81 mg EC tablet Take 1 tablet (81 mg total) by mouth 1 (one) time. brimonidine (ALPHAGAN) 0.2 % ophthalmic solution Administer 1 drop into both eyes 2 (two) times a day. capsaicin (ZOSTRIX) 0.025 % cream Apply topically 2 (two) times a day. (Patient taking differently:Apply 1 Application topically 2 (two) times a day.) 60 g 11 dorzolamide-timoloL (COSOPT) 22.3-6.8 mg/mL ophthalmic solution Administer 1 drop into both eyes 2 (two) times a day. fluticasone propionate (FLONASE) 50 mcg/actuation nasal spray 1 spray per nostril twice per day, asneeded for nasal congestion hydroxychloroquine (PlaqueniL) 200 mg tablet Take 1.5 tablets (300 mg total) by mouth 1 (one) time each day. insulin glargine U-300 (Toujeo SoloStar U-300 Insulin) 300 unit/mL (1.5 mL) CONCENTRATED injection pen Use 34 units at bedtime SC, go up by 4 units every week if BS above 150. Max dose 60 units. (Patient taking differently: Inject 10- 30 Units under the skin at bedtime. go up by 4 units every week if BS above 150. Max dose 60 units.) 4.5 mL 2 latanoprostene bunod (Vyzulta) 0.024 % drops Administer 1 drop into both eyes at bedtime. lisinopriL (PRINIVIL,ZESTRIL) 20 mg tablet Take 1 tablet (20 mg total) by mouth at bedtime. loratadine (CLARITIN) 10 mg tablet Take 1 tablet (10 mg total) by mouth 1 (one) time each day if needed for allergies. omeprazole (PriLOSEC) [address] capsule Take [...] (20 mg total) by mouth at bedtime. [DISCONTINUED] acetaminophen (TYLENOL) 500 mg tablet Take 2 tablets (1,000 mg total) by mouth every8 (eight) hours if needed for mild pain. (Patient not taking: Reported on 07/25/2024) 42 tablet 0 [DISCONTINUED] blood sugar diagnostic (Contour Next Test Strips) test strip Use to test blood sugar4 times daily BEFORE injecting insulin [DISCONTINUED] cephalexin (KEFLEX) 500 mg capsule Take 1 capsule (500 mg total) by mouth 2 (two) times a day for 7 days. 14 each 0 [DISCONTINUED] folic acid (FOLVITE) 1 mg tablet Take 1 tablet (1,000 mcg total) by mouth 1 (one) time each day. (Patient not taking: Reported on 07/25/2024) [DISCONTINUED] NovoLOG Flexpen U-100 Insulin 100 unit/mL (3 mL) injection pen Inject three times a day per sliding scale with meals. IF 100-150: 8 units; 151- 200: 10 units; 201-250: 12 units; 251-300: 14 units; 301-350: 16 units; 351-400: 18 units (Patient not taking: Reported on 07/25/2024) Physical Exam ED Triage Vitals [07/25/24 0217] Temp Heart Rate Resp BP 37.1 ??C (98.8 ??F) 67 15 (!) 161/59 SpO2 Temp src Heart Rate Source Patient Position 96 % -- -- -- BP Location FiO2 (%) -- -- Physical Exam Constitutional: General: She is awake. She is not in acute distress. Appearance: Normal appearance. She is not ill-appearing or toxic-appearing. HENT: Head: Normocephalic and atraumatic. Eyes: General: No visual field deficit. Conjunctiva/sclera: Conjunctivae normal. Cardiovascular: Rate and Rhythm: Normal rate and regular rhythm. Pulmonary: Effort: Pulmonary effort is normal. No respiratory distress or retractions. Musculoskeletal: General: Normal range of motion. Cervical back: Normal range of motion and neck supple. Skin: General: Skin is warm and dry. Neurological: Mental Status: She is alert, oriented to person, place, and time and easily aroused. Mental status is at baseline. GCS: GCS eye subscore is 4. GCS verbal subscore is 5. GCS motor subscore is 6. Cranial Nerves: Cranial nerves 2-12 are intact. No cranial nerve deficit, dysarthria or facial asymmetry. Sensory: Sensation is intact. No sensory deficit. Motor: Weakness (Global) present. No tremor or pronator drift. Coordination: Coordination is intact. Jrizly-Snmq-Nhnwjy Test and Heel to [place] Toro Test normal. Psychiatric: Mood and Affect: Mood normal. Behavior: Behavior normal. Thought Content: Thought content normal. Judgment: Judgment normal. Results Labs Reviewed BASIC METABOLIC PANEL - Abnormal Result Value Sodium 138 Potassium 3.7 Chloride 108 CO2 24 Anion Gap 6 Glucose 252 (*) BUN 15 Creatinine 0.98 eGFR 60 BUN/Creatinine Ratio 15.3 Calcium 8.8 CBC WITH AUTO DIFFERENTIAL - Abnormal WBC 8.6 RBC 3.60 (*) Hemoglobin 10.8 (*) Hematocrit 32.9 (*) MCV 90.9 MCH 29.8 MCHC 32.8 RDW 12.9 Platelets 252 MPV 11.9 (*) NRBC 0.0 NRBC Absolute 0.00 Neutrophils Relative 56.7 Lymphocytes Relative 30.8 Monocytes Relative 7.1 Eosinophils Relative 4.9 Basophils Relative 0.3 Immature Granulocytes Relative 0.2 Neutrophils Absolute 4.88 Lymphocytes Absolute 2.65 Monocytes Absolute 0.61 Eosinophils Absolute 0.42 Basophils Absolute 0.03 Immature Granulocytes Absolute 0.02 B-TYPE NATRIURETIC PEPTIDE - Abnormal BNP 108 (*) COMPREHENSIVE METABOLIC PANEL - Abnormal Sodium 141 Potassium 3.5 Chloride 110 CO2 24 Anion Gap 7 Glucose 102 (*) BUN 10 Creatinine 0.98 eGFR 60 BUN/Creatinine Ratio 10.2 Calcium 8.8 AST (SGOT) 10 ALT (SGPT) 11 Alkaline Phosphatase 56 Total Protein 6.1 Albumin 3.1 (*) Total Bilirubin 0.5 CBC WITH AUTO DIFFERENTIAL - Abnormal WBC 6.4 RBC 3.70 (*) Hemoglobin 11.1 (*) Hematocrit 33.8 (*) MCV 91.1 MCH 29.9 MCHC 32.8 RDW 13.1 Platelets 270 MPV 11.3 (*) NRBC 0.0 NRBC Absolute 0.00 Neutrophils Relative 39.0 Lymphocytes Relative 43.9 Monocytes Relative 8.7 Eosinophils Relative 7.2 Basophils Relative 0.9 Immature Granulocytes Relative 0.3 Neutrophils Absolute 2.47 Lymphocytes Absolute 2.79 Monocytes Absolute 0.55 Eosinophils Absolute 0.46 Basophils Absolute 0.06 Immature Granulocytes Absolute 0.02 POCT GLUCOSE, BLOOD - Abnormal Glucose POCT 127 (*) POCT GLUCOSE, BLOOD - Abnormal Glucose POCT 162 (*) POCT GLUCOSE, BLOOD - Abnormal Glucose POCT 215 (*) POCT GLUCOSE, BLOOD - Abnormal Glucose POCT 176 (*) POCT GLUCOSE, BLOOD - Abnormal Glucose POCT 161 (*) POCT GLUCOSE, BLOOD - Abnormal Glucose POCT 132 (*) MAGNESIUM - Normal Magnesium 1.9 TROPONIN I HIGH SENSITIVITY - Normal High Sensitivity Troponin I 41 Narrative: High levels of biotin in samples may falsely decrease hsTroponin values. Use caution when interpreting hsTroponin results in patients taking biotin who exhibit renal impairment (eGFR <60) or in patients taking more than 20 mg/day of biotin. THYROID STIMULATING HORMONE WITH REFLEX TO FREE T4 AND FREE T3 - Normal TSH 3.84 CBC AND DIFFERENTIAL Narrative: The following orders were created for panel order CBC and differential. Procedure Abnormality Status --------- ------ CBC auto differential[[id number]] Abnormal Final result Please view results for these tests on the individual orders. CBC AND DIFFERENTIAL Narrative: The following orders were created for panel order CBC and differential. Procedure Abnormality Status --------- ------ CBC auto differential[[id number]] Abnormal Final result Please view results for these tests on the individual orders. URINALYSIS WITH REFLEX MICROSCOPIC AND CULTURE Narrative: The following orders were created for panel order Urinalysis with reflex microscopic and culture. Procedure Abnormality Status --------- ------ Urinalysis with reflex ...[[id number]] Grijalva urine culture tube[[id number]] Please view results for these tests on the individual orders. URINALYSIS WITH REFLEX MICROSCOPIC AND CULTURE URINALYSIS WITH REFLEX MICROSCOPIC AND CULTURE Narrative: The following orders were created for panel order Urinalysis with reflex microscopic and culture. Procedure Abnormality Status --------- ------ Urinalysis with reflex ...[[id number]] Grijalva urine culture tube[[id number]] Please view results for these tests on the individual orders. URINALYSIS WITH REFLEX MICROSCOPIC AND CULTURE POCT GLUCOSE, BLOOD Abnormal Labs Reviewed BASIC METABOLIC PANEL - Abnormal; Notable for the following components: Result Value Glucose 252 (*) All other components within normal limits CBC WITH AUTO DIFFERENTIAL - Abnormal; Notable for the following components: RBC 3.60 (*) Hemoglobin 10.8 (*) Hematocrit 32.9 (*) MPV 11.9 (*) All other components within normal limits B-TYPE NATRIURETIC PEPTIDE - Abnormal; Notable for the following components: BNP 108 (*) All other components within normal limits COMPREHENSIVE METABOLIC PANEL - Abnormal; Notable for the following components: Glucose 102 (*) Albumin 3.1 (*) All other components within normal limits CBC WITH AUTO DIFFERENTIAL - Abnormal; Notable for the following components: RBC 3.70 (*) Hemoglobin 11.1 (*) Hematocrit 33.8 (*) MPV 11.3 (*) All other components within normal limits POCT GLUCOSE, BLOOD - Abnormal; Notable for the following components: Glucose POCT 127 (*) All other components within normal limits POCT GLUCOSE, BLOOD - Abnormal; Notable for the following components: Glucose POCT 162 (*) All other components within normal limits POCT GLUCOSE, BLOOD - Abnormal; Notable for the following components: Glucose POCT 215 (*) All other components within normal limits POCT GLUCOSE, BLOOD - Abnormal; Notable for the following components: Glucose POCT 176 (*) All other components within normal limits POCT GLUCOSE, BLOOD - Abnormal; Notable for the following components: Glucose POCT 161 (*) All other components within normal limits POCT GLUCOSE, BLOOD - Abnormal; Notable for the following components: Glucose POCT 132 (*) All other components within normal limits MR Brain wo Contrast Final Result Impression: 1. No acute infarct. No intracranial mass. 2. Cerebral volume loss with cerebral white matter disease, likely ischemic microvascular in nature. 3. Mucosal thickening and fluid in the right sphenoid sinus. 4. Small amount of fluid in the left mastoid air cells. Right mastoid air cells are clear. This document has been electronically signed by: Madelyn Spivey MD on 07/25/2024 18:24:21 CT Angio Head/Neck wo and/or w Contrast Final Result 1. No large vessel occlusion, aneurysm, dissection, or hemodynamically significant cervical ICA stenosis. 2. No acute hemorrhage or intracranial mass effect. Nitrous.IO [place] ([id number]) -------- FINAL REPORT -------- Dictated By: Ruth Steiner Dictated Date: 07/25/2024 15:46 ET Assigned Physician: Ruth Steiner Reviewed and Electronically Signed By: Ruth Steiner Signed Date: 07/25/2024 16:00 ET Workstation ID: [id number] Transcribed By: Self Edit Transcribed Date: 07/25/2024 15:[address] Head wo Contrast Final Result 1. No acute intracranial findings. This document has been electronically signed by: Olman Flaherty MD on 07/25/2024 06:43:26 XR Chest 2 Views Final Result FINDINGS/IMPRESSION: Lungs are clear. No pleural effusion or pneumothorax. Cardiac silhouette is normal in size. Degenerative changes seen throughout the bones. Cholecystectomy clips. -------- FINAL REPORT -------- Dictated By: JASMEET GIRON Dictated Date: 07/25/2024 08:31 ET Assigned Physician: JASMEET GIRON Reviewed and Electronically Signed By: JASMEET GIRON Signed Date: 07/25/2024 08:35 ET Workstation ID: [id number] Transcribed By: Self Edit Transcribed Date: 07/25/2024 08:31 ET I have discussed the incidental/abnormal imaging and/or lab abnormalities with the patient and haveinstructed them the need for further evaluation and workup with their primary care doctor. I have provided the patient with a paper copy of the abnormality. The laboratory results, imaging results and other diagnostic exam results were reviewed in the EMR. EKG Interpretation Critical Care Time None ? Medical Decision Making DDX: Vasovagal episode, intracranial abnormality, electrolyte disturbance, ACS, infection 74-year-old female with reported episodes of syncope, global weakness. She did have a workup done here on the for similar concerns and found to have a UTI. She reports improvement of those symptoms but we will screen to see if she has any refractory infection. Workup pending. Medications acetaZOLAMIDE (DIAMOX) tablet 250 mg (250 mg oral Given 07/26/242046) amLODIPine (NORVASC) tablet 10 mg (10 mg oral Not Given 07/26/241337) brimonidine (ALPHAGAN) 0.2 % ophthalmic solution 1 drop (1 drop Both Eyes Given 07/26/242047) dorzolamide-timoloL (COSOPT) 22.3-6.8 mg/mL ophthalmic solution 1 drop (1 drop Both Eyes Given 07/26/242047) fluticasone propionate (FLONASE) 50 mcg/actuation nasal spray 2 spray (has no administration in time range) hydroxychloroquine (PLAQUENIL) tablet 300 mg (300 mg oral Given 07/26/24910) lisinopriL (PRINIVIL,ZESTRIL) tablet 20 mg (20 mg oral Given 07/26/242047) loratadine (CLARITIN) tablet 10 mg (has no administration in time range) pantoprazole (PROTONIX) EC tablet 40 mg (40 mg oral Given 07/26/24 0646) sertraline (ZOLOFT) tablet 150 mg (150 mg oral Given 07/26/2411) atorvastatin (LIPITOR) tablet 10 mg (10 mg oral Given 07/26/242047) sulfaSALAzine (AZULFIDINE EN-TABS) EC tablet 500 mg (500 mg oral Given 07/26/242320) dextrose 15 gram/60 mL oral solution 15 g (has no administration in time range) dextrose 15 gram/60 mL oral solution 30 g (has no administration in time range) dextrose (D50W) 50% injection 12.5 g (has no administration in time range) dextrose (D50W) 50% injection 25 g (has no administration in time range) Glucagon HCl (rDNA) injection 1 mg (has no administration in time range) insulin lispro injection 1-6 Units ( subcutaneous Not Given 07/26/242047) lactated Ringer's infusion (75 mL/hr intravenous New Bag 07/26/24 0556) ondansetron (PF) (ZOFRAN) injection 4 mg (has no administration in time range) meclizine (ANTIVERT) tablet 25 mg (25 mg oral Given 07/26/24 1352) ondansetron (PF) (ZOFRAN) injection 4 mg (4 mg intravenous Given 07/25/24 1005) aspirin EC tablet 81 mg (81 mg oral Given 07/26/24 0004) sodium chloride 0.9 % flush 10 mL (10 mL intravenous Given 07/25/24 1531) iopamidoL (ISOVUE-370) 370 mg iodine /mL (76 %) injection 90 mL (90 mL intravenous Given 07/25/24 1531) ondansetron (PF) (ZOFRAN) injection 4 mg (4 mg intravenous Given 07/26/24 1215) acetaminophen (TYLENOL) tablet 1,000 mg (1,000 mg oral Given 07/26/24 1356) sodium chloride 0.9 % bolus 500 mL (0 mL intravenous Stopped 07/26/24 1336) Clinical Impressions as of 07/27/24 033 Dizziness Procedures Procedures Diagnosis 1. Dizziness Disposition Admit to Inpatient ED Prescriptions Medication Sig Dispense Start Date End Date Auth. Provider meclizine (ANTIVERT) 25 mg tablet Take 1 tablet (25 mg total) by mouth 3 (three) times a day if needed for dizziness for up to 10 days. 30 tablet 07/26/2024 08/05/2024 Roselyn Marmolejo NP Physician Attestation I performed a history and physical examination and discussed the patient management with preceding Advanced Practice Provider. I agree with the history and physical assessment and plan of care, with the following exceptions: None Patient being admitted for intractable dizziness/vertigo MD Marian Luo PA 07/25/24 0623 KIRSTIE Lema 07/25/24 0739 Marcial Brown MD 07/27/24 0334 documented in this encounter Procedure Notes * New [place]ored[place] MD - 07/26/2024 3:37 PM EDTAssociated Order(s): ROUTINE EEG ROUTINE ELECTROENCEPHALOGRAPHY (EEG) REPORT Study Date: 07/26/2024 Clinical Information History: Allison Brandt is a 74 y.o. woman with hypertension, hyperlipidemia, CKD stage III, diabetes mellitus, lupus in remission, TIA, migraine headache, glaucoma, anemia, amongst others, who presented to emergency room with complaints of syncope Medications: Current Facility-Administered Medications: acetaZOLAMIDE (DIAMOX) tablet 250 mg, 250 mg, oral, BID, KIRSTIE Hampton, 250 mg at 07/25/242208 amLODIPine (NORVASC) tablet 10 mg, 10 mg, oral, Daily, KIRSTIE Hampton atorvastatin (LIPITOR) tablet 10 mg, 10 mg, oral, Nightly, KIRSTIE Hampton, 10 mg at 07/25/242138 brimonidine (ALPHAGAN) 0.2 % ophthalmic solution 1 drop, 1 drop, Both Eyes, BID, KIRSTIE Hampton,1 drop at 07/26/24 0911 dextrose (D50W) 50% injection 12.5 g, 12.5 g, intravenous, q15 min PRN, KIRSTIE Hampton dextrose (D50W) 50% injection 25 g, 25 g, intravenous, q15 min PRN, KIRSTIE Hampton dextrose 15 gram/60 mL oral solution 15 g, 15 g, oral, q15 min PRN, KIRSTIE Hampton dextrose 15 gram/60 mL oral solution 30 g, 30 g, oral, q15 min PRN, KIRSTIE Hampton dorzolamide-timoloL (COSOPT) 22.3-6.8 mg/mL ophthalmic solution 1 drop, 1 drop, Both Eyes, BID, KIRSTIE Hampton, 1 drop at 07/26/24 0911 fluticasone propionate (FLONASE) 50 mcg/actuation nasal spray 2 spray, 2 spray, Each Nostril, DailyPRN, KIRSTIE Hampton Glucagon HCl (rDNA) injection 1 mg, 1 mg, intramuscular, Once PRN, KIRSTIE Hampton hydroxychloroquine (PLAQUENIL) tablet 300 mg, 300 mg, oral, Daily, KIRSTIE Hampton, 300 mg at 07/26/24 0911 insulin lispro injection 1-6 Units, 1-6 Units, subcutaneous, Before meals & nightly, KIRSTIE Hampton, 1 Units at 07/26/24 1215 lactated Ringer's infusion, 75 mL/hr, intravenous, Continuous, KIRSTIE Jaramillo, Last Rate: 75 mL/hr at 07/26/24 0556, 75 mL/hr at 07/26/24 0556 lisinopriL (PRINIVIL,ZESTRIL) tablet 20 mg, 20 mg, oral, Nightly, KIRSTIE Hampton, 20 mg at 07/25/24 2210 loratadine (CLARITIN) tablet 10 mg, 10 mg, oral, Daily PRN, KIRSTIE Hampton meclizine (ANTIVERT) tablet 25 mg, 25 mg, oral, TID PRN, Roselyn Marmolejo NP, 25 mg at 07/26/24 1352 ondansetron (PF) (ZOFRAN) injection 4 mg, 4 mg, intravenous, q6h PRN, Roselyn Marmolejo NP pantoprazole (PROTONIX) EC tablet 40 mg, 40 mg, oral, q AM AC, KIRSTIE Hampton, 40 mg at 646 sertraline (ZOLOFT) tablet 150 mg, 150 mg, oral, Daily, KIRSTIE Hampton, 150 mg at 07/26/24 09 sulfaSALAzine (AZULFIDINE EN-TABS) EC tablet 500 mg, 500 mg, oral, BID, KIRSTIE Hampton, 500 mg at 07/25/24 2208 Recording Techniques A digital video EEG was performed using the standard international 10-20 electrode placement and single channel EKG electrode. Total Recording Time: 23 minutes Montages: Standard [...] Normal sinus rhythm Classification of the findings: Normal Impression This is a normal routine EEG recording in the awake and drowsy states. There were no seizures, periodic patterns, or epileptiform discharges. There is no focal slowing or persistent focal asymmetriesof the background rhythms. However, a normal EEG does not rule out epilepsy or seizure. Clinical correlation is advised. CC No ref. provider found [place] MD Epileptologist [facility] documented in this encounter Plan of Treatment Upcoming Encounters Date Type Department Care Team (Late st Contact Info) Description 08/03/2024 10:30 AM EDT Office Visit Adult Medicine [address] [phone] Brenda Bethea MD [address] [place] [address] 08/10/2024 4:30 PM EDT Office Visit Endocrinology [address] [phone] Char León PA [address] [place] [phone] 09/12/2024 10:00 AM EDT Consult Adult Medicine [address] [phone] Brenda Bethea MD [address] [place] [address] 10/06/2024 2:00 PM EDT Office Visit Adult Medicine [facility] [address] [place] [phone] Tammy Dennison PA [address] [place] [address] 11/08/2024 12:00 PM EDT Ancillary Procedure [facility] [address] [place] [address] 12/15/2024 3:00 PM EDT Office Visit Vascular Surgery - [place] [address] [place] [phone] Aby Hollis PA [address] [place] [address] Scheduled Referrals Name Type Priority Associated Diagnoses Orde r Schedule Ambulatory referral to Home Health Outpatient Referral Routine Dizziness Syncope, unspecified syncope type Expected: 08/28/2024, Expires: 09/27/2024 documented as of this encounter Procedures Procedure Name Priority Date/Time Associated Diagnosis Comments ECG OUTSIDE 07/29/2024 ECG ANNOTATED 07/29/2024 POCT GLUCOSE BLOOD Routine 07/28/2024 10 :55 AM EDT POCT GLUCOSE BLOOD Routine 07/28/2024 8: 06 AM EDT COMPLETE BLOOD COUNT Routine 07/28/2024 7:08 AM EDT MAGNESIUM Routine 07/28/2024 7:08 AM EDT BASIC METABOLIC PANEL Routine 07/28/2024 7:08 AM EDT POCT GLUCOSE BLOOD Routine 07/27/2024 9: 38 PM EDT POCT GLUCOSE BLOOD Routine 07/27/2024 4: 55 PM EDT POCT GLUCOSE BLOOD Routine 07/27/2024 11 :27 AM EDT EXTRA TUBES Routine 07/27/2024 9:05 AM EDT LAVENDER - EDTA Routine 07/27/2024 9:05 AM EDT MAGNESIUM Routine [...] AUTO DIFFERENTIAL Routine 07/26/2024 4:49 AM EDT CBC AND DIFFERENTIAL Routine 07/26/2024 4:49 AM EDT COMPREHENSIVE METABOLIC PANEL Routine 07/26/2024 4:49 AM EDT POCT GLUCOSE [...] 2 VIEWS STAT 07/25/2024 5:39 AM EDT TROPONIN I HIGH SENSITIVITY STAT 07/25/2024 5:14 AM EDT B-TYPE NATRIURETIC PEPTIDE STAT 07/25/2024 5:14 AM EDT THYROID STIMULATING HORMONE WITH REFLEX TO FREE T4 AND FREE T3 STAT Add-on 07/25/2024 4:20 AM EDT CBC WITH AUTO DIFFERENTIAL STAT 07/25/2024 4:20 AM EDT CBC AND DIFFERENTIAL STAT 07/25/2024 4:20 AM EDT MAGNESIUM STAT 07/25/2024 4:20 AM EDT BASIC METABOLIC PANEL STAT 07/25/2024 4:20 AM EDT ECG 12-LEAD STAT 07/25/2024 2:41 AM EDT documented in this encounter Results * ECG-Outside (07/29/2024) Provider Onbase MD ECG ORDERABLES Final Result * ECG-Annotated (07/29/2024) us Provider Onbase MD ECG ORDERABLES Final Result * (ABNORMAL) POCT Glucose, blood (07/28/2024 10:55 AM EDT) [facility] Glucose POCT 164(H) 70 - 100 mg/dL 07/28/2024 10:55 AM EDT [facility] ([facility] Blood Capillary blood specimen / Unknown 07/28/2024 10:55 AM EDT 07/28/2024 10:56 AM EDT Emily Chavira MD LAB POINT OF CARE T EST DOCKED DEVICE UNSOLICITED RESULTS Final Result Performing Organization Address [facility] Co de Phone Number [facility] [address] [place] [address], [place] [phone] * (ABNORMAL) POCT Glucose, blood (07/28/2024 8:06 AM EDT) [facility] [place] Glucose POCT 109(H) 70 - 100 mg/dL 07/28/2024 8:06 AM EDT [facility] Blood Capillary blood specimen / Unknown 07/28/2024 8:06 AM EDT 07/28/2024 8:07 AM EDT Emily Chavira MD LAB POINT OF CARE T EST DOCKED DEVICE UNSOLICITED RESULTS Final Result Performing Organization Address [facility] de Phone Number [facility] [address] [place] [address], [place] [phone] * Magnesium (07/28/2024 7:08 AM EDT) [facility] [place] Magnesium 2.0 1.9 - 2.6 mg/dL LAB CHEMISTRY METHOD 07/28/2024 8:59 AM EDT [facility] Blood Venous blood specimen / Unknown Venipuncture / Unknown 07/28/2024 7:08 AM EDT 07/28/2024 7:21 AM EDT Roselyn Marmolejo NP LAB BLOOD ORDERABLES Final Resul t Performing Organization Address [facility] Co de Phone Number [facility] [address] [place] [address], [place] [phone] * (ABNORMAL) Basic metabolic panel (07/28/2024 7:08 AM EDT) [facility] [place] Sodium 142 133 - 145 mmol/L LAB CHEMISTRY METHOD 07/28/2024 8:59 AM [facility] Potassium 3.5 3.5 - 5.5 mmol/L LAB CHEMISTRY METHOD 07/28/2024 8:59 AM [facility] Chloride 114(H) 96 - 110 mmol/L LAB CHEMISTRY METHOD 07/28/2024 8:59 AM [facility] CO2 21 21 - 32 mmol/L LAB CHEMISTRY METHOD 07/28/2024 8:59 AM [facility] Anion Gap 7 3 - 11 LAB CHEMISTRY METHOD 07/28/2024 8:59 AM [facility] Glucose 108(H) 70 - 100 mg/dL LAB CHEMISTRY METHOD 07/28/2024 8:59 AM [facility] BUN 9 5 - 25 mg/dL LAB CHEMISTRY METHOD 07/28/2024 8:59 AM [facility] Creatinine 1.03 0.50 - 1.10 mg/dL LAB CHEMISTRY METHOD 07/28/2024 8:59 AM [facility] eGFR 57(L) >=60 mL/min/1. 73m2 LAB CHEMISTRY METHOD 07/28/2024 8:59 AM [facility] Comment:Calculation based on the??Chronic Kidney Disease Epidemiology Collaboration (CKD-EPI) equation refit??without adjustment for race. BUN/Creatinine Ratio 8.7 LAB CHEMISTRY METHOD 07/28/2024 8:59 AM [facility] Calcium 8.5 8.5 - 10.5 mg/dL LAB CHEMISTRY METHOD 07/28/2024 8:59 AM [facility] Blood Venous blood specimen / Unknown Venipuncture / Unknown 07/28/2024 7:08 AM EDT 07/28/2024 7:21 AM EDT us Roselyn Marmolejo NP LAB BLOOD ORDERABLES Final Resul t [facility] [address] [place] [address], * (ABNORMAL) Complete blood count (07/28/2024 7:08 AM EDT) [facility] [place] WBC 5.6 4.8 - 10.8 K/mcL LAB HEMETOLOGY METHOD 07/28/2024 7:51 AM EDT [facility] RBC 3.40(L) 3.80 - 4.80 M/mcL LAB HEMETOLOGY METHOD 07/28/2024 7:51 AM EDT [facility] Hemoglobin 10.0(L) 11.5 - 16.0 g/dL LAB HEMETOLOGY METHOD 07/28/2024 7:51 AM EDT [facility] Hematocrit 31.9(L) 35.0 - 47.0 % LAB HEMETOLOGY METHOD 07/28/2024 7:51 AM EDT [facility] MCV 94.4 79.0 - 98.0 FL LAB HEMETOLOGY METHOD 07/28/2024 7:51 AM EDT [facility] MCH 29.6 27.0 - 32.0 pcg LAB HEMETOLOGY METHOD 07/28/2024 7:51 AM EDT [facility] MCHC 31.3(L) 32.0 - 37.0 g/dL LAB HEMETOLOGY METHOD 07/28/2024 7:51 AM EDT [facility] RDW 13.0 11.0 - 15.0 % LAB HEMETOLOGY METHOD 07/28/2024 7:51 AM EDT [facility] Platelets 217 130 - 400 K/mcL LAB HEMETOLOGY METHOD 07/28/2024 7:51 AM EDT [facility] MPV 11.5(H) 7.0 - 11.0 FL LAB HEMETOLOGY METHOD 07/28/2024 7:51 AM EDT [facility] NRBC 0.0 <1.0 % LAB HEMETOLOGY METHOD 07/28/2024 7:51 AM EDT [facility] NRBC Absolute 0.00 <0.10 K/mcL LAB HEMETOLOGY METHOD 07/28/2024 7:51 AM EDT [facility] Blood Venous blood specimen / Unknown Venipuncture / Unknown 07/28/2024 7:08 AM EDT 07/28/2024 7:22 AM EDT Roselyn Marmolejo NP LAB BLOOD ORDERABLES Final Resul t Performing Organization Address City/[facility]/ZIP Co de Phone Number [facility] [address] [place] [address], [place] [phone] * (ABNORMAL) POCT Glucose, blood (07/27/2024 9:38 PM EDT) Glucose POCT 178(H) 70 - 100 mg/dL 07/27/2024 9:39 PM EDT [facility] Blood Capillary blood specimen / Unknown 07/27/2024 9:38 PM EDT 07/27/2024 9:40 PM EDT Emily Chavira MD LAB POINT OF CARE T EST DOCKED DEVICE UNSOLICITED RESULTS Final Result [facility] [address] [place] [address], [place] [phone] * (ABNORMAL) POCT Glucose, blood (07/27/2024 4:55 PM EDT) Glucose POCT 123(H) 70 - 100 mg/dL 07/27/2024 4:57 PM EDT [facility] Blood Capillary blood specimen / Unknown 07/27/2024 4:55 PM EDT 07/27/2024 4:58 PM EDT Emily Chavira MD LAB POINT OF CARE T EST DOCKED DEVICE UNSOLICITED RESULTS Final Result Performing Organization Address [facility] de Phone Number [facility] [address] [place] [address], [place] [phone] * (ABNORMAL) POCT Glucose, blood (07/27/2024 11:27 AM EDT) Glucose POCT 154(H) 70 - 100 mg/dL 07/27/2024 11:31 AM EDT [facility] Blood Capillary blood specimen / Unknown 07/27/2024 11:27 AM EDT 07/27/2024 11:32 AM EDT Emily Chavira MD LAB POINT OF CARE T EST DOCKED DEVICE UNSOLICITED RESULTS Final Result Performing Organization Address [facility] de Phone Number [facility] [address] [place] [address], [place] [phone] * Lavender tube (07/27/2024 9:05 AM EDT) Pathologist [facility] Extra Tube Hold for add-ons. 07/27/2024 11:01 AM EDT [facility] Comment:Auto resulted. Blood Venous blood specimen / Unknown 07/27/2024 9:05 AM EDT 07/27/2024 9:45 AM EDT Emily Chavira MD LAB BLOOD ORDERABLES Final Result Performing Organization Address [facility] de Phone Number [facility] [address] [place] [address], [place] [phone] * Magnesium (07/27/2024 9:05 AM EDT) Magnesium 1.9 1.9 - 2.6 mg/dL LAB CHEMISTRY METHOD 07/27/2024 10:23 AM [facility] Blood Venous blood specimen / Unknown Venipuncture / Unknown 07/27/2024 9:05 AM EDT 07/27/2024 9:43 AM EDT us Roselyn Marmolejo NP LAB BLOOD ORDERABLES Final Resul t [facility] [address] [place] [address], * (ABNORMAL) Basic metabolic panel (07/27/2024 9:05 AM EDT) Sodium 140 133 - 145 mmol/L LAB CHEMISTRY METHOD 07/27/2024 10:23 AM [facility] Potassium 3.9 3.5 - 5.5 mmol/L LAB CHEMISTRY METHOD 07/27/2024 10:23 AM [facility] Chloride 112(H) 96 - 110 mmol/L LAB CHEMISTRY METHOD 07/27/2024 10:23 AM [facility] CO2 21 21 - 32 mmol/L LAB CHEMISTRY METHOD 07/27/2024 10:23 AM [facility] Anion Gap 7 3 - 11 LAB CHEMISTRY METHOD 07/27/2024 10:23 AM [facility] Glucose 117(H) 70 - 100 mg/dL LAB CHEMISTRY METHOD 07/27/2024 10:23 AM [facility] BUN 10 5 - 25 mg/dL LAB CHEMISTRY METHOD 07/27/2024 10:23 AM [facility] Creatinine 1.18(H) 0.50 - 1.10 mg/dL LAB CHEMISTRY METHOD 07/27/2024 10:23 AM [facility] eGFR 48(L) >=60 mL/min/1. 73m2 LAB CHEMISTRY METHOD 07/27/2024 10:23 AM EDT [facility] Comment:Calculation based on the??Chronic Kidney Disease Epidemiology Collaboration (CKD-EPI) equation refit??without adjustment for race. BUN/Creatinine Ratio 8.5 LAB CHEMISTRY METHOD 07/27/2024 10:23 AM EDT [facility] Calcium 8.9 8.5 - 10.5 mg/dL LAB CHEMISTRY METHOD 07/27/2024 10:23 AM EDT [facility] Blood Venous blood specimen / Unknown Venipuncture / Unknown 07/27/2024 9:05 AM EDT 07/27/2024 9:43 AM EDT Roselyn Marmolejo NP LAB BLOOD ORDERABLES Final Resul t Performing Organization Address City/[facility]/ZIP Co de Phone Number [facility] [address] [place] [address], [place] [phone] * POCT Glucose, blood (07/27/2024 7:43 AM EDT) Glucose POCT 87 70 - 100 mg/dL 07/27/2024 7:46 AM EDT [facility] Blood Capillary blood specimen / Unknown 07/27/2024 7:43 AM EDT 07/27/2024 7:47 AM EDT us Emily Chavira MD LAB POINT OF CARE T EST DOCKED DEVICE UNSOLICITED RESULTS Final Result [facility] [address] [place] [address], [place] [phone] * (ABNORMAL) POCT Glucose, blood (07/26/2024 8:43 PM EDT) Glucose POCT 132(H) 70 - 100 mg/dL 07/26/2024 8:43 PM EDT [facility] Blood Capillary blood specimen / Unknown 07/26/2024 8:43 PM EDT 07/26/2024 8:44 PM EDT us Emily Chavira MD LAB POINT OF CARE T EST DOCKED DEVICE UNSOLICITED RESULTS Final Result Performing Organization Address [facility] Co de Phone Number [facility] [address] [place] [address], [place] [phone] * (ABNORMAL) POCT Glucose, blood (07/26/2024 5:15 PM EDT) Glucose POCT 161(H) 70 - 100 mg/dL 07/26/2024 5:16 PM EDT [facility] Blood Capillary blood specimen / Unknown 07/26/2024 5:15 PM EDT 07/26/2024 5:17 PM EDT us Emily Chavira MD LAB POINT OF CARE T EST DOCKED DEVICE UNSOLICITED RESULTS Final Result Performing Organization Address [facility] Co de Phone Number [facility] [address] [place] [address], [place] [phone] * (ABNORMAL) POCT Glucose, blood (07/26/2024 12:07 PM EDT) Glucose POCT 176(H) 70 - 100 mg/dL 07/26/2024 12:07 PM EDT [facility] Blood Capillary blood specimen / Unknown 07/26/2024 12:07 PM EDT 07/26/2024 12:09 PM EDT us Emily Chavira MD LAB POINT OF CARE T EST DOCKED DEVICE UNSOLICITED RESULTS Final Result Performing Organization Address [facility] Co de Phone Number [facility] [address] [place] [address], [place] [phone] * Routine EEG (07/26/2024 10:52 AM EDT) [...] ref. provider found [place] MD Epileptologist [facility] us Radha THACKER NEUROLOGY ORDERABLES Edited Res ult - Final * (ABNORMAL) CBC auto differential (07/26/2024 4:49 AM EDT) [facility] [place] WBC 6.4 4.8 - 10.8 K/mcL LAB HEMETOLOGY METHOD 07/26/2024 5:27 AM [facility] RBC 3.70(L) 3.80 - 4.80 M/mcL LAB HEMETOLOGY METHOD 07/26/2024 5:27 AM [facility] Hemoglobin 11.1(L) 11.5 - 16.0 g/dL LAB HEMETOLOGY METHOD 07/26/2024 5:27 AM [facility] Hematocrit 33.8(L) 35.0 - 47.0 % LAB HEMETOLOGY METHOD 07/26/2024 5:27 AM [facility] MCV 91.1 79.0 - 98.0 FL LAB HEMETOLOGY METHOD 07/26/2024 5:27 AM [facility] MCH 29.9 27.0 - 32.0 pcg LAB HEMETOLOGY METHOD 07/26/2024 5:27 AM [facility] MCHC 32.8 32.0 - 37.0 g/dL LAB HEMETOLOGY METHOD 07/26/2024 5:27 AM [facility] RDW 13.1 11.0 - 15.0 % LAB HEMETOLOGY METHOD 07/26/2024 5:27 AM [facility] Platelets 270 130 - 400 K/mcL LAB HEMETOLOGY METHOD 07/26/2024 5:27 AM [facility] MPV 11.3(H) 7.0 - 11.0 FL LAB HEMETOLOGY METHOD 07/26/2024 5:27 AM [facility] NRBC 0.0 <1.0 % LAB HEMETOLOGY METHOD 07/26/2024 5:27 AM [facility] NRBC Absolute 0.00 <0.10 K/mcL LAB HEMETOLOGY METHOD 07/26/2024 5:27 AM [facility] Neutrophils Relative 39.0 % LAB HEMETOLOGY METHOD 07/26/2024 5:27 AM [facility] Lymphocytes Relative 43.9 % LAB HEMETOLOGY METHOD 07/26/2024 5:27 AM [facility] Monocytes Relative 8.7 % LAB HEMETOLOGY METHOD 07/26/2024 5:27 AM [facility] Eosinophils Relative 7.2 % LAB HEMETOLOGY METHOD 07/26/2024 5:27 AM [facility] Basophils Relative 0.9 % LAB HEMETOLOGY METHOD 07/26/2024 5:27 AM [facility] Immature Granulocytes Relative 0.3 % LAB HEMETOLOGY METHOD 07/26/2024 5:27 AM [facility] Neutrophils Absolute 2.47 1.50 [...] Immature Granulocytes Absolute 0.02 0.00 - 0.03 K/[facility] LAB HEMETOLOGY METHOD 07/26/2024 5:27 AM EDT [facility] Blood Venous blood specimen / Unknown Venipuncture / Unknown 07/26/2024 4:49 AM EDT 07/26/2024 5:20 AM EDT us Radha THACKER LAB BLOOD ORDERABLES Final Resu lt [facility] [address] [place] [address], * (ABNORMAL) Comprehensive metabolic panel (07/26/2024 4:49 AM EDT) Sodium 141 133 - 145 mmol/L LAB CHEMISTRY METHOD 07/26/2024 5:51 AM EDT [facility] Potassium 3.5 3.5 - 5.5 mmol/L LAB CHEMISTRY METHOD 07/26/2024 5:51 AM EDT [facility] Chloride 110 96 - 110 mmol/L LAB CHEMISTRY METHOD 07/26/2024 5:51 AM [facility] CO2 24 21 - 32 mmol/L LAB CHEMISTRY METHOD 07/26/2024 5:51 AM [facility] Anion Gap 7 3 - 11 LAB CHEMISTRY METHOD 07/26/2024 5:51 AM [facility] Glucose 102(H) 70 - 100 mg/dL LAB CHEMISTRY METHOD 07/26/2024 5:51 AM [facility] BUN 10 5 - 25 mg/dL LAB CHEMISTRY METHOD 07/26/2024 5:51 AM [facility] Creatinine 0.98 0.50 - 1.10 mg/dL LAB CHEMISTRY METHOD 07/26/2024 5:51 AM [facility] eGFR 60 >=60 mL/min/1. 73m2 LAB CHEMISTRY METHOD 07/26/2024 5:51 AM [facility] Comment:Calculation based on the??Chronic Kidney Disease Epidemiology Collaboration (CKD-EPI) equation refit??without adjustment for race. BUN/Creatinine Ratio 10.2 LAB CHEMISTRY METHOD 07/26/2024 5:51 AM [facility] Calcium 8.8 8.5 - 10.5 mg/dL LAB CHEMISTRY METHOD 07/26/2024 5:51 AM [facility] AST (SGOT) 10 10 - 42 unit/L LAB CHEMISTRY METHOD 07/26/2024 5:51 AM [facility] ALT (SGPT) 11 10 - 60 unit/L LAB CHEMISTRY METHOD 07/26/2024 5:51 AM [facility] Alkaline Phosphatase 56 42 - 121 unit/L LAB CHEMISTRY METHOD 07/26/2024 5:51 AM [facility] Total Protein 6.1 6.0 - 8.0 g/dL LAB CHEMISTRY METHOD 07/26/2024 5:51 AM [facility] Albumin 3.1(L) 3.2 - 5.0 g/dL LAB CHEMISTRY METHOD 07/26/2024 5:51 AM EDT [facility] Total Bilirubin 0.5 0.0 - 1.4 mg/dL LAB CHEMISTRY METHOD 07/26/2024 5:51 AM EDT [facility] Blood Venous blood specimen / Unknown Venipuncture / Unknown 07/26/2024 4:49 AM EDT 07/26/2024 5:19 AM EDT Radha THACKER LAB BLOOD ORDERABLES Final Resu lt [facility] [address] [place] [address], [place] [phone] * (ABNORMAL) POCT Glucose, blood (07/25/2024 8:50 PM EDT) Glucose POCT 215(H) 70 - 100 mg/dL 07/25/2024 8:50 PM EDT [facility] Blood Capillary blood specimen / Unknown 07/25/2024 8:50 PM EDT 07/25/2024 8:52 PM EDT Jose D Viveros MD LAB POINT O F CARE TEST DOCKED DEVICE UNSOLICITED RESULTS Final Result Performing Organization Address [facility]/ZIP Co de Phone Number [facility] [address] [place] [address], [place] [phone] * MR Brain wo Contrast (07/25/2024 6:14 [...] Spivey MD on 07/25/2024 18:24:21 Radha THACKER IMYashira MRI PROCEDURES Final Result * (ABNORMAL) POCT Glucose, blood (07/25/2024 4:47 PM EDT) Glucose POCT 162(H) 70 - 100 mg/dL 07/25/2024 4:47 PM EDT [facility] Blood Capillary blood specimen / Unknown 07/25/2024 4:47 PM EDT 07/25/2024 4:48 PM EDT Jose D Viveros MD LAB POINT O F CARE TEST DOCKED DEVICE UNSOLICITED RESULTS Final Result [facility] [address] [place] [address], [place] [phone] * CT Angio Head/Neck wo and/or w Contrast (07/25/2024 3:36 PM EDT) Anatomical Region Laterality Modality Head and Neck Computed Tomogra phy 07/25/2024 3:46 PM EDT Impressions 07/25/2024 4:00 PM EDT 1. No large vessel occlusion, aneurysm, dissection, or hemodynamically significant cervical ICA stenosis. 2. No acute hemorrhage or intracranial mass effect. Telerad KIRSTIE ([id number]) -------- FINAL REPORT -------- Dictated By: Ruth Steiner Dictated Date: 07/25/2024 15:46 ET Assigned Physician: Ruth Steiner Reviewed and Electronically Signed By: Ruth Steiner Signed Date: 07/25/2024 16:00 ET Workstation ID: [id number] Transcribed By: Self Edit Transcribed Date: 07/25/2024 [...] brain was also performed. DLP: 3324.62 mGy/cm RideApart VCT Iterative reconstruction technique FINDINGS: Noncontrast brain [...] is patent and terminates in the bilateral waiter/waitress formal. No large vessel occlusion or aneurysm is [...] the brain wasalso performed. DLP: 3324.62 mGy/cm RideApart VCT Iterative reconstruction technique FINDINGS: Noncontrast brain [...] is patent and terminates in the bilateral waiter/waitress formal.No large vessel occlusion or aneurysm is seen. [...] No acute hemorrhage or intracranial mass effect. Telerad [place] ([id number]) -------- FINAL REPORT -------- Dictated By: Ruth Steiner Dictated Date: 07/25/2024 15:46 ET Assigned Physician: Ruth Steiner Reviewed and Electronically Signed By: Ruth Steiner Signed Date: 07/25/2024 16:00 ET Workstation ID: [id number] Transcribed By: Self Edit Transcribed Date: 07/25/2024 15:46 ET Radha THACKER IMG CT PROCEDURES Final Result * (ABNORMAL) POCT Glucose, blood (07/25/2024 2:59 PM EDT) Glucose POCT 127(H) 70 - 100 mg/dL 07/25/2024 2:59 PM EDT [facility] Blood Capillary blood specimen / Unknown 07/25/2024 2:59 PM EDT 07/25/2024 3:00 PM EDT Jose D Viveros MD LAB POINT O F CARE TEST DOCKED DEVICE UNSOLICITED RESULTS Final Result [facility] [address] [place] [address], * CT Head wo Contrast (07/25/2024 5:50 AM EDT) Anatomical Region Laterality Modality Head and [...] Chest 2 Views (07/25/2024 5:39 AM EDT) Anatomical Region Laterality Modality Body Radiographic Heydi [...] Signed Date: 07/25/2024 08:35 ET Workstation ID: [id number] Transcribed By: Self Edit Transcribed Date: 07/25/2024 [...] Signed Date: 07/25/2024 08:35 ET Workstation ID: [id number] Transcribed By: Self Edit Transcribed Date: 07/25/2024 08:31 ET Marian THACKER IMG XR PROCEDURES Final Result * (ABNORMAL) B-type natriuretic peptide (07/25/2024 5:14 AM EDT) Pathologist [facility] BNP 108(H) <=100 pcg/mL LAB CHEMISTRY METHOD 07/25/2024 6:42 AM EDT [facility] Blood Venous blood specimen / Unknown Venipuncture / Unknown 07/25/2024 5:14 AM EDT 07/25/2024 6:10 AM EDT Marian THACKER LAB BLOOD ORDERABLES Final Resul t [facility] [address] [place] [address], * Troponin I high sensitivity (NOW) (07/25/2024 5:14 AM EDT) [facility] High Sensitivity Troponin I 41 <=54 ng/L [...] taking more than 20 mg/day of biotin. Marian THACKER LAB BLOOD ORDERABLES Final Resul t Performing Organization Address City/[facility]/ZIP Co de Phone Number [facility] [address] [place] [address], [place] [phone] * Thyroid stimulating hormone with reflex to free t4 and free t3 (TSH Reflex) (07/25/2024 4:20 AM EDT) [facility] TSH 3.84 0.40 - 4.00 mcIU/mL LAB CHEMISTRY METHOD 07/25/2024 6:02 AM EDT [facility] Blood Venous blood specimen / Unknown Venipuncture / Unknown 07/25/2024 4:20 AM EDT 07/25/2024 5:10 AM EDT Marian THACKER LAB BLOOD ORDERABLES Final Resul t Performing Organization Address [facility]/ZIP Co de Phone Number [facility] [address] [place] [address], [place] [phone] * (ABNORMAL) CBC auto differential (07/25/2024 4:20 AM EDT) [facility] WBC 8.6 4.8 - 10.8 K/mcL LAB HEMETOLOGY METHOD 07/25/2024 5:17 AM EDT [facility] RBC 3.60(L) 3.80 - 4.80 M/mcL LAB HEMETOLOGY METHOD 07/25/2024 5:17 AM EDT [facility] Hemoglobin 10.8(L) 11.5 - 16.0 g/dL LAB HEMETOLOGY METHOD 07/25/2024 5:17 AM EDT [facility] Hematocrit 32.9(L) 35.0 - 47.0 % LAB HEMETOLOGY METHOD 07/25/2024 5:17 AM EDT [facility] MCV 90.9 79.0 - 98.0 FL LAB HEMETOLOGY METHOD 07/25/2024 5:17 AM [facility] MCH 29.8 27.0 - 32.0 pcg LAB HEMETOLOGY METHOD 07/25/2024 5:17 AM [facility] MCHC 32.8 32.0 - 37.0 g/dL LAB HEMETOLOGY METHOD 07/25/2024 5:17 AM [facility] RDW 12.9 11.0 - 15.0 % LAB HEMETOLOGY METHOD 07/25/2024 5:17 AM [facility] Platelets 252 130 - 400 K/mcL LAB HEMETOLOGY METHOD 07/25/2024 5:17 AM [facility] MPV 11.9(H) 7.0 - 11.0 FL LAB HEMETOLOGY METHOD 07/25/2024 5:17 AM [facility] NRBC 0.0 <1.0 % LAB HEMETOLOGY METHOD 07/25/2024 5:17 AM [facility] NRBC Absolute 0.00 <0.10 K/mcL LAB HEMETOLOGY METHOD 07/25/2024 5:17 AM [facility] Neutrophils Relative 56.7 % LAB HEMETOLOGY METHOD 07/25/2024 5:17 AM [facility] Lymphocytes Relative 30.8 % LAB HEMETOLOGY METHOD 07/25/2024 5:17 AM [facility] Monocytes Relative 7.1 % LAB HEMETOLOGY METHOD 07/25/2024 5:17 AM [facility] Eosinophils Relative 4.9 % LAB HEMETOLOGY METHOD 07/25/2024 5:17 AM [facility] Basophils Relative 0.3 % LAB HEMETOLOGY METHOD 07/25/2024 5:17 AM [facility] Immature Granulocytes Relative 0.2 % LAB HEMETOLOGY METHOD 07/25/2024 5:17 AM EDT [facility] Neutrophils Absolute 4.88 1.50 - 7.00 K/mcL LAB HEMETOLOGY METHOD 07/25/2024 5:17 AM EDT [facility] Lymphocytes Absolute 2.65 1.00 - 5.00 K/mcL LAB HEMETOLOGY METHOD 07/25/2024 5:17 AM EDT [facility] Monocytes Absolute 0.61 0.20 - 1.00 K/mcL LAB HEMETOLOGY METHOD 07/25/2024 5:17 AM EDT [facility] Eosinophils Absolute 0.42 0.00 - 0.50 K/mcL LAB HEMETOLOGY METHOD 07/25/2024 5:17 AM EDT [facility] Basophils Absolute 0.03 0.00 - 0.20 K/mcL LAB HEMETOLOGY METHOD 07/25/2024 5:17 AM EDT [facility] Immature Granulocytes Absolute 0.02 0.00 - 0.03 K/mcL LAB HEMETOLOGY METHOD 07/25/2024 5:17 AM EDT [facility] Blood Venous blood specimen / Unknown Venipuncture / Unknown 07/25/2024 4:20 AM EDT 07/25/2024 5:10 AM EDT us Marcial Brown MD LAB BLOOD ORDERABLES Final Resu lt [facility] [address] [place] [address], * Magnesium (07/25/2024 4:20 AM EDT) Magnesium 1.9 1.9 - 2.6 mg/dL LAB CHEMISTRY METHOD 07/25/2024 5:34 AM EDT [facility] Blood Venous blood specimen / Unknown Venipuncture / Unknown 07/25/2024 4:20 AM EDT 07/25/2024 5:10 AM EDT us Marcial Brown MD LAB BLOOD ORDERABLES Final Resu lt [facility] [address] [place] [address], [place] [phone] * (ABNORMAL) Basic metabolic panel (07/25/2024 4:20 AM EDT) Sodium 138 133 - 145 mmol/L LAB CHEMISTRY METHOD 07/25/2024 6:03 AM [facility] Potassium 3.7 3.5 - 5.5 mmol/L LAB CHEMISTRY METHOD 07/25/2024 6:03 AM [facility] Chloride 108 96 - 110 mmol/L LAB CHEMISTRY METHOD 07/25/2024 6:03 AM [facility] CO2 24 21 - 32 mmol/L LAB CHEMISTRY METHOD 07/25/2024 6:03 AM [facility] Anion Gap 6 3 - 11 LAB CHEMISTRY METHOD 07/25/2024 6:03 AM [facility] Glucose 252(H) 70 - 100 mg/dL LAB CHEMISTRY METHOD 07/25/2024 6:03 AM [facility] BUN 15 5 - 25 mg/dL LAB CHEMISTRY METHOD 07/25/2024 6:03 AM [facility] Creatinine 0.98 0.50 - 1.10 mg/dL LAB CHEMISTRY METHOD 07/25/2024 6:03 AM [facility] eGFR 60 >=60 mL/min/1. 73m2 LAB CHEMISTRY METHOD 07/25/2024 6:03 AM [facility] Comment:Calculation based on the??Chronic Kidney Disease Epidemiology Collaboration (CKD-EPI) equation refit??without adjustment for race. BUN/Creatinine Ratio 15.3 LAB CHEMISTRY METHOD 07/25/2024 6:03 AM [facility] Calcium 8.8 8.5 - 10.5 mg/dL LAB CHEMISTRY METHOD 07/25/2024 6:03 AM EDT [facility] Blood Venous blood specimen / Unknown Venipuncture / Unknown 07/25/2024 4:20 AM EDT 07/25/2024 5:10 AM EDT Marcial Brown MD LAB BLOOD ORDERABLES Final Resu lt Performing Organization Address City/[facility]/ZIP Co de Phone Number [facility]) [facility] [address] [place] [address], [place] [phone] * ECG 12 lead (07/25/2024 2:41 AM EDT) Ventricular Rate ECG 65 BPM GEMUSE Atrial Rate 65 BPM GEMUSE P-R Interval 148 ms GEMUSE QRS Duration 140 ms GEMUSE Q-T Interval 420 ms GEMUSE QTc 436 ms GEMUSE P Wave Mcclusky 18 degrees GEMUSE R Mcclusky -35 degrees GEMUSE T Mcclusky 77 degrees GEMUSE ECG Interpretation Normal sinus rhythm with sinus arrhythmia Left axis deviation Left bundle branch block Abnormal ECG When compared with ECG of 13-JUL-2024 00:10, No significant change was found Confirmed by MD [facility], [facility] ([id number] on 07/26/2024 1:57:03 AM GEMUSE 07/25/2024 2:41 AM EDT 07/26/2024 1:57 AM EDT us Marcial Brown MD ECG ORDERABLES Final Result Performing Organization Address [facility] Co de Phone Number GEMUSE documented in this encounter Visit Diagnoses Diagnosis Dizziness- Primary Dizziness and giddiness Dizziness Dizziness and giddiness Syncope, unspecified syncope type Syncope Syncope and collapse documented in this encounter Admitting Diagnoses Diagnosis Dizziness Dizziness and giddiness Syncope Syncope and collapse documented in this encounter Administered Medications Inactive Administered Medications - up to 3 most recent administrations Medication Order MAR Action Action Date Dose Rate Site acetaminophen (TYLENOL) tablet 1,000 mg 1,000 mg, oral, Once, On Thu07/26/24 at 1230, For 1 dose Given 07/26/2024 1:56 PM EDT 1,000 mg acetaZOLAMIDE (DIAMOX) tablet 250 mg 250 mg, oral, 2 times daily, First dose on Thu07/25/24 at 2100 Given 07/28/2024 9:14 AM EDT 250 mg Given 07/27/2024 9:33 PM EDT 250 mg Given 07/27/2024 8:41 AM EDT 250 mg amLODIPine (NORVASC) tablet 10 mg 10 mg, oral, Daily, First dose on Thu07/26/24 at 0900, Hold if sbp < 110 Given 07/28/2024 9:14 AM EDT 10 mg Given 07/27/2024 8:41 AM EDT 10 mg aspirin EC tablet 81 mg 81 mg, oral, Once, On Thu07/26/24 at 0000, For 1 dose, Do not crush, chew, or split. Given 07/26/2024 12:04 AM EDT 8 1 mg atorvastatin (LIPITOR) tablet 10 mg 10 mg, oral, Nightly, First dose on Thu07/25/24 at 2100 Given 07/27/2024 9:33 PM EDT 10 mg Given 07/26/2024 8:48 PM EDT 10 mg Given 07/25/2024 9:39 PM EDT 10 mg brimonidine (ALPHAGAN) 0.2 % ophthalmic solution 1 drop 1 drop, Both Eyes, 2 times daily, First dose on Thu07/25/24 at 2100 Given 07/28/2024 9:16 AM EDT 1 drop Given 07/27/2024 9:33 PM EDT 1 drop Given 07/27/2024 8:42 AM EDT 1 drop dextrose (D50W) 50% injection 12.5 g 12.5 g, intravenous, Every 15 min PRN, low blood sugar, moderate hypoglycemia *Patient is Unconscious, NPO, unable to swallow: BG 54 - 69 mg/dl*, Starting on Thu07/25/24 at 1603 dextrose (D50W) 50% injection 25 g 25 g, intravenous, Every 15 min PRN, low blood sugar, severe hypoglycemia *Patient is Unconscious, NPO, unable to swallow: BG LESS than 54 mg/dL*, Starting on Thu07/25/24 at 1603 dextrose 15 gram/60 mL oral solution 15 g 15 g, oral, Every 15 min PRN, low blood sugar, hypoglycemia *Patient conscious AND able to drink and swallow safely*, Starting on Thu07/25/24 at 1603 dextrose 15 gram/60 mL oral solution 30 g 30 g, oral, Every 15 min PRN, low blood sugar, hypoglycemia *Patient conscious AND able to drink and swallow safely*, Starting on Thu07/25/24 at 1603 dorzolamide-timoloL (COSOPT) 22.3-6.8 mg/mL ophthalmic solution 1 drop 1 drop, Both Eyes, 2 times daily, First dose on Thu07/25/24 at 2100 Given 07/28/2024 9:16 AM EDT 1 drop Given 07/27/2024 9:33 PM EDT 1 drop Given 07/27/2024 8:42 AM EDT 1 drop Glucagon HCl (rDNA) injection 1 mg 1 mg, intramuscular, Once as needed, low blood sugar, severe hypoglycemia, Starting on Thu07/25/24 at 1603, For 1 dose hydroxychloroquine (PLAQUENIL) tablet 300 mg 300 mg, oral, Daily, First dose on Thu07/26/24 at 0900 Given 07/28/2024 9:14 AM EDT 300 mg Given 07/27/2024 8:42 AM EDT 300 mg Given 07/26/2024 9:11 AM EDT 300 mg insulin lispro injection 1-6 Units 1-6 Units, subcutaneous, 4 times daily before meals and nightly, First dose on Thu07/25/24 at 1630, Indication: Total Daily Dose (TDD) LESS than 40 units Correction Scale: Low Dose Administer with meal and/or mealtime dose of insulin to correct high blood glucose If mealtime insulin dose not given (e.g. patient NPO or not eating), still administer correction factor for high blood glucose Given 07/28/2024 11:23 AM EDT 1 Units Left Upper Arm (Back ) Given 07/27/2024 9:45 PM EDT 1 Units Le ft Lower Abdomen Given 07/27/2024 12:18 PM EDT 1 Units L eft Lower Abdomen iopamidoL (ISOVUE-370) 370 mg iodine /mL (76 %) injection 90 mL 90 mL, intravenous, Once in imaging, Starting on Thu07/25/24 at 1530, For 1 dose Given 07/25/2024 3:31 PM EDT 90 mL lactated Ringer's infusion 75 mL/hr, intravenous, Continuous, Starting on Thu07/26/24 at 0549, For 1 day New Bag 07/26/2024 5:56 AM EDT 75 mL/hr 75 mL/hr lisinopriL (PRINIVIL,ZESTRIL) tablet 20 mg 20 mg, oral, Nightly, First dose on Thu07/25/24 at 2100, Hold if sbp < 110 Given 07/26/2024 8:48 PM EDT 20 mg Given 07/25/2024 10:10 PM EDT 20 mg meclizine (ANTIVERT) tablet 25 mg 25 mg, oral, 3 times daily PRN, dizziness, Starting on Thu07/26/24 at 1325 Given 07/26/2024 1:52 PM EDT 25 mg ondansetron (PF) (ZOFRAN) injection 4 mg 4 mg, intravenous, Once, On Thu07/25/24 at 0953, For 1 dose Given 07/25/2024 10:05 AM EDT 4 mg ondansetron (PF) (ZOFRAN) injection 4 mg 4 mg, intravenous, Once, On Thu07/26/24 at 1230, For 1 dose Given 07/26/2024 12:15 PM EDT 4 mg ondansetron (PF) (ZOFRAN) injection 4 mg 4 mg, intravenous, Every 6 hours PRN, vomiting, nausea, Starting on Thu07/26/24 at 1219 pantoprazole (PROTONIX) EC tablet 40 mg 40 mg, oral, Every morning before breakfast, First dose on Thu07/26/24 at 0700, Do not crush, chew, or split. Given 07/28/2024 6:30 AM EDT 40 mg Given 07/27/2024 5:41 AM EDT 40 mg Given 07/26/2024 6:46 AM EDT 40 mg sertraline (ZOLOFT) tablet 150 mg 150 mg, oral, Daily, First dose on Thu07/26/24 at 0900 Given 07/28/2024 9:15 AM EDT 150 mg Given 07/27/2024 8:41 AM EDT 150 mg Given 07/26/2024 9:11 AM EDT 150 mg sodium chloride 0.9 % bolus 500 mL 500 mL, intravenous, at 500 mL/hr, Administer over 1 Hours, Once, On Thu07/26/24 at 1245, For 1 dose New Bag 07/26/2024 12:36 PM EDT 500 mL 500 mL/hr sodium chloride 0.9 % flush 10 mL 10 mL, intravenous, Once, On Thu07/25/24 at 1531, For 1 dose Given 07/25/2024 3:31 PM EDT 10 mL sodium chloride 0.9 % infusion 75 mL/hr, intravenous, Continuous, Starting on Thu07/27/24 at 1245, For one liter then d/c New Bag 07/28/2024 6:31 AM EDT 75 mL/hr 75 mL/hr New Bag 07/27/2024 1:52 PM EDT 75 mL/hr 75 mL/hr sulfaSALAzine (AZULFIDINE EN-TABS) EC tablet 500 mg 500 mg, oral, 2 times daily, First dose on Thu07/25/24 at 2100, Do not crush, chew, or split. Given 07/28/2024 9:14 AM EDT 500 mg Given 07/27/2024 9:33 PM EDT 500 mg Given 07/27/2024 8:41 AM EDT 500 mg documented in this encounter Discontinued Medications Medication Sig Discontinue Reason Start Date End Da te acetaminophen (TYLENOL) 500 mg tablet Take 2 tablets (1,000 mg total) by mouth every 8 (eight) hours if needed for mild pain. Therapy completed 03/28/2024 07/25/2024 blood sugar diagnostic (Contour Next Test Strips) test strip Use to test blood sugar 4 times daily BEFORE injecting insulin Therapy completed 06/03/2023 07/25/2024 cephalexin (KEFLEX) 500 mg capsule Take 1 capsule (500 mg total) by mouth 2 (two) times a day for 7 days. Therapy completed 07/13/2024 07/25/2024 folic acid (FOLVITE) 1 mg tablet Take 1 tablet (1,000 mcg total) by mouth 1 (one) time each day. Therapy completed 05/26/2023 07/25/2024 NovoLOG Flexpen U-100 Insulin 100 unit/mL (3 mL) injection pen Inject three times a day per sliding scale with meals. IF 100-150: 8 units; 151-200: 10 units; 201-250: 12 units; 251-300: 14 units; 301-350: 16 units; 351-400: 18 units Therapy completed 03/28/2024 07/25/2024 capsaicin (ZOSTRIX) 0.025 % cream Apply topically 2 (two) times a day. Stop Taking at Discharge 05/15/2024 07/28/2024 documented as of this encounter Historical Medications * This list may reflect changes made after this encounter. sulfaSALAzine (AZULFIDINE EN-TABS) 500 mg EC tablet Take 1 tablet (500 mg total) by mouth 2 (two) times a day. 07/14/2024 latanoprostene bunod (Vyzulta) 0.024 % drops Administer 1 drop into both eyes at bedtime. added in this encounter Active and Recently Administered Medications Times are shown in EDT. Scheduled Medication Order 07/26/2024 07/27/2024 07/28/2024 acetaminophen (TYLENOL) tablet 1,000 mg (COMPLETED) 1,000 mg, oral, Once, On Thu07/26/24 at 1230, For 1 dose 1356 (Given - Provider: Juan Romero RN) acetaZOLAMIDE (DIAMOX) tablet 250 mg 250 mg, oral, 2 times daily, First dose on Thu07/25/24 at 2100 1338 (Not Given - Provider: Juan Romero RN - Reason: Other - Comment: patint naueous and vomiting)2046 (Given - Provider: Vikas Navarro RN) 0841 (Given - Provider: Xiomara Pelayo RN)2132 (Given - Provider: Vicky Harris RN) 0914 (Given - Provider: Sofy Yu NP) amLODIPine (NORVASC) tablet 10 mg 10 mg, oral, Daily, First dose on Thu07/26/24 at 0900, Hold if sbp < 110 1338 (Not Given - Provider: Juan Romero RN - Reason: Other - Comment: patient nauseous and vomiting unable to take PO at this time) 0841 (Given - Provider: Xiomara Pelayo RN) 0914 (Given - Provider: Sofy Yu NP) aspirin EC tablet 81 mg (COMPLETED) 81 mg, oral, Once, On Thu07/26/24 at 0000, For 1 dose, Do not crush, chew, or split. 0004 (Given - Provider: Favio Quevedo RN) atorvastatin (LIPITOR) tablet 10 mg 10 mg, oral, Nightly, First dose on Thu07/25/24 at 2100 2047 (Given - Provider: Vikas Navarro RN) 2132 (Given - Provider: Vicky Harris RN) brimonidine (ALPHAGAN) 0.2 % ophthalmic solution 1 drop 1 drop, Both Eyes, 2 times daily, First dose on Thu07/25/24 at 2100 0911 (Given - Provider: Juan Romero RN)2047 (Given - Provider: Vikas Navarro RN) 0842 (Given - Provider: Xiomara Pelayo RN)2132 (Given - Provider: Vicky Harris RN) 0916 (Given - Provider: Sofy Yu NP) dorzolamide-timoloL (COSOPT) 22.3-6.8 mg/mL ophthalmic solution 1 drop 1 drop, Both Eyes, 2 times daily, First dose on Thu07/25/24 at 2100 0911 (Given - Provider: Juan Romero RN)2047 (Given - Provider: Vikas Navarro RN) 0842 (Given - Provider: Xiomara Pelayo RN)2132 (Given - Provider: Vicky Harris RN) 0916 (Given - Provider: Sofy Yu NP) hydroxychloroquine (PLAQUENIL) tablet 300 mg 300 mg, oral, Daily, First dose on Thu07/26/24 at 0900 0911 (Given - Provider: Juan Romero RN) 0842 (Given - Provider: Xiomara Pelayo RN) 0914 (Given - Provider: Sofy Yu NP) insulin lispro injection 1-6 Units 1-6 Units, subcutaneous, 4 times daily before meals and nightly, First dose on Thu07/25/24 at 1630, Indication: Total Daily Dose (TDD) LESS than 40 units Correction Scale: Low Dose Administer with meal and/or mealtime dose of insulin to correct high blood glucose If mealtime insulin dose not given (e.g. patient NPO or not eating), still administer correction factor for high blood glucose 0732 (Not Given - Provider: Dima Garcia RN - Reason: Order parameters not met - Comment: serum glucose 102)1215 (Given - Provider: Juan Romero RN)1722 (Given - Provider: Juan Romero RN)2048 (Not Given - Provider: Vikas Navarro RN - Reason: Contraindicated) 0826 (Not Given - Provider: Xiomara Pelayo RN - Reason: Order parameters not met)1218 (Given - Provider: Xiomara Pelayo RN)1702 (Not Given - Provider: Xiomara Pelayo RN - Reason: Order parameters not met)2145 (Given - Provider: Vicky Harris RN) 0809 (Not Given - Provider: Hakeem Mckenzie RN - Reason: Order parameters not met)1123 (Given - Provider: Javier Veronica MA) lisinopriL (PRINIVIL,ZESTRIL) tablet 20 mg 20 mg, oral, Nightly, First dose on Thu07/25/24 at 2100, Hold if sbp < 110 2048 (Given - Provider: Vikas Navarro RN) 211 (Not Given - Provider: Vicky Harris RN - Reason: Other - Comment: sbp less than 110) ondansetron (PF) (ZOFRAN) injection 4 mg (COMPLETED) 4 mg, intravenous, Once, On Thu07/26/24 at 1230, For 1 dose 1215 (Given - Provider: Juan Romero RN) pantoprazole (PROTONIX) EC tablet 40 mg 40 mg, oral, Every morning before breakfast, First dose on Thu07/26/24 at 0700, Do not crush, chew, or split. 0646 (Given - Provider: Favio Quevedo RN) 0541 (Given - Provider: Vikas Navarro RN - Comment: cluster care with bladder scanning) 0630 (Given - Provider: Phoebe Fonseca RN) sertraline (ZOLOFT) tablet 150 mg 150 mg, oral, Daily, First dose on Thu07/26/24 at 0900 0911 (Given - Provider: Juan Romero RN) 0841 (Given - Provider: Xiomara Pelayo RN) 0915 (Given - Provider: Sofy Yu, SANDER) sodium chloride 0.9 % bolus 500 mL (COMPLETED) 500 mL, intravenous, at 500 mL/hr, Administer over 1 Hours, Once, On Thu07/26/24 at 1245, For 1 dose 1236 (New Bag - Provider: Juan Romero RN)1336 (Stopped - Provider: Juan Romero RN) sulfaSALAzine (AZULFIDINE EN-TABS) EC tablet 500 mg 500 mg, oral, 2 times daily, First dose on Thu07/25/24 at 2100, Do not crush, chew, or split. 1338 (Not Given - Provider: Juan Romero RN - Reason: Other - Comment: nauseous and vomiting)2321 (Given - Provider: Vikas Navarro RN) 0841 (Given - Provider: Xiomara Pelayo RN)2133 (Given - Provider: Vicky Harris RN) 0914 (Given - Provider: Sofy Yu, SANDER) Continuous Medication Order 07/26/2024 07/27/2024 07/28/2024 lactated Ringer's infusion (CANCELED) 75 mL/hr, intravenous, Continuous, Starting on Thu07/26/24 at 0549, For 1 day 0556 (New Bag - Provider: Favio Quevedo RN) 0555 (Stopped - Provider: Vikas Navarro RN) sodium chloride 0.9 % infusion 75 mL/hr, intravenous, Continuous, Starting on Thu07/27/24 at 1245, For one liter then d/c 1352 (New Bag - Provider: Xiomara Pleayo RN) 0631 (New Bag - Provider: Phoebe Fonseca RN)1611 (Due: Stopped) PRN Medication Order 07/26/2024 07/27/2024 07/28/2024 dextrose (D50W) 50% injection 12.5 g 12.5 g, intravenous, Every 15 min PRN, low blood sugar, moderate hypoglycemia *Patient is Unconscious, NPO, unable to swallow: BG 54 - 69 mg/dl*, Starting on Thu07/25/24 at 1603 dextrose (D50W) 50% injection 25 g 25 g, intravenous, Every 15 min PRN, low blood sugar, severe hypoglycemia *Patient is Unconscious, NPO, unable to swallow: BG LESS than 54 mg/dL*, Starting on Thu07/25/24 at 1603 dextrose 15 gram/60 mL oral solution 15 g 15 g, oral, Every 15 min PRN, low blood sugar, hypoglycemia *Patient conscious AND able to drink and swallow safely*, Starting on Thu07/25/24 at 1603 dextrose 15 gram/60 mL oral solution 30 g 30 g, oral, Every 15 min PRN, low blood sugar, hypoglycemia *Patient conscious AND able to drink and swallow safely*, Starting on Thu07/25/24 at 1603 fluticasone propionate (FLONASE) 50 mcg/actuation nasal spray 2 spray 2 spray, Each Nostril, Daily PRN, rhinitis, Starting on Thu07/25/24 at 1529, Shake gently. Before first use, prime pump (press 6 times until fine spray appears). After use, clean tip and replace cap. Glucagon HCl (rDNA) injection 1 mg 1 mg, intramuscular, Once as needed, low blood sugar, severe hypoglycemia, Starting on Thu07/25/24 at 1603, For 1 dose loratadine (CLARITIN) tablet 10 mg 10 mg, oral, Daily PRN, allergies, Starting on Thu07/25/24 at 1529 meclizine (ANTIVERT) tablet 25 mg 25 mg, oral, 3 times daily PRN, dizziness, Starting on Thu07/26/24 at 1325 1352 (Given - Provider: Juan Romero RN) ondansetron (PF) (ZOFRAN) injection 4 mg 4 mg, intravenous, Every 6 hours PRN, vomiting, nausea, Starting on Thu07/26/24 at 1219 documented in this encounter Orders Medications Ordered That Jt ht Not Have Been Administered Count Last Ordered Date First Ordered Date ondansetron (PF) (ZOFRAN) injection 4 mg 07/26/2024 dextrose (D50W) 50% injection 12.5 g 1 07/03 dextrose (D50W) 50% injection 25 g 2024 dextrose 15 gram/60 mL oral solution 15 g 07/25/2024 dextrose 15 gram/60 mL oral solution 30 g 07/25/2024 fluticasone propionate (FLON ASE) 50 mcg/actuation nasal spray 2 spray 1 07/25/2024 Glucagon HCl (rDNA) injection 1 mg 1 2024 loratadine (CLARITIN) tablet 10 mg 1 2024 Lab Orders Without Results Count Last Ordered D ate First Ordered Date TROPONIN I HIGH SENSITIVITY 1 07/25/2024 Nursing Count Last Ordered Date First Orde red Date VITAL SIGNS 1 07/25/2024 Admission Count Last Ordered Date First Orde red Date ADMIT TO INPATIENT 1 07/27/2024 INITIATE OBSERVATION STATUS 1 07/25/2024 Transfer Count Last Ordered Date First Orde red Date TRANSFER PATIENT TO NEW UNIT 2 07/27/2024 07/25/2024 ED TO FLOOR BED REQUEST 1 07/25/2024 Discharge Count Last Ordered Date First Orde red Date DISCHARGE PATIENT 2 07/28/2024 documented in this encounter Additional Health Concerns Assessment Noted Time PHQ-9 Depression Total Score: 0 06/06/19 25 3:04 PM EST A fall risk assessment has been complete d for the patient 06/06/2024 3:04 PM EST documented as of this encounter Care Teams Map And Chart Mounter Relationship Specialty Start Date End Date Brenda Bethea MD [address] [place] [address] PCP - General Internal Medicine 01/21/18 documented as of this encounter
== END 2024-08-02 14:35 | disposition home or self-care (01) ==
LOC: HO.RHES 13:49
PROVIDERS: PCP Internal Medicine; Visit Provider Internal Medicine Rheumatology
DX: M32.9 Systemic lupus erythematosus, unspecified (principal); Z79.899 Other long term (current) drug therapy; M81.0 Age-related osteoporosis without current pathological fracture
CPT/HCPCS: 99214; G2211

== ENCOUNTER → 2024-08-02 13:49 | Outpatient (BNVA) | payer MEDICARE, OTHER, SELFPAY | PROVIDERS: PCP Internal Medicine; Visit Provider Internal Medicine Rheumatology | DX: M32.9 Systemic lupus erythematosus, unspecified (principal); M81.0 Age-related osteoporosis without current pathological fracture; Z79.899 Other long term (current) drug therapy | CPT/HCPCS: 99212 ==

== ENCOUNTER 2024-11-10 13:51 | Outpatient (REF) | payer MEDICARE, SELFPAY ==
[2024-11-10 17:50] LABS: Appearance Urine Cloudy; Glucose Urine UA 100 mg/dL (Negative); PH 5.5 (5.0-9.0); Specific Gravity - Urine 1.025 (1.005-1.025); UMIC TRIGGER UA YES
[2024-11-10 17:58] LABS: Alanine Aminotransferase 9 U/L (0-31); Aspartate Amino Transferase 21 U/L (5-31); Estimated Glomerular Filt Rate 39
[2024-11-10 18:03] LABS: Baso%MD 0.7 %; Eos%MD 2.0 %; Hematocrit 34.8 % (37.0-47.0); Hemoglobin 11.4 g/dl (12.0-16.0); IG%MD 0.3 %; Lymph%MD 19.8 %; Mean Corpuscular HGB Conc 32.8 g/dl (31.0-35.0); Mean Corpuscular Hemoglobin 28.6 pg (27.0-33.0); Mean Corpuscular Volume 87.2 fL (80.0-98.0); Mono%MD 7.3 %; NRBC Abs Auto 0.000 X10*3/uL (0.0-0.012); NRBC Pct Auto 0.0 /100WBC (0.0-0.2); Neut%MD 69.9 %; Platelet Count 336 X10*3/uL (160-400); Red Blood Count 3.99 X10*6/uL (4.20-5.50); White Blood Count 11.3 X10*3/uL (4.8-10.8)
[2024-11-10 19:24] LABS: Protein/Creatinine Ratio, Ur 0.16 (<0.2); Total Protein Urine Random 38 mg/dL (<12)
[2024-11-10 22:47] LABS: Atypical Lymph Absolute Manual 0.1 x10*3/uL; Atypical Lymphs Percent Manual 1 % (0-6); Band Neutrophils Percent 0 % (3-5); Basophils Abs Manual 0.1 X10*3/uL (0.0-0.2); Basophils Percent Manual 1 % (0-2); Eosinophils Absolute Manual 0.2 X10*3/uL (0.0-0.4); Eosinophils Percent Manual 2 % (0-4); Lymphocytes Absolute Manual 1.7 X10*3/uL (1.2-4.9); Lymphocytes Percent Manual 15 % (20-40); Monocytes Absolute Manual 1.1 X10*3/uL (0.1-1.2); Monocytes Percent Manual 10 % (2-11); Neutrophils Absolute Manual 8.0 X10*3/uL (2.0-8.3); Neutrophils Percent Manual 71 % (45-73); RBC Morphology NORMAL
== END 2024-11-10 13:52 | disposition home or self-care (01) ==
LOC: HO.HKASLDS 13:51
PROVIDERS: PCP Internal Medicine; Visit Provider Internal Medicine Rheumatology
DX: S46.911A Strain of unspecified muscle, fascia and tendon at shoulder and upper arm level, right arm, initial encounter (principal); S46.912A Strain of unspecified muscle, fascia and tendon at shoulder and upper arm level, left arm, initial encounter; M32.9 Systemic lupus erythematosus, unspecified; M81.0 Age-related osteoporosis without current pathological fracture; M54.2 Cervicalgia; Z79.899 Other long term (current) drug therapy; X58.XXXA Exposure to other specified factors, initial encounter; Y92.89 Other specified places as the place of occurrence of the external cause; Y93.89 Activity, other specified; Y99.8 Other external cause status
CPT/HCPCS: 36415; 81001; 82565; 82570; 84156; 84450; 84460; 85007; 85027; 85652; 86140; 86160; 86225

== ENCOUNTER 2024-11-10 13:51 | Outpatient (AMB) | payer MEDICARE, SELFPAY ==
--- NOTE | 2024-11-10 13:55 | A.OFFVIS_ITS ---
Vital Signs 11/10/24 13:56 Height 5 ft 7 in Weight 129 lb 3.054 oz BMI 20.2 BP 130/70 Blood Pressure Location Lt brachial Position Sitting Pulse 84 Pulse Source Pulse Oximeter Pulse Oximetry (%) 99 Oxygen Delivery Method Room Air Intake Visit Reasons: 3 Months Intake Note: Patient presents for Lupus follow up. Allergies amoxicillin Allergy (Verified 11/10/24 13:56) Nausea morphine (From Duramorph (PF)) Allergy (Verified 11/10/24 13:56) nausea codiene sulfate Allergy (Uncoded 06/15/24 14:51) nausea HPI HPI 3 Months: Details: She had multiple admissions and reports that she has had syncope episodes on a few occasions. She had a heart monitor placed, which revealed that her heart stopped beating for 12 seconds. Pacemaker was placed. Hands are swollen. She did not get follow-up labs after last visit. Urogynecologist started patient on prophylactic antibiotic to prevent UTIs. Denies fevers, dyspnea, pleurisy, rash, Raynaud's phenomenon, urinary symptoms. She has been experiencing pain in between shoulder blades. Massage from helps. She is also experiencing chronic neck pain. Applying lidocaine topical has been helpful. She was unable to gained benefit with lidocaine patch. In the past she had trigger point injection for neck pain, which was helpful for patient. [facility] Medical History (Updated 11/10/24 @ 15:26 by Johnnie Braswell MD) Pacemaker Colitis TIA (transient ischemic attack) Breast cancer Surgical History (Updated 11/10/24 @ 14:02 by Jessica Wilson CMA) Status post glaucoma surgery Hx of cholecystectomy Hx of left mastectomy Family History Father Heart disease Mother Lupus (systemic lupus erythematosus) Stroke Family/Other Psoriasis Other Gout Social History Household Members: Significant Other Alcohol intake: never Patient Tobacco Use Status: Never used Tobacco Current occupational status: retired Physical Exam Vital Signs: Last Vital Signs Pulse 84 11/10/24 13:56 BP 130/70 11/10/24 13:56 Pulse Ox 99 11/10/24 13:56 Oxygen Delivery Method Room Air 11/10/24 13:56 BMI result Body Mass Index 20.2 Const Other: General: Comfortable CVS: RRR Respiratory: clear to auscultation bilaterally. Good respiratory effort Skin: No lesions seen MSK: She has tenderness and synovitis of right IP joint, 3rd PIP and left 2nd PIP joint. Bilateral wrists and shoulder tenderness. Bilateral shoulder abduction 160 degrees with good internal rotation. External rotation of bila teral shoulders are limited. She has tenderness of cervical spinous process and paraspinal muscles. Tenderness on palpation of rhomboids. Bilateral hip rotation and full flexion of knees are limited. She has tender bilateral ankles with soft tissue swelling. No tenderness of MTPs. Assessment & Plan Assessment & Plan (1) SLE (systemic lupus erythematosus related syndrome): Comment: She continues to have inflammatory arthritis affecting her hands. She has ran out of sulfasalazine. We discussed treating current symptoms with a course prednisone as she is very responsive to prednisone. Discussed side effects of long-term prednisone use including ocular toxicity. Patient understands. Rheumatology history: [place] [address] Hollis after an episode of pleurisy in associated arm pain. On hydroxychloroquine 300 mg alternating with 400 mg. Decrease to 300 mg daily 03/2018 weight based dosing. RIGO 1:80. She was clinically quiescent for decades. HCQ was then discontinued 03/2019. After discontinuing HCQ inflammatory arthritis became uncontrolled 05/2020. She did not tolerate methotrexate po due to abdominal pain. Subcutaneous methotrexate caused rash and abdominal pain. Leflunomide 11/2020-09/2021 ineffective with combination hydroxychloroquine and Benlysta. She also had recurrent cellulitis on regimen. Failed treatment with hydroxychloroquine and Benlysta. [facility] 07/2024- Code(s): M32.9 - Systemic lupus erythematosus, unspecified Category: Medical Plan: I have ordered labs for disease and drug monitoring on high-risk medication Start sulfasalazine 1500 mg twice a day Prednisone course prescribed Continue hydroxychloroquine 300 mg daily. 07/2024 letter from logistics supervisor - patient cleared to continue HCQ. She follows up with Ophthalmology regularly. She recently had surgery for glaucoma. She will be planning cataract surgery. Return to clinic in 3 months (2) Muscle strain of left scapular region: Comment: Discussed conservative management. Code(s): S46.912A - Strain of unspecified muscle, fascia and tendon at shoulder and upper arm level, left arm, initial encounter Category: Medical Qualifiers: Encounter type: initial encounter Qualified Code(s): S46.912A - Strain of unspecified muscle, fascia and tendon at shoulder and upper arm level, left arm, initial encounter Plan: Continue to apply heat to back Continue to use lidocaine topical prn pain PT ordered for manual, myofascial release, TENs unit trial Pain management referral for trigger point injections (3) Muscle strain of right scapular region: Code(s): S46.911A - Strain of unspecified muscle, fascia and tendon at shoulder and upper arm level, right arm, initial encounter Category: Medical Qualifiers: Encounter type: initial encounter Qualified Code(s): S46.911A - Strain of unspecified muscle, fascia and tendon at shoulder and upper arm level, right arm, initial encounter Plan: Continue to apply heat to back Continue to use lidocaine topical prn pain PT ordered for manual, myofascial release, TENs unit trial Pain management referral for trigger point injections (4) Myofascial neck pain: Code(s): M54.2 - Cervicalgia Category: Medical Plan: Continue to apply heat to back Continue to use lidocaine topical prn pain PT ordered for manual, myofascial release, TENs unit trial Pain management referral for trigger point injections (5) 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 She was on alendronate from April 22, 2023 to July 22, 2023, which was discontinued due to exacerbation of GERD symptoms. Code(s): M81.0 - Age-related osteoporosis without current pathological fracture Category: Medical Qualifiers: Osteoporosis type: age-related Presence of current pathological fractur e: without current pathological fracture Qualified Code(s): M81.0 - Age-related osteoporosis without current pathological fracture Plan: Calcium, vitamin-D, albumin ordered I will discuss treatment next visit. Reclast is indicated. [facility] Return to clinic in 3 months Orders: Orders UA w Microscopic Today M32.9 - Systemic lupus erythematosus, unspecified Anti DNA DS Antibody Today M32.9 - Systemic lupus erythematosus, unspecified Complement C4 Today M32.9 - Systemic lupus erythematosus, unspecified Complement C3 Today M32.9 - Systemic lupus erythematosus, unspecified Complete Blood Count Man Dif 1 Month M32.9 - Systemic lupus erythematosus, unspecified, Z79.899 - Other jail (current) drug therapy Alanine Aminotransferase 1 Month M32.9 - Systemic lupus erythematosus, unspecified, Z79.899 - Other jail (current) drug therapy Aspartate Amino Transferase 1 Month M32.9 - Systemic lupus erythematosus, unspecified, Z79.899 - Other jail (current) drug therapy Erythrocyte Sedimentation Rate 1 Month M32.9 - Systemic lupus erythematosus, unspecified, Z79.899 - 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 Albumin Level Today M81.0 - Age-related osteoporosis without current pathological fracture Complete Blood Count Man Dif Today M32.9 - Systemic lupus erythematosus, unspecified Alanine Aminotransferase Today M32.9 - Systemic lupus erythematosus, unspecified Aspartate Amino Transferase Today M32.9 - Systemic lupus erythematosus, unspecified Creatinine Today M32.9 - Systemic lupus erythematosus, unspecified C Reactive Protein Today M32.9 - Systemic lupus erythematosus, unspecified Erythrocyte Sedimentation Rate Today M32.9 - Systemic lupus erythematosus, unspecified Protein Creatinine Ratio, Ur Today M32.9 - Systemic lupus erythematosus, unspecified Creatinine 1 Month M32.9 - Systemic lupus erythematosus, unspecified, Z79.899 - 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 C Reactive Protein 1 Month M32.9 - Systemic lupus erythematosus, unspecified, Z79.899 - Other jail (current) drug therapy PT Evaluation and Treatment Today M54.2 - Cervicalgia, S46.911A - Strain of unspecified muscle, fascia and tendon at shoulder and upper arm level, right arm, initial encounter, S46.912A - Strain of unspecified muscle, fascia and tendon at shoulder and upper arm level, left arm, initial encounter Vitamin D 25-OH Total Today M81.0 - Age-related osteoporosis without current pathological fracture Calcium Today M81.0 - Age-related osteoporosis without current pathological fracture Referrals Pain Management Referral M54.2 - Cervicalgia, S46.911A - Strain of unspecified muscle, fascia and tendon at shoulder and upper arm level, right arm, initial encounter, S46.912A - Strain of unspecified muscle, fascia and tendon at shoulde r and upper arm level, left arm, initial encounter Medications: Changed From sulfasalazine Check labs at [facility] lab in 4 weeks for drug monitoring 0.5 grams PO BID 60 tabs 0RF To sulfasalazine 1 g (2 x 500 mg) PO BID 90 days 360 tabs 0RF From prednisone Take 3 tablets daily 5 days, 2 tablets daily 5 days, 1 tablet daily 5 days then stop. Take prednisone with food. Labs are overdue ([facility] lab). 5 mg PO DIRECTED 30 tabs 0RF To prednisone Take 3 tablets daily 3 days, 2 tablets daily 3 days, 1 tablet daily 3 days then stop. Take prednisone with food. 5 mg PO DIRECTED 30 tabs 0RF From sulfasalazine 1 g (2 x 500 mg) PO BID 90 days 360 tabs 0RF To sulfasalazine Labs due in 4 weeks. Dispense this prescription. Disregard previous prescription. 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
--- OUTSIDE RECORDS SUMMARY | 2024-11-10 13:55 | XMS_ITS | Clinical Summary ---
Author Organization [facility] Address [address] [place] [address] Care Team Providers Care Coat Checker Name Role Phone Brenda Bethea MD Primary Care Provider [phone] Allergies Active Allergy Reactions Criticality Noted Date [...] Comments Diabetes Brother Heart attack Father from [place] Diabetes Mother Lupus Mother Stroke Mother Vitiligo [...] 61 06/24/2018 3:03 PM EST Temperature 36.2 C (97.2 F) 06/10/2018 3:03 PM EST Respiratory Rate - - Oxygen Saturation - [...] Vaccine (1 of 1 - PCV) 2014 RSV Adult > 60+ Yrs or Pregn ant (1 - 1-dose 75+ series) 2024 Influenza Vaccine (#1) 2025 Hepatitis B Vaccines Aged Out No long er eligible based on patient's age to complete this topic RSV Ped < 20 months Aged Out No longe r eligible based on patient's age to complete this topic Care Teams Coat Checker Relationship Specialty Start Date End Date Brenda Bethea MD PCP - General Internal Medicine 01/21/18
[2024-11-10 13:56] VITALS: BP 130/70; PULSE 84; O2SAT 99; BMI 20.2
== END 2024-11-10 14:42 | disposition home or self-care (01) ==
LOC: HO.RHES 13:52
PROVIDERS: PCP Internal Medicine; Visit Provider Internal Medicine Rheumatology
DX: M32.9 Systemic lupus erythematosus, unspecified (principal); S46.912A Strain of unspecified muscle, fascia and tendon at shoulder and upper arm level, left arm, initial encounter; S46.911A Strain of unspecified muscle, fascia and tendon at shoulder and upper arm level, right arm, initial encounter; M54.2 Cervicalgia; Z79.899 Other long term (current) drug therapy; M81.0 Age-related osteoporosis without current pathological fracture
CPT/HCPCS: 99214; G2211

== ENCOUNTER 2024-12-06 14:34 | Outpatient (AMB) | payer MEDICARE, SELFPAY ==
--- NOTE | 2024-12-06 14:36 | A.OFFVIS_ITS ---
Vital Signs 12/06/24 14:41 Height 5 ft 7 in Weight 127 lb BMI 19.9 BP 179/72 H Blood Pressure Location Lt brachial Position Sitting Pulse 84 Pulse Source Pulse Oximeter Pulse Oximetry (%) 98 Oxygen Delivery Method Room Air Intake Visit Reasons: Cervicalgia Intake Note: Pain today 6/10 Brim Curler Required: No Accompanied by: Spouse Allergies amoxicillin Allergy (Verified 12/06/24 14:40) Nausea morphine (From Duramorph (PF)) Allergy (Verified 12/06/24 14:40) nausea codiene sulfate Allergy (Uncoded 06/15/24 14:51) nausea HPI Comments Details: The patient is a 74-year-old female presenting with chronic neck and upper back pain with myofascial syndrome. She reports chronic neck and back pain exacerbated about two months ago without known injury, affecting her daily activities, sleep, and functioning. The pain is described as tagging, pulling, burning, sore, hurting, aching, heavy, radiating, punishing, tearing, and tightness, with a severity of 10/10 on exertion. The patient has a history of hypertension, transient ischemic attacks, fatigue, dizziness, chest pain, and heart palpitations. She has a pacemaker insertion 08/2024 and a history of arthritis and diabetes. She has been managing her pain with ibuprofen twice daily and lidocaine patches at night, with partial relief, but has not undergone any imaging or physical therapy. The patient was referred by her Robotics Software Engineer for potential trigger point injections and has osteoporosis, for which she takes calcium and vitamin D. She has been on long-term prednisone use and has lupus, which causes swelling in her fingers. She has not had any x-rays of her neck or back and has not engaged in physical therapy since her back pain began. She reports that her upper back and neck pain worsens with activity and improves with rest. She has not had any i njections in the spine or back surgery, but has history of neck TPI with good relief. - Onset: Exacerbated about two months ago without known injury - Quality: Tagging, pulling, burning, sore, hurting, aching, heavy, radiating, punishing, tearing, tightness - Severity: 10/10 on exertion - Timing: Worse during the day - Exacerbating factors: Activity, movements - Relieving factors: Rest, heat - Interference: Affects daily activities, sleep, and functioning - Affect: Pain impacts daily activities and sleep - Analgesia: Ibuprofen twice daily, lidocaine patches at night, partial relief - Adverse Effects: None reported - Activities of Daily Living: Pain affects functioning, no specific functional goals mentioned - Aberrant Drug Related Behaviors: None reported Oswestry Neck Pain Disability Score=14 [facility] Medical History (Updated 12/06/24 @ 15:01 by BRYCE Augustin) Pacemaker Colitis TIA (transient ischemic attack) Breast cancer Surgical History (Updated 11/10/24 @ 14:02 by Jessica Wilson CMA) Status post glaucoma surgery Hx of cholecystectomy Hx of left mastectomy Family History Father Heart disease Mother Lupus (systemic lupus erythematosus) Stroke Family/Other Psoriasis Other Gout Social History Household Members: Significant Other Alcohol intake: never Patient Tobacco Use Status: Never used Tobacco Current occupational status: retired Review of Systems Const Details: - Musculoskeletal: Reports chronic neck and back pain, tightness in neck, swelling in fingers - Cardiovascular: Reports chest pain, heart palpitations, history of pacemaker placement - Neurological: Reports dizziness, fatigue, history of transient ischemic attacks - Endocrine: Reports diabetes - General: Reports fatigue All systems reviewed & are unremarkable except as noted in HPI and below Physical Exam Vital Signs: Last Vital Signs Pulse 84 12/06/24 14:41 BP 179/72 H 12/06/24 14:41 Pulse Ox 98 12/06/24 14:41 Oxygen Delivery Method Room Air 12/06/24 14:41 BMI result Body Mass Index 19.9 General: Appears afebrile. Alert and oriented. Mood and affect appropriate. Follows and participates in conversation appropriately. Respiratory effort is unlabored. No cough. Able to transition from sit to stand unassisted. Ambulates with bilaterally normal heel strike and toe off. Neck Other: Patient with decreased cervical ROM in all planes/especially with lateral rotations. Reports increased pain with cervical extension and partially relieved with flexion. Spurling compression test negative. Elvey's tension test negative bilaterally. Lhermitte's test was negative. DTR intact, +2 and symmetrical. Patient demonstrated 5/5 motor strength of bilateral upper extremities. 2 + radial pulses. Significant tightness throughout cervical paraspinal, upper and lower trapezius muscles. Neck: Yes normal visual inspection, Yes no lymphadenopathy, Yes supple, No anterior neck swelling, Yes no JVD, No prominent supraclavicular fat pad and No prominent dorsocervical fat pad Assessment & Plan Assessment & Plan (1) Myofascial neck pain: Code(s): M54.2 - Cervicalgia Category: Medical (2) Osteoporosis: Comment: Improved t score of left femoral neck on DXA 10/2023 compared to November 2021 from - 2.8 to- 2.0 with high FRAX score: Major osteoporotic fracture risk 22% and hip fracture risk 7%. She was on alendronate from April 22, 2023 to July 22, 2023, which was discontinued due to exacerbation of GERD symptoms. Code(s): M81.0 - Age-related osteoporosis without current pathological fracture Category: Medical Qualifiers: Osteoporosis type: age-related Presence of current pathological fracture: without current pathological fracture Qualified Code(s): M81.0 - Age- related osteoporosis without current pathological fracture (3) Cervical spondylosis: Code(s): M47.812 - Spondylosis without myelopathy or radiculopathy, cervical region Category: Medical (4) Cervicalgia: Code(s): M54.2 - Cervicalgia Category: Medical (5) Thoracic back pain: Code(s): M54.6 - Pain in thoracic spine Category: Medical Plan The plan includes obtaining x-rays of the neck and mid back to assess for any compression fractures or other abnormalities, given the patient's history of osteoporosis and chronic pain. Physical therapy is recommended as a initial step, with a focus on myofascial release and exercise programs to improve mobility and reduce pain. The patient is advised to discontinue ibuprofen due to its potential impact on kidney function and to use Tylenol for pain management instead. The use of lidocaine patches is to be continued for localized pain relief. Consideration of radiofrequency ablation is discussed as a potential treatment for arthritis- related neck pain, pending the results of diagnostic nerve blocks. All questions and concerns have been answered and patient agreed with the plan. Follow up after PT/xray results and sooner as needed. Patient was informed and verbally consented to the use of an ambient scribe for clinic note documentation during this visit. Orders: Orders XR thoracic spine 3V 12/06/24 M54.6 - Pain in thoracic spine, M81.0 - Age- related osteoporosis without current pathological fracture Coding Level of Care Code New Pt Level 4 (28656) Diagnoses Myofascial neck pain M54.2 Age-related osteoporosis without current pathological fracture M81.0 Osteoporosis type: age-related Presence of current pathological fracture: without current pathological fracture Cervical spondylosis M47.812 Cervicalgia M54.2 Thoracic back pain M54.6
[2024-12-06 14:41] VITALS: BP 179/72; PULSE 84; O2SAT 98; BMI 19.9
--- OUTSIDE RECORDS SUMMARY | 2024-12-06 15:12 | XMS_ITS | Clinical Summary ---
Author Organization [facility] Address [address] [place] [address] Care Team Providers Care Harness Racing Handicapper Name Role Phone Brenda Bethea MD Primary Care Provider [phone] Allergies Active Allergy Reactions Criticality Noted Date [...] Comments Diabetes Brother Heart attack Father from [place] Diabetes Mother Lupus Mother Stroke Mother Vitiligo [...] age to complete this topic Care Teams Harness Racing Handicapper Relationship Specialty Start Date End Date Brenda Bethea MD PCP - General Internal Medicine 01/21/18
--- OUTSIDE RECORDS SUMMARY | 2024-12-06 15:12 | XMS_ITS | Clinical Summary ---
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 Active sertraline (ZOLOFT) 100 mg tablet Take 1.5 tablets (150 mg total) by mouth 1 (one) time each day. 12/14/19 24 Active brimonidine (ALPHAGAN) 0.2 % ophthalmic solution Administer 1 drop into both eyes 2 (two) times a day. Active dorzolamide-liss oloL (COSOPT) 22.3-6.8 mg/mL ophthalmic solution Administer 1 drop into both eyes 2 (two) times a day. 03/03/20 24 Active fluticasone propionate (FLONASE) 50 mcg/actuation nasal [...] (one) time each day. 30 each 11 05/12/19 25 026 Active acetaZOLAMIDE (DIAMOX) 250 mg tablet Take 1 tablet (250 mg total) by mouth 2 (two) times a day. 05/13/19 25 Active omeprazole (PriLOSEC) [address] [...] (two) times a day. 07/15/19 25 Active lisinopriL (PRINIVIL,ZESTR IL) 20 mg tablet Take 1 tablet (20 mg total) by mouth at bedtime. 90 tablet 09/03/19 25 Active NovoLOG Flexpen U-100 Insulin 100 unit/mL (3 mL) injection pen Inject three times a day per sliding scale with meals. IF 100-150: 8 units; 151-200: 10 units; 201-250: 12 units; 251-300: 14 units; 301-350: 16 units; 351-400: 18 units 15 mL 11 09/07/19 25 Active cefpodoxime (VANTIN) 100 mg tablet Take 1 tablet (100 mg total) by mouth at bedtime. 90 tablet 1 10/29/19 25 Active metoprolol tartrate (LOPRESSOR) 25 mg tablet Take 1 tablet (25 mg total) by mouth 2 (two) times a day. 180 each 3 11/10/19 25 026 Active predniSONE (DELTASONE) 5 mg tablet Take 1 tablet (5 mg total) by mouth 1 (one) time each day. Tapering dose pack: 3 pills for 3 days, 2 pills for 2 days and 1 pill for one day. Active insulin glargine U-300 (Toujeo SoloStar U-300 Insulin) 300 unit/mL (1.5 mL) CONCENTRATED injection pen Use 35 units at bedtime SC, go up by 4 units every week if BS above 150. Max dose 60 units. 45 mL 5 11/19/19 25 Active simvastatin (ZOCOR) 20 mg tablet Take 1 tablet (20 mg total) by mouth at bedtime. 90 tablet 02/07/20 25 Active simvastatin (ZOCOR) 20 mg tablet Take 1 tablet (20 mg total) by mouth at bedtime. 02/13/20 23 025 Discontinued aspirin 81 mg EC tablet Take 1 tablet (81 mg total) by mouth 1 (one) time. 025 Discontinued(D iscontinued by another clinician) insulin glargine U-300 (Toujeo SoloStar U-300 Insulin) 300 unit/mL (1.5 mL) CONCENTRATED injection pen Use 35 units at bedtime SC, go up by 4 units every week if BS above 150. Max dose 60 units. 4.5 mL 2 08/11/19 25 025 Discontinued(R eorder) Active Problems Problem Noted Date Diagnosed Date Weakness 11/07/2024 Pacemaker 08/23/2024 Overview (08/23/2024): Intermittent CHB Heart block 08/12/2024 Syncope 07/27/2024 TIA (transient ischemic attack) 04/16/2024 Glaucoma 04/16/2024 LBBB (left bundle branch block) 03/14/2024 Primary hypertension 03/14/2024 Hypercholesterolemia 03/14/2024 Assessment & Plan (06/06/2024 4:38 PM EST): Polyp of colon 12/14/2023 GERD (gastroesophageal reflux disease) CKD (chronic kidney disease) stage 3, GFR 30-59 ml/min (CMS/[facility] V24, CMS/HCC V28) 08/09/2020 Assessment & Plan (06/06/2024 4:38 PM EST): Depression 04/20/2017 Migraine variant 04/17/2005 Overview (04/16/2024): IMO update Osteopenia Lupus erythematosus Family history of malignant neoplasm of gastrointestinal tract Overview (04/16/2024): : Negative colonoscopy 03/22/2007, no colon cancer screening needed for 10 years. DM (diabetes mellitus), type 2 with renal complications ([facility] V24, [facility] V28) Assessment & Plan (06/06/2024 4:38 PM EST): Diabetes mellitus type 2 wit h neurological manifestations ([facility] V24, [facility] V28) Cervical radiculopathy Acute pancreatitis Type 2 diabetes mellitus wit h cataract ([facility] V24, [facility] V28) Proteinuria Pneumonia due to COVID-19 virus Sensory peripheral neuropathy Breast cancer ([facility] V24, [facility] V28) Overview (04/16/2024): rt breast Resolved Problems Problem Noted Date Diagnosed Date Resolved Date Intermittent complete heart block ([facility] V24, [facility] V28) 08/12/2024 08/16/2024 Dizziness 07/25/2024 08/03/2024 Encounters Date Type Department Care Team Description 12/05/2024 2:30 PM EDT Procedure visit Urogynecology [address] [phone] Carmella Clarke MD Recurrent UTI (Primary Dx) 11/24/2024 Telephone Adult Medicine [facility] - [address] [phone] Kate Wren [place] faxed order ([facility] order #[id number]) 11/18/2024 2:30 PM EDT Office Visit Endocrinology - [address] [phone] Char León PA Type 2 diabetes mellitus with cataract ([facility] V24, [facility] V28) (Primary Dx); Primary hypertension; Hypercholesterolemia 11/17/2024 Telephone Adult Medicine [address] [phone] Brenda Bethea MD Fitting for DME 11/09/2024 2:40 PM EDT Office Visit [facility] [address] [facility] [address] [place] [phone] Alicia Whitehead NP Encounter for adjustment or management of cardiac device (Primary Dx) 11/07/[address] [facility] [address] [facility] [address] [place] [phone] Landon Mcnair MD Appointment 11/07/2024 Telephone Adult [address] [phone] Brenda Bethea MD faxed order ([facility] order # [id number]) 11/01/2024 2:37 PM EDT - 11/01/2024 11:59 PM EDT Hospital Encounter Radiology Department - [address] [phone] Recurrent UTI Discharge Disposition: Home or Self Care 11/01/2024 8:30 AM EDT Ancillary Procedure [facility] [address] [facility] [address] [place] [phone] 10/28/2024 2:00 PM EDT Office Visit Urogynecology - [address] [phone] Carmella Clarke MD Recurrent UTI 10/26/2024 Telephone [facility] [address] [place] [phone] Alicia Whitehead NP Fatigue; Palpitations 10/18/2024 Telephone [facility] [address] [facility] [address] [place] [phone] Alicia Whitehead NP Appointment 10/17/2024 4:53 PM EDT - 10/17/2024 11:00 PM EDT Emergency [facility] Emergency [address] [place] [phone] Deon Arnold MD Weakness (Primary Dx) Discharge Disposition: Home or Self Care 10/17/2024 Nurse Triage Adult [address] [phone] Brenda Bethea MD VNA 10/10/[address] [phone] Allison Dennison, economic consultant Problem; call from pharmacy 10/10/2024 Billing Patient Not Present [address] [phone] Brenda Bethea MD 10/07/[address] [phone] Brenda Bethea MD VNA 10/06/2024 2:00 PM EDT Office Visit [address] [phone] Tammy Dennison PA Dysuria (Primary Dx); Primary hypertension 09/23/2024 10:00 AM EDT Consult Adult [address] [phone] Brenda Bethea MD Preop cardiovascular exam (Primary Dx); Primary hypertension; Type 2 diabetes mellitus with stage 3 chronic kidney disease, with long-term current use of insulin, unspecified whether stage 3a or 3b CKD (CMS/HCC V24, CMS/HCC V28); Stage 3 chronic kidney disease, unspecified whether stage 3a or 3b CKD (CMS/HCC V24, CMS/HCC V28); Hypercholesterolemia; CHB (complete heart block) (CMS/HCC V24, CMS/HCC V28); Glaucoma of both eyes, unspecified glaucoma type 09/13/2024 Telephone Adult Medicine [facility] [address] [place] [phone] Brenda Bethea MD Pre-operative Clearance 09/08/2024 2:40 PM EDT Office Visit [facility] - [facility] [address] [facility] [address] [place] [phone] Alicia Whitehead NP Syncope, unspecified syncope type 09/08/2024 2:00 PM EDT Ancillary Procedure [facility] [address] [facility] [address] [place] [phone] Encounter for adjustment or management of cardiac device 09/05/2024 Telephone Adult Medicine [facility] [address] [place] [phone] Brenda Bethea MD faxed order ([facility] order [id number]) from Last 3 Months Immunizations Name Administration [...] COLONOSCOPY 03/10 COLONOSCOPY 6.21.16 SCREENING MAMMOGRAM 03/08/2024 PACEMAKER 1 HR Medical History Medical History Date Comments Acute pancreatitis 1992 Lupus erythematosus Proteinuria 06/18/2005 Pure hypercholesterolemia 05/12/2006 Family history of malignant neoplasm of gastrointestinal tract 03/22/2007 : Negative colonoscopy 03/22/2007, no colon cancer screening needed for 10 years. DM (diabetes mellitus), type 2, uncontrolled, with renal complications 04/17/2005 Sensory peripheral neuropathy 04/01/2012 Diabetes mellitus type 2 wit h neurological manifestations ([facility] V24, [facility] V28) 04/01/2012 Cervical radiculopathy 07/09/2016 Osteopenia 07/09/2016 Type 2 diabetes mellitus wit h cataract ([facility] V24, [facility] V28) 07/21/2018 Malignant neoplasm of breast (female), unspecified site 1989 rt breast Pneumonia due to COVID-19 virus 04/30/2021 CKD (chronic kidney disease) stage 3, GFR 30-59 ml/min ([facility] V24, [facility] V28) 08/09/2020 Depression 04/20/2017 GERD (gastroesophageal reflux disease) 2 Migraine variant 04/17/2005 IMO upd ate Polyp of colon 12/14/2023 Hypertension Pacemaker 08/23/2024 Intermittent CHB Intermittent complete heart block ([facility] V24, [facility] V28) Family History Medical History Relation Name Comments [...] Sign Reading Time Taken Comments Blood Pressure 126/58 11/18/2024 2:38 PM EDT C Pulse 59 11/18/2024 2:38 PM EDT Temperature 36.2 C (97.1 F) 11/18/2024 2:38 PM EDT Respiratory Rate 16 10/17/2024 11:00 PM EDT Oxygen Saturation 98% 11/09/2024 2:39 PM EDT Inhaled Oxygen Concentration - - Weight 58.2 kg (128 lb 6.4 oz) 11/18/2024 2:38 P M EDT Height 165.1 cm (5' 5 ) 11/18/2024 2:38 PM EDT Body Mass Index 21.37 11/18/2024 2:38 PM EDT Plan of Treatment Upcoming Encounters Date Type Department Care Team (Late st Contact Info) Description 12/16/2024 2:30 PM EDT Office Visit Vascular Surgery - [place] [address] [place] [phone] Dalia Warren PA [address] [place] [address] 02/01/2025 3:15 PM EDT Office Visit Urogynecology - [address] [phone] Carmella Clarke MD [address] [place] [address] 02/21/2025 2:30 PM EDT Office Visit Endocrinology - [address] [phone] Char León PA [address] [place] [address] 03/27/2025 2:45 PM EST [facility] [address] [phone] Tammy Dennison PA [address] [place], [place] 11/13/2025 3:00 PM EDT Ancillary Procedure [facility] [address] [facility] [address] [place] [address] Health Maintenance Due Date Last Done Comments Diabetes: Annual Foot Exam 07/19/1959 Zoster Vaccines (1 of 2) 1968 COVID-19 Vaccine (3 - Moderna risk series) 08/16/2020 07/19/2020, 06/28/2020 Social Influencers of Health Screening 06/24/2022 Colorectal Cancer Screening: Colonoscopy 06/09/2024 06/09/2022, 01/28/2019 RSV Immunization Adult Patients (1 - 1-dose 75+ series) 2024 Influenza Vaccine (#1) 2025 , 02/27/2022, 02/27/2022, Additional history exists Diabetes: Annual Urine Albumin-Creatinine Ratio (uACR) 02/08/2025 02/09/2024 Diabetes: Blood Sugar Control Test (HGBA1C) 03/26/2025 09/23/2024, 06/06/2024, 03/13/2024, Additional history exists Medicare Annual Wellness Visit 06/06/2025 06/06/2024 Falls Risk Assessment 08/16/2025 08/16/2024 , 06/06/2024, 06/06/2024, Additional history exists Diabetes: Annual Retina Eye Exam 10/05/2025 10/05/2024, 08/04/2023 Diabetes: Annual GFR (Glomerular Filtration Rate) 10/17/2025 10/17/2024, 08/16/2024, 08/15/2024, Additional history exists Hypertension/CHF/CAD Annual BMP Blood Test 10/17/2025 10/17/2024, 08/16/2024, 08/15/2024, Additional history exists Osteoporosis Screening (Bone Density Screening) 08/25/2026 08/25/2016 Cholesterol Screening (Lipid Panel) 03/14/2029 03/14/2024, 02/09/2024, 02/09/2024 DTaP,Tdap,and Td Vaccines (4 - Td or Tdap) 11/10/2032 11/10/2022, 02/23/2012, 08/09/2002 Hepatitis C Screening Completed 11/08/2012 Pneumococcal Vaccine: 50+ Years Completed 02/01/2017, 10/02/2014, 07/05/2012, Additional history exists Breast Cancer Screening Discontinued 03/08/20, 03/03/2023, 02/27/2022, Additional history exists Depression Screening Completed 06/06/2024, 03/04/20 HIB Vaccines Aged Out No longer eligi [...] age to complete this topic Meningococcal B Vaccine Aged Out No l onger eligible based on patient's age to complete this topic RSV Immunization Patients Under 20 months Aged Out No longer eligible based on patient's age to complete this topic Varicella Vaccines Aged Out No longer eligible based on patient's age to complete this topic Medical Devices Implanted Type Area Mathematics Lecturer Device Identifier Shelf Expiration Date Model / Serial / Lot Lead Pcmk Tendril Sts [id number] - [id number] - [id number] Implanted:Qty: 1 on 08/15/2024 by Landon Mcnair MD at [facility] Cardiac Lead Left: Chest [facility] [employer] [id number] 04/02/2027 2088TC/52 / [id number] / Lead Pcmk Tendril Sts [id number] - [id number] - [id number] Implanted:Qty: 1 on 08/15/2024 by Landon Mcnair MD at [facility] Cardiac Lead Left: Chest [facility] [employer] 06/03/2027 2088TC/58 / [id number] / Pcmkr Assurity Mri Dr-Rf Dual - [id number] - [id number] Implanted:Qty: 1 on 08/15/2024 by Landon Mcnair MD at [facility] Cardiac Pacemaker Left: Chest [facility] [employer] 08/01/2025 [id number] / [id number] / Abbt-Stju 2272 Assurity Mri(Tm) [id number] Implanted:08/02 (Quantity not on file) Cardiac Pacemaker [facility] 2272 ASSURITY MRI(TM) / [id number] / Abbt-Stju Assurity Mri [id number] Implanted:08/02 (Quantity not on file) Cardiac Pacemaker [facility] ASS[employer]ITY MRI 2272 / [id number] / Procedures Procedure Name Priority Date/Time Associated Diagnosis Comments EXTERNAL CLINICAL LAB 11/10/2024 US RETROPERITONEAL COMPLETE Routine 11/01/2024 3:12 PM EDT Recurrent UTI CARDIAC DEVICE CHECK- REMOTE- MURJ Routine 11/01/2024 8:25 AM EDT POC URINE AUTO W/O MICRO Routine 10/31/2024 8:45 AM EDT Recurrent UTI ECG ANNOTATED 10/18/2024 GRIJALVA URINE CULTURE TUBE Routine 10/17/2024 8:52 PM EDT EXTRA TUBES Routine 10/17/2024 8:52 PM EDT URINALYSIS WITH REFLEX MICROSCOPIC STAT 10/17/2024 8:52 PM EDT URINALYSIS WITH REFLEX MICROSCOPIC STAT 10/17/2024 8:52 PM EDT XR CHEST 2 VIEWS STAT 10/17/2024 8:21 PM EDT THYROID STIMULATING HORMONE STAT Add-on 10/17/2024 6:15 PM EDT CBC WITH AUTO DIFFERENTIAL STAT 10/17/2024 6:15 PM EDT MAGNESIUM STAT 10/17/2024 6:15 PM EDT BASIC METABOLIC PANEL STAT 10/17/2024 6:15 PM EDT CBC AND DIFFERENTIAL STAT 10/17/2024 6:15 PM EDT ECG 12-LEAD STAT 10/17/2024 5:43 PM EDT GRIJALVA URINE CULTURE TUBE Routine 10/06/2024 2:56 PM EDT Dysuria URINALYSIS WITH REFLEX MICROSCOPIC AND CULTURE Routine 10/06/2024 2:56 PM EDT Dysuria URINALYSIS WITH REFLEX MICROSCOPIC AND CULTURE Routine 10/06/2024 2:56 PM EDT Dysuria CULTURE URINE Routine 10/06/2024 2:56 PM EDT Dysuria HEMOGLOBIN A1C Routine 09/23/2024 11:15 AM EDT Type 2 diabetes mellitus with stage 3 chronic kidney disease, with long-term current use of insulin, unspecified whether stage 3a or 3b CKD (CMS/[facility] V24, CMS/[facility] V28) ECG 12-LEAD Routine 09/09/2024 3:18 PM EDT Syncope, unspecified syncope type CARDIAC DEVICE CHECK- IN CLINIC- MURJ Routine 09/08/2024 3:27 PM EDT Encounter for adjustment or management of cardiac device LIPID PANEL WITH REFLEX TO DIRECT LDL [...] Recently Relevant to Health Maintenance Results * External clinical lab (11/10/2024) us Provider [facility] BLOOD ORDERABLES Fin al Result * US Retroperitoneal Complete (11/01/2024 3:12 PM EDT) Anatomical Region Laterality Modality Body Ultrasound 11/01/2024 3:18 PM EDT Impressions 11/01/2024 3:26 PM EDT Unremarkable renal ultrasound Bladder not seen as it is decompressed -------- FINAL REPORT -------- Dictated By: Mayr Bartlett Dictated Date: 11/01/2024 15:18 ET Assigned Physician: Mary Bartlett Reviewed and Electronically Signed By: Mary Bartlett Signed Date: 11/01/2024 15:26 ET Workstation ID: [id number] Transcribed By: Self Edit Transcribed Date: 11/01/2024 15:18 ET Narrative 11/01/2024 3:26 PM EDT EXAM: RENAL ULTRASOUND HISTORY: UTI, recurrent/complicated (Female) COMPARISON: Ultrasound right upper quadrant from 10/19/2015 TECHNIQUE: Grijalva scale and color Doppler images were obtained of the kidneys and bladder. FINDINGS: Right kidney: measures 9.1 cm in length and is sonographically unremarkable. Left kidney: measures 9.9 cm in length and is sonographically unremarkable. No hydronephrosis bilaterally Bladder: Not seen, decompressed Procedure Note Mary Bartlett MD - 11/01/2024 EXAM: RENAL ULTRASOUND HISTORY: UTI, recurrent/complicated (Female) COMPARISON: Ultrasound right upper quadrant from 10/19/2015 TECHNIQUE: Grijalva scale and color Doppler images were obtained of thekidneys and bladder. FINDINGS: Right kidney: measures 9.1 cm in length and is sonographicallyunremarkable. Left kidney: measures 9.9 cm in length and is sonographicallyunremarkable. No hydronephrosis bilaterally Bladder: Not seen, decompressed IMPRESSION: Unremarkable renal ultrasound Bladder not seen as it is decompressed -------- FINAL REPORT -------- Dictated By: Mary Bartlett Dictated Date: 11/01/2024 15:18 ET Assigned Physician: Mary Bartlett Reviewed and Electronically Signed By: Mary Bartlett Signed Date: 11/01/2024 15:26 ET Workstation ID: [id number] Transcribed By: Self Edit Transcribed Date: 11/01/2024 15:18 ET us Carmella Clarke MD IMG US PROCEDURES Final Result * Cardiac device check - Remote- MURJ (11/01/2024 8:25 AM EDT) Date Time Interrogation Session [id number] CV DEVICE CHECK Type Interrogation Session Remote Patient Initiated CV DEVICE CHECK 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 [employer] CV DEVICE CHECK Implantable Pulse Generator Type IPG CV DEVICE CHECK Implantable Pulse Generator Model 2272 Assurity MRI(TM) CV DEVICE CHECK Implantable Pulse Generator Serial Number [id number] CV DEVICE CHECK Implantable Pulse Generator Implant Date 20240815 CV DEVICE CHECK Battery Remaining Percentage 95.50 CV DEVICE CHECK Battery Remaining Longevity 88.0 CV DEVICE CHECK Battery Voltage 2.990 CV D EVICE CHECK Battery RE DYE HAND Trigger 2.600 CV DEVICE CHECK Battery Status Middle of Service CV DEVICE CHECK Derrick Statistic RA Percent Paced 43.00 CV DEVICE CHECK Derrick Statistic RV Percent Paced 99.00 CV DEVICE CHECK Atrial Tachy Statistic AT/AF [place] Percent 1.00 CV DEVICE CHECK Lead Channel Sensing Intrinsic Amplitude 2.100 CV DEVICE CHECK Lead Channel Setting Sensing Sensitivity 0.50 CV DEVICE CHECK Lead Channel Impedance Value 360 CV DEVICE CHECK Lead Channel Pacing Threshold Amplitude 2.875 CV DEVICE CHECK Lead Channel Pacing Threshold Pulse Width 0.4 CV DEVICE CHECK Lead Channel RA Pacing Threshold Date 2024-10-26 CV DEVICE CHECK Lead Channel Setting Pacing Amplitude 3.000 CV DEVICE CHECK Lead Channel Setting Pacing Pulse Width 0.4 CV DEVICE CHECK Lead Channel Sensing Intrinsic Amplitude 12.000 CV DEVICE CHECK Lead Channel Setting Sensing Sensitivity 2.00 CV DEVICE CHECK Lead Channel Impedance Value 460 CV DEVICE CHECK Lead Channel Pacing Threshold Amplitude 1.250 CV DEVICE CHECK Lead Channel Pacing Threshold Pulse Width 0.4 CV DEVICE CHECK Lead Channel RV Pacing Threshold Date 2024-10-26 CV DEVICE CHECK Lead Channel Setting Pacing Amplitude 1.500 CV DEVICE CHECK Lead Channel Setting Pacing Pulse Width 0.4 CV DEVICE CHECK Derrick Setting Mode (NBG Code) DDDR CV DEVICE CHECK Derrick Setting Lower Rate Limit 60 CV DEVICE CHECK Derrick Setting AT Mode Switch Rate 180 CV DEVICE CHECK Derrick Setting Maximum Tracking Rate 130 CV DEVICE CHECK Derrick Setting Maximum Sensor Rate 130 CV DEVICE CHECK Derrick Setting PAV Delay 200 CV DEVICE CHECK Derrick Setting MARIO Delay 150 CV DEVICE CHECK Date of Service 2024-11-26 CV DEVICE CHECK Anatomical Region Laterality Modality Device Interroga tion 10/26/2024 2:39 PM EDT Impressions 11/01/2024 8:20 AM EDT Normal Remote: With Events * Patient Initiated for Fatigue and Heart pounding * Normal Device Function * Events or Alerts: 7 PAF / Most recent was 10/18/24 and was 4 seconds / Longest was 3 minutes 24 seconds. / No OAC / Rate Controlled * Battery: Battery is at 95.5%, 7.33 yrs * Sensing, impedance and thresholds reviewed * Programmed parameters reviewed * Presenting rhythm reviewed * Heart Rate Histograms reviewed Additional Notes: Noted on presenting are some PAC's Narrative Procedure Note Megan Perea PA - 11/01/2024 IMPRESSION: Normal Remote: With Events * Patient Initiated for Fatigue and Heart pounding * Normal Device Function * Events or Alerts: 7 PAF / Most recent was 10/18/24 and was 4 seconds /Longest was 3 minutes 24 seconds. / No OAC / Rate Controlled * Battery: Battery is at 95.5%, 7.33 yrs * Sensing, impedance and thresholds reviewed * Programmed parameters reviewed * Presenting rhythm reviewed * Heart Rate Histograms reviewed Additional Notes: Noted on presenting are some PAC's us Megan THACKER CV IMPLANTABLE CARDIAC DEVICE CT OCEDURES Final Result * (ABNORMAL) POC Urine Auto W/O Micro (10/31/2024 8:45 AM EDT) Glucose UA POC 100(A) Negative, Trace mg/dL Bilirubin UA POC Small(A) Negative Ketones UA POC 15(A) Negative Specific [place] UA POC >=1.030 Blood UA POC Negative Negative PH UA POC 6.0 Protein UA POC 100(A) Negative mg/dL Urobilinogen UA POC 1.0 E.U./dL 0.2 E.U./dL, 1.0 E.U./dL, 8 , Unable to interpret due to interfering substances mg/dL Nitrite UA POC Negative Negative Leukocytes UA POC Negative Negative Urine Urine specimen obtained by clean catch procedure / Unknown 10/31/2024 8:45 AM EDT us Carmella Clarke MD POINT OF CARE TEST ENTER/EDIT OR DERABLES Final Result * ECG-Annotated (10/18/2024) us Provider [facility] MD ECG ORDERABLES Final Result * (ABNORMAL) Urinalysis with reflex microscopic (10/17/2024 8:52 PM EDT) Specific [place] Urine 1.020 1.003 - 1.030 LAB URINALYSIS - AUTOMATED METHOD 10/17/2024 9:37 PM [facility] pH, Urine 5.5 5.0 - 8.0 pH LAB URINALYSIS - AUTOMATED METHOD 10/17/2024 9:37 PM [facility] Leukocytes, Urine Moderate(A) Negative LAB URINALYSIS - AUTOMATED METHOD 10/17/2024 9:37 PM [facility] Nitrite, Urine Negative Negative LAB URINALYSIS - AUTOMATED METHOD 10/17/2024 9:37 PM [facility] Protein, Urine 30(A) <=Trace mg/dL LAB URINALYSIS - AUTOMATED METHOD 10/17/2024 9:37 PM [facility] Glucose, Urine Negative Negative mg/dL LAB URINALYSIS - AUTOMATED METHOD 10/17/2024 9:37 PM [facility] Ketones, Urine 15(A) Negative mg/dL LAB URINALYSIS - AUTOMATED METHOD 10/17/2024 9:37 PM [facility] Urobilinogen , Urine 1.0 0.2 - 1.0 mg/dL LAB URINALYSIS - AUTOMATED METHOD 10/17/2024 9:37 PM [facility] Bilirubin, Urine Negative Negative LAB URINALYSIS - AUTOMATED METHOD 10/17/2024 9:37 PM [facility] Blood, Urine Negative Negative LAB URINALYSIS - AUTOMATED METHOD 10/17/2024 9:37 PM [facility] RBC, Urine 2.2 0 - 4 /HPF LAB URINALYSIS - AUTOMATED METHOD 10/17/2024 9:37 PM [facility] WBC, Urine 22.1(H) 0 - 4 /HPF LAB URINALYSIS - AUTOMATED METHOD 10/17/2024 9:37 PM EDT [facility] Squamous Epithelial, Urine 61(H) 0 - 60 /LPF LAB URINALYSIS - AUTOMATED METHOD 10/17/2024 9:37 PM EDT [facility] Bacteria, Urine Negative Negative /HPF LAB URINALYSIS - AUTOMATED METHOD 10/17/2024 9:37 PM EDT [facility] Hyaline Casts, Urine 0.8 0 - 3 /LPF LAB URINALYSIS - AUTOMATED METHOD 10/17/2024 9:37 PM EDT [facility] Urine Urine specimen obtained by clean catch procedure / Unknown Non-blood Collection / Unknown 10/17/2024 8:52 PM EDT 10/17/2024 9:22 PM EDT Deon Arnold MD LAB URINE ORDERABLES Final Result Performing Organization Address City/[facility]/ZIP Co de Phone Number [facility] [address] [place] [address], [place] [phone] * Grijalva urine culture tube (10/17/2024 8:52 PM EDT) Only the most recent of2 resultswithin the time period is included. Extra Tube Hold for add-ons. 10/17/2024 11:01 PM EDT [facility] Comment:Auto resulted. Urine Urine specimen obtained by clean catch procedure / Unknown 10/17/2024 8:52 PM EDT 10/17/2024 9:22 PM EDT Deon Arnold MD LAB URINE ORDERABLES Final Result Performing Organization Address City/[facility]/ZIP Co de Phone Number [facility] [address] [place] [address], [place] [phone] * XR Chest 2 Views (10/17/2024 8:21 PM EDT) Anatomical Region Laterality Modality Body Radiographic Heydi ging 10/18/2024 9:16 AM EDT Impressions 10/18/2024 9:18 AM EDT Impression: 1. No active pulmonary process. 2. Absent J-curve of the atrial lead of the transvenous pacemaker, a change from the 08/16/24 exam. Clinical correlation is requested. Telerad KIRSTIE ([id number]) -------- FINAL REPORT -------- Dictated By: Ruth Steiner Dictated Date: 10/18/2024 09:16 ET Assigned Physician: Ruth Steiner Reviewed and Electronically Signed By: Ruth Steiner Signed Date: 10/18/2024 09:18 ET Workstation ID: [id number] Transcribed By: Self Edit Transcribed Date: 10/18/2024 09:16 ET Narrative 10/18/2024 9:18 AM EDT History: Dyspnea. Weakness. Comparison: 08/16/24, 03/14/24 Findings: PA and lateral views. The cardiac silhouette is normal in size. A left subclavian transvenous pacemaker is again noted, with leads terminating in the expected locations of the right atrium and ventricle. The J curve of the atrial lead is no longer seen. Hilar contours and pulmonary vascularity are within normal limits. The lungs are clear. The costophrenic angles are sharp. Cholecystectomy clips are noted. Procedure Note Ruth Steiner MD - 10/18/2024 History: Dyspnea. Weakness. Comparison: 08/16/24, 03/14/24 Findings: PA and lateral views. The cardiac silhouette is normal in size. A leftsubclavian transvenous pacemaker is again noted, with leads terminating inthe expected locations of the right atrium and ventricle. The J curve ofthe atrial lead is no longer seen. Hilar contours and pulmonary vascularity are within normal limits. Thelungs are clear. The costophrenic angles are sharp. Cholecystectomy clips are noted. IMPRESSION: Impression: 1. No active pulmonary process. 2. Absent J-curve of the atrial lead of the transvenous pacemaker, achange from the 08/16/24 exam. Clinical correlation is requested. Telerad KIRSTIE ([id number]) -------- FINAL REPORT -------- Dictated By: Ruth Steiner Dictated Date: 10/18/2024 09:16 ET Assigned Physician: Ruth Stenier Reviewed and Electronically Signed By: Ruth Steiner Signed Date: 10/18/2024 09:18 ET Workstation ID: [id number] Transcribed By: Self Edit Transcribed Date: 10/18/2024 09:16 ET us Deon Arnold MD IMG XR PROCEDURES Final Res ult * (ABNORMAL) CBC auto differential (10/17/2024 6:15 PM EDT) WBC 9.2 4.8 - 10.8 K/mcL LAB HEMETOLOGY METHOD 10/17/2024 6:28 PM EDT [facility] RBC 4.00 3.80 - 4.80 M/mcL LAB HEMETOLOGY METHOD 10/17/2024 6:28 PM EDT [facility] Hemoglobin 11.5 11.5 - 16.0 g/dL LAB HEMETOLOGY METHOD 10/17/2024 6:28 PM EDT [facility] Hematocrit 35.6 35.0 - 47.0 % LAB HEMETOLOGY METHOD 10/17/2024 6:28 PM EDT [facility] MCV 88.3 79.0 - 98.0 FL LAB HEMETOLOGY METHOD 10/17/2024 6:28 PM EDT [facility] MCH 28.5 27.0 - 32.0 pcg LAB HEMETOLOGY METHOD 10/17/2024 6:28 PM EDT [facility] MCHC 32.3 32.0 - 37.0 g/dL LAB HEMETOLOGY METHOD 10/17/2024 6:28 PM EDT [facility] RDW 14.4 11.0 - 15.0 % LAB HEMETOLOGY METHOD 10/17/2024 6:28 PM [facility] Platelets 223 130 - 400 K/mcL LAB HEMETOLOGY METHOD 10/17/2024 6:28 PM [facility] MPV 12.0(H) 7.0 - 11.0 FL LAB HEMETOLOGY METHOD 10/17/2024 6:28 PM [facility] NRBC 0.0 <1.0 % LAB HEMETOLOGY METHOD 10/17/2024 6:28 PM [facility] NRBC Absolute 0.00 <0.10 K/mcL LAB HEMETOLOGY METHOD 10/17/2024 6:28 PM [facility] Neutrophils Relative 66.9 % LAB HEMETOLOGY METHOD 10/17/2024 6:28 PM [facility] Lymphocytes Relative 21.6 % LAB HEMETOLOGY METHOD 10/17/2024 6:28 PM [facility] Monocytes Relative 6.8 % LAB HEMETOLOGY METHOD 10/17/2024 6:28 PM [facility] Eosinophils Relative 3.7 % LAB HEMETOLOGY METHOD 10/17/2024 6:28 PM [facility] Basophils Relative 0.6 % LAB HEMETOLOGY METHOD 10/17/2024 6:28 PM [facility] Immature Granulocytes Relative 0.4 % LAB HEMETOLOGY METHOD 10/17/2024 6:28 PM [facility] Neutrophils Absolute 6.17 1.50 - 7.00 K/mcL LAB HEMETOLOGY METHOD 10/17/2024 6:28 PM [facility] Lymphocytes Absolute 2.00 1.00 - 5.00 K/mcL LAB HEMETOLOGY METHOD 10/17/2024 6:28 PM [facility] Monocytes Absolute 0.63 0.20 - 1.00 K/mcL LAB HEMETOLOGY METHOD 10/17/2024 6:28 PM EDT [facility] Eosinophils Absolute 0.34 0.00 - 0.50 K/[facility] LAB HEMETOLOGY METHOD 10/17/2024 6:28 PM EDT [facility] Basophils Absolute 0.06 0.00 - 0.20 K/[facility] LAB HEMETOLOGY METHOD 10/17/2024 6:28 PM EDT [facility] Immature Granulocytes Absolute 0.04(H) 0.00 - 0.03 K/[facility] LAB HEMETOLOGY METHOD 10/17/2024 6:28 PM EDT [facility] Blood Venous blood specimen / Unknown Venipuncture / Unknown 10/17/2024 6:15 PM EDT 10/17/2024 6:22 PM EDT Deon Arnold MD LAB BLOOD ORDERABLES Final Result Performing Organization Address City/[facility]/ZIP Co de Phone Number [facility] [address] [place] [address], [place] [phone] * Thyroid stimulating hormone (TSH) (10/17/2024 6:15 PM EDT) [facility] TSH 2.49 0.40 - 4.00 mcIU/mL LAB CHEMISTRY METHOD 10/17/2024 7:55 PM EDT [facility] Blood Venous blood specimen / Unknown Venipuncture / Unknown 10/17/2024 6:15 PM EDT 10/17/2024 6:22 PM EDT Deon Arnold MD LAB BLOOD ORDERABLES Final Result [facility] [address] [place] [address], [place] [phone] * Magnesium (10/17/2024 6:15 PM EDT) [facility] Magnesium 2.1 1.9 - 2.6 mg/dL LAB CHEMISTRY METHOD 10/17/2024 6:50 PM T [facility] Comment:Hemolysis present Blood Venous blood specimen / Unknown Venipuncture / Unknown 10/17/2024 6:15 PM EDT 10/17/2024 6:22 PM EDT us Deon Arnold MD LAB BLOOD ORDERABLES Final Result [facility] [address] [place] [address], [place] [phone] * (ABNORMAL) Basic metabolic panel (10/17/2024 6:15 PM EDT) Sodium 136 133 - 145 mmol/L LAB CHEMISTRY METHOD 10/17/2024 6:50 PM [facility] Potassium 4.7 3.5 - 5.5 mmol/L LAB CHEMISTRY METHOD 10/17/2024 6:50 PM [facility] Comment:Hemolysis present Chloride 110 96 - 110 mmol/L LAB CHEMISTRY METHOD 10/17/2024 6:50 PM [facility] CO2 19(L) 21 - 32 mmol/L LAB CHEMISTRY METHOD 10/17/2024 6:50 PM [facility] Anion Gap 7 3 - 11 LAB CHEMISTRY METHOD 10/17/2024 6:50 PM [facility] Glucose 182(H) 70 - 100 mg/dL LAB CHEMISTRY METHOD 10/17/2024 6:50 PM [facility] BUN 20 5 - 25 mg/dL LAB CHEMISTRY METHOD 10/17/2024 6:50 PM [facility] Creatinine 0.94 0.50 - 1.10 mg/dL LAB CHEMISTRY METHOD 10/17/2024 6:50 PM [facility] eGFR 63 >=60 mL/min/1. 73m2 LAB CHEMISTRY METHOD 10/17/2024 6:50 PM EDT [facility] Comment:Calculation based on the Chronic Kidney Disease Epidemiology Collaboration (CKD-EPI) equation refit without adjustment for race. BUN/Creatinine Ratio 21.3 LAB CHEMISTRY METHOD 10/17/2024 6:50 PM EDT [facility] Calcium 9.0 8.5 - 10.5 mg/dL LAB CHEMISTRY METHOD 10/17/2024 6:50 PM EDT [facility] Blood Venous blood specimen / Unknown Venipuncture / Unknown 10/17/2024 6:15 PM EDT 10/17/2024 6:22 PM EDT Deon Arnold MD LAB BLOOD ORDERABLES Final Result [facility] [address] [place] [address], [place] [phone] * ECG 12 lead (10/17/2024 5:43 PM EDT) Only the most recent of2 resultswithin the time period is included. Ventricular Rate ECG 76 BPM GEMUSE Atrial Rate 76 BPM GEMUSE P-R Interval 224 ms GEMUSE QRS Duration 108 ms GEMUSE Q-T Interval 380 ms GEMUSE QTc 427 ms GEMUSE P Wave [place] 23 degrees GEMUSE R [place] 30 degrees GEMUSE T [place] 42 degrees GEMUSE ECG Interpretation Atrial-sensed ventricular-pa sheryl rhythm with prolonged AV conduction Abnormal ECG When compared with ECG of 08-SEP-2024 14:45, No significant change was found Confirmed by Hao FRENCH YUFENG ([id number]) on 10/17/2024 8:02:33 PM GEMUSE 10/17/2024 5:43 PM EDT 10/17/2024 8:02 PM EDT Deon Arnold MD ECG ORDERABLES Final Resul t GEMUSE * (ABNORMAL) Urinalysis with reflex microscopic and culture (10/06/2024 2:56 PM EDT) Specific [place] Urine 10/06/2024 7:58 PM EDT [facility] Comment:Unable to interpret due to color interference. pH, Urine 10/06/2024 7:58 PM [facility] Comment:Unable to interpret due to color interference. Leukocytes, Urine 10/06/2024 7:58 PM EDT [facility] Comment:Unable to interpret due to color interference. Nitrite, Urine 10/06/2024 7:58 PM EDT [facility] Comment:Unable to interpret due to color interference. Protein, Urine [facility]2024 [facility]:Unable to interpret due to color interference. Glucose, Urine 10/06/2024 7:58 PM [facility] Comment:Unable to interpret due to color interference. Ketones, Urine 10/06/2024 7:58 PM [facility] Comment:Unable to interpret due to color interference. Urobilinogen , Urine 10/06/2024 7:58 PM EDT [facility] Comment:Unable to interpret due to color interference. Bilirubin, Urine 10/06/2024 7:58 PM T [facility] Comment:Unable to interpret due to color interference. Blood, Urine 10/06/2024 7:[facility] Comment:Unable to interpret due to color interference. RBC, Urine 4 0 - 4 /HPF 10/06/2024 7:58 PM [facility] WBC, Urine >100(H) 0 - 4 /HPF 10/06/2024 7:58 PM [facility] Squamous Epithelial, Urine 5 0 - 60 /LPF 10/06/2024 7:58 [facility] Non-Squamous Epithelial, Urine 5-10 Transitional epithelial cells. /LPF 10/06/2024 7:58 PM EDT [facility] Bacteria, Urine Many(A) Negative /HPF 10/06/2024 7:58 PM EDT [facility] Hyaline Casts, Urine 0 0 - 3 /LPF 10/06/2024 7:58 PM EDT [facility] Urine Urine specimen obtained by clean catch procedure / Unknown Non-blood Collection / Unknown 10/06/2024 2:56 PM EDT 10/06/2024 2:57 PM EDT us Tammy THACKER LAB URINE ORDERABLES Final Re sult [facility] [address] [place] [address], [place] [phone] * (ABNORMAL) Culture urine (10/06/2024 2:56 PM EDT) Culture, Urine >100,000 CFU/mL Raoultella planticola(A) EVONNE 10/08/2024 9:54 AM EDT [facility] Comment: This is an edited result. Previous organism was Gram negative bacilli on 10/07/2024 at 1329 EDT. Urine Urine specimen obtained by clean catch procedure / Unknown Non-blood Collection / Unknown 10/06/2024 2:56 PM EDT 10/06/2024 7:58 PM EDT Narrative Organism Antibiotic Method Susceptibility Raoultella planticola Amoxicillin/Clavulanate EVONNE <=2 ug/ml: Susceptible Raoultella planticola Ampicillin/Sulbactam EVONNE 4 ug/ml: Susceptible Raoultella planticola Cefoxitin EVONNE <=4 ug/ml: Susceptible Raoultella planticola Amikacin EVONNE <=1 ug/ml: Susceptible Raoultella planticola Ciprofloxacin EVONNE <=0.06 ug/ml: Susceptible Raoultella planticola Nitrofurantoin EVONNE <=16 ug/ml: Susceptible Raoultella planticola Trimethoprim/Sulfa methoxazol e EVONNE <=20 ug/ml: Susceptible Tammy THACKER LAB MICROBIOLOGY - GENERAL OR DERABLES Final Result Performing Organization Address City/[facility]/ZIP Co de Phone Number [facility] [address] [place] [address], [place] [phone] * (ABNORMAL) Hemoglobin A1c (09/23/2024 11:15 AM EDT) Hemoglobin A1C 7.0(H) <6.5 % LAB CHEMISTRY METHOD 09/25/2024 2:17 PM EDT [facility] Mean Bld Glu Estim. 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[employer] CV DEVICE CHECK Implantable Pulse Generator Type IPG CV DEVICE CHECK Implantable Pulse Generator Model Assurity MRI 2272 CV DEVICE CHECK Implantable Pulse Generator Serial Number [id number] CV DEVICE CHECK Implantable Pulse Generator Implant Date 20240815 CV DEVICE CHECK Battery Voltage 2.990 CV D EVICE CHECK Battery Status Beginning of Service CV DEVICE CHECK Derrick Statistic RA Percent Paced 69.00 CV DEVICE CHECK Derrick Statistic RV Percent Paced 99.89 CV DEVICE CHECK Lead Channel Sensing Intrinsic Amplitude 2.100 CV DEVICE CHECK Lead Channel Setting Sensing Sensitivity 0.50 CV DEVICE CHECK Lead Channel Impedance Value 463 CV DEVICE CHECK Lead Channel Pacing Threshold Amplitude 1.500 CV DEVICE CHECK Lead Channel Pacing Threshold Pulse Width 0.4 CV DEVICE CHECK Lead Channel RA Pacing Threshold Date 2024-09-08 CV DEVICE CHECK Lead Channel Setting Pacing Amplitude 3.000 CV DEVICE CHECK Lead Channel Setting Pacing Pulse Width 0.4 CV DEVICE CHECK Lead Channel Sensing Intrinsic Amplitude 11.500 CV DEVICE CHECK Lead Channel Setting Sensing Sensitivity 2.00 CV DEVICE CHECK Lead Channel Impedance Value 463 CV DEVICE CHECK Lead Channel Pacing Threshold Amplitude 1.130 CV DEVICE CHECK Lead Channel Pacing Threshold Pulse Width 0.4 CV DEVICE CHECK Lead Channel RV Pacing Threshold Date 2024-09-08 CV DEVICE CHECK Lead Channel Setting Pacing Amplitude 1.380 CV DEVICE CHECK Lead Channel Setting Pacing Pulse Width 0.4 CV DEVICE CHECK Derrick Setting Mode (NBG Code) DDDR CV DEVICE CHECK Derrick Setting Lower Rate Limit 60 CV DEVICE CHECK Derrick Setting AT Mode Switch Rate 180 CV DEVICE CHECK Derrick Setting Maximum Tracking Rate 130 CV DEVICE CHECK Derrick Setting Maximum Sensor Rate 130 CV DEVICE CHECK Derrick Setting PAV Delay 200 CV DEVICE CHECK Derrick Setting MARIO Delay 150 CV DEVICE CHECK Anatomical Region Laterality Modality Device Interroga tion 09/08/2024 Impressions 09/13/2024 12:23 PM EDT Normal In-Office: No Events * Normal Device Function * Alerts or events: None * Battery: STEPHAN, 7.70 yrs * Sensing, impedance and thresholds reviewed and tested * Presenting Rhythm: AP-PARTITION SETTER 60 bpm * Underlying Rhythm: CHB VS 32 bpm * Heart Rate Histograms reviewed * Pacing and Detection Parameters were evaluated * Incision healing well, no edema, redness or drainage noted, scant Dermabond remains. Programming Evaluation Performed * Programming changes made during OV with Alicia Whitehead NP * PVARP changed from 275ms to 225ms * Rate responsive PVARP/VREF changed from HIGH to MEDIUM Narrative Procedure Note Landon Mcnair MD - 09/13/2024 IMPRESSION: Normal In-Office: No Events * Normal Device Function * Alerts or events: None * Battery: STEPHAN, 7.70 yrs * Sensing, impedance and thresholds reviewed and tested * Presenting Rhythm: AP-PARTITION SETTER 60 bpm * Underlying Rhythm: CHB VS 32 bpm * Heart Rate Histograms reviewed * Pacing and Detection Parameters were evaluated * Incision healing well, no edema, redness or drainage noted, scantDermabond remains. Programming Evaluation Performed * Programming changes made during OV with Alicia Lattanzi, SEAMSTRESS FITTER * PVARP changed from 275ms to 225ms * Rate responsive PVARP/VREF changed from HIGH to MEDIUM us Order Referral Cardiovascular CV IMPLANTABLE CAR DIAC DEVICE PROCEDURES Final Result * Lipid panel with reflex to direct LDL (03/14/2024 5:44 AM EST) Cholesterol 147 0 - 200 mg/dL LAB CHEMISTRY METHOD 03/14/2024 7:18 AM EST [facility] Triglycerides 113 0 - 150 mg/dL LAB CHEMISTRY METHOD 03/14/2024 7:18 AM EST [facility] HDL 47 >=40 mg/dL LAB CHEMISTRY METHOD 03/14/2024 7:18 AM EST [facility] LDL Calculated 77 0 - 100 mg/dL LAB CHEMISTRY METHOD 03/14/2024 7:18 AM [facility] VLDL Cholesterol [place] 22.6 mg/dL LAB CHEMISTRY METHOD 03/14/2024 7:18 AM EST [facility] Non HDL Chol. (LDL+VLDL) 100 <145 mg/dL LAB CHEMISTRY METHOD 03/14/2024 7:18 AM EST [facility] Chol/HDL Ratio 3.1 0.0 - 4.4 LAB CHEMISTRY METHOD 03/14/2024 7:18 AM EST [facility] Blood Venous blood specimen / Unknown Venipuncture / Unknown 03/14/2024 5:44 AM EST 03/14/2024 6:29 AM EST us Dwain Munoz MD LAB BLOOD ORDERABLES Final Result [facility] [address] [place] [address], * MG Mammo Digital Screening w [place] Left (03/08/2024 3:05 PM EST) Anatomical Region Laterality Modality Breast Left Mammography 03/17/2024 7:24 AM EST Impressions 03/17/2024 7:39 AM EST No mammographic evidence of malignancy. BREAST DENSITY: B - There are scattered areas of fibroglandular density. BI-RADS CATEGORY: 2 - BENIGN RECOMMENDATION: Screening left mammogram is recommended in 1 year. MAMMO LOCATION: [facility], [address] [place] [address], [id number], . -------- FINAL REPORT -------- Dictated By: Cathie Rock Dictated Date: 03/17/2024 07:24 ET Assigned Physician: Cathie Rock Reviewed and Electronically Signed By: Cathie Rock Signed Date: 03/17/2024 07:39 ET Workstation ID: [id number] Transcribed By: Self Edit Transcribed Date: 03/17/2024 07:24 ET Narrative 03/17/2024 7:39 AM EST EXAM: Screening Mammogram CLINICAL: 73 years old, Female, routine annual exam. History of right breast cancer status post mastectomy in 1991. Remote history of a benign left excisional biopsy. [...] is recommended in 1 year. MAMMO LOCATION: [facility], [address] [place] [address], [id number], . -------- FINAL REPORT -------- Dictated By: Cathie Rock Dictated Date: 03/17/2024 07:24 ET Assigned Physician: Cathie Rock Reviewed and Electronically Signed By: Cathie Rock Signed Date: 03/17/2024 07:39 ET Workstation ID: [id number] Transcribed By: Self Edit Transcribed Date: 03/17/2024 07:24 ET Brenda Bethea MD IMG BI PROCEDURES Final Result * Urine Albumin Creatinine Ratio (02/09/2024) Pathologist [facility] Urine Albumin Creatinine Ratio abstracted Result [facility] HEALTH MAINTENANCE Final Result * Diabetes Eye Exam (08/04/2023) [facility] Diabetes: Annual Retina Eye Exam abstracted Result [facility] Provider HEALTH MAINTENANCE Final Result * Falls Risk Assessment (07/07/2023) [facility] Falls Risk Assessment abstracted Result [facility] HEALTH MAINTENANCE Final Result * Depression Screening (03/04/2023) Pathologist [facility] Depression Screening abstracted Result [facility] HEALTH MAINTENANCE Final Result * Colonoscopy (01/28/2019) Pathologist [facility] Colonoscopy no interpretation , abstracted Anatomical Region Laterality Modality Other Result [facility] Provider HEALTH MAINTENANCE Final Result * DXA BONE DENSITY STUDY 1+ SITS AXIAL SKEL (08/25/2016 1:34 PM EDT) Anatomical Region Laterality Modality Bone Densitometr y 07/09/2016 4:13 PM EST Narrative 08/25/2016 3:04 PM EDT BONE DENSITY Lumbar Spine T-score is -0.8 (SD relative to 20-29 y/o adult) Z-score is +1.1 (SD relative to age matched peers) This is normal by criteria defined by the WHO. Left Hip T-score is -1.9 Z-score is -0.2 This is consistent with osteopenia by criteria defined by the WHO. Comparison exam(s): significant decrease in bone density of lumbar spine and hip when compared to most recent bone density examination Confidence level is +/-95%. Impression: Based on the World Health Organization criteria, Allison Brandt should be classified as having osteopenia. This patient has a 17% risk of major osteoporotic fracture and a 2.8% risk of hip fracture over the next 10 years. (World Health Organization Fracture Risk Assessment) [facility] Department of Internal Medicine recommends using National [...] (World Health Organization Fracture Risk Assessment) [facility] Department of Internal Medicine recommendsusing National Osteoporosis [...] fracture risk by FRAX. Brenda Bethea MD [facility] DXA PROCEDURES Final Result * Hepatitis C Screening (11/08/2012) [facility] Hepatitis C Screening abstracted Historical Provider HEALTH MAINTENANCE Final Result from Last 3 Months or Most Recently Relevant to Health Maintenance Insurance [employer] Advance Directives Documents on File Type Date Recorded Patient Rib Trim Separator Expl anation Health Care Decision (hx) 01/11/2014 [...] DIRECTIVE Health Care Decision (hx) 01/11/2014 AD MEEYRS DIRECTIVE Health Care Decision (hx) 01/11/2014 AD [...] on File) Date Activated Date Inactivated Comments 08/12/2024 8:36 PM 08/16/2024 5:46 PM This is orde r is used when code status has not been discussed with the patient, or code status is otherwise unknown/unconfirmed To update the patient's code status, place a code status order. Do not modify or discontinue any currently active code status orders. * Full Code - Default Date Activated Date Inactivated Comments 07/25/2024 10:06 [...] currently active code status orders. 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
--- OUTSIDE RECORDS SUMMARY | 2024-12-06 15:12 | XMS_ITS ---
Author Name [facility] Organization Unknown Care Team Organization Name Specialty Phone Email Start Date End Da te [facility] Tammy Dennison Primary Care 08/05/202212/02 [facility] Brenda Bethea Primary Care 03/11/2022
== END 2024-12-06 15:12 | disposition home or self-care (01) ==
LOC: HO.PMC 14:35
PROVIDERS: PCP Internal Medicine; Referring Provider Internal Medicine Rheumatology; Visit Provider Nurse Practitioner Family
DX: M54.2 Cervicalgia (principal); M81.0 Age-related osteoporosis without current pathological fracture; M47.812 Spondylosis without myelopathy or radiculopathy, cervical region; M54.6 Pain in thoracic spine
CPT/HCPCS: 99204

== ENCOUNTER 2024-12-06 14:34 | Outpatient (REF) | payer MEDICARE, SELFPAY ==
--- NOTE | ~2024-12-06 | XR_ITS ---
EXAMINATION: XR THORACIC SPINE CLINICAL INFORMATION: M54.6 - Pain in thoracic spine COMPARISON: None available. TECHNIQUE: 3 views of the thoracic spine were obtained. FINDINGS: There is a 2-lead pacemaker. There are right upper quadrant clips from cholecystectomy. Vertebral body height and alignment is preserved. There is mild to moderate diffuse disc space narrowing most advanced in the mid to lower thoracic spine. There are small anterior osteophytes in the midthoracic spine. XR/XR thoracic spine 3V IMPRESSION: Mild degenerative disc disease Electronically signed by: Yrn Dean MD 12/06/2024 04:04 PM EDT
--- NOTE | ~2024-12-06 | XR_ITS ---
EXAMINATION: XR CERVICAL SPINE CLINICAL INFORMATION: M54.2 - Cervicalgia COMPARISON: None available. TECHNIQUE: 5 views of the cervical spine were obtained. FINDINGS: C4-5 demonstrates mild disc space narrowing and subtle retrolisthesis with endplate osteophytes. Osteophytes mildly narrow the right neural foramen C5-6 demonstrates a moderate disc space narrowing and small endplate osteophytes. Osteophytes mildly narrow the right neural foramen. Disc spaces are preserved otherwise. XR/XR cervical spine 5V IMPRESSION: Degenerative disc disease at C4-5 and C5-6 Electronically signed by: Yrn Dean MD 12/06/2024 04:06 PM EDT
== END 2024-12-06 14:35 | disposition home or self-care (01) ==
LOC: HO.XRAY 14:34
PROVIDERS: PCP Internal Medicine; Referring Provider Internal Medicine Rheumatology; Visit Provider Nurse Practitioner Family
DX: M47.812 Spondylosis without myelopathy or radiculopathy, cervical region (principal); M81.0 Age-related osteoporosis without current pathological fracture; M32.9 Systemic lupus erythematosus, unspecified; M54.2 Cervicalgia; M54.6 Pain in thoracic spine; G89.29 Other chronic pain; M79.18 Myalgia, other site; Z95.0 Presence of cardiac pacemaker; Z79.899 Other long term (current) drug therapy
CPT/HCPCS: 72050; 72072; 99202

== ENCOUNTER → 2024-12-06 15:33 | Outpatient (BNV) | payer MEDICARE, SELFPAY | PROVIDERS: PCP Internal Medicine; Referring Provider Internal Medicine Rheumatology; Visit Provider Radiology Diagnostic Radiology | DX: M50.321 Other cervical disc degeneration at C4-C5 level (principal); M54.6 Pain in thoracic spine | CPT/HCPCS: 72050; 72072 ==

== ENCOUNTER 2024-12-29 13:59 | Outpatient (AMB) | payer MEDICARE, SELFPAY ==
--- OUTSIDE RECORDS SUMMARY | 2024-12-28 16:00 | XMS_ITS | Encounter Summary ---
Author Organization [facility] Address [address] [place] [address] Care Team Providers Care Photography And Prints Curator Name Role Phone Brenda Bethea MD Primary Care Provider [phone] Reason for Referral * Consultation (Routine) - Authorized Specialty Diagnoses / Procedures Referred By Contivan t Referred To Contact Pulmonary Disease / Pulmonology Diagnoses Chronic cough Brenda Bethea MD [address] [place] [address] Phone: tel: fax: Pulmon[address] [address] Phone: tel: fax: Referral ID Status Reason Start Date Expiration Date Visits Requested Visits Authorized [id number] Authorized Specialty Services Required 12/28/2024 12/28/2025 1 1 Reason for Visit * Reason Comments Follow-up Diabetes Encounter Details Date Type Department Care Team (Late st Contact Info) Description 12/28/2024 4:00 PM EDT Office Visit Adult Medicine [facility] [address] [place], [place] [phone] Brenda Bethea MD [address] [place] [address] Chronic cough (Primary Dx); Type 2 diabetes mellitus with stage 3 chronic kidney disease, with long-term current use of insulin, unspecified whether stage 3a or 3b [place] [facility] V28); Stage 3 chronic kidney disease, unspecified whether stage 3a or 3b CKD [place] [place], [facility] V28); Primary hypertension; Lupus erythematosus, unspecified form Social History Tobacco Use Types Packs/Day Years [...] Reading Time Taken Comments Blood Pressure 126/58 12/28/2024 3:49 PM EDT Pulse 68 12/28/2024 3:49 PM EDT Temperature 35.8 C (96.4 F) 12/28/2024 3:49 PM EDT Respiratory Rate 14 12/28/2024 3:49 PM EDT Oxygen Saturation 97% 12/28/2024 3:49 PM EDT Inhaled Oxygen Concentration - - Weight 58 kg (127 lb 14.4 oz) 12/28/2024 3:49 PM EDT Height 165.1 cm (5' 5 ) 12/28/2024 3:49 PM EDT Body Mass Index 21.28 12/28/2024 3:49 PM EDT documented in this encounter Functional Status * Are you deaf or do you have serious difficulty hearing? Answer Date of Assessment Author No 07/25/2024 2:25 AM EDT Cournoyer , Tracie, RN * Are you blind or do [...] Tracie Anton RN documented in this encounter Ordered Prescriptions Prescription Sig Dispense Quantity Refills Last Filled Start Date End Date losartan (Cozaar) 50 mg tablet Take 1 tablet (50 mg total) by mouth 1 (one) time each day. 90 each 1 12/28/2024 documented in this encounter Progress Notes * Brenda Bethea MD - 12/28/2024 4:00 PM EDT Chief Complaint: Chief Complaint Patient presents with Follow-up Diabetes IDENTIFIER: Allison Brandt is a 74 y.o. old female HPI She comes for evaluation stating that she was seen in urgent care several days ago with a cough that was productive. She notes she has been coughing for several months, has been bringing up some yellow and most recently it has been clear. She was started on doxycycline and Tessalon Perles, had a chest x-ray done showing some chronic lung markings and concern for COPD was raised. She does use lisinopril for blood pressure control, Diamox, Plaquenil, insulin, prednisone, sertraline, sulfasalazine, simvastatin. She had surgery on her left eye for glaucoma and is having some ongoing issues with drainage from her eye, will be seeing her quality assurance monitor body. She is not having any shortness of breath,no chest discomfort or fevers. She is on chronic immunosuppressants for treatment of lupus. ROS: General: No malaise, significant weight loss or fever Respiratory: As noted Cardiovascular: No chest pain, palpitations, no orthopnea Past Medical History: Patient Active Problem List Diagnosis Date Noted Pacemaker 08/23/2024 Heart block 08/12/2024 Syncope 07/27/2024 TIA (transient ischemic attack) 04/16/2024 Glaucoma 04/16/2024 Osteopenia Lupus erythematosus DM (diabetes mellitus), type 2 with renal complications ([facility] V24, [facility] V28) Diabetes mellitus type 2 with neurological manifestations ([facility] V24, [facility] V28) Cervical radiculopathy Acute pancreatitis Type 2 diabetes mellitus with cataract ([facility] V24, [facility] V28) Proteinuria Pneumonia due to COVID-19 virus Sensory peripheral neuropathy Breast cancer ([facility] V24, [facility] V28) LBBB (left bundle branch block) 03/14/2024 Primary hypertension 03/14/2024 Hypercholesterolemia 03/14/2024 Polyp of colon 12/14/2023 GERD (gastroesophageal reflux disease) 05/27/2021 CKD (chronic kidney disease) stage 3, GFR 30-59 ml/min ([facility] V24, [facility] V28) 08/09/2020 Depression 04/20/2017 Migraine variant 04/17/2005 Surgical History: Past Surgical History: Procedure Laterality Date CHOLECYSTECTOMY 1984 COLONOSCOPY 03/10 COLONOSCOPY 6.21.16 MASTECTOMY Right : right PACEMAKER 1 HR SCREENING MAMMOGRAM 03/08/2024 Family History: Family History [...] Substance Use Topics Alcohol use: No Allergies: Macrobid [nitrofurantoin monohyd/m-cryst], Melatonin, Amoxicillin, Codeine, and Morphine Medications: Outpatient Medications Marked as Taking for the 12/28/24 encounter (Office Visit) with Brenda Bethea MD Medication Sig Dispense Refill acetaZOLAMIDE (DIAMOX) 250 mg tablet Take 1 tablet (250 mg total) by mouth 2 (two) times a day. amLODIPine (NORVASC) 10 mg tablet Take 1 tablet (10 mg total) by mouth 1 (one) time each day. 30 each 11 brimonidine (ALPHAGAN) 0.2 % ophthalmic solution Administer 1 drop into both eyes 2 (two) times a day. dorzolamide-timoloL (COSOPT) 22.3-6.8 mg/mL ophthalmic solution Administer [...] Max dose 60 units. 45 mL 5 latanoprostene bunod (Vyzulta) 0.024 % drops Administer 1 drop into both eyes at bedtime. loratadine (CLARITIN) 10 mg tablet Take 1 tablet (10 mg total) by mouth 1 (one) time each day if needed for allergies. metoprolol tartrate (LOPRESSOR) 25 mg tablet Take 1 tablet (25 mg total) by mouth 2 (two) times a day. 180 each 3 NovoLOG Flexpen U-100 Insulin 100 unit/mL (3 mL) injection pen Inject three times a day per slidingscale with meals. IF 100-150: 8 units; 151-200: 10 units; 201-250: 12 units; 251-300: 14 units; 301-350: 16 units; 351-400: 18 units 15 mL 11 omeprazole (PriLOSEC) [address] capsule Take 1 capsule (20 mg total) by mouth 1 (one) time each day.90 each 1 pen needle, diabetic 32 gauge x 5/32 needle To inject insulin 4x daily 300 each 0 sertraline (ZOLOFT) 100 mg tablet Take 1.5 tablets (150 mg total) by mouth 1 (one) time each day. [START ON 02/06/2025] simvastatin (ZOCOR) 20 mg tablet Take 1 tablet (20 mg total) by mouth at bedtime. 90 tablet 0 sulfaSALAzine (AZULFIDINE EN-TABS) 500 mg EC tablet Take 1 tablet (500 mg total) by mouth 2 (two) times a day. [DISCONTINUED] cefpodoxime (VANTIN) 100 mg tablet Take 1 tablet (100 mg total) by mouth at bedtime.90 tablet 1 [DISCONTINUED] lisinopriL (PRINIVIL,ZESTRIL) 20 mg tablet Take 1 tablet (20 mg total) by mouth at bedtime. 90 tablet 1 Medication Discontinued/Reordered: Medications Discontinued During This Encounter Medication Reason cefpodoxime (VANTIN) 100 mg tablet lisinopriL (PRINIVIL,ZESTRIL) 20 mg tablet Vitals: Blood pressure 126/58, pulse 68, temperature 35.8 ??C (96.4 ??F), temperature source Temporal, resp. rate 14, height 1.651 m (65 ), weight 58 kg (127 lb 14.4 oz), SpO2 97%. Body mass index is 21.28 kg/m??.BMI is 18.5 to 24.9 (within the normal range) and will be followed Physical Exam: General: patient is in no acute distress. Tympanic membranes clear, no air fluid levels or erythema. Pharynx clear without tonsillar enlargement or exudates. Neck supple without adenopathy, no thyromegaly. Lungs clear with auscultation. Heart: regular S1S2 without murmur, rub or gallop. Extremitieswithout cyanosis, clubbing or edema. Labs: Chest x-ray report reviewed Lab Results Component Value Date HGBA1C 7.0 (H) 09/23/2024 Lab Results Component Value Date GLUCOSE 182 (H) 10/17/2024 CALCIUM 9.0 10/17/2024 NA 136 10/17/2024 K 4.7 10/17/2024 CO2 19 (L) 10/17/2024 CL 110 10/17/2024 BUN 20 10/17/2024 CREATININE 0.94 10/17/2024 Impression: 1. Chronic cough 2. Type 2 diabetes mellitus with stage 3 chronic kidney disease, with long-term current use of insulin, unspecified whether stage 3a or 3b CKD ([facility] V24, [facility] V28) 3. Stage 3 chronic kidney disease, unspecified whether stage 3a or 3b CKD ([facility] V24, [facility] V28) 4. Primary hypertension Assessment and Plan: She has had some chronic cough, apparent respiratory infection. We discussed that lisinopril could potentially be contributing and she will switch to losartan instead, diabetes control has been good and she will continue with the insulin, blood pressure control with amlodipine and losartan, she is following ongoing with rheumatology regarding the lupus and continues on sulfasalazine, prednisone and Plaquenil. She is referred to pulmonary given the ongoing cough and concern for COPD. Renal function remains stable. She will be following with ophthalmology with regards to ongoing spine issues. Plan documented in this encounter Plan of Treatment Upcoming Encounters Date Type Department Care Team (Late st Contact Info) Description 02/01/2025 3:15 PM EDT Office Visit Urogynecology - [address] [phone] Carmella Clarke MD [address] [facility] [address] [place] [address] 02/21/2025 2:30 PM EDT Office Visit Endocrinology - [address] [phone] Char León PA [address] [place] [address] 03/27/2025 11:15 AM EST Office Visit Adult Medicine [place] - [address] [phone] Brenda Bethea MD [address] [place] [address] 11/13/2025 3:00 PM EDT Ancillary Procedure [facility] [address] [facility] [address] [place] [address] Scheduled Referrals Name Type Priority Associated Diagnoses Order Schedule Ambulatory referral to Pulmonology Outpatient Referral Routine Chronic cough 1 Occurrences starting 12/28/2024 until 12/28/2025 documented as of this encounter Visit Diagnoses Diagnosis Chronic cough- Primary Cough Type 2 diabetes mellitus with stage 3 chronic kidney disease, with long-term current use of insulin, unspecified whether stage 3a or 3b CKD ([facility] V24, [facility] V28) Stage 3 chronic kidney disease, unspecified whether stage 3a or 3b CKD ([facility] V24, [facility] V28) Primary hypertension Unspecified essential hypertension Lupus erythematosus, unspecified form documented in this encounter Discontinued Medications Medication Sig Discontinue Reason Start Date End Da te cefpodoxime (VANTIN) 100 mg tablet Take 1 tablet (100 mg total) by mouth at bedtime. 10/28/2024 12/28/2024 lisinopriL (PRINIVIL,ZESTRIL) 20 mg tablet Take 1 tablet (20 mg total) by mouth at bedtime. 12/12/2024 12/28/2024 documented as of this encounter Historical Medications * This list may reflect changes made after this encounter. cefpodoxime (VANTIN) 100 mg tablet Take 1 tablet (100 mg total) by mouth at bedtime. added in this encounter Additional Health Concerns Assessment Noted Time PHQ-9 Depression Total Score: 0 06/06/19 3:04 PM EST A fall risk assessment has been complete d for the patient 06/06/2024 3:04 PM EST documented as of this encounter Care Teams Photography And Prints Curator Relationship Specialty Start Date End Date Brenda Bethea MD [address] [place] [id number] PCP - General Internal Medicine 01/21/18 documented as of this encounter
--- NOTE | 2024-12-29 14:22 | A.OFFVIS_ITS ---
Vital Signs 12/29/24 14:23 Height 5 ft 7 in Weight 126 lb BMI 19.7 BP 189/76 H Blood Pressure Location Lt brachial Position Sitting Pulse 76 Pulse Source Pulse Oximeter Intake Visit Reasons: XRAY FOLLOW UP Intake Note: Pain today 2 Mold Hoister Required: No Accompanied by: Spouse Allergies amoxicillin Allergy (Verified 12/29/24 14:23) Nausea morphine (From Duramorph (PF)) Allergy (Verified 12/29/24 14:23) nausea codiene sulfate Allergy (Uncoded 06/15/24 14:51) nausea HPI Comments Details: The patient is a 74-year-old female presenting with chronic neck and upper back pain. She reports that the pain has been present for the past three weeks, primarily affecting the middle of her back and left shoulder blade, with some involvement of the neck. The pain is described as moderate, with a current intensity of two to three out of ten. The patient has a history of chronic neck pain and upper back pain associated with myofascial pain syndrome. X-rays reveal mild degenerative disc disease and small bone spurs in the mid-upper back, with more severe degeneration noted at the bra line and shoulder blades. The neck shows arthritis and disc degeneration at C4, C5, and C6, with bone spurs causing narrowing on the right side. The patient has a pacemaker and a history of diabetes mellitus, which is well- controlled. She also has a history of cholecystectomy and osteoporosis, which complicates treatment options. Additionally, she suffers from systemic lupus erythematosus, which exacerbates her arthritic joint pain during flare-ups. - Onset: Pain has been present for the past three weeks. - Quality: Moderate intensity, rated two to three out of ten. - Location: Middle of the back, left shoulder blade, bra line, and neck. - Radiation: Pain starts in the neck and radiates to the back. - Exacerbating factors: Activities such as getting up, making the bed, and other morning routines. - Relieving factors: Rest alleviates the pain. - Affect: Pain impacts daily activities, requiring rest after morning routines. - Analgesia: Current pain level is 2-3/10, but intensifies to 6-7/10 with activities. - Adverse Effects: No adverse effects from pain management reported. - Activities of Daily Living: Pain interferes with activities such as making the bed and preparing breakfast. - Aberrant Drug Related Behaviors: No aberrant behaviors reported. PRIOR: The patient is a 74-year-old female presenting with chronic neck and upper back pain with myofascial syndrome. She reports chronic neck and back pain exacerbated about two months ago without known injury, affecting her daily activities, sleep, and functioning. The pain is described as tagging, pulling, burning, sore, hurting, aching, heavy, radiating, punishing, tearing, and tightness, with a severity of 10/10 on exertion. The patient has a history of hypertension, transient ischemic attacks, fatigue, dizziness, chest pain, and heart palpitations. She has a pacemaker insertion 08/2024 and a history of arthritis and diabetes. She has been managing her pain with ibuprofen twice daily and lidocaine patches at night, with partial relief, but has not undergone any imaging or physical therapy. The patient was referred by her Administrative Appeals Tribunal Member for potential trigger point injections and has osteoporosis, for which she takes calcium and vitamin D. She has been on long-term prednisone use and has lupus, which causes swelling in her fingers. She has not had any x-rays of her neck or back and has not engaged in physical therapy since her back pain began. She reports that her upper back and neck pain worsens with activity and improves with rest. She has not had any injections in the spine or back surgery, but has history of neck TPI with good relief. - Onset: Exacerbated about two months ago without known injury - Quality: Tagging, pulling, burning, sore, hurting, aching, heavy, radiating, punishing, tearing, tightness - Severity: 10/10 on exertion - Timing: Worse during the day - Exacerbating factors: Activity, movements - Relieving factors: Rest, heat - Interference: Affects daily activities, sleep, and functioning - Affect: Pain impacts daily activities and sleep - Analgesia: Ibuprofen twice daily, lidocaine patches at night, partial relief - Adverse Effects: None reported - Activities of Daily Living: Pain affects functioning, no specific functional goals mentioned - Aberrant Drug Related Behaviors: None reported Oswestry Neck Pain Disability Score=14 [facility] Medical History Pacemaker Colitis TIA (transient ischemic attack) Breast cancer Surgical History Status post glaucoma surgery Hx of cholecystectomy Hx of left mastectomy Family History Father Heart disease Mother Lupus (systemic lupus erythematosus) Stroke Family/Other Psoriasis Other Gout Social History Household Members: Significant Other Alcohol intake: never Patient Tobacco Use Status: Never used Tobacco Current occupational status: retired Review of Systems Const Details: - Musculoskeletal: Reports chronic neck and upper back pain, exacerbated by lupus flare-ups. - Neurological: Denies numbness or tingling in the extremities. All systems reviewed & are unremarkable except as noted in HPI and below Physical Exam Vital Signs: Last Vital Signs Pulse 76 12/29/24 14:23 BP 189/76 H 12/29/24 14:23 BMI result Body Mass Index 19.7 General: Appears afebrile. Alert and oriented. Mood and affect appropriate. Follows and participates in conversation appropriately. Respiratory effort is unlabored. No cough. Able to transition from sit to stand unassisted. Ambulates with bilaterally normal heel strike and toe off. Neck Other: Patient with decreased cervical ROM in all planes/especially with lateral rotations. Reports increased pain with cervical extension and partially relieved with flexion. Spurling compression test negative. Elvey's tension test negative bilaterally. Lhermitte's test was negative. DTR intact, +2 and symmetrical. Patient demonstrated 5/5 motor strength of bilateral upper extremities. 2 + radial pulses. Significant tightness throughout cervical paraspinal, upper and lower trapezius muscles. Neck: Yes normal visual inspection, Yes no lymphadenopathy, Yes supple, No anterior neck swelling, Yes no JVD, No prominent supraclavicular fat pad and No prominent dorsocervical fat pad General: Yes no CVA tenderness Back/Spine/Pelvis Back: no CVA tenderness Cervical Spine: No collar present, No Lhermitte's sign positive, loss of normal cervical lordosis, cervical muscular tenderness, pain with cervical ROM, cervical spasm, No Cervical spine tenderness and No step off deformity Thoracic/Lumbar Spine: thoracic and lumbar spine normal to inspection, No Thoracic/lumbar spine scar(s), Lasegue's sign negative, straight leg raise negative bilaterally, kyphosis, pain with thoraco-lumbar ROM, thoraco-lumbar ROM limited, thoracic spinal tenderness (mid to lower thoracic ) and No lumbar spinal tenderness Results Reviewed Results Reviewed: XR THORACIC SPINE 12/06/24 CLINICAL INFORMATION: M54.6 - Pain in thoracic spine COMPARISON: None available. TECHNIQUE: 3 views of the thoracic spine were obtained. FINDINGS: There is a 2-lead pacemaker. There are right upper quadrant clips from cholecystectomy. Vertebral body height and alignment is preserved. There is mild to moderate diffuse disc space narrowing most advanced in the mid to lower thoracic spine. There are small anterior osteophytes in the midthoracic spine. IMPRESSION: Mild degenerative disc disease XR CERVICAL SPINE 12/06/24 CLINICAL INFORMATION: M54.2 - Cervicalgia COMPARISON: None available. TECHNIQUE: 5 views of the cervical spine were obtained. FINDINGS: C4-5 demonstrates mild disc space narrowing and subtle retrolisthesis with endplate osteophytes. Osteophytes mildly narrow the right neural foramen C5-6 demonstrates a moderate disc space narrowing and small endplate osteophytes. Osteophytes mildly narrow the right neural foramen. Disc spaces are preserved otherwise. IMPRESSION: Degenerative disc disease at C4-5 and C5-6 Assessment & Plan Assessment & Plan (1) Myofascial neck pain: Code(s): M54.2 - Cervicalgia Category: Medical (2) Cervicalgia: Code(s): M54.2 - Cervicalgia Category: Medical (3) Cervical spondylosis: Code(s): M47.812 - Spondylosis without myelopathy or radiculopathy, cervical region Category: Medical (4) Thoracic back pain: Code(s): M54.6 - Pain in thoracic spine Category: Medical (5) Thoracic spondylosis: Code(s): M47.814 - Spondylosis without myelopathy or radiculopathy, thoracic region Category: Medical Plan The plan for managing chronic neck pain includes monitoring the pain levels and considering diagnostic injections if the pain becomes more severe. Due to the presence of a pacemaker, peripheral nerve stimulation is not an option, but nerve blocks may be considered for potential radiofrequency ablation. For thoracic spondylosis and mid back pain, we will schedule Bilateral Diagnostic [id number] MBBs with local and fluoroscopy. Expectations, risks and benefits were reviewed. Patient is aware she will be contacted to schedule this procedure. All questions and concerns have been answered and patient agreed with the treatment plan. Follow up after injections and sooner as needed. Patient was informed and verbally consented to the use of an ambient scribe for clinic note documentation during this visit. Coding Level of Care Code Est Pt Level 4 (47701) Complex EM visit Add On G2211 Diagnoses Myofascial neck pain M54.2 Cervicalgia M54.2 Cervical spondylosis M47.812 Thoracic back pain M54.6 Thoracic spondylosis M47.814
[2024-12-29 14:23] VITALS: BP 189/76; PULSE 76; BMI 19.7
--- OUTSIDE RECORDS SUMMARY | 2024-12-29 14:49 | XMS_ITS | Clinical Summary ---
Author Organization [facility] Address [address] [place] [address] Care Team Providers Care Supervisor Safety Deposit Name Role Phone Brenda Bethea MD Primary Care Provider [phone] Allergies Active Allergy Reactions Criticality Noted Date [...] Comments Diabetes Brother Heart attack Father from [place] Diabetes Mother Lupus Mother Stroke Mother Vitiligo [...] age to complete this topic Care Teams Supervisor Safety Deposit Relationship Specialty Start Date End Date Brenda Bethea MD PCP - General Internal Medicine 01/21/18
--- OUTSIDE RECORDS SUMMARY | 2024-12-29 14:49 | XMS_ITS | Clinical Summary ---
Author Organization [address] Address [address] [place] [phone] Phone Care Team Providers Care Shipping Support Name Role Phone Brenda Bethea MD Primary Care Provider [phone] Allergies Active Allergy Reactions Criticality Noted Date Comments Amoxicillin Nausea And Vomiting 03/13/2024 Codeine Unknown 08/12/2024 Nitrofurantoin Monohyd/M-Cryst GI bleeding Medium 07/13/2024 Melatonin Fainting Medium 08/12/2024 PT STATES SHE BLACKED OUT AFTER TAKING MED Morphine Hallucinations 03/13/2024 Medications hydroxychloroqui ne (PlaqueniL) [...] (two) times a day. 07/15/19 25 Active NovoLOG Flexpen U-100 Insulin 100 unit/mL (3 mL) injection pen Inject three times a day per sliding scale with meals. IF 100-150: 8 units; 151-200: 10 units; 201-250: 12 units; 251-300: 14 units; 301-350: 16 units; 351-400: 18 units 15 mL 11 09/07/19 25 Active metoprolol tartrate (LOPRESSOR) 25 mg [...] at bedtime. 90 tablet 02/07/20 25 Active cefpodoxime (VANTIN) 100 mg tablet Take 1 tablet (100 mg total) by mouth at bedtime. Active losartan (Cozaar) 50 mg tablet Take 1 tablet (50 mg total) by mouth 1 (one) time each day. 90 each 1 12/29/19 25 Active lisinopriL (PRINIVIL,ZESTRI L) 20 mg tablet Take 1 tablet (20 mg total) by mouth at bedtime. 90 tablet 09/03/19 25 025 Discontinued cefpodoxime (VANTIN) 100 mg tablet Take 1 tablet (100 mg total) by mouth at bedtime. 90 tablet 1 10/29/19 25 025 Discontinued lisinopriL (PRINIVIL,ZESTRI L) 20 mg tablet Take 1 tablet (20 mg total) by mouth at bedtime. 90 tablet 1 12/13/19 25 025 Discontinued Active Problems Problem Noted Date Diagnosed Date Pacemaker 08/23/2024 Overview (08/23/2024): Intermittent CHB Heart block 08/12/2024 Syncope 07/27/2024 TIA (transient ischemic attack) 04/16/2024 Glaucoma 04/16/2024 LBBB (left bundle branch block) 03/14/2024 Primary hypertension 03/14/2024 Hypercholesterolemia 03/14/2024 Assessment & Plan (06/06/2024 4:38 PM EST): Polyp of colon 12/14/2023 GERD (gastroesophageal reflux disease) CKD (chronic kidney disease) stage 3, GFR 30-59 ml/min ([facility] V24, [facility] V28) 08/09/2020 Assessment & Plan (06/06/2024 4:38 PM EST): Depression 04/20/2017 Migraine variant 04/17/2005 Overview (04/16/2024): IMO update Osteopenia Lupus erythematosus DM (diabetes mellitus), type 2 with renal complications ([facility] V24, [facility] V28) Assessment & Plan (06/06/2024 4:38 PM EST): Diabetes mellitus type 2 wit h neurological manifestations ([facility] V24, [facility] V28) Cervical radiculopathy Acute pancreatitis Type 2 diabetes mellitus wit h cataract ([facility] V24, [facility] V28) Proteinuria Pneumonia due to COVID-19 virus Sensory peripheral neuropathy Breast cancer ([facility] V24, [facility] V28) Overview (04/16/2024): rt breast Resolved Problems Problem Noted Date Diagnosed Date Resolved Date Weakness 11/07/2024 12/28/2024 Intermittent complete heart block ([facility] V24, [facility] V28) 08/12/2024 08/16/2024 Dizziness 07/25/2024 08/03/2024 Family history of malignant neoplasm of gastrointestinal tract 12/28/2024 Overview (04/16/2024): : Negative colonoscopy 03/22/2007, no colon cancer screening needed for 10 years. Encounters Date Type Department Care Team Description 12/28/2024 4:00 PM EDT Office Visit Adult Medicine [address] [phone] Brenda Bethea MD Chronic cough (Primary Dx); Type 2 diabetes mellitus with stage 3 chronic kidney disease, with long-term current use of insulin, unspecified whether stage 3a or 3b CKD ([facility] V24, [facility] V28); Stage 3 chronic kidney disease, unspecified whether stage 3a or 3b CKD ([facility] V24, [facility] V28); Primary hypertension; Lupus erythematosus, unspecified form 12/27/2024 Telephone Adult Medicine [address] [phone] Brenda Bethea MD 12/13/2024 9:50 AM EDT Ancillary Procedure [facility] [address] [facility] [address] [place] [address] 12/05/2024 2:30 PM EDT Procedure visit Urogynecology [address] [phone] Carmella Clarke MD Recurrent UTI (Primary Dx) 11/24/2024 Telephone Adult Medicine [address] [phone] Kate Wren MD 11/18/2024 2:30 PM EDT Office Visit Endocrinology [address] [phone] Char León PA Type 2 diabetes mellitus with cataract (CMS/HCC V24, CMS/HCC V28) (Primary Dx); Primary hypertension; Hypercholesterolemia 11/17/2024 Telephone Adult Medicine [address] [phone] Brenda Bethea MD 11/09/2024 2:40 PM EDT Office Visit [facility] [address] [facility] [address] [place] [address] Alicia Whitehead NP Encounter for adjustment or management of cardiac device (Primary Dx) 11/07/2024 Telephone [facility] [address] [facility] [address] [place] [address] Landon Mcnair MD 11/07/2024 Telephone Adult Medicine [address] [phone] Brenda Bethea MD 11/01/2024 2:37 PM EDT - 11/01/2024 11:59 PM EDT Hospital Encounter Radiology Department - [address] [phone] Recurrent UTI Discharge Disposition: Home or Self Care 11/01/2024 8:30 AM EDT Ancillary Procedure [facility] Cardiology [facility] [address] [place] [phone] 10/28/2024 2:00 PM EDT Office Visit Urogynecology - [address] [phone] Carmella Clarke MD Recurrent UTI 10/26/2024 Telephone [facility] Cardiology [facility] [address] [place] [phone] Alicia Whitehead, MATHEMATICS TECHNICIAN 10/18/2024 Telephone [facility] Cardiology [facility] [address] [place] [phone] Alicia Whitehead, MATHEMATICS TECHNICIAN 10/17/2024 4:53 PM EDT - 10/17/2024 11:00 PM EDT Emergency [facility] [address] [place] [phone] Deon Arnold MD Weakness (Primary Dx) Discharge Disposition: Home or Self Care 10/17/2024 Nurse Triage Adult Medicine [address] [phone] Brenda Bethea MD 10/10/2024 Telephone Adult Medicine [address] [phone] Allison Dennison RN 10/10/2024 Billing Patient Not Present Adult Medicine [address] [phone] Brenda Bethea MD 10/07/2024 Telephone Adult Medicine [address] [phone] Brenda Bethea MD 10/06/2024 2:00 PM EDT Office Visit Adult [address] [phone] Tammy Dennison PA Dysuria (Primary Dx); Primary hypertension from Last 3 Months Immunizations Name Administration [...] mellitus type 2 wit h neurological manifestations ([facility] V24, [facility] V28) 04/01/2012 Cervical radiculopathy 07/09/2016 Osteopenia 07/09/2016 Type 2 diabetes mellitus wit h cataract ([facility] V24, [facility] V28) 07/21/2018 Malignant neoplasm of breast (female), unspecified site 1989 rt breast Pneumonia due to COVID-19 virus 04/30/2021 CKD (chronic kidney disease) stage 3, GFR 30-59 ml/min ([facility] V24, [facility] V28) 08/09/2020 Depression 04/20/2017 GERD (gastroesophageal reflux disease) 2 Migraine variant 04/17/2005 IMO upd ate Polyp of colon 12/14/2023 Hypertension Pacemaker 08/23/2024 Intermittent CHB Intermittent complete heart block ([facility] V24, [facility] V28) Family History Medical History Relation Name [...] Mass Index 21.28 12/28/2024 3:49 PM EDT Plan of Treatment Upcoming Encounters Date Type Department Care Team (Late st Contact Info) Description 02/01/2025 3:15 PM EDT Office Visit Urogynecology [address] [phone] Carmella Clarke MD 580 [facility] [address] [place] [address] 02/21/2025 2:30 PM EDT Office Visit Endocrinology [address] [phone] Char León PA [address] [place] [address] 03/27/2025 11:15 AM EST Office Visit Adult Medicine [facility] - [address] [phone] Brenda Bethea MD [address] [place] [address] 11/13/2025 3:00 PM EDT Ancillary Procedure [facility] [address] [facility] [address] [place] [phone] Health Maintenance Due Date Last Done Comments [...] this topic Medical Devices Implanted Type Area Reinforcing Bar Setter Device Identifier Shelf Expiration Date Model / Serial / Lot Lead Pcmk Tendril Sts [id number] - [id number] - [id number] Implanted:Qty: 1 on 08/15/2024 by Landon Mcnair MD at [facility] Cardiac Lead Left: Chest [facility] [id number] 04/02/2027 2088TC/52 / [id number] / Lead Pcmk Tendril Sts [id number] - [id number] - [id number] Implanted:Qty: 1 on 08/15/2024 by Landon Mcnair MD at [facility] Cardiac Lead Left: Chest [facility] 06/03/2027 2088TC/58 / [id number] / Pcmkr Assurity Mri Dr-Rf Dual - [id number] - [id number] Implanted:Qty: 1 on 08/15/2024 by Landon Mcnair MD at [facility] Cardiac Pacemaker Left: Chest [facility] 08/01/2025 [id number] / [id number] / Abbt-Adriana 2272 Assurity Mri(Tm) [id number] Implanted:08/02 (Quantity not on file) Cardiac Pacemaker [facility] 2272 ASSURITY MRI(TM) / [id number] / Abbt-Stju Assurity Mri [id number] Implanted:08/02 (Quantity not on file) Cardiac Pacemaker [facility] ASSURITY MRI 2272 / [id number] / Procedures Procedure Name Priority Date/Time Associated Diagnosis Comments CARDIAC DEVICE CHECK- REMOTE- MURJ Routine 12/13/2024 9:46 AM EDT EXTERNAL CLINICAL LAB 11/10/2024 US RETROPERITONEAL COMPLETE [...] unspecified whether stage 3a or 3b CKD ([facility] V24, [facility] V28) LIPID PANEL WITH REFLEX TO DIRECT LDL [...] Recently Relevant to Health Maintenance Results * Cardiac device check - Remote- MURJ (12/13/2024 9:46 AM EDT) Only the most recent of2 resultswithin the time period is included. Date Time Interrogation Session [id number] CV DEVICE CHECK Type Interrogation Session Remote Patient Initiated CV DEVICE CHECK Implantable Pulse Generator Reinforcing Bar Setter [place] CV DEVICE CHECK Implantable Pulse Generator Type IPG CV DEVICE CHECK Implantable Pulse Generator Model 2272 Assurity MRI(TM) CV DEVICE CHECK Implantable Pulse Generator Serial Number [id number] CV DEVICE CHECK Implantable Pulse Generator Implant Date 20240815 CV DEVICE CHECK Battery Remaining Percentage 95.50 CV DEVICE CHECK Battery Remaining Longevity 108.0 CV DEVICE CHECK Battery Voltage 2.990 CV D EVICE CHECK Battery MACHINE REBUILDER Trigger 2.600 CV DEVICE CHECK Battery Status Middle of Service CV DEVICE CHECK Derrick Statistic RA Percent Paced 9.90 CV DEVICE CHECK Derrick Statistic RV Percent Paced 99.00 CV DEVICE CHECK Atrial Tachy Statistic AT/AF [place] Percent 0.00 CV DEVICE CHECK Lead Channel Sensing Intrinsic Amplitude 0.900 CV DEVICE CHECK Lead Channel Setting Sensing Sensitivity 0.30 CV DEVICE CHECK Lead Channel Impedance Value 380 CV DEVICE CHECK Lead Channel Pacing Threshold Amplitude 1.125 CV DEVICE CHECK Lead Channel Pacing Threshold Pulse Width 0.4 CV DEVICE CHECK Lead Channel RA Pacing Threshold Date 2024-12-05 CV DEVICE CHECK Lead Channel Setting Pacing Amplitude 2.125 CV DEVICE CHECK Lead Channel Setting Pacing Pulse Width 0.4 CV DEVICE CHECK Lead Channel Sensing Intrinsic Amplitude 12.000 CV DEVICE CHECK Lead Channel Setting Sensing Sensitivity 2.00 CV DEVICE CHECK Lead Channel Impedance Value 480 CV DEVICE CHECK Lead Channel Pacing Threshold Amplitude 1.500 CV DEVICE CHECK Lead Channel Pacing Threshold Pulse Width 0.4 CV DEVICE CHECK Lead Channel RV Pacing Threshold Date 2024-12-05 CV DEVICE CHECK Lead Channel Setting Pacing Amplitude 1.750 CV DEVICE CHECK Lead Channel Setting Pacing [...] 150 CV DEVICE CHECK Date of Service 2025-02-25 CV DEVICE CHECK Anatomical Region Laterality Modality Device Interroga tion 12/05/2024 1:23 PM EDT Impressions 12/13/2024 9:45 AM EDT Normal Remote: No Events * Normal Device Function * Alerts or events: None * Battery: Battery is at 95.5%, 9.00 yrs * Sensing, impedance and thresholds reviewed * Programmed parameters reviewed * Presenting rhythm reviewed * Heart Rate Histograms reviewed * No significant changes noted Normal Remote: No Events * Normal Device Function * Alerts or events: None * Battery: Battery is at 95.5%, 9.00 yrs * Sensing, impedance and thresholds reviewed * Programmed parameters reviewed * Presenting rhythm reviewed * Heart Rate Histograms reviewed * No significant changes noted Additional Notes: Patient was to have been brought on for surface EKG to verify capture in [facility]. Patient cancelled the appointment. She sent 2 manual transmissions 12/02/24 transmission AP/ESCROW MANAGER 12/05/24 transmission /ESCROW MANAGER Narrative Procedure Note Megan Perea PA - 12/13/2024 IMPRESSION: Normal Remote: No Events * Normal Device Function * Alerts or events: None * Battery: Battery is at 95.5%, 9.00 yrs * Sensing, impedance and thresholds reviewed * Programmed parameters reviewed * Presenting rhythm reviewed * Heart Rate Histograms reviewed * No significant changes noted Normal Remote: No Events * Normal Device Function * Alerts or events: None * Battery: Battery is at 95.5%, 9.00 yrs * Sensing, impedance and thresholds reviewed * Programmed parameters reviewed * Presenting rhythm reviewed * Heart Rate Histograms reviewed * No significant changes noted Additional Notes: Patient was to have been brought on for surface EKG toverify capture in [facility]. Patient cancelled the appointment. She sent 2manual transmissions 12/02/24 transmission AP/ESCROW MANAGER 12/05/24 transmission /ESCROW MANAGER Megan THACKER CV IMPLANTABLE CARDIAC DEVICE MD OCEDURES Final Result * External clinical lab (11/10/2024) us Provider [...] Signed Date: 11/01/2024 15:26 ET Workstation ID: [id number] Transcribed By: Self Edit Transcribed Date: 11/01/2024 [...] Signed Date: 11/01/2024 15:26 ET Workstation ID: [id number] Transcribed By: Self Edit Transcribed Date: 11/01/2024 15:18 ET Carmella Clarke MD IMG US PROCEDURES Final Result * (ABNORMAL) POC Urine Auto W/O Micro (10/31/2024 8:45 AM EDT) [facility] Glucose UA POC 100(A) Negative, Trace mg/dL Bilirubin UA POC Small(A) Negative Ketones UA POC 15(A) Negative Specific Recluse UA POC >=1.030 Blood UA POC Negative Negative PH UA POC 6.0 Protein UA POC 100(A) Negative mg/dL Urobilinogen UA POC 1.0 E.U./dL 0.2 E.U./dL, 1.0 E.U./dL, 8 , Unable to interpret due to interfering substances mg/dL Nitrite UA POC Negative Negative Leukocytes UA POC Negative Negative Urine Urine specimen obtained by clean catch procedure / Unknown 10/31/2024 8:45 AM EDT Result [facility] Carmella Clarke MD POINT OF CARE TEST ENTER/EDIT OR DERABLES Final Result * ECG-Annotated (10/18/2024) Provider Onbase ECG ORDERABLES Final Result * (ABNORMAL) Urinalysis with reflex microscopic (10/17/2024 8:52 PM EDT) [facility] Specific Recluse Urine 1.020 1.003 - 1.030 LAB URINALYSIS - AUTOMATED METHOD 10/17/2024 9:37 PM EDT [facility] pH, Urine 5.5 5.0 - 8.0 pH LAB URINALYSIS - AUTOMATED METHOD 10/17/2024 9:37 PM EDT [facility] Leukocytes, Urine Moderate(A) Negative LAB URINALYSIS - AUTOMATED METHOD 10/17/2024 9:37 PM [facility] Nitrite, Urine Negative Negative LAB URINALYSIS - AUTOMATED METHOD 10/[facility]24 [facility] Protein, Urine 30(A) <=Trace mg/dL LAB URINALYSIS - AUTOMATED METHOD 10/17/2024 9:37 PM [facility] Glucose, Urine Negative Negative mg/dL LAB URINALYSIS - AUTOMATED METHOD 10/17/2024 9:37 PM [facility] Ketones, Urine 15(A) Negative mg/dL LAB URINALYSIS - AUTOMATED METHOD 10/17/2024 9:37 PM [facility] Urobilinogen , Urine 1.0 0.2 - 1.0 mg/dL LAB URINALYSIS - AUTOMATED METHOD 10/17/2024 9:37 PM [facility] Bilirubin, Urine Negative Negative LAB URINALYSIS - AUTOMATED METHOD 10/17/2024 9:37 PM [facility] Blood, Urine Negative Negative LAB URINALYSIS - AUTOMATED METHOD 10/17/2024 9:37 PM [facility] RBC, Urine 2.2 0 - 4 /HPF LAB URINALYSIS - AUTOMATED METHOD 10/17/2024 9:37 PM [facility] WBC, Urine 22.1(H) 0 - 4 /HPF LAB URINALYSIS - AUTOMATED METHOD 10/17/2024 9:37 PM [facility] Squamous Epithelial, Urine 61(H) 0 - 60 /LPF LAB URINALYSIS - AUTOMATED METHOD 10/17/2024 9:37 PM [facility] Bacteria, Urine Negative Negative /HPF LAB URINALYSIS - AUTOMATED METHOD 10/17/2024 9:37 PM [facility] Hyaline Casts, Urine 0.8 0 - 3 /LPF LAB URINALYSIS - AUTOMATED METHOD 10/17/2024 9:37 PM [facility] Urine Urine specimen obtained by clean catch procedure / Unknown Non-blood Collection / Unknown 10/17/2024 8:52 PM EDT 10/17/2024 9:22 PM EDT Deon Arnold MD LAB URINE ORDERABLES Final Result Performing Organization Address [facility] Co de Phone Number [facility] [address] [place] [address], [place] [phone] * Grijalva urine culture tube (10/17/2024 8:52 PM EDT) Only the most recent of2 resultswithin the time period is included. Extra Tube Hold for add-ons. 10/17/2024 11:01 PM EDT [facility] Comment:Auto resulted. Urine Urine specimen obtained by clean catch procedure / Unknown 10/17/2024 8:52 PM EDT 10/17/2024 9:22 PM EDT Deon Arnold MD LAB URINE ORDERABLES Final Result Performing Organization Address [facility] de Phone Number [facility] [address] [place] [address], [place] [phone] * XR Chest 2 Views (10/17/2024 8:21 PM EDT) Anatomical Region Laterality Modality Body Radiographic Heydi ging 10/18/2024 9:16 AM EDT Impressions 10/18/2024 9:18 AM EDT Impression: 1. No active pulmonary process. 2. Absent J-curve of the atrial lead of the transvenous pacemaker, a change from the 08/16/24 exam. Clinical correlation is requested. Telerad KIRSTIE ([id number]) -------- FINAL REPORT -------- Dictated By: Ruth Steiner Dictated Date: 10/18/2024 09:16 ET Assigned Physician: Ruth Steiner Reviewed and Electronically Signed By: Ruth Steiner Signed Date: 10/18/2024 09:18 ET Workstation ID: [id number] Transcribed By: Self Edit Transcribed Date: 10/18/2024 [...] the 08/16/24 exam. Clinical correlation is requested. Telepaola THACKER ([id number]) -------- FINAL REPORT -------- Dictated By: Ruth Steiner Dictated Date: 10/18/2024 09:16 ET Assigned Physician: Ruth Steiner Reviewed and Electronically Signed By: Ruth Steiner Signed Date: 10/18/2024 09:18 ET Workstation ID: [id number] Transcribed By: Self Edit Transcribed Date: 10/18/2024 09:16 ET us Deon Arnold MD IMG XR PROCEDURES Final Res ult * (ABNORMAL) CBC auto differential (10/17/2024 6:15 PM EDT) [facility] Signature WBC 9.2 4.8 - 10.8 K/mcL LAB HEMETOLOGY METHOD 10/17/2024 6:28 PM EDT [facility] RBC 4.00 3.80 - 4.80 M/mcL LAB HEMETOLOGY METHOD 10/17/2024 6:28 PM EDT [facility] Hemoglobin 11.5 11.5 - 16.0 g/dL LAB HEMETOLOGY METHOD 10/17/2024 6:28 PM EDT [facility] Hematocrit 35.6 35.0 - 47.0 % LAB HEMETOLOGY METHOD 10/17/2024 6:28 PM EDT [facility] MCV 88.3 79.0 - 98.0 FL LAB HEMETOLOGY METHOD 10/17/2024 6:28 PM [facility] MCH 28.5 27.0 - 32.0 pcg LAB HEMETOLOGY METHOD 10/17/2024 6:28 PM [facility] MCHC 32.3 32.0 - 37.0 g/dL LAB HEMETOLOGY METHOD 10/17/2024 6:28 PM [facility] RDW 14.4 11.0 - 15.0 % LAB HEMETOLOGY METHOD 10/17/2024 6:28 PM [facility] Platelets 223 130 - 400 K/mcL LAB HEMETOLOGY METHOD 10/17/2024 6:28 PM [facility] MPV 12.0(H) 7.0 - 11.0 FL LAB HEMETOLOGY METHOD 10/17/2024 6:28 PM [facility] NRBC 0.0 <1.0 % LAB HEMETOLOGY METHOD 10/17/2024 6:28 PM [facility] NRBC Absolute 0.00 <0.10 K/mcL LAB HEMETOLOGY METHOD 10/17/2024 6:28 PM [facility] Neutrophils Relative 66.9 % LAB HEMETOLOGY METHOD 10/17/2024 6:28 PM [facility] Lymphocytes Relative 21.6 % LAB HEMETOLOGY METHOD 10/17/2024 6:28 PM EDT [facility] Monocytes Relative 6.8 % LAB HEMETOLOGY METHOD 10/17/2024 6:28 PM EDT [facility] Eosinophils Relative 3.7 % LAB HEMETOLOGY METHOD 10/17/2024 6:28 PM [facility] Basophils Relative 0.6 % LAB HEMETOLOGY METHOD 10/17/2024 6:28 PM [facility] Immature Granulocytes Relative 0.4 % LAB HEMETOLOGY METHOD 10/17/2024 6:28 PM [facility] Neutrophils Absolute 6.17 1.50 - 7.00 K/mcL LAB HEMETOLOGY METHOD 10/17/2024 6:28 PM [facility] Lymphocytes Absolute 2.00 1.00 - 5.00 K/mcL LAB HEMETOLOGY METHOD 10/17/2024 6:28 PM [facility] Monocytes Absolute 0.63 0.20 - 1.00 K/mcL LAB HEMETOLOGY METHOD 10/17/2024 6:28 PM [facility] Eosinophils Absolute 0.34 0.00 - 0.50 K/mcL LAB HEMETOLOGY METHOD 10/17/2024 6:28 PM [facility] Basophils Absolute 0.06 0.00 - 0.20 K/mcL LAB HEMETOLOGY METHOD 10/17/2024 6:28 PM [facility] Immature Granulocytes Absolute 0.04(H) 0.00 - 0.03 K/mcL LAB HEMETOLOGY METHOD 10/17/2024 6:28 PM [facility] Blood Venous blood specimen / Unknown Venipuncture / Unknown 10/17/2024 6:15 PM EDT 10/17/2024 6:22 PM EDT us Deon Arnold MD LAB BLOOD ORDERABLES Final Result Performing Organization Address City/[facility]/ZIP Co de Phone Number [facility] [address] [place] [address], * Thyroid stimulating hormone (TSH) (10/17/2024 6:15 PM EDT) [facility] TSH 2.49 0.40 - 4.00 mcIU/mL LAB CHEMISTRY METHOD 10/17/2024 7:55 PM EDT [facility] Blood Venous blood specimen / Unknown Venipuncture / Unknown 10/17/2024 6:15 PM EDT 10/17/2024 6:22 PM EDT Deon Arnold MD LAB BLOOD ORDERABLES Final Result Performing Organization Address [facility] Co de Phone Number [facility] [address] [place] [address], * Magnesium (10/17/2024 6:15 PM EDT) [facility] Magnesium 2.1 1.9 - 2.6 mg/dL LAB CHEMISTRY METHOD 10/17/2024 6:50 PM EDT [facility] Comment:Hemolysis present Blood Venous blood specimen / Unknown Venipuncture / Unknown 10/17/2024 6:15 PM EDT 10/17/2024 6:22 PM EDT Deon Arnold MD LAB BLOOD ORDERABLES Final Result Performing Organization Address [facility]/ZIP Co de Phone Number [facility] [address] [place] [address], [place] [phone] * (ABNORMAL) Basic metabolic panel (10/17/2024 6:15 PM EDT) [facility] Sodium 136 133 - 145 mmol/L LAB CHEMISTRY METHOD 10/17/2024 6:50 PM EDT [facility] Potassium 4.7 3.5 - 5.5 mmol/L LAB CHEMISTRY METHOD 10/17/2024 6:50 PM EDT [facility] Comment:Hemolysis present Chloride 110 96 - 110 mmol/L LAB CHEMISTRY METHOD 10/17/2024 6:50 PM [facility] CO2 19(L) 21 - 32 mmol/L LAB CHEMISTRY METHOD 10/17/2024 6:50 PM [facility] Anion Gap 7 3 - 11 LAB CHEMISTRY METHOD 10/17/2024 6:50 PM EDT [facility] Glucose 182(H) 70 - 100 mg/dL LAB CHEMISTRY METHOD 10/17/2024 6:50 PM [facility] BUN 20 5 - 25 mg/dL LAB CHEMISTRY METHOD 10/17/2024 6:50 PM [facility] Creatinine 0.94 0.50 - 1.10 mg/dL LAB CHEMISTRY METHOD 10/17[facility]24 [facility] e[facility] 63 >=60 mL/min/1. 73m2 LAB CHEMISTRY METHOD 10/17/2024 6:50 PM [facility] Comment:Calculation based on the Chronic Kidney Disease Epidemiology Collaboration (CKD-EPI) equation refit without adjustment for race. BUN/Creatinine Ratio 21.3 LAB CHEMISTRY METHOD 10/17/2024 6:50 PM [facility] Calcium 9.0 8.5 - 10.5 mg/dL LAB CHEMISTRY METHOD 10/17/2024 6:50 PM T [facility] Blood Venous blood specimen / Unknown Venipuncture / Unknown 10/17/2024 6:15 PM EDT 10/17/2024 6:22 PM EDT us Deon Arnold MD LAB BLOOD ORDERABLES Final Result [facility] [address] [place] [address], [place] [phone] * ECG 12 lead (10/17/2024 5:43 PM EDT) Ventricular Rate ECG 76 BPM GEMUSE Atrial Rate 76 BPM GEMUSE P-R Interval 224 ms GEMUSE QRS Duration 108 ms GEMUSE Q-T Interval 380 ms GEMUSE QTc 427 ms GEMUSE P Wave Brandon 23 degrees GEMUSE R Brandon 30 degrees GEMUSE T Brandon 42 degrees GEMUSE ECG Interpretation Atrial-sensed ventricular-pa sheryl rhythm with prolonged AV conduction Abnormal ECG When compared with ECG of 08-SEP-2024 14:45, No significant change was found Confirmed by Hao FRENCH YUFENG ([id number]) on 10/17/2024 8:02:33 PM GEMUSE 10/17/2024 5:43 PM EDT 10/17/2024 8:02 PM EDT us Deon Arnold MD ECG ORDERABLES Final Resul t GEMUSE * (ABNORMAL) Urinalysis with reflex microscopic and culture (10/06/2024 2:56 PM EDT) [facility] Specific Recluse Urine 10/06/2024 7:58 PM EDT [facility] Comment:Unable to interpret due to color interference. pH, Urine 10/06/2024 7:58 PM EDT [facility] Comment:Unable to interpret due to color interference. Leukocytes, Urine 10/06/2024 7:58 PM EDT [facility] Comment:Unable to interpret due to color interference. Nitrite, Urine 10/06/2024 7:58 PM EDT [facility] Comment:Unable to interpret due to color interference. Protein, Urine 10/06/2024 7:58 PM EDT [facility] Comment:Unable to interpret due to color interference. Glucose, Urine 10/06/2024 7:58 PM EDT [facility] Comment:Unable to interpret due to color interference. Ketones, Urine 10/06/2024 7:58 PM EDT [facility] Comment:Unable to interpret due to color interference. Urobilinogen , Urine 10/06/2024 7:58 PM EDT [facility] Comment:Unable to interpret due to color interference. Bilirubin, Urine 10/06/2024 7:58 PM EDT [facility] Comment:Unable to interpret due to color interference. Blood, Urine 10/06/2024 7:58 PM EDT [facility] Comment:Unable to interpret due to color interference. RBC, Urine 4 0 - 4 /HPF 10/06/2024 7:58 PM EDT [facility] WBC, Urine >100(H) 0 - 4 /HPF 10/06/2024 7:58 PM EDT [facility] Squamous Epithelial, Urine 5 0 - 60 /LPF 10/06/2024 7:58 PM EDT [facility] Non-Squamous Epithelial, Urine 5-10 Transitional epithelial cells. /LPF 10/06/2024 7:58 PM EDT [facility] Bacteria, Urine Many(A) Negative /HPF 10/06/2024 7:58 PM EDT [facility] Hyaline Casts, Urine 0 0 - 3 /LPF 10/06/2024 7:58 PM EDT [facility] Urine Urine specimen obtained by clean catch procedure / Unknown Non-blood Collection / Unknown 10/06/2024 2:56 PM EDT 10/06/2024 2:57 PM EDT us Tammy THACKER LAB URINE ORDERABLES Final Re sult [facility] [address] [place] [address], * (ABNORMAL) Culture urine (10/06/2024 2:56 PM EDT) Pathologist [facility] Culture, Urine >100,000 CFU/mL Raoultella planticola(A) EVONNE 10/08/2024 9:54 AM EDT [facility] Comment: This is an edited [...] MICROBIOLOGY - GENERAL OR DERABLES Final Result [facility] [address] [place] [address], * (ABNORMAL) Hemoglobin A1c (09/23/2024 11:15 AM EDT) Pathologist [facility] Hemoglobin A1C 7.0(H) <6.5 % LAB CHEMISTRY METHOD 09/25/2024 2:17 PM EDT [facility] Mean Bld Glu Estim. 154 mg/dL LAB CHEMISTRY METHOD 09/25/2024 2:17 PM EDT [facility] Blood Venous blood specimen / Unknown Venipuncture / Unknown 09/23/2024 11:15 AM EDT 09/23/2024 11:15 AM EDT Brenda Bethea MD LAB BLOOD ORDERABLES Final Resul t [facility] [address] [place] [address], * Lipid panel with reflex to direct LDL (03/14/2024 5:44 AM EST) Cholesterol 147 0 - 200 mg/dL LAB CHEMISTRY METHOD 03/14/2024 7:18 AM EST [facility] Triglycerides 113 0 - 150 mg/dL LAB CHEMISTRY METHOD 03/14/2024 7:18 AM EST [facility] HDL 47 >=40 mg/dL LAB CHEMISTRY METHOD 03/14/2024 7:18 AM EST [facility] LDL Calculated 77 0 - 100 mg/dL LAB CHEMISTRY METHOD 03/14/2024 7:18 AM EST [facility] VLDL Cholesterol Bayron 22.6 mg/dL LAB CHEMISTRY METHOD 03/14/2024 7:18 AM EST [facility] Non HDL Chol. (LDL+VLDL) 100 <145 mg/dL LAB CHEMISTRY METHOD 03/14/2024 7:18 AM EST [facility] Chol/HDL Ratio 3.1 0.0 - 4.4 LAB CHEMISTRY METHOD 03/14/2024 7:18 AM EST [facility] Blood Venous blood specimen / Unknown Venipuncture / Unknown 03/14/2024 5:44 AM EST 03/14/2024 6:29 AM EST us Dwain Munoz MD LAB BLOOD ORDERABLES Final Result [facility] [address] [place] [address], [place] [phone] * MG Mammo Digital Screening w [place] Left (03/08/2024 3:05 PM EST) Anatomical Region Laterality Modality Breast Left Mammography 03/17/2024 7:24 AM EST Impressions 03/17/2024 7:39 AM EST No mammographic evidence of malignancy. BREAST DENSITY: B - There are scattered areas of fibroglandular density. BI-RADS CATEGORY: 2 - BENIGN RECOMMENDATION: Screening left mammogram is recommended in 1 year. MAMMO LOCATION: [facility], [address] [place] [address], [id number], . -------- FINAL REPORT -------- Dictated By: Cathie Rock Dictated Date: 03/17/2024 07:24 ET Assigned Physician: Cathie Rock Reviewed and Electronically Signed By: Cathie Rock Signed Date: 03/17/2024 07:39 ET Workstation ID: [id number] Transcribed By: Self Edit Transcribed Date: 03/17/2024 [...] is recommended in 1 year. MAMMO LOCATION: [facility], [address] [place] [address], [id number], . -------- FINAL REPORT -------- Dictated By: Cathie Rock Dictated Date: 03/17/2024 07:24 ET Assigned Physician: Cathie Rock Reviewed and Electronically Signed By: Cathie Rock Signed Date: 03/17/2024 07:39 ET Workstation ID: [id number] Transcribed By: Self Edit Transcribed Date: 03/17/2024 07:24 ET Brenda Bethea MD IMG BI PROCEDURES Final Result * Urine Albumin Creatinine Ratio (02/09/2024) Pathologist [facility] Urine Albumin Creatinine Ratio abstracted Result [facility] HEALTH MAINTENANCE Final Result * Diabetes Eye Exam (08/04/2023) [facility] Diabetes: Annual Retina Eye Exam abstracted Result [facility] HEALTH MAINTENANCE Final Result * Falls Risk Assessment (07/07/2023) [facility] Falls Risk Assessment abstracted Result [facility] HEALTH MAINTENANCE Final Result * Depression Screening (03/04/2023) [facility] Depression Screening abstracted Result [facility] HEALTH MAINTENANCE Final Result * Colonoscopy (01/28/2019) Pathologist [facility] Colonoscopy no interpretation , abstracted Anatomical Region Laterality Modality Other Result [facility] HEALTH MAINTENANCE Final Result * DXA BONE [...] (World Health Organization Fracture Risk Assessment) [facility] Department of Internal Medicine recommends using [...] (World Health Organization Fracture Risk Assessment) [facility] Department of Internal Medicine recommendsusing National [...] fracture risk by FRAX. Brenda Bethea MD [facility] DXA PROCEDURES Final Result * Hepatitis C Screening (11/08/2012) [facility] Hepatitis C Screening abstracted Historical Provider HEALTH MAINTENANCE Final Result from Last 3 Months or Most Recently Relevant to Health Maintenance Insurance [employer] Advance Directives Documents on File Type Date Recorded Patient Fan Blade Aligner Expl anation Health Care Decision (hx) 01/11/2014 [...] currently active code status orders. Care Teams Shipping Support Relationship Specialty Start Date End Date Brenda Bethea MD [address] [place] [address] PCP - General Internal Medicine 01/21/18
--- OUTSIDE RECORDS SUMMARY | 2024-12-29 14:49 | XMS_ITS | Encounter Summary ---
Author Organization [facility] Address [address] [place] [address] Care Team Providers Care Silk Winding Machine Operator Name Role Phone Brenda Bethea MD Primary Care Provider [phone] Reason for Visit * Reason Onset Date Comments Hospital Follow-up 12/27/2024 Encounter Details Date Type Department Care Team (Late st Contact Info) Description 12/27/2024 Telephone Adult Medicine [facility] [address] [place] [phone] Brenda Bethea MD [address] [place] [address] Social History Tobacco Use Types Packs/Day Years [...] documented in this encounter Progress Notes * Jose Breen RN - 12/27/2024 3:07 PM EDT Called and spoke with pt. Pt seen at yesterday provider believes pt has copd and should see a assistant superintendent for curriculum. Appt for tomorrow with pcp will bring notes from * Jessi Johnson - 12/27/2024 2:47 PM EDT Hospital/ER follow up appointment needed Hospital patient was treated at: [facility] Was this only an ER visit or was the patient admitted to the hospital? [facility] Date of visit if ER visit only: 12/26/24 If patient was admitted what was the date of discharge? Reason/diagnosis for visit or stay: cough, SOB When was the patient told to follow up? LOLY Was visit or stay related to an injury? If yes, what was the date of injury (DOI)? No If yes, was the injury due to: Not 3rd green party related documented in this encounter Plan of Treatment Upcoming Encounters Date Type Department Care Team (Late st Contact Info) Description 02/01/2025 3:15 PM EDT Office Visit Urogynecology - [address] [phone] Carmella Clarke MD [address] [facility] [address] [place] [address] 02/21/2025 2:30 PM EDT Office Visit Endocrinology - [address] [phone] Char León PA [address] [place] [address] 03/27/2025 11:15 AM EST Office Visit Adult Medicine South - [address] [phone] Brenda Bethea MD [address] [place] [address] 11/13/2025 3:00 PM EDT Ancillary Procedure [facility] [address] [facility] [address] [place] [phone] documented as of this encounter Visit Diagnoses Not on filedocumented in this encounter Additional Health Concerns Assessment Noted Time PHQ-9 Depression Total Score: 0 06/06/19 25 3:04 PM EST A fall risk assessment has been complete d for the patient 06/06/2024 3:04 PM EST documented as of this encounter Care Teams Silk Winding Machine Operator Relationship Specialty Start Date End Date Brenda Bethea MD [address] [place] [address] PCP - General Internal Medicine 01/21/18 documented as of this encounter
--- OUTSIDE RECORDS SUMMARY | 2024-12-29 14:50 | XMS_ITS ---
Author Organization [address] Address [address] [place] [address] Phone Care Team Providers Care Remote Mortgage Underwriter Name Role Phone Brenda Bethea MD Primary Care Provider [phone] Active Problems Problem Noted Date Diagnosed Date Pacemaker 08/23/2024 Overview (08/23/2024): Intermittent CHB Heart block 08/12/2024 Syncope 07/27/2024 TIA (transient ischemic attack) 04/16/2024 Glaucoma 04/16/2024 LBBB (left bundle branch block) 03/14/2024 Primary hypertension 03/14/2024 Hypercholesterolemia 03/14/2024 Assessment & Plan (06/06/2024 4:38 PM EST): Polyp of colon 12/14/2023 GERD (gastroesophageal reflux disease) 2 CKD (chronic kidney disease) stage 3, GFR 30-59 ml/min (CMS/HCC V24, CMS/HCC V28) 08/09/2020 Assessment & Plan (06/06/2024 4:38 PM EST): Depression 04/20/2017 Migraine variant 04/17/2005 Overview (04/16/2024): O update Osteopenia Lupus erythematosus DM (diabetes mellitus), type 2 with renal complications ([facility] V24, [facility] V28) Assessment & Plan (06/06/2024 4:38 PM EST): Diabetes mellitus type 2 wit h neurological manifestations ([facility] V24, [facility] V28) Cervical radiculopathy Acute pancreatitis Type 2 diabetes mellitus wit h cataract ([facility] V24, [facility] V28) Proteinuria Pneumonia due to COVID-19 virus Sensory peripheral neuropathy Breast cancer ([facility] V24, [facility] V28) Overview (04/16/2024): rt breast Current Oncology Plans No current plan information found. Past Plans No past plan information found. Radiation Treatments * No radiation treatments are documented for this patient in [facility]. Treatments may have been administered in another system. Lifetime Dose Tracking * Chemical Lifetime Dose Automatic Entry Manual Entr y Radiation 6 mGy 0 mGy 6 mGy Fluoro Time 2.2 minutes 0 minutes 2.2 minutes Resolved Problems Problem Noted Date Diagnosed Date Resolved Date Weakness 11/07/2024 12/28/2024 Intermittent complete heart block ([facility] V24, [facility] V28) 08/12/2024 08/16/2024 Dizziness 07/25/2024 08/03/2024 Family history of malignant neoplasm of gastrointestinal tract 12/28/2024 Overview (04/16/2024): : Negative colonoscopy 03/22/2007, no colon cancer screening needed for 10 years.
== END 2024-12-29 14:52 | disposition home or self-care (01) ==
LOC: HO.PMC 14:00
PROVIDERS: PCP Internal Medicine; Visit Provider Nurse Practitioner Family
DX: M54.2 Cervicalgia (principal); M47.812 Spondylosis without myelopathy or radiculopathy, cervical region; M54.6 Pain in thoracic spine; M47.814 Spondylosis without myelopathy or radiculopathy, thoracic region
CPT/HCPCS: 99214; G2211

== ENCOUNTER → 2024-12-29 13:59 | Outpatient (BNVA) | payer MEDICARE, SELFPAY | PROVIDERS: PCP Internal Medicine; Visit Provider Nurse Practitioner Family | DX: Z71.2 Person consulting for explanation of examination or test findings (principal); M54.2 Cervicalgia; M47.812 Spondylosis without myelopathy or radiculopathy, cervical region; M54.6 Pain in thoracic spine; M47.814 Spondylosis without myelopathy or radiculopathy, thoracic region | CPT/HCPCS: 99212 ==

== ENCOUNTER 2025-02-09 15:27 | Outpatient (REF) | payer MEDICARE, SELFPAY ==
[2025-02-09 18:10] LABS: Baso%MD 0.6 %; Eos%MD 4.0 %; Hematocrit 36.9 % (37.0-47.0); Hemoglobin 11.8 g/dl (12.0-16.0); IG%MD 0.4 %; Lymph%MD 23.3 %; Mean Corpuscular HGB Conc 32.0 g/dl (31.0-35.0); Mean Corpuscular Hemoglobin 29.5 pg (27.0-33.0); Mean Corpuscular Volume 92.3 fL (80.0-98.0); Mono%MD 8.0 %; NRBC Abs Auto 0.000 X10*3/uL (0.0-0.012); NRBC Pct Auto 0.0 /100WBC (0.0-0.2); Neut%MD 63.7 %; Platelet Count 277 X10*3/uL (160-400); Red Blood Count 4.00 X10*6/uL (4.20-5.50); White Blood Count 8.5 X10*3/uL (4.8-10.8)
[2025-02-09 18:19] LABS: Alanine Aminotransferase 17 U/L (0-31); Aspartate Amino Transferase 27 U/L (5-31); Estimated Glomerular Filt Rate 44
[2025-02-09 18:33] LABS: Atypical Lymph Absolute Manual 0.2 x10*3/uL; Atypical Lymphs Percent Manual 2 % (0-6); Basophils Abs Manual 0.1 X10*3/uL (0.0-0.2); Basophils Percent Manual 1 % (0-2); Eosinophils Absolute Manual 0.5 X10*3/uL (0.0-0.4); Eosinophils Percent Manual 6 % (0-4); Lymphocytes Absolute Manual 2.0 X10*3/uL (1.2-4.9); Lymphocytes Percent Manual 23 % (20-40); Monocytes Absolute Manual 0.5 X10*3/uL (0.1-1.2); Monocytes Percent Manual 6 % (2-11); Neutrophils Percent Manual 62 % (45-73)
[2025-02-09 18:34] LABS: Band Neutrophils Percent 0 % (3-5); Neutrophils Absolute Manual 5.3 X10*3/uL (2.0-8.3); RBC Morphology NORMAL
== END 2025-02-09 15:28 | disposition home or self-care (01) ==
LOC: HO.HKASLDS 15:27
PROVIDERS: PCP Internal Medicine; Visit Provider Internal Medicine Rheumatology
DX: M32.9 Systemic lupus erythematosus, unspecified (principal); Z79.899 Other long term (current) drug therapy
CPT/HCPCS: 36415; 82565; 84450; 84460; 85007; 85027; 85652; 86140

== ENCOUNTER 2025-02-22 13:42 | Outpatient (AMB) | payer MEDICARE, SELFPAY ==
--- OUTSIDE RECORDS SUMMARY | 2025-02-21 14:30 | XMS_ITS | Encounter Summary ---
Author Organization [facility] Address [address] [place] [address] Care Team Providers Care School Lunch Manager Name Role Phone Brenda Bethea MD Primary Care Provider [phone] Reason for Referral * Consultation (Routine) - Authorized Specialty Diagnoses / Procedures Referred By Huber khan Referred To Contact Podiatry / Orthopaedic Surgery Diagnoses Diabetes mellitus type 2 with neurological manifestations ([facility] V24, [facility] V28) Char León PA [facility] [place] [address] Phone: tel: fax: Orthopedic Surgery [facility] [address] [place] [phone] Phone: tel: fax: Referral ID Status Reason Start Date Expiration Date Visits Requested Visits Authorized [id number] Authorized Specialty Services Required 02/21/2026 1 1 Reason for Visit * Reason Comments Diabetes Mellitus 3 month Encounter Details Date Type Department Care Team ([facility] Contact Info) Description 02/21/2025 2:30 PM EDT Office Visit Endocrinology - [address] [phone] Char León PA [address] [place] [address] Diabetes mellitus type 2 with neurological manifestations (CMS/HCC V24, CMS/HCC V28) (Primary Dx); Primary hypertension; Hypercholesterolemia; Proteinuria, unspecified type Social History Tobacco Use Types Packs/Day Years Used Date Smoking Tobacco: Never Smokeless Tobacco: Never Tobacco Cessation:Counseling Given: Not Answered Alcohol Use Standard Drinks/Week Comments No 0 (1 standard drink = 0.6 oz pur e alcohol) Interpersonal Safety Answer Date Record ed Physical Abuse Unrecognized value 07/26/2024 Verbal Abuse Unrecognized value 07/26/2024 Comments No Sex and Gender Information Value Date Recorded Sex Assigned at Female 03/04/2024 2:42 PM EDT Legal Sex Female 3:42 AM EST Gender Identity Female 03/04/2024 2:42 PM EDT Sexual Orientation Straight 03/04/2024 2: 42 PM EDT documented as of this encounter Last Filed Vital Signs Vital Sign Reading Time Taken Comments Blood Pressure 157/67 02/21/2025 2:47 PM EDT Pulse 77 02/21/2025 2:47 PM EDT Temperature 35.8 C (96.4 F) 02/21/2025 2:39 PM EDT Respiratory Rate - - Oxygen Saturation - - Inhaled Oxygen Concentration - - Weight 61.2 kg (135 lb) 02/21/2025 2:39 PM EDT Height 165.1 cm (5' 5 ) 02/21/2025 2:39 PM EDT Body Mass Index 22.47 02/21/2025 2:39 PM EDT documented in this encounter Functional Status * Are you deaf or do you have serious difficulty hearing? Answer Date of Assessment Author No 07/25/2024 2:25 AM EDT Tracie Anton RN * Are you blind or do you have serious difficulty seeing, even when wearing glasses? Answer Date of Assessment Author No 07/25/2024 2:25 AM EDT Tracie Xie RN * Do you have serious difficulty [...] Refills Last Filled Start Date End Date NovoLOG Flexpen U-100 Insulin 100 unit/mL (3 mL) injection pen Inject three times a day per sliding scale with meals. IF 100-150: 10 units; 151-200: 12 units; 201-250: 14 units; 251-300: 16 units; 301-350: 18 units; 351-400: 20 units 15 mL 11 02/21/2025 documented in this encounter Progress Notes * Shadi Henderson MA - 02/21/2025 2:30 PM EDT Visit Vitals BP (!) 157/67 (BP Location: Left arm, Patient Position: Sitting, BP Cuff Size: Adult) Pulse 77 Temp 35.8 ??C (96.4 ??F) (Temporal) Ht 1.651 m (65 ) Wt 61.2 kg (135 lb) BMI 22.47 kg/m?? OB Status Postmenopausal Smoking Status Never BSA 1.67 m?? If blood pressure is greater than 140/90 was average BP completed? yes Medication list reviewed and refills pended: Yes Blood sugar: CGM Readin. Is sugar <70 or > 400? No.. Is patient on CGM? Yes; CGM data downloaded yes..If yes, please update blue sticky note with DME orpharmacy information. Are labs up to date? no Foot Exam Due: no Eye Exam Due: no * KIRSTIE Griffith - 02/21/2025 2:30 PM EDT Images from the original note were not included. CHIEF COMPLAINT: Diabetes Mellitus (3 month) IDENTIFIER: Allison Brandt is a 74 y.o. old female. HPI: Patient presents to the office for diabetes follow up. Past medical history of diabetes type 2, pancreatitis, microalbuminuria, hyperlipidemia, history of breast cancer, depression, hypertension, andacute kidney injury. Diabetes complicated by microalbuminuria and neuropathy. diabetes: Hemoglobin A1c Patient here with her Lab Results Component Value Date HGBA1C 7.0 (H) 09/23/2024 HGBA1C 7.7 (H) 06/06/2024 HGBA1C 7.9 (H) 03/13/2024 Patient due for blood work Using adrianna CGM Data above reviewed with patient. Sugars still spiking significantly after lunch and dinner Off insulin pump due to cost, she does states she would like to restart back on insulin pump. She was on OmniPod previously Diabetic regimen Toujeo 35 units NovoLog 3 times daily per scale with meals Up-to-date with eye exams. Due for foot exam Due for blood work Patient does have diabetes with renal manifestations. Kidney function normal. In the past she has had chronic kidney disease stage III. Positive proteinuria Diabetes complicated by eye manifestations: History of cataracts. Had surgery earlier in the year Diabetes complicated by neurological manifestations: History of peripheral neuropathy History of pancreatitis Blood sugar in the office 333 Hypertension: Blood pressure elevated 179/68, recheck 157/67 States she is in pain due to her lupus. I reviewed her previous blood pressures and they have been normal He is on lisinopril 20 mg and amlodipine 10 mg History of hyperlipidemia: simvastatin 10 mg. Cardiology: Follows up with Dr. Mcnair and Alicia Tapia NP on pacemaker Wt Readings from Last 3 Encounters: 02/21/25 61.2 kg (135 lb) 12/28/24 58 kg (127 lb 14.4 oz) 11/18/24 58.2 kg (128 lb 6.4 oz) ROS: GENERAL: No malaise, significant weight loss or fever HEENT: No changes in hearing or vision, nose bleeds or other nasal problems RESPIRATORY: No cough, wheezing or shortness of breath CARDIOVASCULAR: No chest pain, leg swelling or palpitations GI: No abdominal discomfort, blood in stools or black stools ENDOCRINE: See HPI MUSCULOSKELETAL: No joint pain or swelling, back pain, or muscle pain. NEURO: No persistent headache, syncope, seizures, weakness or numbness PAST MEDICAL HISTORY: Patient Active Problem List Diagnosis Date Noted Pacemaker 08/23/2024 Heart block 08/12/2024 Syncope 07/27/2024 TIA (transient ischemic attack) 04/16/2024 Glaucoma 04/16/2024 Osteopenia Lupus erythematosus DM (diabetes mellitus), type 2 with renal complications ([facility] V24, [facility] V28) Diabetes mellitus type 2 with neurological manifestations ([facility] V24, [facility] V28) Cervical radiculopathy Acute pancreatitis Type 2 diabetes mellitus with cataract ([facility] V24, [facility] V28) Proteinuria Pneumonia due to COVID-19 virus Sensory peripheral neuropathy Breast cancer ([facility] V24, [facility] V28) LBBB (left bundle branch block) 03/14/2024 Primary hypertension 03/14/2024 Hypercholesterolemia 03/14/2024 Polyp of colon 12/14/2023 GERD (gastroesophageal reflux disease) 05/27/2021 CKD (chronic kidney disease) stage 3, GFR 30-59 ml/min ([facility] V24, [facility] V28) 08/09/2020 Depression 04/20/2017 Migraine variant 04/17/2005 SOCIAL HISTORY: Social History Tobacco Use Smoking status: Never Smokeless tobacco: Never Substance Use Topics Alcohol use: No FAMILY HISTORY: Family Status Relation Name Status Aunt m 70 PGM 68 Other m cousin 35 Alive Mother Father MGM (Not Specified) Sister (Not Specified) Brother (Not Specified) MGF (Not Specified) No partnership data on file Family History Problem Relation Name Age of Onset Breast cancer Aunt m 70 MATERNAL Other (Other: lupus) Aunt m 70 Breast cancer Paternal Grandmother 68 Breast cancer Other m cousin 35 MATERNAL COUSIN Diabetes Mother lupus, stroke, hypothyroid Heart attack Father age 52 Breast cancer Maternal Grandmother Hyperthyroidism Sister Diabetes Brother Colon cancer Maternal Grandfather dx at age 50-60., diabetes ACTIVE MEDICATIONS: Outpatient Medications Marked as Taking for the 02/21/25 encounter (Office Visit) with KIRSTIE Griffith Medication Sig Dispense Refill acetaZOLAMIDE (DIAMOX) 250 mg tablet Take 1 tablet (250 mg total) by mouth 2 (two) times a day. amLODIPine (NORVASC) 10 mg tablet Take 1 tablet (10 mg total) by mouth 1 (one) time each day. 30 each 11 brimonidine (ALPHAGAN) 0.2 % ophthalmic solution Administer 1 drop into both eyes 2 (two) times a day. cefpodoxime (VANTIN) 100 mg tablet Take 1 tablet (100 mg total) by mouth at bedtime. dorzolamide-timoloL (COSOPT) 22.3-6.8 mg/mL ophthalmic solution Administer [...] time each day if needed for allergies. losartan (Cozaar) 50 mg tablet Take 1 tablet (50 mg total) by mouth 1 (one) time each day. 90 each 1 metoprolol tartrate (LOPRESSOR) 25 mg tablet Take [...] 1 (one) time each day.90 each 1 ondansetron ODT (ZOFRAN-ODT) 4 mg disintegrating tablet 1 tablet (4 mg total). pen needle, diabetic 32 gauge x 5/32 needle To inject insulin 4x daily 300 each 0 predniSONE (DELTASONE) 5 mg tablet Take 1 tablet (5 mg total) by mouth 1 (one) time each day. Tapering dose pack: 3 pills for 3 days, 2 pills for 2 days and 1 pill for one day. sertraline (ZOLOFT) 100 mg tablet Take 1.5 tablets (150 mg total) by mouth 1 (one) time each day. simvastatin (ZOCOR) 20 mg tablet Take 1 tablet (20 mg total) by mouth at bedtime. 90 tablet 0 sulfaSALAzine (AZULFIDINE EN-TABS) 500 mg EC tablet Take 1 tablet (500 mg total) by mouth 2 (two) times a day. ALLERGIES: Macrobid [nitrofurantoin monohyd/m-cryst], Melatonin, Amoxicillin, Codeine, and Morphine PHYSICAL EXAM: Blood pressure (!) 157/67, pulse 77, temperature 35.8 ??C (96.4 ??F), temperature source Temporal, height 1.651 m (65 ), weight 61.2 kg (135 lb). Body mass index is 22.47 kg/m??. BMI is greater than 25.0 (above the normal range) - see Plan APPEARANCE: Alert and in no acute distress NEURO: Awake, alert and oriented x 3 LABS: Lab Results Component Value Date HGBA1C 7.0 (H) 09/23/2024 CHOL 147 03/14/2024 LDL 94 02/09/2024 HDL 47 03/14/2024 TRIG 113 03/14/2024 Lab Results Component Value Date GLUCOSE 182 (H) 10/17/2024 Lab Results Component Value Date TSH 2.49 10/17/2024 IMAGING: IMPRESSION: 1. Diabetes mellitus type 2 with neurological manifestations (CMS/HCC V24, CMS/HCC V28) 2. Primary hypertension 3. Hypercholesterolemia 4. Proteinuria, unspecified type PLAN: Patient presents to the office for diabetes follow-up 1. Diabetes CGM data reviewed Due for blood work Patient would like to get back on insulin pump. In the past we tried to restart her but it was too costly Discussed patient calling her insurance to check for coverage first Continue with lifestyle modification We can increase her short acting insulin by 2 units Follow-up in October when I return from leave 2. Hypertension: Blood pressure elevated. Blood pressures in the past have been normal. Has follow-up next month with primary care 3. Hyperlipidemia: Continue on simvastatin. Labs reviewed 4. Proteinuria: Labs ordered Myself and my colleagues maintained a long-term, longitudinal relationship with this patient, overseeing care of chronic conditions including diabetes, hyperlipidemia and hypertension. This care relationship has significantly influence my decision making and treatment plans during today's encounter. All questions and concerns were addressed. Patient understands and agrees with this treatment plan.Patient was reminded to call or return to the office if any new or existing problems arise This document was made using voice recognition software. It may contain some errors in grammar or syntax Medication and lab orders: Diabetes mellitus type 2 with neurological manifestations (CMS/HCC V24, CMS/HCC V28) (Primary) Primary hypertension Hypercholesterolemia Proteinuria, unspecified type KIRSTIE Griffith on 02/21/2025 at 2:52 PM EDT documented in this encounter Plan of Treatment Upcoming Encounters Date Type Department Care Team (Late st Contact Info) Description 03/27/2025 11:15 AM EST Office Visit Adult Medicine [address] [phone] Brenda Bethea MD [address] [place] [address] 10/10/2025 3:30 PM EDT Office Visit Endocrinology [address] [phone] Char León PA [address] [place] [address] 11/13/2025 3:00 PM EDT Ancillary Procedure [facility] [address] [facility] [address] [place] [address] Scheduled Orders Name Type Priority Associated Diagnoses Orde r Schedule Hemoglobin A1c Lab Routine Diabetes mellitus type 2 with neurological manifestations ([facility] V24, [facility] V28) 1 Occurrences starting 02/21/2025 until 02/21/2026 Microalbumin creatinine urine ratio Lab Routine Diabetes mellitus type 2 with neurological manifestations ([facility] V24, [facility] V28) 1 Occurrences starting 02/21/2025 until 02/21/2026 Scheduled Referrals Name Type Priority Associated Diagnoses Orde r Schedule Ambulatory referral to Podiatry Outpatient Referral Routine Diabetes mellitus type 2 with neurological manifestations ([facility] V24, [facility] V28) 1 Occurrences starting 02/21/2025 until 02/21/2026 documented as of this encounter Visit Diagnoses Diagnosis Diabetes mellitus type 2 with neurological manifestations ([facility] V24, [facility] V28)- Primary Primary hypertension Unspecified essential hypertension Hypercholesterolemia Pure hypercholesterolemia Proteinuria, unspecified type documented in this encounter Discontinued Medications Medication Sig Discontinue Reason Start Date End Da te NovoLOG Flexpen U-100 Insulin 100 unit/mL (3 mL) injection pen Inject three times a day per sliding scale with meals. IF 100-150: 8 units; 151-200: 10 units; 201-250: 12 units; 251-300: 14 units; 301-350: 16 units; 351-400: 18 units Reorder 09/06/2024 02/21/2025 documented as of this encounter Historical Medications * This list may reflect changes made after this encounter. ondansetron ODT (ZOFRAN-ODT) 4 mg disintegrating tablet 1 tablet (4 mg total). 02/12/2025 added in this encounter Additional Health Concerns Assessment Noted Time PHQ-9 Depression Total Score: 0 06/06/19 25 3:04 PM EST A fall risk assessment has been complete d for the patient 06/06/2024 3:04 PM EST documented as of this encounter Care Teams School Lunch Manager Relationship Specialty Start Date End Date Brenda Bethea MD [address] [place] [address] PCP - General Internal Medicine 01/21/18 documented as of this encounter
--- NOTE | 2025-02-22 13:45 | MHC.OFFVIS ---
Vital Signs 02/22/25 13:46 Height 5 ft 7 in Weight 134 lb 4.184 oz BMI 21.0 BP 150/64 H Blood Pressure Location Lt brachial Position Sitting Pulse 78 Pulse Source Pulse Oximeter Pulse Oximetry (%) 99 Oxygen Delivery Method Room Air Intake Visit Reasons: 3 Months Intake Note: Patient presents for Lupus follow up. Accompanied by: Self / Same As Patient Allergies amoxicillin Allergy (Verified 02/22/25 13:46) Nausea morphine (From Duramorph (PF)) Allergy (Verified 02/22/25 13:46) nausea codiene sulfate Allergy (Uncoded 06/15/24 14:51) nausea PFSH Medical History Pacemaker Colitis TIA (transient ischemic attack) Breast cancer Surgical History Status post glaucoma surgery Hx of cholecystectomy Hx of left mastectomy Family History Father Heart disease Mother Lupus (systemic lupus erythematosus) Stroke Family/Other Psoriasis Other Gout Social History Household Members: Significant Other Alcohol intake: never Patient Tobacco Use Status: Never used Tobacco Current occupational status: retired Physical Exam Vital Signs: Last Vital Signs Pulse 78 02/22/25 13:46 BP 150/64 H 02/22/25 13:46 Pulse Ox 99 02/22/25 13:46 Oxygen Delivery Method Room Air 02/22/25 13:46 BMI result Body Mass Index 21.0 Const Other: General: Comfortable CVS: RRR Respiratory: clear to auscultation bilaterally. Good respiratory effort Skin: No lesions seen MSK: She has tenderness and synovitis of right 3rd PIP. Bilateral shoulder abduction 160 degrees with good internal rotation. External rotation of bilateral shoulders are limited. She has tenderness of cervical spinous process and paraspinal muscles. Tenderness on palpation of rhomboids. Bilateral hip rotation and full flexion of knees are limited. She has tender bilateral ankles with soft tissue swelling. No tenderness of MTPs. Assessment & Plan Assessment & Plan (1) SLE (systemic lupus erythematosus related syndrome): Comment: Inflammatory arthritis is better controlled on current regimen after another prednisone course. She is requiring multiple prednisone courses. She has not had a UTI as she remains on prophylaxis prescribed by her neurologist. If inflammatory arthritis remains uncontrolled next visit, I will need to consider rituximab, which is a indicated to treat inflammatory arthritis after failed conventional DMARDs. She has history of cataracts requiring repair, recurrent UTIs and has experienced weight gain due to immunocompromised state with glucocorticoids treatment. Rheumatology history: [place] [address] Hollis after an episode of pleurisy in associated arm pain. On hydroxychloroquine 300 mg alternating with 400 mg. Decrease to 300 mg daily 03/2018 weight based dosing. RIGO 1:80. She was clinically quiescent for decades. HCQ was then discontinued 03/2019. After discontinuing HCQ inflammatory arthritis became uncontrolled 05/2020. She did not tolerate methotrexate po due to abdominal pain. Subcutaneous methotrexate caused rash and abdominal pain. Leflunomide 11/2020-09/2021 ineffective with combination hydroxychloroquine and Benlysta. She also had recurrent cellulitis on regimen. Failed treatment with hydroxychloroquine and Benlysta. SSZ 07/2024-. Hx recurrent UTIs on ppx abx. Code(s): M32.9 - Systemic lupus erythematosus, unspecified Category: Medical Plan: I have ordered labs for disease monitoring. Recent labs reviewed. CCP and RF ordered with next set of labs Increase Sulfasalazine 1500 mg twice a day Continue hydroxychloroquine 300 mg daily. 07/2024 letter from dominatrix - patient cleared to continue HCQ. Return to clinic in 3 months (2) Muscle strain of left scapular region: Comment: Due to myofascial strain. Discussed conservative management. She had a visit with paint stockman in December to consider fluoroscopic guided cortisone injection. She reports that she received communication that she can not have cortisone injections in her spine due to pacemaker. I have asked her to clarify if this is true with pain management team again. Code(s): S46.912A - Strain of unspecified muscle, fascia and tendon at shoulder and upper arm level, left arm, initial encounter Category: Medical Qualifiers: Encounter type: initial encounter Qualified Code(s): S46.912A - Strain of unspecified muscle, fascia and tendon at shoulder and upper arm level, left arm, initial encounter Plan: Continue to apply heat to back Continue to use lidocaine topical prn pain PT ordered for manual, myofascial release, TENs unit trial Pain management referral for trigger point injections (3) Muscle strain of right scapular region: Code(s): S46.911A - Strain of unspecified muscle, fascia and tendon at shoulder and upper arm level, right arm, initial encounter Category: Medical Qualifiers: Encounter type: initial encounter Qualified Code(s): S46.911A - Strain of unspecified muscle, fascia and tendon at shoulder and upper arm level, right arm, initial encounter Plan: See above (4) Myofascial neck pain: Comment: Is the main component of neck pain. She has background cervical spondylosis. Code(s): M54.2 - Cervicalgia Category: Medical Plan: Continue to apply heat to back Continue to use lidocaine topical prn pain PT ordered for manual, myofascial release, TENs unit trial Start muscle relaxer cyclobenzaprine 5 mg q.h.s. PRN. We discussed side effects of muscle relaxer use including dependence with long-term use. She will use it short term Pain management follow up with consideration of trigger point injection (5) Other intermediate (current) drug therapy: Code(s): Z79.899 - Other terminal superintendent (current) drug therapy Category: Medical Plan: See above (6) Osteoporosis: Comment: Improved t score of left femoral neck on DXA 10/2023 compared to November 2021 from -2.8 to- 2.0 with high FRAX score: Major osteoporotic fracture risk 22% and hip fracture risk 7%. She was on alendronate from April 22, 2023 to July 22, 2023, which was discontinued due to exacerbation of GERD symptoms. Code(s): M81.0 - Age-related osteoporosis without current pathological fracture Category: Medical Qualifiers: Osteoporosis type: age-related Presence of current pathological fracture: without current pathological fracture Qualified Code(s): M81.0 - Age-related osteoporosis without current pathological fracture Plan: Calcium, vitamin-D, albumin ordered I will discuss treatment next visit. Reclast is indicated. DXA due 10/2025 Return to clinic in 3 months Orders: Orders UA ClnCatch+Micro w/rflx Cult 02/22/25 M32.9 - Systemic lupus erythematosus, unspecified Complement C4 02/22/25 M32.9 - Systemic lupus erythematosus, unspecified PT Evaluation and Treatment 02/22/25 M54.2 - Cervicalgia, S46.911A - Strain of unspecified muscle, fascia and tendon at shoulder and upper arm level, right arm, initial encounter, S46.912A - Strain of unspecified muscle, fascia and tendon at shoulder and upper arm level, left arm, initial encounter Rheumatoid Factor Today M1.90 - Unspecified osteoarthritis, unspecified site Anti DNA DS Antibody 02/22/25 M32.9 - Systemic lupus erythematosus, unspecified Complement C3 02/22/25 M32.9 - Systemic lupus erythematosus, unspecified Cyclic Citrullinated Peptide Today M1990 - Unspecified osteoarthritis, unspecified site Medications: New cyclobenzaprine 5 mg PO BEDTIME PRN 30 tabs 0RF muscle spasm ergocalciferol (vitamin D2) 1,250 mcg PO QWEEK 12 caps 0RF 12 weeks Changed From hydroxychloroquine Take 1.5 tablets daily 300 mg (1.5 x 200 mg) PO DAILY 45 tabs 2RF To hydroxychloroquine 300 mg (1.5 x 200 mg) PO DAILY 135 tabs 3RF 90 days From sulfasalazine Labs due in 4 weeks. Dispense this prescription. Disregard previous prescription. 1 g (2 x 500 mg) PO BID 90 days 360 tabs 0RF To sulfasalazine 1.5 grams (3 x 500 mg) PO BID 540 tabs 0RF 90 days Coding Level of Care Code Est Pt Level 4 (51122) Complex EM visit Add On G2211 Diagnoses SLE (systemic lupus erythematosus related syndrome) M32.9 Muscle strain of left scapular region, initial encounter S46.912A Encounter type: initial encounter Muscle strain of right scapular region, initial encounter S46.911A Encounter type: initial encounter Myofascial neck pain M54.2 Other terminal superintendent (current) drug therapy Z79.899 Age-related osteoporosis without current pathological fracture M81.0 Osteoporosis type: age-related Presence of current pathological fracture: without current pathological fracture
[2025-02-22 13:46] VITALS: BP 150/64; PULSE 78; O2SAT 99; BMI 21.0
--- OUTSIDE RECORDS SUMMARY | 2025-02-22 19:29 | XMS_ITS | Clinical Summary ---
Author Organization [address] Address [address] [place] [phone] Phone Care Team Providers Care Tray Server Name Role Phone Brenda Bethea MD Primary Care Provider [phone] Allergies Active Allergy Reactions Criticality Noted Date Comments Amoxicillin Nausea And Vomiting 03/13/2024 Codeine Unknown 08/12/2024 Nitrofurantoin Monohyd/M-Cryst GI bleeding Medium 07/13/2024 Melatonin Fainting Medium 08/12/2024 PT STATES SHE BLACKED OUT AFTER TAKING MED Morphine Hallucinations 03/13/2024 Medications hydroxychloroquine (PlaqueniL) 200 mg tablet Take 1.5 tablets (300 mg total) by mouth 1 (one) time each day. Active sertraline (ZOLOFT) 100 mg tablet Take 1.5 tablets (150 mg total) by mouth 1 (one) time each day. 12/14/19 24 Active brimonidine (ALPHAGAN) 0.2 % ophthalmic solution Administer 1 drop into both eyes 2 (two) times a day. Active dorzolamide-timolo L (COSOPT) 22.3-6.8 mg/mL ophthalmic solution [...] (two) times a day. 07/15/19 25 Active metoprolol tartrate (LOPRESSOR) 25 mg [...] total) by mouth at bedtime. 90 tablet 10/06/20 25 Active cefpodoxime (VANTIN) 100 mg tablet Take 1 tablet (100 mg total) by mouth at bedtime. Active losartan (Cozaar) 50 mg tablet Take 1 tablet (50 mg total) by mouth 1 (one) time each day. 90 each 1 12/29/19 25 Active ondansetron ODT (ZOFRAN-ODT) 4 mg disintegrating tablet 1 tablet (4 mg total). 02/13/20 25 Active NovoLOG Flexpen U-100 Insulin 100 unit/mL (3 mL) injection pen Inject three times a day per sliding scale with meals. IF 100-150: 10 units; 151-200: 12 units; 201-250: 14 units; 251-300: 16 units; 301-350: 18 units; 351-400: 20 units 15 mL 11 02/22/20 25 Active NovoLOG Flexpen U-100 Insulin 100 unit/mL (3 mL) injection pen Inject three times a day per sliding scale with meals. IF 100-150: 8 units; 151-200: 10 units; 201-250: 12 units; 251-300: 14 units; 301-350: 16 units; 351-400: 18 units 15 mL 11 09/07/19 25 025 Discontin ued(Reord er) Active Problems Problem Noted Date Diagnosed Date Pacemaker 08/23/2024 Overview (08/23/2024): Intermittent CHB Heart block 08/12/2024 Syncope 07/27/2024 TIA (transient ischemic attack) 04/16/2024 Glaucoma 04/16/2024 LBBB (left bundle branch block) 03/14/2024 Primary hypertension 03/14/2024 Hypercholesterolemia 03/14/2024 Assessment & Plan (06/06/2024 4:38 PM EST): Polyp of colon 12/14/2023 GERD (gastroesophageal reflux disease) 2 CKD (chronic kidney disease) stage 3, GFR 30-59 ml/min ([facility] V24, [facility] V28) 08/09/2020 Assessment & Plan (06/06/2024 4:38 PM EST): Depression 04/20/2017 Migraine variant 04/17/2005 Overview (04/16/2024): IMO update Osteopenia Lupus erythematosus DM (diabetes mellitus), type 2 with renal complications ([facility] V24, CMS/HCC V28) Assessment & Plan (06/06/2024 4:38 PM EST): Diabetes mellitus type 2 wit h neurological manifestations (CMS/HCC V24, CMS/HCC V28) Cervical radiculopathy Acute pancreatitis Type 2 diabetes mellitus wit h cataract (CMS/HCC V24, CMS/HCC V28) Proteinuria Pneumonia due to COVID-19 virus Sensory peripheral neuropathy Breast cancer (CMS/HCC V24, CMS/HCC V28) Overview (04/16/2024): rt breast Resolved Problems Problem Noted Date Diagnosed Date Resolved Date Weakness 11/07/2024 12/28/2024 Intermittent complete heart block ([facility] V24, [facility] V28) 08/12/2024 08/16/2024 Dizziness 07/25/2024 08/03/2024 Family history of malignant neoplasm of gastrointestinal tract 12/28/2024 Overview (04/16/2024): : Negative colonoscopy 03/22/2007, no colon cancer screening needed for 10 years. Encounters Date Type Department Care Team Description 02/21/2025 2:30 PM EDT Office Visit Endocrinology - [address] [phone] Char León PA Diabetes mellitus type 2 with neurological manifestations ([facility] V24, [facility] V28) (Primary Dx); Primary hypertension; Hypercholesterolemia; Proteinuria, unspecified type 02/15/2025 Telephone Endocrinology - [address] [phone] Char León PA 02/01/2025 3:15 PM EDT Office Visit Urogynecology - [address] [phone] Carmella Clarke MD Recurrent UTI (Primary Dx) 01/17/2025 Telephone Endocrinology [address] [phone] Char León PA 12/28/2024 4:00 PM EDT Office Visit Adult [address] [phone] Brenda Bethea MD Chronic cough (Primary Dx); Type 2 diabetes mellitus with stage 3 chronic kidney disease, with long-term current use of insulin, unspecified whether stage 3a or 3b CKD (CMS/HCC V24, CMS/HCC V28); Stage 3 chronic kidney disease, unspecified whether stage 3a or 3b CKD (CMS/HCC V24, CMS/HCC V28); Primary hypertension; Lupus erythematosus, unspecified form 12/27/2024 Telephone Adult [address] [phone] Brenda Bethea MD 12/13/2024 9:50 AM EDT Ancillary Procedure [facility] [address] [facility] [address] [place] [address] 12/05/2024 2:30 PM EDT Procedure visit Urogynecology - [address] [phone] Carmella Clarke MD Recurrent UTI (Primary Dx) 11/24/2024 Telephone Adult [address] [phone] Kate Wren MA from Last 3 Months Immunizations Immunization Administration Dates Next Due H1N1 Inj Preservative [...] mellitus type 2 wit h neurological manifestations ([facility] V24, [facility] V28) 04/01/2012 Cervical radiculopathy 07/09/2016 Osteopenia 07/09/2016 Type 2 diabetes mellitus wit h cataract ([facility] V24, [facility] V28) 07/21/2018 Malignant neoplasm of breast (female), unspecified site 1989 rt breast Pneumonia due to COVID-19 virus 04/30/2021 CKD (chronic kidney disease) stage 3, GFR 30-59 ml/min ([facility] V24, [facility] V28) 08/09/2020 Depression 04/20/2017 GERD (gastroesophageal reflux disease) 2 Migraine variant 04/17/2005 IMO upd ate Polyp of colon 12/14/2023 Hypertension Pacemaker 08/23/2024 Intermittent CHB Intermittent complete heart block (CMS/HCC V24, CMS/HCC V28) Family History Medical History Relation Name [...] F) 02/21/2025 2:39 PM EDT Respiratory Rate 14 12/28/2024 3:49 PM EDT Oxygen Saturation 97% 12/28/2024 3:49 PM EDT Inhaled Oxygen Concentration - - Weight 61.2 kg (135 lb) 02/21/2025 2:39 PM EDT Height 165.1 cm (5' 5 ) 02/21/2025 2:39 PM EDT Body Mass Index 22.47 02/21/2025 2:39 PM EDT Plan of Treatment Upcoming Encounters Date Type Department Care Team (Late st Contact Info) Description 03/27/2025 11:15 AM EST Office Visit Adult [facility] - [place] [address] [place], [place] [phone] Brenda Bethea MD [address] [place], [place] 10/10/2025 3:30 PM EDT Office Visit Endocrinology - [address] [phone] Char León PA [address] [place] [address] 11/13/2025 3:00 PM EDT Ancillary Procedure [facility] [address] [facility] [address] [place] [phone] Health Maintenance Due Date Last Done Comments [...] history exists Depression Screening Completed 06/06/2024, 03/04/20 23 HIB Vaccines Aged Out No longer eligi [...] this topic Medical Devices Implanted Type Area Photolithographic Stripper Device Identifier Shelf Expiration Date Model / Serial / Lot Lead Pcmk Tendril Sts [id number] - [id number] - [id number] Implanted:Qty: 1 on 08/15/2024 by Landon Mcnair MD at [facility] Cardiac Lead Left: Chest [facility] [id number] 04/02/2027 2088TC/52 / [id number] / Lead Pcmk Tendril Sts [id number] - [id number] - [id number] Implanted:Qty: 1 on 08/15/2024 by Landon Mcnair MD at [facility] Cardiac Lead Left: Chest [facility] 06/03/2027 2088TC/58 / [id number] / Pcmkr Assurity Mri Dr-Rf Dual - [id number] - [id number] Implanted:Qty: 1 on 08/15/2024 by Landon Mcnair MD at [facility] Cardiac Pacemaker Left: Chest [facility] 08/01/2025 [id number] / [id number] / Abbt-Stju 2272 Assurity Mri(Tm) [id number] Implanted:08/02 (Quantity not on file) Cardiac Pacemaker [facility] 2272 ASSURITY MRI(TM) / [id number] / Abbt-Stju Assurity Mri [id number] Implanted:08/02 (Quantity not on file) Cardiac Pacemaker [facility] ASS[employer]ITY MRI 2272 / [id number] / Procedures Procedure Name Priority Date/Time Associated Diagnosis Comments CARDIAC DEVICE CHECK- REMOTE- MURJ Routine 12/13/2024 9:46 AM EDT BASIC METABOLIC PANEL STAT 10/17/2024 6:15 PM EDT HEMOGLOBIN A1C Routine 09/23/2024 11:15 AM EDT Type 2 diabetes mellitus with stage 3 chronic kidney disease, with long-term current use of insulin, unspecified whether stage 3a or 3b CKD (CMS/HCC V24, CMS/HCC V28) LIPID PANEL WITH REFLEX TO DIRECT [...] - Remote- MURJ (12/13/2024 9:46 AM EDT) Date Time Interrogation Session [id number] CV DEVICE CHECK Type Interrogation Session Remote Patient Initiated CV DEVICE CHECK Implantable Pulse Generator Photolithographic Stripper [employer] CV DEVICE CHECK Implantable Pulse Generator Type IPG CV DEVICE CHECK Implantable Pulse Generator Model 2272 Assurity MRI(TM) CV DEVICE CHECK Implantable Pulse Generator Serial Number [id number] CV DEVICE CHECK Implantable Pulse Generator Implant Date 20240815 CV DEVICE CHECK Battery Remaining Percentage 95.50 CV DEVICE CHECK Battery Remaining Longevity 108.0 CV DEVICE CHECK Battery Voltage 2.990 CV D EVICE CHECK Battery FITTER WELDER Trigger 2.600 CV DEVICE CHECK Battery Status Middle of Service CV DEVICE CHECK Derrick Statistic RA Percent Paced 9.90 CV DEVICE CHECK Derrick Statistic RV Percent Paced 99.00 CV DEVICE CHECK Atrial Tachy Statistic AT/AF [place] Percent 0.00 CV DEVICE CHECK Lead Channel [...] She sent 2 manual transmissions 12/02/24 transmission AP/OPENER 12/05/24 transmission /OPENER Narrative Procedure Note Megan Perea PA - [...] appointment. She sent 2manual transmissions 12/02/24 transmission AP/OPENER 12/05/24 transmission /OPENER us Megan THACKER CV IMPLANTABLE CARDIAC DEVICE [place] OCEDURES Final Result * (ABNORMAL) Basic metabolic panel (10/17/2024 6:15 PM EDT) Sodium 136 133 - 145 mmol/L LAB CHEMISTRY METHOD 10/17/2024 6:50 PM [facility] Potassium 4.7 3.5 - 5.5 mmol/L LAB CHEMISTRY METHOD 10/17/2024 6:50 PM [facility] Comment:Hemolysis present Chloride 110 96 - 110 mmol/L LAB CHEMISTRY METHOD 10/17/2024 6:50 PM [facility] CO2 19(L) 21 - 32 mmol/L LAB CHEMISTRY METHOD 10/17/2024 6:50 PM [facility] Anion Gap 7 3 - 11 LAB CHEMISTRY METHOD 10/17/2024 6:50 PM [facility] Glucose 182(H) 70 - 100 mg/dL LAB CHEMISTRY METHOD 10/17/2024 6:50 PM [facility] BUN 20 5 - 25 mg/dL LAB CHEMISTRY METHOD 10/17/2024 6:50 PM [facility] Creatinine 0.94 0.50 - 1.10 mg/dL LAB CHEMISTRY METHOD 10/17/2024 6:50 PM [facility] eGFR 63 >=60 mL/min/1. 73m2 LAB CHEMISTRY METHOD 10/17/2024 6:50 PM EDT [facility] Comment:Calculation based on the Chronic Kidney Disease Epidemiology Collaboration (CKD-EPI) equation refit without adjustment for race. BUN/Creatinine Ratio 21.3 LAB CHEMISTRY METHOD 10/17/2024 6:50 PM EDT [facility] Calcium 9.0 8.5 - 10.5 mg/dL LAB CHEMISTRY METHOD 10/17/2024 6:50 PM EDT [facility] Blood Venous blood specimen / Unknown Venipuncture / Unknown 10/17/2024 6:15 PM EDT 10/17/2024 6:22 PM EDT Deon Arnold MD LAB BLOOD ORDERABLES Final Result Performing Organization Address [facility]/ZIP Co de Phone Number [facility] [address] [place] [address], [place] [phone] * (ABNORMAL) Hemoglobin A1c (09/23/2024 11:15 AM EDT) Hemoglobin A1C 7.0(H) <6.5 % LAB CHEMISTRY METHOD 09/25/2024 2:17 PM EDT [facility] Mean Bld Glu Estim. 154 mg/dL LAB CHEMISTRY METHOD 09/25/2024 2:17 PM EDT [facility] Blood Venous blood specimen / Unknown Venipuncture / Unknown 09/23/2024 11:15 AM EDT 09/23/2024 11:15 AM EDT Brenda Bethea MD LAB BLOOD ORDERABLES Final Resul t [facility] [address] [place] [address], [place] [phone] * Lipid panel with reflex to direct LDL (03/14/2024 5:44 AM EST) Cholesterol 147 0 - 200 mg/dL LAB CHEMISTRY METHOD 03/14/2024 7:[address] [facility] Triglycerides 113 0 - 150 mg/dL LAB CHEMISTRY METHOD 03/14/2024 7:[address] [facility] HDL 47 >=40 mg/dL LAB CHEMISTRY METHOD 03/14/2024 7:[address] [facility] LDL Calculated 77 0 - 100 mg/dL LAB CHEMISTRY METHOD 03/14/2024 7:18 AM EST [facility] VLDL Cholesterol Bayron 22.6 [...] Munoz MD LAB BLOOD ORDERABLES Final Result [facility] [address] [place] [address], * MG Mammo Digital Screening w [place] Left (03/08/2024 3:05 PM EST) Anatomical Region Laterality Modality Breast Left Mammography 03/17/2024 7:24 AM EST Impressions 03/17/2024 7:39 AM EST No mammographic evidence of malignancy. BREAST DENSITY: B - There are scattered areas of fibroglandular density. BI-RADS CATEGORY: 2 - BENIGN RECOMMENDATION: Screening left mammogram is recommended in 1 year. MAMMO LOCATION: [facility], [address] [place] [address], [phone], . -------- FINAL REPORT -------- Dictated By: Cathie Rock Dictated Date: 03/17/2024 07:24 ET Assigned Physician: Cathie Rock Reviewed and Electronically Signed By: Cathie Rock Signed Date: 03/17/2024 07:39 ET Workstation ID: [id number] Transcribed By: Self Edit Transcribed Date: 03/17/2024 [...] is recommended in 1 year. MAMMO LOCATION: [facility], [address] [place] [address], [phone], . -------- FINAL REPORT -------- Dictated By: Cathie Rock Dictated Date: 03/17/2024 07:24 ET Assigned Physician: Cathie Rock Reviewed and Electronically Signed By: Cathie Rock Signed Date: 03/17/2024 07:39 ET Workstation ID: [id number] Transcribed By: Self Edit Transcribed Date: 03/17/2024 07:24 ET Brenda Bethea MD IMG BI PROCEDURES Final Result * Urine Albumin Creatinine Ratio (02/09/2024) [facility] Urine Albumin Creatinine Ratio abstracted Result [facility] Provider [place] HEALTH MAINTENANCE Final Result * Diabetes Eye Exam (08/04/2023) [facility] Diabetes: Annual Retina Eye Exam abstracted Result [facility] HEALTH MAINTENANCE Final Result * Falls Risk Assessment (07/07/2023) [facility] Falls Risk Assessment abstracted Result [facility] HEALTH MAINTENANCE Final Result * Depression Screening (03/04/2023) [facility] Depression Screening abstracted Result [facility] HEALTH MAINTENANCE Final Result * Colonoscopy (01/28/2019) [facility] Colonoscopy no interpretation , abstracted Anatomical Region Laterality Modality Other Result [facility] Provider [place] HEALTH MAINTENANCE Final Result * DXA BONE [...] (World Health Organization Fracture Risk Assessment) [facility] Department of Internal Medicine recommends using [...] (World Health Organization Fracture Risk Assessment) [facility] Department of Internal Medicine recommendsusing National [...] fracture risk by FRAX. 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 Care Teams Tray Server Relationship Specialty Start Date End Date Brenda Bethea MD [address] [place] [address] PCP - General Internal Medicine 01/21/18
--- OUTSIDE RECORDS SUMMARY | 2025-02-22 19:29 | XMS_ITS | Clinical Summary ---
Author Organization [facility] Address [address] [place] [address] Care Team Providers Care Golf Cart Maker Name Role Phone Brenda Bethea MD Primary Care Provider [phone] Allergies Active Allergy Reactions Criticality Noted Date [...] Comments Diabetes Brother Heart attack Father from [place] Diabetes Mother Lupus Mother Stroke Mother Vitiligo [...] age to complete this topic Care Teams Golf Cart Maker Relationship Specialty Start Date End Date Brenda Bethea MD PCP - General Internal Medicine 01/21/18
--- OUTSIDE RECORDS SUMMARY | 2025-02-22 19:29 | XMS_ITS | Encounter Summary ---
Author Organization [facility] Address [address] [place] [address] Care Team Providers Care Latin Teacher Name Role Phone Brenda Bethea MD Primary Care Provider [phone] Reason for Visit * Reason Onset Date Comments office notes 01/17/2025 Encounter Details Date Type Department Care Team (Late st Contact Info) Description 01/17/2025 Telephone [facility] [address] [place] [phone] Char León PA [address] [place] [address] Social History Tobacco Use Types Packs/Day Years Used Date Smoking Tobacco: Never Smokeless Tobacco: Never Alcohol Use Standard Drinks/Week Comments No 0 (1 standard drink = 0.6 oz pur e alcohol) Interpersonal Safety Answer Date Record ed Physical Abuse Unrecognized value 07/26/2024 Verbal Abuse Unrecognized value 07/26/2024 Comments Unknown Sex and Gender Information [...] documented in this encounter Progress Notes * Lucy Baumann - 01/18/2025 4:30 PM EDT 11/18/24 ov note printed and placed in [employer] for review and signture * KIRSTIE Griffith - 01/17/2025 1:00 PM EDT Please follow-up routing instructions at the end of the message. It stated to forward to the Endo pool. You do not need to forward these messages to provider If you did not routed to the Endo pool, please route it correctly, but I think it seems radiated toboth. Thanks * Tsering Paula - 01/17/2025 12:33 PM EDT Endocrine Call Primary endocrine provider: Char León PA-C Is the endocrine provider in the office toady?: yes Who is calling? [employer] . If not the patient or parent/guardian please check for authorization to share/verbal release. Why is the person calling? Other question/concern: Asking for 11/18 office notes signed and faxed [phone]. Please forward to endocrine pool (p [phone]). documented in this encounter Plan of Treatment Upcoming Encounters Date Type Department Care Team (Late st Contact Info) Description 03/27/2025 11:15 AM EST Office Visit Adult Medicine [address] [phone] Brenda Bethea MD [address] [place] [address] 10/10/2025 3:30 PM EDT Office Visit [address] [phone] Char León PA [facility] [place] [address] 11/13/2025 3:00 PM EDT Ancillary Procedure [facility] - [facility] [address] [facility] [address] [place] [address] documented as of this encounter Visit Diagnoses Not on filedocumented in this encounter Additional Health Concerns Assessment Noted Time PHQ-9 Depression Total Score: 0 06/06/19 25 3:04 PM EST A fall risk assessment has been complete d for the patient 06/06/2024 3:04 PM EST documented as of this encounter Care Teams Latin Teacher Relationship Specialty Start Date End Date Brenda Bethea MD [address] [place] [address] PCP - General Internal Medicine 01/21/18 documented as of this encounter
--- OUTSIDE RECORDS SUMMARY | 2025-02-22 19:29 | XMS_ITS ---
Author Organization [address] Address [address] [place] [address] Phone Care Team Providers Care Bariatric Physician Name Role Phone Brenda Bethea MD Primary Care Provider [phone] Active Problems Problem Noted Date Diagnosed Date [...] (diabetes mellitus), type 2 with renal complications ([facility] V24, [facility] V28) Assessment & Plan (06/06/2024 4:38 PM EST): Diabetes mellitus type 2 wit h neurological manifestations ([facility] V24, [facility] V28) Cervical radiculopathy Acute pancreatitis Type 2 diabetes mellitus wit h cataract ([facility] V24, [facility] V28) Proteinuria Pneumonia due to COVID-19 virus Sensory peripheral neuropathy Breast cancer ([facility] V24, [facility] V28) Overview (04/16/2024): rt breast Current Treatment and Therapy Plans No current plan information found. Past Treatment and Therapy Plans No past plan information found. Lifetime Dose Tracking * Chemical Lifetime Dose Automatic Entry Manual Entr y Radiation 6 mGy 0 mGy 6 mGy Fluoro Time 2.2 minutes 0 minutes 2.2 minutes Resolved Problems Problem Noted Date Diagnosed Date Resolved Date Weakness 11/07/2024 12/28/2024 Intermittent complete heart block ([facility] V24, [facility] V28) 08/12/2024 08/16/2024 Dizziness 07/25/2024 08/03/2024 Family history of malignant neoplasm of gastrointestinal tract 12/28/2024 Overview (04/16/2024): : Negative colonoscopy 03/22/2007, no colon cancer screening needed for 10 years.
--- OUTSIDE RECORDS SUMMARY | 2025-02-22 19:29 | XMS_ITS | Encounter Summary ---
Author Organization [facility] Address [address] [place] [address] Care Team Providers Care Counter [employer] Name Role Phone Brenda Bethea MD Primary Care Provider [phone] Reason for Visit * Reason Onset Date Comments Office Notes 02/15/2025 Encounter Details Date Type Department Care Team (Late st Contact Info) Description 02/15/2025 Telephone [facility] [place] [address] [place] [phone] Char León PA [address] [place] [address] Social History Tobacco Use Types Packs/Day Years [...] documented in this encounter Progress Notes * Aurea Main RN - 02/20/2025 10:06 AM EDT Notes faxed Parish Carballo - 02/15/2025 11:32 AM EDT Endocrine Call Primary endocrine provider: Char León PA-C Is the endocrine provider in the office toady?: yes Who is calling? [employer]. If not the patient or parent/guardian please check for authorization to share/verbal release. Why is the person calling? Other question/concern: [employer] requesting OVnotes from 11/18 to be signed by and faxed to them at [phone]. They are requesting future OVnotes (02/21) also signed by . Please forward to endocrine pool (p [phone]). documented in this encounter Plan of Treatment Upcoming Encounters Date Type Department Care Team (Late st Contact Info) Description 03/27/2025 11:15 AM EST Office Visit Adult Medicine [facility] - [address] [phone] Brenda Bethea MD [address] [place] [address] 10/10/2025 3:30 PM EDT Office Visit Endocrinology - [address] [phone] Char León PA [address] [place] [address] 11/13/2025 3:00 PM EDT Ancillary Procedure [facility] [address] [facility] [address] [place] [id number] documented as of this encounter Visit Diagnoses Not on filedocumented in this encounter Additional Health Concerns Assessment Noted Time PHQ-9 Depression Total Score: 0 06/06/19 25 3:04 PM EST A fall risk assessment has been complete d for the patient 06/06/2024 3:04 PM EST documented as of this encounter Care Teams Counter [employer] Relationship Specialty Start Date End Date Brenda Bethea MD [address] [place] [address] PCP - General Internal Medicine 01/21/18 documented as of this encounter
== END 2025-02-22 14:28 | disposition home or self-care (01) ==
LOC: HO.RHES 13:43
PROVIDERS: PCP Internal Medicine; Visit Provider Internal Medicine Rheumatology
DX: M32.9 Systemic lupus erythematosus, unspecified (principal); S46.912A Strain of unspecified muscle, fascia and tendon at shoulder and upper arm level, left arm, initial encounter; S46.911A Strain of unspecified muscle, fascia and tendon at shoulder and upper arm level, right arm, initial encounter; M54.2 Cervicalgia; Z79.899 Other long term (current) drug therapy; M81.0 Age-related osteoporosis without current pathological fracture
CPT/HCPCS: 99214; G2211

== ENCOUNTER 2025-02-22 13:42 | Outpatient (REF) | payer MEDICARE, SELFPAY ==
[2025-02-22 18:46] LABS: Appearance Urine Clear; Glucose Urine UA >=1000 mg/dL (Negative); PH 6.0 (5.0-9.0); Specific Gravity - Urine 1.025 (1.005-1.025); UMIC TRIGGER UACC YES
[2025-02-22 19:18] LABS: Albumin Level 4.1 g/dL (3.5-5.0); Calcium 9.4 mg/dL (8.4-10.2)
== END 2025-02-22 13:43 | disposition home or self-care (01) ==
LOC: HO.HKASLDS 13:42
PROVIDERS: PCP Internal Medicine; Visit Provider Internal Medicine Rheumatology
DX: M81.0 Age-related osteoporosis without current pathological fracture (principal); M32.9 Systemic lupus erythematosus, unspecified; S46.912A Strain of unspecified muscle, fascia and tendon at shoulder and upper arm level, left arm, initial encounter; S46.911A Strain of unspecified muscle, fascia and tendon at shoulder and upper arm level, right arm, initial encounter; M54.2 Cervicalgia; Z79.899 Other long term (current) drug therapy; X58.XXXA Exposure to other specified factors, initial encounter
CPT/HCPCS: 36415; 81001; 82040; 82306; 82310; 86160; 86225